=== PATIENT | male | born 1950 | race Caucasian/White ===

== ENCOUNTER 2020-04-01 16:11 | Outpatient (REF) | payer MEDICARE, SELFPAY ==
--- NOTE | 2020-04-01 16:17 | CT_ITS ---
EXAMINATION: CT CHEST SCREENING CLINICAL INFORMATION: Nicotine dependence COMPARISON: Previous chest CT March 2019 TECHNIQUE: Multidetector volumetric CT imaging of the chest is performed without contrast using low dose technique. Additional 2D coronal and sagittal reformatted images and axial 3D maximum intensity projection (MIP) images are generated on the CT workstation. This CT examination was performed using dose optimization techniques as appropriate, variously including the following: *Automated exposure control *Adjustment of mA and/or kV according to patient size (this includes techniques or standardized protocols for targeted exams where dose is matched to indication/reason for exam; i.e. extremities or head) *Use of iterative reconstruction technique DLP: 74 mGy-cm FINDINGS: LUNGS: The 2 mm left upper lobe nodule axial image 63 series 5 is stable. The previously identified semisolid 3 mm left upper lobe nodule is no longer seen. No new pulmonary nodule is seen. No evidence of emphysema interstitial lung disease or bronchiectasis is seen. There is no endobronchial or endotracheal lesion. MEDIASTINUM: There is minimal coronary artery calcification. The heart does not appear enlarged. The ascending thoracic aorta is slightly dilated measuring 4.2 cm. The aortic arch and descending thoracic aorta are upper normal in size measuring 3 cm. PLEURA: There is no pleural effusion. No pleural mass or thickening. AXILLA: No lymphadenopathy. UPPER ABDOMEN: There are postsurgical changes from gastric sleeve procedure. OSSEOUS STRUCTURES: There are mild degenerative changes of the spine. IMPRESSION: Stable 2 mm left upper lobe nodule. Previously identified 3 mm semisolid left upper lobe nodule is no longer seen. Minimal coronary artery calcification. Slightly dilated ascending thoracic aorta. Postoperative change from gastric sleeve procedure. ASSESSMENT: Lung-RADS category 2: Benign RECOMMENDATION: Annual low-dose chest CT follow-up recommended.
== END 2020-04-01 16:12 | disposition home or self-care (01) ==
LOC: HO.CT 16:11
PROVIDERS: PCP Nurse Practitioner Family; Visit Provider Physician Assistant Medical
DX: Z87.891 Personal history of nicotine dependence (principal)
CPT/HCPCS: 71250

== ENCOUNTER 2020-04-24 07:10 | Outpatient (REF) | payer MEDICARE, SELFPAY ==
[2020-04-24 08:47] LABS: Alanine Aminotransferase 31 U/L (0-40); Albumin Level 4.4 g/dL (3.5-5.0); Alkaline Phosphatase 49 U/L (39-117); Anion Gap 11 (12-20); Aspartate Amino Transferase 31 U/L (5-37); Bilirubin Total 0.4 mg/dL (0.0-1.0); Blood Urea Nitrogen 16 mg/dL (9-16); Calcium 8.5 mg/dL (8.4-10.2); Carbon Dioxide 31 mmol/L (22-29); Chloride 105 mmol/L (96-108); Cholesterol 150 mg/dL; Estimated Glomerular Filt Rate > 60; Glucose Random 113 mg/dL (60-115); HDL Cholesterol 51 mg/dL; LDL Cholesterol Calculated 79 mg/dl; Potassium 4.5 mmol/l (3.3-5.1); Sodium 142 mmol/L (135-145); Total Protein 6.5 g/dL (6.5-8.0); Triglycerides 104 mg/dL; Unsaturated Iron Binding 242 ug/dL
[2020-04-24 08:52] LABS: Iron 101 mcg/dL (45-160); Percent Iron Saturation 29 % (15-50); Total Iron Binding Capacity 343 mcg/dL (228-428)
[2020-04-24 09:08] LABS: Prostate Specific Antigen 2.15 ng/mL (<0.05-4.0); TSH reflex Free T4 0.84 mIU/mL (0.32-4.0)
[2020-04-24 09:27] LABS: Creatinine Urine 215.22 mg/dL; Microalbum/Creatinine Ratio Ur 8.8 ug/mg cr
== END 2020-04-24 07:11 | disposition home or self-care (01) ==
LOC: HO.LAB 07:10
PROVIDERS: Visit Provider Nurse Practitioner Family
DX: Z12.5 Encounter for screening for malignant neoplasm of prostate (principal); E11.9 Type 2 diabetes mellitus without complications
CPT/HCPCS: 80053; 80061; 82043; 83540; 84153; 84443

== ENCOUNTER 2020-11-27 14:40 | Outpatient (REF) | payer MEDICARE, SELFPAY ==
--- NOTE | ~2020-11-27 | XR_ITS ---
EXAMINATION: XR FOOT, LEFT CLINICAL INFORMATION: Superficial foreign body left foot. COMPARISON: Radiographs left foot 01/22/2013 TECHNIQUE: AP, lateral, and oblique views of the left foot. FINDINGS: There is no acute or healing fracture, dislocation, destructive process. No periostitis. Bony mineralization is normal. There are posterior and plantar calcaneal spurs. The retrocalcaneal recess is preserved. The subtalar joint is unremarkable. Small cyst again noted medial base first distal phalanx. There is no visible radiopaque soft tissue foreign body. No gas tracking in the soft tissues. XR/XR foot LT min 3V IMPRESSION: 1. No fracture or destructive process. 2. Posterior and plantar calcaneal spurs. 3. No visible radiopaque soft tissue foreign body.
== END 2020-11-27 14:41 | disposition home or self-care (01) ==
LOC: HO.HMGCX 14:40
PROVIDERS: PCP Nurse Practitioner Family; Visit Provider Nurse Practitioner Family
DX: S90.852A Superficial foreign body, left foot, initial encounter (principal)
CPT/HCPCS: 73630

== ENCOUNTER 2021-01-30 06:06 | Outpatient (REF) | payer MEDICARE, SELFPAY ==
[2021-01-30 07:28] LABS: MANUAL DIFF FLAG NO
[2021-01-30 07:32] LABS: Glucose Urine UA NEG (NEG); Leukocyte Esterase Urine NEG (NEG); Nitrite Urine NEG (NEG); Urine Blood NEG (NEG); Urine Ketones NEG (NEG); Urine Protein NEG (NEG-TRACE)
[2021-01-30 07:33] LABS: Basophils Absolute Auto 0.1 X10*3/uL (0.0-0.2); Basophils Percent Auto 0.8 % (0-2); Eosinophils Absolute Auto 0.3 X10*3/uL (0.0-0.4); Eosinophils Percent Auto 5.1 % (0-4); Hematocrit 42.4 % (42-52); Hemoglobin 14.1 g/dl (14.0-18.0); Imm Gran Abs Auto 0.03 X10*3/uL (0.00-0.03); Imm Gran Pct Auto 0.5 % (0.0-0.4); Lymphocytes Absolute Auto 1.7 X10*3/uL (1.2-4.9); Lymphocytes Percent Auto 27.1 % (20-40); Mean Corpuscular HGB Conc 33.3 g/dl (31.0-36.0); Mean Corpuscular Volume 96.4 fL (80-98); Mean Platelet Volume 10.2 fL (9.4-12.4); Monocytes Absolute Auto 0.7 X10*3/uL (0.1-1.2); Monocytes Percent Auto 10.7 % (2-11); Neutrophils Absolute Auto 3.6 X10*3/uL (2.0-8.3); Neutrophils Percent Auto 55.8 % (45-73); Platelet Count 253 X10*3/uL (160-400); Red Cell Distribution Width 11.9 % (11.0-16.0); White Blood Count 6.4 X10*3/uL (4.8-10.8)
[2021-01-30 07:34] LABS: Appearance Urine CLEAR; Color Urine YELLOW
[2021-01-30 07:43] LABS: Estimated Average Glucose 128 mg/dL; Hemoglobin A1c % 6.1 %
[2021-01-30 07:54] LABS: Alanine Aminotransferase 36 U/L (0-40); Albumin Level 4.6 g/dL (3.5-5.0); Alkaline Phosphatase 56 U/L (39-117); Anion Gap 12 (12-20); Aspartate Amino Transferase 28 U/L (5-37); Bilirubin Total 0.7 mg/dL (0.0-1.0); Blood Urea Nitrogen 15 mg/dL (9-16); Calcium 9.5 mg/dL (8.4-10.2); Carbon Dioxide 31 mmol/L (22-29); Chloride 104 mmol/L (96-108); Cholesterol 170 mg/dL; Estimated Glomerular Filt Rate > 60; Glucose Fasting 120 mg/dL (60-99); HDL Cholesterol 55 mg/dL; Iron 139 mcg/dL (45-160); LDL Cholesterol Calculated 87 mg/dl; Percent Iron Saturation 41 % (15-50); Potassium 4.7 mmol/L (3.3-5.1); Sodium 142 mmol/L (135-145); Total Iron Binding Capacity 341 mcg/dL (228-428); Total Protein 6.9 g/dL (6.5-8.0); Triglycerides 140 mg/dL; Unsaturated Iron Binding 202 ug/dL
[2021-01-30 08:15] LABS: TSH reflex Free T4 1.76 uIU/mL (0.32-4.0)
[2021-01-30 08:17] LABS: Ferritin 113 ng/mL (20-250)
[2021-01-31 14:50] LABS: Folate 14.1 ng/mL (> or = 4.0); Vitamin B12 961 pg/mL (200-900)
== END 2021-01-30 06:07 | disposition home or self-care (01) ==
LOC: HO.LAB 06:06
PROVIDERS: PCP Nurse Practitioner Family; Visit Provider Nurse Practitioner Family
DX: E11.9 Type 2 diabetes mellitus without complications (principal); R53.83 Other fatigue
CPT/HCPCS: 36415; 80053; 80061; 81003; 82607; 82728; 82746; 83036; 83540; 84443; 85025

== ENCOUNTER → 2021-03-02 12:30 | Outpatient (BNVA) | payer MEDICARE, SELFPAY | PROVIDERS: PCP Nurse Practitioner Family; Referring Provider Nurse Practitioner Family; Visit Provider Surgery | DX: Z01.818 Encounter for other preprocedural examination (principal); K43.2 Incisional hernia without obstruction or gangrene; Z98.84 Bariatric surgery status | CPT/HCPCS: 99202 ==

== ENCOUNTER 2021-03-06 | Outpatient (REF) | payer MEDICARE, SELFPAY ==
--- NOTE | 2021-03-06 07:06 | ECG_ITS ---
Test Reason : sob Blood Pressure : / mmHG Vent. Rate : 074 BPM Atrial Rate : 074 BPM P-R Int : 130 ms QRS Dur : 108 ms QT Int : 396 ms P-R-T Axes : 035 012 -57 degrees QTc Int : 439 ms Normal sinus rhythm ST & T wave abnormality, consider inferior ischemia Abnormal ECG No previous ECGs available Referred By: Pamela Anne Electronically Signed By:MAGO JOHNSON
[2021-03-06 07:35] LABS: MANUAL DIFF FLAG NO
[2021-03-06 07:41] LABS: Basophils Absolute Auto 0.1 X10*3/uL (0.0-0.2); Basophils Percent Auto 0.9 % (0-2); Eosinophils Absolute Auto 0.3 X10*3/uL (0.0-0.4); Eosinophils Percent Auto 4.3 % (0-4); Hematocrit 40.3 % (42-52); Hemoglobin 13.7 g/dl (14.0-18.0); Imm Gran Abs Auto 0.02 X10*3/uL (0.00-0.03); Imm Gran Pct Auto 0.3 % (0.0-0.4); Lymphocytes Absolute Auto 1.7 X10*3/uL (1.2-4.9); Lymphocytes Percent Auto 29.1 % (20-40); Mean Corpuscular Hemoglobin 32.6 pg (27.0-33.0); Mean Platelet Volume 9.9 fL (9.4-12.4); Monocytes Absolute Auto 0.6 X10*3/uL (0.1-1.2); Monocytes Percent Auto 10.7 % (2-11); Neutrophils Absolute Auto 3.2 X10*3/uL (2.0-8.3); Neutrophils Percent Auto 54.7 % (45-73); Platelet Count 232 X10*3/uL (160-400); Red Cell Distribution Width 11.9 % (11.0-16.0); White Blood Count 5.8 X10*3/uL (4.8-10.8)
[2021-03-06 07:48] LABS: INTERNATIONAL NORM RATIO 0.9 (0.9-1.1); Prothrombin Time 10.7 SEC (9.9-13.0)
[2021-03-06 07:51] LABS: Partial Thromboplastin Time 38.8 SEC (24.1-38.0)
[2021-03-06 07:57] LABS: Anion Gap 11 (12-20); Blood Urea Nitrogen 13 mg/dL (9-16); Calcium 9.1 mg/dL (8.4-10.2); Carbon Dioxide 29 mmol/L (22-29); Chloride 104 mmol/L (96-108); Estimated Glomerular Filt Rate > 60; Glucose Random 111 mg/dL (60-115); Potassium 4.4 mmol/L (3.3-5.1); Sodium 140 mmol/L (135-145)
[2021-03-06 08:25] LABS: Vitamin D 25-OH Total 40.8 ng/mL (>30)
[2021-03-06 09:10] LABS: Appearance Urine CLEAR; Color Urine YELLOW; Glucose Urine UA NEG (NEG); Leukocyte Esterase Urine NEG (NEG); Nitrite Urine NEG (NEG); Specific Gravity - Urine 1.025 (1.005-1.025); Urine Blood NEG (NEG); Urine Ketones NEG (NEG); Urine Protein NEG (NEG-TRACE)
[2021-03-10 16:10] LABS: Zinc 63 mcg/dL (60-130)
[2021-03-12 11:26] LABS: Vitamin B1 17 nmol/L (8-30)
[2021-03-13 00:11] LABS: Vitamin A 57 mcg/dL (38-98)
--- NOTE | 2021-03-13 14:20 | HO.ANESPROP2 ---
HPI - Anesthesia Eval Consult details Narrative: 70yo M for Hernia Repair Incisional laparoscopic with mesh possible open Abnormal EKG... Pt sent for ECHO and Stress. Lexiscan stress and nuc images abnormal. 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 Surgery cx'd. Urinary retention - new onset - with joseph catheter placed 03/08. Urology appt on 03/17 for trial to void PMFSH Active Problems Active Problems: All Active Problems (Updated 03/09/21 @ 09:18 by [employer] [facility]) Urinary retention (Acute) Shortness of breath (Acute) Intestinal malabsorption following gastrectomy (Acute) Preoperative examination (Acute) Incisional hernia (Acute) Fatigue (Acute) Diabetes (Acute) Encounter for annual wellness visit (AWV) in Medicare patient (Acute) Foreign body in foot, left (Acute) Past Medical History Medical History (Updated 03/18/21 @ 08:58 by [employer] [facility]) Acute urinary retention BPH (benign prostatic hyperplasia) Chronic fatigue COPD (chronic obstructive pulmonary disease) Diabetes History of DVT (deep vein thrombosis) HTN (hypertension) Minimal depression Neck pain Obesity JENNY (obstructive sleep apnea) Osteoarthritis Uncontrolled hypertension Family History Family History Father No problems noted. Mother No problems noted. Brother No problems noted. Son No problems noted. Daughter No problems noted. Sister No problems noted. Sister No problems noted. Sister No problems noted. Family history of problems with anesthesia: No Surgical History Surgical History History of resection of small bowel History of sleeve gastrectomy History of tonsillectomy History of vasectomy History of ventral hernia repair Hx of colonoscopy Hx of right knee surgery S/P excision of lipoma History of Problems with Anesthesia: Yes ([facility] to [facility]) Social History Social History Household Members: None Are you a primary day care teacher to a significant other at home: No Do you presently have visiting nurse or other home services: No Alcohol intake: never Patient Tobacco Use Status: Former Tobacco user Quit Date: 2009 Use of substances other than those prescribed or required for medical reasons: No Advance Directives: No Advance Directives Information Provided: No Narrative Narrative: No recent ill No CP. SOB/VERGARA at baseline d/t COPD. Meds Allergies Allergy/AdvReac Type Severity Reaction Status Date / Time latex [LATEX] Allergy Intermediate RASH Verified 03/18/21 05:46 lisinopril AdvReac Nausea and Verified 03/18/21 05:46 Vomiting Home Medications Medication Instructions Recorded Confirmed Last Taken Type ascorbic acid (vitamin C) 500 mg 1,000 mg PO DAILY cap 03/02/21 03/17/21 Unknown History capsule aspirin 81 mg tablet,delayed 81 mg PO DAILY 03/02/21 03/17/21 Unknown History release cholecalciferol (vitamin D3) 125 4,000 unit PO DAILY cap 03/02/21 03/17/21 Unknown History mcg (5,000 unit) capsule cyanocobalamin (vitamin B-12) 1,000 mcg PO DAILY cap 03/02/21 03/17/21 Unknown History 5,000 mcg capsule ferrous sulfate 325 mg (65 mg 325 mg PO DAILY 03/02/21 03/17/21 Unknown History iron) tablet glucosamine HCl 500 mg tablet 1,000 mg PO DAILY tab 03/02/21 03/17/21 Unknown History naproxen sodium 220 mg capsule 440 mg PO DAILY cap 03/02/21 03/17/21 Unknown History vitamin B complex (Complex B-100) 1 tab PO DAILY 03/02/21 03/17/21 Unknown History tamsulosin 0.4 mg capsule 0.4 mg PO DAILY 03/17/21 03/17/21 Unknown History Exam Exam Date and Time: March 13, 2021 1420 Pertinent Lab Results Pertinent Lab Results: Laboratory Tests 03/06/21 03/06/21 03/06/21 07:10 07:10 07:10 WBC 5.8 RBC 4.20 L Hgb 13.7 L Hct 40.3 L MCV 96.0 MCH 32.6 MCHC 34.0 RDW 11.9 Plt Count 232 MPV 9.9 Immature Gran % (Auto) 0.3 Neut % (Auto) 54.7 Lymph % (Auto) 29.1 Rice % (Auto) 10.7 Eos % (Auto) 4.3 H Baso % (Auto) 0.9 Lymph # (Auto) 1.7 Rice # (Auto) 0.6 Eos # (Auto) 0.3 Baso # (Auto) 0.1 Abs Immat Gran (auto) 0.02 Absolute Neuts (auto) 3.2 Absolute Nucleated RBC 0.000 Nucleated RBC % (auto) 0.0 PT 10.7 INR 0.9 APTT 38.8 H Sodium 140 Potassium 4.4 Chloride 104 Carbon Dioxide 29 Anion Gap 11 L BUN 13 Creatinine 0.75 Estim Creat Clear Calc TNP Estimated GFR > 60 Random Glucose 111 Calcium 9.1 Vitamin A Vitamin B1 25-OH Vitamin D Total 40.8 Urine Color Urine Appearance Urine pH Ur Specific [place] Urine Protein Urine Glucose (UA) Urine Ketones Urine Blood Urine Nitrite Ur Leukocyte Esterase Zinc Blood Type Antibody Screen 03/06/21 03/06/21 03/06/21 07:10 07:10 07:13 WBC RBC Hgb Hct MCV MCH MCHC RDW Plt Count MPV Immature Gran % (Auto) Neut % (Auto) Lymph % (Auto) Rice % (Auto) Eos % (Auto) Baso % (Auto) Lymph # (Auto) Rice # (Auto) Eos # (Auto) Baso # (Auto) Abs Immat Gran (auto) Absolute Neuts (auto) Absolute Nucleated RBC Nucleated RBC % (auto) PT INR APTT Sodium Potassium Chloride Carbon Dioxide Anion Gap BUN Creatinine Estim Creat Clear Calc Estimated GFR Random Glucose Calcium Vitamin A 57 Vitamin B1 17 25-OH Vitamin D Total Urine Color Urine Appearance Urine pH Ur Specific [place] Urine Protein Urine Glucose (UA) Urine Ketones Urine Blood Urine Nitrite Ur Leukocyte Esterase Zinc 63 Blood Type O Positive Antibody Screen NEGATIVE 03/06/21 08:59 WBC RBC Hgb Hct MCV MCH MCHC RDW Plt Count MPV Immature Gran % (Auto) Neut % (Auto) Lymph % (Auto) Rice % (Auto) Eos % (Auto) Baso % (Auto) Lymph # (Auto) Rice # (Auto) Eos # (Auto) Baso # (Auto) Abs Immat Gran (auto) Absolute Neuts (auto) Absolute Nucleated RBC Nucleated RBC % (auto) PT INR APTT Sodium Potassium Chloride Carbon Dioxide Anion Gap BUN Creatinine Estim Creat Clear Calc Estimated GFR Random Glucose Calcium Vitamin A Vitamin B1 25-OH Vitamin D Total Urine Color YELLOW Urine Appearance CLEAR Urine pH 6.0 Ur Specific [place] 1.025 Urine Protein NEG Urine Glucose (UA) NEG Urine Ketones NEG Urine Blood NEG Urine Nitrite NEG Ur Leukocyte Esterase NEG Zinc Blood Type Antibody Screen Laboratory Tests 01/30/21 06:15 Hemoglobin A1c % 6.1 Narrative Narrative: EKG 02/2021 Vent. Rate : 074 BPM ? ? Atrial Rate : 074 BPM ?? P-R Int : 130 ms? QRS Dur : 108 ms ? ? QT Int : 396 ms ? ? ? P-R-T Axes : 035 012 -57 degrees ?? QTc Int : 439 ms ? Normal sinus rhythm ST & T wave abnormality, consider inferior ischemia Abnormal ECG No previous ECGs available Assessment and Plan Final Anesthetic Review Family History of Problems with Anesthesia: No History of Problems with Anesthesia: Yes ([facility] to [facility])
[2021-03-13 14:41] VITALS: BP 169/91; PULSE 95; RESP 16; O2SAT 97; BMI 35.9
== END 2021-03-06 00:01 | disposition home or self-care (01) ==
LOC: HO.LAB
PROVIDERS: Absent Provider Surgery; PCP Nurse Practitioner Family; Visit Provider Surgery
DX: Z53.09 Procedure and treatment not carried out because of other contraindication (principal); K43.2 Incisional hernia without obstruction or gangrene; R33.9 Retention of urine, unspecified; N40.1 Benign prostatic hyperplasia with lower urinary tract symptoms; N13.8 Other obstructive and reflux uropathy; R06.02 Shortness of breath; K91.2 Postsurgical malabsorption, not elsewhere classified; R53.83 Other fatigue; E11.9 Type 2 diabetes mellitus without complications; I10 Essential (primary) hypertension; T88.59XA Other complications of anesthesia, initial encounter; R94.31 Abnormal electrocardiogram [ECG] [EKG]; Z87.891 Personal history of nicotine dependence; Z90.3 Acquired absence of stomach [part of]; Z88.8 Allergy status to other drugs, medicaments and biological substances; Z91.040 Latex allergy status; Z79.899 Other long term (current) drug therapy
CPT/HCPCS: 36415; 80048; 81003; 82306; 84425; 84590; 84630; 85025; 85610; 85730; 86850; 86900; 86901; 93005

== ENCOUNTER → 2021-03-16 07:15 | Outpatient (REF) | payer MEDICARE, SELFPAY ==
--- NOTE | 2021-03-16 07:22 | CA_ITS ---
Transthoracic Echocardiogram Patient (Last, First, Middle): Zaki Ramirez S Gender: Male Date of : 1950 Age: 70 Procedure Date: 03/16/2021 Procedure Type: Transthoracic Echocardiogram Location: OP Height: 177.8 cm Weight: 111.13 kg BSA: 2.28 m2 Heart Rate: bpm BP: 150 / 90 mmHg Claim Review Medical Director: CELINE Referring MD: Pamela Anne MD Symptoms: R94.31 - Abnormal electrocardiogram [ECG] [EKG] Study Quality: Technically Difficult/Contrast ECG Rhythm: Sinus Conclusions: - The left ventricular systolic function is low normal. The calculated ejection fraction is 54% by biplane method. - No obvious valvular pathology seen on this study. Findings Procedure Information Contrast agent, definity, is being given per protocol without apparent complications. Left Ventricle Normal left ventricular cavity size. There is mildly increased left ventricular wall thickness. The left ventricular systolic function is low normal. The calculated ejection fraction is 54% by biplane method. There is no evidence of regional wall motion abnormalities. Diastolic function is normal for age. Right Ventricle Normal right ventricular cavity size and systolic function. Atria Both atria are normal in size. Aortic Valve The aortic valve was not well visualized. There is mild calcification of the aortic valve. There is no aortic valve stenosis. There is trace (trivial) aortic valve regurgitation. Mitral Valve The mitral valve appears normal. There is no mitral valve regurgitation. There is no mitral valve stenosis. Pulmonic Valve The pulmonic valve was not well visualized. Tricuspid Valve Likely normal tricuspid valve structure and function. There is no tricuspid valve regurgitation. Tricuspid regurgitation envelope is inadequate for calculation of right ventricular systolic pressure. Great Vessels Top normal ascending aortic size at 3.9cm. Venous The inferior vena cava is normal in size and collapses greater than 50% with inspiration. Pericardium/Pleural There is no evidence of pericardial effusion. Prior Study Comparison No prior study available for comparison. Recommendations, Care & Conclusions No obvious valvular pathology seen on this study. Measurements 2D Linear Measurements IVSd: 1.14 0.6-0.9/0.6-1.0 cm LVIDd: 5.33 3.9-5.3/4.2-5.9 cm LVIDd Index: 2.34 2.4-3.2/2.2-3.1 cm/m2 LVIDs: 4.31 2.0-3.6 cm LVPWd: 1.10 0.7-1.1 cm Ao Root: 3.80 2.1-3.5 cm LA Diam: 3.50 2.7-3.8/3.0-4.0 cm LAIDs Index: 1.54 1.5-2.3 cm/m2 LV Mass: 293.67 67-162/88-224 g LV Mass Index: 128.80 43-95/49-115 g/m2 LVOT Diam: 2.20 3.0+(-)1.3 cm 2D Systolic Function EF 4C: 55.60 >55% EF 2C: 50.40 >55% EF BiP: 54.10 >55% Mitral Valve MV Pk E: 0.69 MV PK A: 0.72 MV Decel Time: 202.00 E/A: 1.00 E'Lateral: 11.30 E'Medial: 8.05 E/E' Med: 8.50 E/E' Lat: 6.10 PHT: 59.00 MVA PHT: 3.73 Decel Tom[place]kins: 3.40 Aortic Valve AoV Pk Dagoberto: 1.33 AoV Mn Dagoberto: 0.86 AoV VTI: 0.27 AoV Pk Grad: 7.00 Aov Mn Grad: 3.00 MARAL Cont.VTI: 2.75 LVOT LVOT Pk Dagoberto: 0.87 LVOT Mn Dagoberto: 0.56 LVOT VTI: 0.20 LVOT Pk Grad: 3.00 LVOT Mn Grad: 1.00 LVOT Diam: 2.20 LVOT Area: 3.80 Diastolic Function MV Pk E: 0.69 MV Pk A: 0.72 E/A: 1.00 E'Medial: 8.05 E/E' Med: 8.50 E' Laterial: 11.30 E/E' Lat: 6.10 Right Ventricle TAPSE (mm): 3.00 TVS' Dagoberto: 15.00 Tricuspid Valve RA Press: 3.00 Great Vessels Aorta Ao Root-2D: 3.80 2.0-3.7 cm Ao Asc: 3.90 2.1-3.4 cm Ao Arch: 2.90 Updated in Other Vendor System with Status of Final Chadd Koroma MD electronically signed on 03/16/2021 11:08:14 AM with status of Final
--- NOTE | 2021-03-16 07:22 | CA_ITS ---
Acquisition Time: 2021-03-16 08:26:11 Total Exercise Time: 00:04:00 Test Indications: Pre-Op Evaluation Medications: SEE CHART Protocol: PATITO Max HR: 137 BPM 90% of Pred: 152 BPM Max BP: 230/080 mmHG Max Work Load: 5.8 METS Exercise stress test with exercise 4 min of Patito protocol, achieving 90% MPHR, with pt report of severe sob, 2/10 mid chest pressure, with occassional isolated PVCs during exercise, then frequent PVC, cuplets, one ventricular triplet and bigeminy during recovery, with BP 166/78 at baseline and rise to 230/80 at peak exercise. with EKG changes meeting criteria for ischemia with 1.5 mm horizontal to downsloping ST depression inferiorly and V4-V6 with [address] elevation aVR. His EKG at baseline dose have downsloping ST in leads III, aVF, V4-V6 which is similar to prior stress EKG. Test reviewed with Dr Koroma. Will send message to Dr Benitez. Recommend pharmacological stress test for further evaluation Referred By: Pamela Benitez Overread By: DAVID FLETCHER
== END ==
LOC: HO.CARD 07:15
PROVIDERS: PCP Nurse Practitioner Family; Visit Provider Surgery
DX: Z01.818 Encounter for other preprocedural examination (principal); R06.02 Shortness of breath; I10 Essential (primary) hypertension; R94.31 Abnormal electrocardiogram [ECG] [EKG]
CPT/HCPCS: 93017; 93306; Q9957

== ENCOUNTER → 2021-03-17 07:25 | Outpatient (REF) | payer MEDICARE, SELFPAY ==
--- NOTE | ~2021-03-17 | NM_ITS ---
Myocardial perfusion study Indication: Abnormal stress test, preoperative cardiovascular risk patient to evaluate for myocardial ischemia Technique: The patient was brought in for a Lexiscan perfusion study on 03/17/2021. Patient performed low-level exercise and was injected 0.4 mg of Lexiscan intravenously. Within a minute of injection, 45 mCi of sestamibi was given intravenously. Images were obtained using the SPECT gamma camera interlaced with the gating device. Images were obtained in supine position. Resting perfusion study was performed on 03/18/2021. Patient was administered 45 mCi of sestamibi intravenously at rest. Images were then obtained in supine position. Images obtained with and without CT attenuation. Total DLP 124 mGy-cm. Images were processed with the software and compared side to side in short axis, horizontal long axis and vertical long axis views. Findings: The stress perfusion study showed nonattenuated images show severely reduced uptake in the inferior and moderately reduced uptake in the apex of the LV myocardium. Is also moderately reduced uptake in the basal inferolateral attenuated corrected images are suboptimal images shows diffusely reduced uptake in multiple segments of the LV myocardium. This finding is most likely due to intense subdiaphragmatic uptake interfering with inferior wall uptake.. The gated study shows normal LV systolic function with calculated LVEF of 36%. LV cavity is moderately dilated size. The gated study shows diffusely reduced wall thickening and contraction with more prominent hypokinesis of the inferior segments. Resting study shows nontender images show minimally improved uptake in the inferior wall of the LV myocardium. Gating at rest reveals diffuse wall motion with ejection fraction at 40%. The findings are consistent with possible severe ischemia of the inferior wall. There was less likely, an. NM/NM cardiolite stress test Impression: 1. Myocardial perfusion imaging study shows [possible severe inferior wall ischemia 2. Gated LVEF is 36% with stress and 40% with rest 3. Transient ischemic dilatation present EKG is nondiagnostic for ischemia
--- NOTE | 2021-03-17 07:32 | CA_ITS ---
Acquisition Time: 2021-03-17 07:34:44 Total Exercise Time: 00:02:00 Test Indications: Abnormal Treadmill Test Medications: LOSARTAN FUROSEMIDE GABAPENTIN ASA Protocol: LEXISCAN Max HR: 118 BPM 77% of Pred: 152 BPM Max BP: 172/090 mmHG Max Work Load: 1.0 METS Pharmacological stress test with Lexiscan injection, while sitting and kicking his legs, with report of 3-4/10 left chest tightness, mild sob, with isolated PVCs and ventricular cuplets, with normotensive response to injection, with nondiagnostic EKG for ischemia due to baseline abnormality. In recovery he reported headache that was treated with Aminophylline 75mg IVP to reverse Lexiscan with improvement in symptom. Nuclear images pending. Test reviewed with Dr Koroma. Referred By: Pamela Anne Overread By: DAVID FELTCHER
== END ==
LOC: HO.CARD 07:25
PROVIDERS: Visit Provider Surgery
DX: Z01.818 Encounter for other preprocedural examination (principal); R06.02 Shortness of breath; I10 Essential (primary) hypertension; R94.39 Abnormal result of other cardiovascular function study
CPT/HCPCS: 78452; 93017; A9500; J0280; J2785

== ENCOUNTER 2021-03-18 05:33 | Emergency (ER) | payer MEDICARE, SELFPAY ==
[2021-03-18 05:47] VITALS: BP 188/93; PULSE 117; RESP 16; TEMP 37.1; O2SAT 96; BMI 34.8
--- NOTE | 2021-03-18 06:33 | PC.NURSE ---
pt has been up ambulating to the bathroom and has voided a very small amount approx 10cc. yellow. pt was bladder scan after for 920cc. pt has a nuc med appointment today at 0745 for the other half of his stress test that was done yesterday.
[2021-03-18 07:03] LABS: Appearance Urine CLEAR; Color Urine YELLOW; Glucose Urine UA NEG (NEG); Leukocyte Esterase Urine NEG (NEG); Nitrite Urine NEG (NEG); PH 5.5 (5.0-8.0); UACC Culture Trigger NO; Urine Blood 3+ (NEG); Urine Ketones NEG (NEG); Urine Protein TRACE MG/DL (NEG-TRACE)
[2021-03-18 07:11] LABS: Mucus Urine 1+ /LPF; RBC Urine 50-75 /HPF (0); Squamous Epithelial Cell Urine TRACE /LPF; WBC Urine 0-2 /HPF (0-4)
--- NOTE | 2021-03-18 07:21 | ED.MALEGU ---
HPI - Male Genitourinary General Chief complaint: Urogenital-Male Stated complaint: pain from catheter removal Time Seen by Provider: 03/18/21 06:33 Source: patient Mode of arrival: ambulatory Limitations: no limitations History of Present Illness HPI Narrative: 70-year-old male who presents emergency department for evaluation of urinary retention. The patient states that on 03/08/2021 had urinary retention and had a Garcia catheter placed. He states that time he retained 1200 cc of urine, the catheter was in until yesterday and was removed by his urologist at [facility]. He states that he did fine initially but then notice that he was urinating small amounts frequently. He states this morning he was unable to urinate developed moderate to severe, constant, pressure-like pain in his suprapubic area. He did not have fever, chills or dysuria. He denied lightheadedness dizziness or back pain. On presentation to the emergency department the patient had a bladder scan had 920 cc of urine in his bladder, he was unable to void therefore Garcia catheter was placed by the nursing staff. The patient's pain resolved after the catheter was placed. Patient states that there was some blood that initially came out of the catheter but then the area has been yellow and clear. The patient is scheduled for a incisional hernia repair but he states that he had an abnormal EKG knees undergoing testing by Cardiology in order to get cleared for surgery. 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 Related Data Home Medications Medication Instructions Recorded Confirmed ascorbic acid (vitamin C) 500 mg 1,000 mg PO DAILY cap 03/02/21 03/17/21 capsule aspirin 81 mg tablet,delayed 81 mg PO DAILY 03/02/21 03/17/21 release cholecalciferol (vitamin D3) 125 4,000 unit PO DAILY cap 03/02/21 03/17/21 mcg (5,000 unit) capsule cyanocobalamin (vitamin B-12) 1,000 mcg PO DAILY cap 03/02/21 03/17/21 5,000 mcg capsule ferrous sulfate 325 mg (65 mg 325 mg PO DAILY 03/02/21 03/17/21 iron) tablet glucosamine HCl 500 mg tablet 1,000 mg PO DAILY tab 03/02/21 03/17/21 naproxen sodium 220 mg capsule 440 mg PO DAILY cap 03/02/21 03/17/21 vitamin B complex (Complex B-100) 1 tab PO DAILY 03/02/21 03/17/21 tamsulosin 0.4 mg capsule 0.4 mg PO DAILY 03/17/21 03/17/21 Previous Rx's Medication Instructions Recorded gabapentin 300 mg capsule 900 mg PO BEDTIME #270 cap 05/21/20 losartan 100 mg tablet 100 mg PO DAILY #90 tab 06/04/20 furosemide 40 mg tablet 40 mg PO DAILY #90 tab 11/24/20 amlodipine 5 mg tablet 5 mg PO DAILY #30 tab 03/17/21 Allergies Allergy/AdvReac Type Severity Reaction Status Date / Time latex [LATEX] Allergy Intermediate RASH Verified 03/18/21 05:46 lisinopril AdvReac Nausea and Verified 03/18/21 05:46 Vomiting Review of Systems Review of Systems: Yes all other systems are reviewed and are negative PMF Past Medical History Medical History Acute urinary retention Chronic fatigue COPD (chronic obstructive pulmonary disease) Diabetes History of DVT (deep vein thrombosis) HTN (hypertension) Minimal depression Neck pain Obesity JENNY (obstructive sleep apnea) Osteoarthritis Uncontrolled hypertension Surgical History History of resection of small bowel History of sleeve gastrectomy History of tonsillectomy History of vasectomy History of ventral hernia repair Hx of colonoscopy Hx of right knee surgery S/P excision of lipoma Family History Family History Father No problems noted. Mother No problems noted. Brother No problems noted. Son No problems noted. Daughter No problems noted. Sister No problems noted. Sister No problems noted. Sister No problems noted. Social History Social History Household Members: None Are you a primary family day care worker to a significant other at home: No Do you presently have visiting nurse or other home services: No Alcohol intake: current Alcohol intake frequency: holidays/special occasions only Patient Tobacco Use Status: Former Tobacco user Quit Date: 2009 Advance Directives: No Advance Directives Information Provided: No Physical Exam Vital Signs: Vital Signs: Last Vital Signs Temp 98.7 F 03/18/21 05:47 Pulse 117 H 03/18/21 05:47 Resp 16 03/18/21 05:47 BP 188/93 H 03/18/21 05:47 Pulse Ox 96 03/18/21 05:47 Body Mass Index 34.8 Const: General: cooperative and no acute distress Orientation/consciousness: oriented to person and oriented to place Limitations: no limitations HENMT: Head: Yes normal to inspection, Yes normocephalic and Yes atraumatic Ears: external ears normal General nose exam: Normal external nose present Face and sinus: Yes normal facial exam Mouth: Normal oral and palatal mucosa present Throat: Yes posterior oropharynx normal Eyes: General: appearance normal, both eyes and all related structures Pupils: Equal, round and reactive pupils present Neck: Neck: Yes normal visual inspection, Yes no lymphadenopathy, Yes trachea midline and Yes supple Chest: Chest palpation & inspection: normal inspection of the chest and normal palpation of entire chest wall Resp: Effort & Inspection: normal respiratory effort and able to speak in complete sentences Auscultation: clear to auscultation bilaterally Cardio: Rate: regular rate Rhythm: regular rhythm Heart sounds: S1 normal heart sound present, S2 normal heart sound present and no murmurs GI: Inspection: Yes normal to inspection Palpation (GI): Soft to palpation, Tenderness to palpation present (GI) (Midline incision,, mild tenderness) and no guarding Auscultation: normal bowel sounds : General: Yes no CVA tenderness Back/Spine/Pelvis: Back: no CVA tenderness Skin: General skin exam: no rashes or lesions noted Neuro: General: oriented to person and oriented to place Cranial nerves: Yes CN's II-XII intact bilaterally and Yes Equal, round and reactive pupils present Cognition (Neuro): normal cognition Motor exam (neuro): 5/5 motor strength present throughout Extrem: General: Yes normal to inspection Psych: Appearance: grossly normal Speech and movement: Normal speech and movement present Affect: normal affect Attitude: cooperative Thought process: Normal thought process present Thought content: Normal thought content present Course Course Course Narrative: 70-year-old male who presents emergency department for evaluation of urinary retention. Bladder scan did reveal 920 cc of urine in his bladder, Garcia catheter was placed by the nursing staff and the patient put out approximately 1 L of urine, initially there is blood in the urine but this cleared and the urine appears to be yellow and clear. Urinalysis did reveal blood but otherwise was unremarkable, there is no evidence for infection. Patient was initially hypertensive but I believe this was secondary to his pain. The patient was discharged home with a leg bag and a large Garcia bag. Patient was advised to contact his urologist to have the catheter removed in 4-7 days. The patient is scheduled for possible hernia repair which I told him he needs to discuss the surgery with his surgeon but I do not think that a Garcia catheter preclude him from getting the surgery. MDM - Male Genitourinary Lab Data Labs: Lab Results 03/18/21 Range/Units 06:54 Urine Color YELLOW Urine Appearance CLEAR Urine pH 5.5 (5.0-8.0) Ur Specific [place] 1.020 (1.005-1.025) Urine Protein TRACE (NEG-TRACE) MG/DL Urine Glucose (UA) NEG (NEG) MG/DL Urine Ketones NEG (NEG) MG/DL Urine Blood 3+ H (NEG) Urine Nitrite NEG (NEG) Ur Leukocyte Esterase NEG (NEG) Urine RBC 50-75 H (0) /HPF Urine WBC 0-2 (0-4) /HPF Ur Squamous Epith Cells TRACE /LPF Urine Bacteria NONE /LPF Urine Mucus 1+ /LPF Discharge Plan Discharge Clinical Impression: Acute urinary retention Patient Disposition: Home, Self-Care Instructions: Garcia Catheter Placement and Care (ED) Additional Instructions: Your bladder scan revealed 920 mL of urine in your bladder. You drained at least 900 mL of urine out of your bladder through the Garcia catheter. You need to keep the Garcia catheter in place for at least 4-7 days, you should follow-up with your urologist to have this removed and discuss further treatment. Your urinalysis did not reveal any evidence of infection, you did have some microscopic blood in your urine but this is not unusual when you have urinary retention. Follow-up with your doctor in 2 days. Please return to the emergency department if your symptoms get worse or if you develop any symptoms that are concerning to you. Prescriptions: No Action gabapentin 300 mg capsule 900 mg PO BEDTIME Qty: 270 RF: 3 losartan 100 mg tablet 100 mg PO DAILY Qty: 90 RF: 3 furosemide 40 mg tablet 40 mg PO DAILY Qty: 90 RF: 1 ascorbic acid (vitamin C) 500 mg capsule 1,000 mg PO DAILY RF: 0 ferrous sulfate 325 mg (65 mg iron) tablet 325 mg PO DAILY RF: 0 cholecalciferol (vitamin D3) 125 mcg (5,000 unit) capsule 4,000 unit PO DAILY RF: 0 cyanocobalamin (vitamin B-12) 5,000 mcg capsule 1,000 mcg PO DAILY RF: 0 glucosamine HCl 500 mg tablet 1,000 mg PO DAILY RF: 0 Complex B-100 Tablet Extended Release 1 tab PO DAILY RF: 0 aspirin 81 mg tablet,delayed release (DR/EC) 81 mg PO DAILY RF: 0 naproxen sodium 220 mg capsule 440 mg PO DAILY RF: 0 tamsulosin 0.4 mg capsule 0.4 mg PO DAILY RF: 0 amlodipine 5 mg tablet 5 mg PO DAILY Qty: 30 RF: 2
[2021-03-18 07:26] VITALS: BP 142/78; PULSE 93; RESP 14; O2SAT 95
== END 2021-03-18 07:38 | disposition home or self-care (01) ==
PROVIDERS: Emergency Provider Emergency Medicine Emergency Medical Services; PCP Nurse Practitioner Family
DX: R33.9 Retention of urine, unspecified (principal); R94.31 Abnormal electrocardiogram [ECG] [EKG]; I10 Essential (primary) hypertension; Z87.891 Personal history of nicotine dependence; Z79.899 Other long term (current) drug therapy
CPT/HCPCS: 51702; 51798; 81001; 99283; 99285

== ENCOUNTER → 2021-04-21 14:12 | Outpatient (BNVA) | payer MEDICARE, SELFPAY | PROVIDERS: PCP Nurse Practitioner Family; Referring Provider Nurse Practitioner Family; Visit Provider Internal Medicine Cardiovascular Disease | DX: Z01.810 Encounter for preprocedural cardiovascular examination (principal); I25.10 Atherosclerotic heart disease of native coronary artery without angina pectoris; I10 Essential (primary) hypertension | CPT/HCPCS: 99212 ==

== ENCOUNTER 2021-06-26 13:31 | Outpatient (REF) | payer MEDICARE, SELFPAY ==
[2021-06-26 13:59] LABS: Binax Now Covid-19 Ag Negative (Negative)
[2021-06-26 14:00] LABS: Binax Internal Control QC Valid
== END 2021-06-26 13:32 | disposition home or self-care (01) ==
LOC: HO.HMGCLDS 13:31
PROVIDERS: PCP Nurse Practitioner Family; Visit Provider Internal Medicine
DX: Z20.822 Contact with and (suspected) exposure to COVID-19 (principal); J06.9 Acute upper respiratory infection, unspecified
CPT/HCPCS: 36415

== ENCOUNTER 2021-07-01 12:33 | Outpatient (REF) | payer MEDICARE, SELFPAY ==
[2021-07-01 13:53] LABS: Prostate Specific Antigen 2.19 ng/mL (<0.05-4.0)
== END 2021-07-01 12:34 | disposition home or self-care (01) ==
LOC: HO.LAB 12:33
PROVIDERS: PCP Nurse Practitioner Family; Visit Provider Nurse Practitioner Family
DX: Z12.5 Encounter for screening for malignant neoplasm of prostate (principal); N40.1 Benign prostatic hyperplasia with lower urinary tract symptoms
CPT/HCPCS: 36415; 84153

== ENCOUNTER 2021-07-06 07:32 | Outpatient (REF) | payer MEDICARE, SELFPAY ==
[2021-07-06 08:05] LABS: Binax Internal Control QC Valid; Binax Lot number: 9864; Binax Now Covid-19 Ag Positive (Negative)
== END 2021-07-06 07:33 | disposition home or self-care (01) ==
LOC: HO.LAB 07:32
PROVIDERS: Visit Provider Internal Medicine
DX: Z20.822 Contact with and (suspected) exposure to COVID-19 (principal)
CPT/HCPCS: C9803

== ENCOUNTER 2021-10-31 07:07 | Outpatient (REF) | payer MEDICARE, SELFPAY ==
[2021-10-31 08:21] LABS: C Reactive Protein 0.14 mg/dL (< or = 0.50); Cholesterol 171 mg/dL; HDL Cholesterol 51 mg/dL; LDL Cholesterol Calculated 96 mg/dl; Triglycerides 123 mg/dL
== END 2021-10-31 07:08 | disposition home or self-care (01) ==
LOC: HO.LAB 07:07
PROVIDERS: PCP Nurse Practitioner Family; Visit Provider Internal Medicine Cardiovascular Disease
DX: Z13.89 Encounter for screening for other disorder (principal)
CPT/HCPCS: 36415; 80061; 86140

== ENCOUNTER 2021-11-28 07:22 | Outpatient (REF) | payer MEDICARE, SELFPAY ==
[2021-11-28 08:39] LABS: Estimated Average Glucose 128 mg/dL; Hemoglobin A1c % 6.1 %
[2021-11-28 08:48] LABS: Appearance Urine CLEAR; Color Urine YELLOW; Glucose Urine UA NEG (NEG); Leukocyte Esterase Urine NEG (NEG); Nitrite Urine NEG (NEG); PH 5.5 (5.0-8.0); Specific Gravity - Urine 1.015 (1.005-1.025); Urine Blood NEG (NEG); Urine Ketones NEG (NEG); Urine Protein NEG (NEG-TRACE)
[2021-11-28 08:53] LABS: Alanine Aminotransferase 29 U/L (0-40); Albumin Level 4.6 g/dL (3.5-5.0); Alkaline Phosphatase 55 U/L (39-117); Anion Gap 13 (12-20); Aspartate Amino Transferase 26 U/L (5-37); Bilirubin Total 0.8 mg/dL (0.0-1.0); Blood Urea Nitrogen 15 mg/dL (9-16); Calcium 9.4 mg/dL (8.4-10.2); Carbon Dioxide 30 mmol/L (22-29); Chloride 101 mmol/L (96-108); Cholesterol 178 mg/dL; Estimated Glomerular Filt Rate > 60; Glucose Fasting 122 mg/dL (60-99); HDL Cholesterol 53 mg/dL; LDL Cholesterol Calculated 99 mg/dl; Potassium 4.2 mmol/L (3.3-5.1); Sodium 140 mmol/L (135-145); Total Protein 6.9 g/dL (6.5-8.0); Triglycerides 130 mg/dL
[2021-11-28 09:16] LABS: TSH reflex Free T4 0.99 uIU/mL (0.32-4.0)
[2021-11-28 09:35] LABS: Creatinine Urine 33.49 mg/dL; Microalbumin Urine < 5.0 mg/L
[2021-11-30 19:01] LABS: Lyme Abs Screen <0.90 index
== END 2021-11-28 07:23 | disposition home or self-care (01) ==
LOC: HO.LAB 07:22
PROVIDERS: PCP Nurse Practitioner Family; Visit Provider Nurse Practitioner Family
DX: I10 Essential (primary) hypertension (principal); E11.9 Type 2 diabetes mellitus without complications; T14.8XXA Other injury of unspecified body region, initial encounter; W57.XXXA Bitten or stung by nonvenomous insect and other nonvenomous arthropods, initial encounter; Y93.9 Activity, unspecified; Y92.9 Unspecified place or not applicable; Y99.9 Unspecified external cause status
CPT/HCPCS: 36415; 80053; 80061; 81003; 82043; 83036; 84443; 86617; 86618

== ENCOUNTER → 2021-12-11 14:46 | Outpatient (BNVA) | payer MEDICARE, SELFPAY | PROVIDERS: PCP Nurse Practitioner Family; Visit Provider Surgery | DX: K43.2 Incisional hernia without obstruction or gangrene (principal); E11.9 Type 2 diabetes mellitus without complications; I10 Essential (primary) hypertension; I25.10 Atherosclerotic heart disease of native coronary artery without angina pectoris; R33.9 Retention of urine, unspecified; J44.9 Chronic obstructive pulmonary disease, unspecified; N40.0 Benign prostatic hyperplasia without lower urinary tract symptoms; G47.33 Obstructive sleep apnea (adult) (pediatric); Z90.3 Acquired absence of stomach [part of]; Z86.718 Personal history of other venous thrombosis and embolism; Z90.49 Acquired absence of other specified parts of digestive tract | CPT/HCPCS: 99202 ==

== ENCOUNTER 2021-12-24 16:14 | Outpatient (REF) | payer MEDICARE, SELFPAY ==
--- NOTE | ~2021-12-24 | CT_ITS ---
EXAMINATION: CT ABDOMEN AND PELVIS WITHOUT CONTRAST CLINICAL INFORMATION: Incisional hernia without obstruction or gangrene COMPARISON: None TECHNIQUE: Multidetector volumetric imaging was performed from the superior aspect of the liver through the pubic symphysis. Sagittal and coronal reformatted images were obtained on the technologist's workstation. This CT examination was performed using dose optimization techniques as appropriate, variously including the following: *Automated exposure control *Adjustment of mA and/or kV according to patient size (this includes techniques or standardized protocols for targeted exams where dose is matched to indication/reason for exam; i.e. extremities or head) *Use of iterative reconstruction technique DLP: 761 mGy-cm FINDINGS: LUNG BASES: The visualized lung bases are unremarkable. LIVER, GALLBLADDER, AND BILIARY TREE: The liver is normal in size, shape, and attenuation. No focal hepatic lesion or biliary ductal dilatation is present. The gallbladder is unremarkable with no evidence of radiopaque gallstones, gallbladder wall thickening, or obvious pericholecystic inflammatory changes. PANCREAS: Unremarkable. SPLEEN: Unremarkable. ADRENAL GLANDS: Unremarkable. KIDNEYS AND URETERS: The kidneys are normal in size, shape, and attenuation. No hydronephrosis, hydroureter, or calculi seen. No perinephric stranding. BLADDER: Unremarkable. GASTROINTESTINAL TRACT: There are postsurgical changes from gastric sleeve procedure. There is diverticulosis of the colon. No evidence of diverticulitis is seen. There are multiple adjacent midline upper abdominal ventral hernias containing fat. The most inferior ventral hernia containing fat and a loop of small bowel. There is no evidence of obstruction. There are postsurgical changes to the small bowel with surgical staple line seen in the right lower quadrant. Small and large bowel is otherwise unremarkable. The appendix is normal. ABDOMINAL WALL: There are multiple adjacent upper abdominal ventral hernias containing fat. The most inferior ventral hernia contains fat and a loop of small bowel without evidence of obstruction. Small umbilical hernia containing fat. LYMPH NODES: Normal. VASCULAR: Atherosclerotic disease. No aneurysm. PELVIC VISCERA: The prostate gland is slightly enlarged measuring 4.3 x 4.8 cm. OSSEOUS STRUCTURES: There are degenerative changes of the spine and hip joints. CT/CT abdomen pelvis wo con IMPRESSION: Multiple upper abdominal wall ventral hernias containing fat. The most inferior ventral hernia contains a loop of small bowel without evidence of obstruction. Postop change from gastric sleeve procedure and postoperative change to the small bowel. Diverticulosis. Fleischner guidelines were followed.
== END 2021-12-24 16:15 | disposition home or self-care (01) ==
LOC: HO.CT 16:14
PROVIDERS: Visit Provider Surgery
DX: K43.2 Incisional hernia without obstruction or gangrene (principal); E66.9 Obesity, unspecified; Z71.3 Dietary counseling and surveillance
CPT/HCPCS: 74176; 97802

== ENCOUNTER → 2021-12-28 15:17 | Outpatient (BNVA) | payer MEDICARE, SELFPAY | PROVIDERS: PCP Nurse Practitioner Family; Referring Provider Nurse Practitioner Family; Visit Provider Surgery | DX: K43.2 Incisional hernia without obstruction or gangrene (principal); E11.9 Type 2 diabetes mellitus without complications; I25.10 Atherosclerotic heart disease of native coronary artery without angina pectoris; E66.01 Morbid (severe) obesity due to excess calories; Z68.35 Body mass index [BMI] 35.0-35.9, adult; Z98.84 Bariatric surgery status | CPT/HCPCS: 99212 ==

== ENCOUNTER 2022-01-08 14:53 | Outpatient (REF) | payer MEDICARE, SELFPAY ==
[2022-01-08 15:08] LABS: MANUAL DIFF FLAG NO
[2022-01-08 15:13] LABS: Basophils Percent Auto 0.5 % (0-2); Eosinophils Absolute Auto 0.1 X10*3/uL (0.0-0.4); Eosinophils Percent Auto 1.9 % (0-4); Hematocrit 40.4 % (42.0-52.0); Imm Gran Abs Auto 0.01 X10*3/uL (0.00-0.03); Imm Gran Pct Auto 0.1 % (0.0-0.4); Lymphocytes Absolute Auto 1.8 X10*3/uL (1.2-4.9); Lymphocytes Percent Auto 23.6 % (20-40); Mean Corpuscular HGB Conc 34.7 g/dl (31.0-36.0); Mean Corpuscular Hemoglobin 32.5 pg (27.0-33.0); Mean Corpuscular Volume 93.7 fL (80.0-98.0); Mean Platelet Volume 9.6 fL (9.4-12.4); Monocytes Absolute Auto 0.8 X10*3/uL (0.1-1.2); Monocytes Percent Auto 10.2 % (2-11); Neutrophils Absolute Auto 4.8 x10*3/uL (2.0-8.3); Neutrophils Percent Auto 63.7 % (45-73); Platelet Count 253 X10*3/uL (160-400); Red Blood Count 4.31 X10*6/uL (4.60-5.80); Red Cell Distribution Width 11.9 % (11.0-16.0); White Blood Count 7.5 X10*3/uL (4.8-10.8)
[2022-01-08 15:31] LABS: Estimated Average Glucose 120 mg/dL; Hemoglobin A1c % 5.8 %
[2022-01-08 15:49] LABS: Alanine Aminotransferase 30 U/L (0-40); Albumin Level 4.8 g/dL (3.5-5.0); Alkaline Phosphatase 52 U/L (39-117); Anion Gap 13 (12-20); Aspartate Amino Transferase 42 U/L (5-37); Bilirubin Total 0.6 mg/dL (0.0-1.0); Blood Urea Nitrogen 17 mg/dL (9-16); Calcium 9.3 mg/dL (8.4-10.2); Carbon Dioxide 29 mmol/L (22-29); Chloride 102 mmol/L (96-108); Cholesterol 134 mg/dL; Estimated Glomerular Filt Rate > 60; Glucose Fasting 106 mg/dL (60-99); HDL Cholesterol 55 mg/dL; LDL Cholesterol Calculated 64 mg/dl; Sodium 140 mmol/L (135-145); Triglycerides 75 mg/dL
[2022-01-08 16:00] LABS: TSH reflex Free T4 1.26 uIU/mL (0.32-4.0)
[2022-01-08 16:01] LABS: Appearance Urine CLEAR; Color Urine YELLOW; Glucose Urine UA NEG (NEG); Leukocyte Esterase Urine NEG (NEG); Nitrite Urine NEG (NEG); PH 5.5 (5.0-8.0); Specific Gravity - Urine >= 1.030 (1.005-1.025); Urine Blood NEG (NEG); Urine Ketones 15 MG/DL (NEG); Urine Protein NEG (NEG-TRACE)
[2022-01-08 16:26] LABS: Creatinine Urine 177.83 mg/dL; Microalbum/Creatinine Ratio Ur 8.4 ug/mg cr
== END 2022-01-08 14:54 | disposition home or self-care (01) ==
LOC: HO.LAB 14:53
PROVIDERS: PCP Nurse Practitioner Family; Visit Provider Surgery
DX: R10.9 Unspecified abdominal pain (principal); I10 Essential (primary) hypertension; E11.9 Type 2 diabetes mellitus without complications; K43.2 Incisional hernia without obstruction or gangrene; Z90.3 Acquired absence of stomach [part of]; Z90.49 Acquired absence of other specified parts of digestive tract
CPT/HCPCS: 36415; 80053; 80061; 81003; 82043; 83036; 84134; 84443; 85025

== ENCOUNTER → 2022-01-11 08:40 | Outpatient (BNVA) | payer MEDICARE, SELFPAY | PROVIDERS: PCP Nurse Practitioner Family; Referring Provider Surgery; Visit Provider Dietitian, Registered | DX: E66.01 Morbid (severe) obesity due to excess calories (principal); Z68.34 Body mass index [BMI] 34.0-34.9, adult; E11.9 Type 2 diabetes mellitus without complications; Z71.3 Dietary counseling and surveillance | CPT/HCPCS: 97803 ==

== ENCOUNTER → 2022-01-18 15:13 | Outpatient (BNVA) | payer MEDICARE, SELFPAY | PROVIDERS: PCP Nurse Practitioner Family; Visit Provider Surgery | DX: K43.2 Incisional hernia without obstruction or gangrene (principal); R94.39 Abnormal result of other cardiovascular function study; I25.10 Atherosclerotic heart disease of native coronary artery without angina pectoris; E11.9 Type 2 diabetes mellitus without complications; E66.01 Morbid (severe) obesity due to excess calories; Z68.34 Body mass index [BMI] 34.0-34.9, adult; N40.0 Benign prostatic hyperplasia without lower urinary tract symptoms; J44.9 Chronic obstructive pulmonary disease, unspecified; G47.33 Obstructive sleep apnea (adult) (pediatric); I10 Essential (primary) hypertension; Z86.718 Personal history of other venous thrombosis and embolism | CPT/HCPCS: 99212 ==

== ENCOUNTER 2022-02-03 07:49 | Outpatient (REF) | payer MEDICARE, SELFPAY ==
[2022-02-03 10:03] LABS: Prostate Specific Antigen 1.74 ng/mL (<0.05-4.0)
== END 2022-02-03 07:50 | disposition home or self-care (01) ==
LOC: HO.LAB 07:49
PROVIDERS: PCP Nurse Practitioner Family; Visit Provider Nurse Practitioner Family
DX: Z12.5 Encounter for screening for malignant neoplasm of prostate (principal); N40.1 Benign prostatic hyperplasia with lower urinary tract symptoms; I25.10 Atherosclerotic heart disease of native coronary artery without angina pectoris; I10 Essential (primary) hypertension
CPT/HCPCS: 36415; 84153; 93005; 99212

== ENCOUNTER → 2022-02-05 13:56 | Outpatient (BNVA) | payer MEDICARE, SELFPAY | PROVIDERS: PCP Nurse Practitioner Family; Visit Provider Surgery | DX: K43.2 Incisional hernia without obstruction or gangrene (principal); R33.9 Retention of urine, unspecified; E11.9 Type 2 diabetes mellitus without complications; I25.10 Atherosclerotic heart disease of native coronary artery without angina pectoris; I10 Essential (primary) hypertension; E66.01 Morbid (severe) obesity due to excess calories; J44.9 Chronic obstructive pulmonary disease, unspecified; N40.0 Benign prostatic hyperplasia without lower urinary tract symptoms; Z86.718 Personal history of other venous thrombosis and embolism | CPT/HCPCS: 99212 ==

== ENCOUNTER 2022-02-25 05:53 | Day surgery (SDC) | payer MEDICARE, SELFPAY ==
[2022-02-18 14:18] VITALS: BMI 33.3
--- NOTE | 2022-02-19 13:47 | P.CONAN_ITS ---
Documented by User: Nely Pugh NP 02/24/22 10:30 HPI - Anesthesia Eval Consult details Narrative: 71yo M for Hernia Repair Umbilical, Hernia Repair Ventral Cardiac cleared/optimized Per 02/2021 PAT appt: Abnormal EKG... Pt sent for ECHO and Stress. Lexiscan stress and nuc images abnormal. Pt to clinical lab assistant next week. Surgery cx'd. (CAD is nonobstructive by cardiac cath) [facility] Active Problems Active Problems: All Active Problems (Updated 02/18/22 @ 09:06 by Cyndi Thurman, DONITA) Foreign body in foot, left (Acute) Encounter for annual wellness visit (AWV) in Medicare patient (Acute) Fatigue (Acute) Incisional hernia (Acute) Preoperative examination (Acute) Intestinal malabsorption following gastrectomy (Acute) Shortness of breath (Acute) Urinary retention (Acute) Abnormal EKG (Acute) Positive cardiac stress test (Acute) Preoperative cardiovascular examination (Acute) Diabetes (Acute) Wound of right leg (Acute) Tick bite (Acute) Morbid (severe) obesity due to excess calories (Acute) BPH (benign prostatic hyperplasia) (Acute) COPD (chronic obstructive pulmonary disease) (Acute) History of DVT (deep vein thrombosis) (Acute) JENNY (obstructive sleep apnea) (Acute) HTN (hypertension) (Acute) CAD (coronary artery disease) (Acute) Diabetes (Acute) Past Medical History Medical History Acute urinary retention BPH (benign prostatic hyperplasia) CAD (coronary artery disease) Chronic fatigue COPD (chronic obstructive pulmonary disease) Diabetes History of DVT (deep vein thrombosis) HTN (hypertension) Minimal depression Neck pain Obesity JENNY (obstructive sleep apnea) Osteoarthritis Uncontrolled hypertension Family History Family History Father CAD (coronary artery disease) Mother No problems noted. Brother No problems noted. Son No problems noted. Daughter No problems noted. Sister No problems noted. Sister No problems noted. Sister No problems noted. Family history of problems with anesthesia: No Surgical History Surgical History History of resection of small bowel History of sleeve gastrectomy History of tonsillectomy History of vasectomy History of ventral hernia repair Hx of colonoscopy Hx of right knee surgery S/P excision of lipoma History of Problems with Anesthesia: Yes (Long to wake) Social History Social History Household Members: None Housing: Condominium Are you a primary critical care nurse specialist to a significant other at home: No Do you presently have visiting nurse or other home services: No Alcohol intake: never Patient Tobacco Use Status: Former Tobacco user Quit Date: 2009 Years Smoked: 12 years ago e-Cigarette/Vaping Use: Never Used Second Hand Smoke Exposure: No Use of substances other than those prescribed or required for medical reasons: No Have you been hit, kicked, punched, or otherwise hurt by someone within the past year? If so, by whom?: No Are you DNR?: No Advance Directives: No Advance Directives Information Provided: Yes Advance Directives on File: No Recently lost weight without trying: No Eating poorly because of decreased appetite: No Nutrition Risks: No Nutritional Risk service: No Current occupational status: retired Cognitive needs: No Hearing needs: No Vision needs: No Meds Allergies Allergy/AdvReac Type Severity Reaction Status Date / Time latex [LATEX] Allergy Intermediate RASH Verified 02/25/22 06:17 [id number] Reductase AdvReac Intermediate Muscle Pain Verified 02/25/22 06:17 Inhibitor lisinopril AdvReac Nausea and Verified 02/25/22 06:17 Vomiting Home Medications Medication Instructions Recorded Confirmed Last Taken Type ascorbic acid (vitamin C) 500 mg 1,000 mg PO DAILY 03/02/21 02/18/22 Unknown History capsule aspirin 81 mg tablet,delayed 81 mg PO DAILY 03/02/21 02/18/22 02/24/22 History release cholecalciferol (vitamin D3) 125 4,000 unit PO DAILY 03/02/21 02/18/22 Unknown History mcg (5,000 unit) capsule cyanocobalamin (vitamin B-12) 1,000 mcg PO DAILY 03/02/21 02/18/22 Unknown History 5,000 mcg capsule ferrous sulfate 325 mg (65 mg 325 mg PO DAILY 03/02/21 02/18/22 Unknown History iron) tablet glucosamine HCl 500 mg tablet 1,000 mg PO DAILY 03/02/21 02/18/22 Unknown History naproxen sodium 220 mg capsule 440 mg PO DAILY 03/02/21 02/18/22 Unknown History tamsulosin 0.4 mg capsule 0.8 mg PO DAILY 03/17/21 02/18/22 Unknown History finasteride 5 mg tablet 5 mg PO DAILY 04/21/21 02/18/22 Unknown History amlodipine 10 mg tablet 10 mg PO 1700 02/18/22 02/18/22 Unknown History Exam Exam Date and Time: February 19, 2022 1347 Height,Weight and Vital Signs: Height 5 ft 10 in Weight 105.233 kg Pertinent Lab Results Pertinent Lab Results: Laboratory Tests 01/08/22 01/08/22 15:04 15:04 WBC 7.5 Hgb 14.0 Hct 40.4 L Plt Count 253 Sodium 140 Potassium 4.0 Chloride 102 Carbon Dioxide 29 BUN 17 H Creatinine 0.81 Narrative Narrative: EKG 01/2022 ?normal sinus rhythm with lateral ST T wave changes suggestive of repolarization abnormality Echo 02/2021 Conclusions: - The left ventricular systolic function is low normal.? The ? ? calculated ejection fraction is 54% by biplane method. ? - No obvious valvular pathology seen on this study.? ? NM cardiolite stress test 02/2021 Impression: ? 1.? Myocardial perfusion imaging study shows [possible severe inferior wall ischemia 2.? Gated LVEF is 36% with stress and 40% with rest 3. Transient ischemic dilatation present ? EKG is nondiagnostic for ischemia Cath 03/2021 showed nonobstructive CAD Assessment and Plan Assessment Anesthesia Assessment: Chart Reviewed Final Anesthetic Review Family History of Problems with Anesthesia: No History of Problems with Anesthesia: Yes (Long to wake) Documented by User: Chela Joaquin MD 02/25/22 07:31 [facility] Past Medical History Medical History Acute urinary retention BPH (benign prostatic hyperplasia) CAD (coronary artery disease) Chronic fatigue COPD (chronic obstructive pulmonary disease) Diabetes History of DVT (deep vein thrombosis) HTN (hypertension) Minimal depression Neck pain Obesity JENNY (obstructive sleep apnea) Osteoarthritis Uncontrolled hypertension Family History Family History Father CAD (coronary artery disease) Mother No problems noted. Brother No problems noted. Son No problems noted. Daughter No problems noted. Sister No problems noted. Sister No problems noted. Sister No problems noted. Surgical History Surgical History History of resection of small bowel History of sleeve gastrectomy History of tonsillectomy History of vasectomy History of ventral hernia repair Hx of colonoscopy Hx of right knee surgery S/P excision of lipoma Social History Social History Household Members: None [facility] Are you a primary critical care nurse specialist to a significant other at home: No Do you presently have visiting nurse or other home services: No Alcohol intake: never Patient Tobacco Use Status: Former Tobacco user Quit Date: 2009 Years Smoked: 12 years ago e-Cigarette/Vaping Use: Never Used Second Hand Smoke Exposure: No Use of substances other than those prescribed or required for medical reasons: No Have you been hit, kicked, punched, or otherwise hurt by someone within the past year? If so, by whom?: No Are you DNR?: No Advance Directives: No Advance Directives Information Provided: Yes Advance Directives on File: No Recently lost weight without trying: No Eating poorly because of decreased appetite: No Nutrition Risks: No Nutritional Risk service: No Current occupational status: retired Cognitive needs: No Hearing needs: No Vision needs: No Meds Allergies Allergy/AdvReac Type Severity Reaction Status Date / Time latex [LATEX] Allergy Intermediate RASH Verified 02/25/22 06:17 [id number] Reductase AdvReac Intermediate Muscle Pain Verified 02/25/22 06:17 Inhibitor lisinopril AdvReac Nausea and Verified 02/25/22 06:17 Vomiting Home Medications Medication Instructions Recorded Confirmed Last Taken Type ascorbic acid (vitamin C) 500 mg 1,000 mg PO DAILY 03/02/21 02/18/22 Unknown History capsule aspirin 81 mg tablet,delayed 81 mg PO DAILY 03/02/21 02/18/22 02/24/22 History release cholecalciferol (vitamin D3) 125 4,000 unit PO DAILY 03/02/21 02/18/22 Unknown History mcg (5,000 unit) capsule cyanocobalamin (vitamin B-12) 1,000 mcg PO DAILY 03/02/21 02/18/22 Unknown History 5,000 mcg capsule ferrous sulfate 325 mg (65 mg 325 mg PO DAILY 03/02/21 02/18/22 Unknown History iron) tablet glucosamine HCl 500 mg tablet 1,000 mg PO DAILY 03/02/21 02/18/22 Unknown History naproxen sodium 220 mg capsule 440 mg PO DAILY 03/02/21 02/18/22 Unknown History tamsulosin 0.4 mg capsule 0.8 mg PO DAILY 03/17/21 02/18/22 Unknown History finasteride 5 mg tablet 5 mg PO DAILY 04/21/21 02/18/22 Unknown History amlodipine 10 mg tablet 10 mg PO 1700 02/18/22 02/18/22 Unknown History Exam Airway Mallampati Class: III TM Dist: >3cm Neck ROM: Full Denture: Upper Heart: RRR Lungs: CTA Assessment and Plan Final Anesthetic Review ASA Class: III Final Preanesthetic Review: No Changes in Pt Med Stat, Meds/Allgs Chart Reviewed, Consent Obtained/Reviewed and Anes Risks/Benef Reviewed Patient Risk: Intermediate Procedure Risk: Low Anesthetic Plan Anesthetic Plan: GA Disposition: Standard PACU
[2022-02-25] VITALS (14 sets, daily range): BP systolic 145–203; BP diastolic 64–92; PULSE 70–89; RESP 10–22; TEMP 36.6–36.9; O2SAT 96–100
[2022-02-25 06:30] LABS: Glucose, Whole Blood 112 mg/dL (60-115)
[2022-02-25] MEDS: Lactated Ringers 1,000 ML 50 ML IVCONT (06:36)
[2022-02-25] MEDS: Heparin Sodium,Porcine 5,000 UNIT/ML VIAL 5000 UNIT SUBCUT (06:41)
--- NOTE | 2022-02-25 07:14 | MHC.SHP ---
Pre-Procedural Eval Section A Date of Service: 02/25/22 The patient is an INPATIENT: No The History & Physical has been completed within 30 days and I have reviewed it.: Yes Section B Chief Complaint: Incisional hernia without obstruction or gangrene Allergies: Allergies Allergy/AdvReac Type Severity Reaction Status Date / Time latex [LATEX] Allergy Intermediate RASH Verified 02/25/22 06:17 [id number] Reductase AdvReac Intermediate Muscle Pain Verified 02/25/22 06:17 Inhibitor lisinopril AdvReac Nausea and Verified 02/25/22 06:17 Vomiting Plan I have reviewed the history and physical and performed a pertinent physical examination on my patient. No changes have occurred unless specified.
--- NOTE | 2022-02-25 07:15 | P.OP_ITS ---
Operative Note Operative Note Date of Service: 02/25/22 Narrative: Pre Op Diagnosis: Recurrent incarcerated ventral hernia Post Op Diagnosis: Same Procedure: Laparoscopic ventral hernia repair with 4'x6' ECHO mesh Surgeon: Sergey Maurice MD Assist: none Anesthesia: General endotracheal EBL: 5 cc Specimen: None Findings: Incarcerated omentum and a primary hernia defect measuring 2 x 3 cm measured intraoperatively were encountered on the peritoneal side Indications: The patient presented with a symptomatic recurrent ventral hernia. The previous repair was attempted laparoscopically and the bowel would not reduce, so conversion to open and primary closure without mesh was performed by the previous surgeon. Subsequent to his sleeve gastrectomy, the patient experienced significant weight gain likely contributing to the recurrence. After reviewing options in the importance of maintaining a stable weight to prevent recurrence, the patient wanted to proceed. The options including continued observation versus operative repair and 2nd opinion were discussed. The inherent risks to laparoscopic inguinal hernia repair were discussed and options of open or robotic repair were discussed. These risks of hernia surgery include, but are not limited to: Bleeding, infection, hernia recurrence especially if weight gain occurs or postoperative instructions are not followed, nerve entrapment, chronic pain, mesh complications that could require reoperation. The patient seemed to understand all of these options, had their questions answered and wanted to proceed. Procedure: The patient was identified in the preoperative holding area by myself and the operative site marked by me confirming a recurrent ventral incisional hernia. The patient voided their bladder operations developer, received antibiotics per protocol and sequential compression stockings were in place. The operative field hair had been clipped in preop holding. The patient was again identified in the operating suite and placed supine on the table. See anesthesia notes for full details regarding anesthesia care and management. The patient was then widely prepped and draped in the usual manner using chlorhexidine. An appropriate time-out was performed. The patient's abdomen was accessed through a stab incision in the left upper quad using preemptive local. Veress needle was placed without incident, an appropriate drop test performed and used to obtain a pneumoperitoneum of 15 mmHg using carbon dioxide. Opening pressures were 6 mmHg. The abdomen was then accessed with a 5 mm/30 degree laparoscopic for a 5 mm optical trocar without incident through the anterior axillary line at the level of the umbilicus. I then inspected for evidence of injury from either the Veress needle or trocar and found none. The patient was positioned in gentle Trendelenburg position and additional 5 mm trocars placed using preemptive local under direct laparoscopic vision in the patient's left lower quadrant and a 12 mm placed in the left upper quadrant. Laparoscopy confirmed incarcerated viable omentum in a ventral incisional hernia that was just to the right of the falciform ligament. Omentum and preperitoneal fat was dissected from the retrorectus fashion using a grasper and Endo scissors to allow placement of an Echo mesh. Hemostasis was obtained with electrocautery. Once the sac was reduced, the fascial defect was closed using an absorbable 0 V-Lock suture. Next, Echo mesh measuring 4x6 inches was inserted through the 12 mm trocar and deployed. A stab incision was made through the abdominal wall skin over the hernia, a suture passer used to grasp the blue inflation tube which was then delivered, cut and inflated. The mesh was oriented with overlap and absorbable tacks used to secure the mesh. The abdomen was then deflated to 9 mmHg, the bed return to neutral and trocars removed. The 12 mm fascia was closed 0 Polysorb suture and skin was closed with 4-0 Monocryl subcuticular sutures. The abdomen was then washed and dried, and Mastisol and Steri-Strips applied followed by Band-Aids. Patient tolerated the procedure well was sent to the recovery area in stable condition. All sponge and instrument counts were correct x2. At the patient's request, I contact his son at [phone] and apprised by telephone of the procedure, pain management & bowel regime. Instructions regarding activity and pain management were reviewed. Questions were answered.
[2022-02-25] MEDS: fentaNYL citrate/PF 100 MCG/2 ML VIAL 25 MCG IVPUSH ×4 (09:52→10:07)
[2022-02-25] MEDS: ondansetron HCL 4 MG/2 ML VIAL IVPUSH (09:52)
[2022-02-25] MEDS: oxyCODONE HCl Immed Release 5 MG TABLET PO (09:59)
== END 2022-02-25 11:48 | disposition home or self-care (01) ==
LOC: HO.SSS 05:53
PROVIDERS: PCP Nurse Practitioner Family; Visit Provider Surgery
PROC: (CPT 49657; principal; 2022-02-25 07:30)
DX: K43.0 Incisional hernia with obstruction, without gangrene (principal); I25.10 Atherosclerotic heart disease of native coronary artery without angina pectoris; I10 Essential (primary) hypertension; G47.33 Obstructive sleep apnea (adult) (pediatric); Z79.82 Long term (current) use of aspirin; Z79.899 Other long term (current) drug therapy; Z91.040 Latex allergy status; Z88.8 Allergy status to other drugs, medicaments and biological substances; Z86.718 Personal history of other venous thrombosis and embolism; Z98.84 Bariatric surgery status; Z98.52 Vasectomy status; Z87.891 Personal history of nicotine dependence
CPT/HCPCS: 49657; 82947; C1781; C9088; J0131; J0690; J1100; J1885; J2250; J2405; J2795; J3010

== ENCOUNTER → 2022-03-05 09:04 | Outpatient (BNVA) | payer MEDICARE, SELFPAY | PROVIDERS: PCP Nurse Practitioner Family; Visit Provider Surgery | DX: Z09 Encounter for follow-up examination after completed treatment for conditions other than malignant neoplasm (principal); Z87.19 Personal history of other diseases of the digestive system | CPT/HCPCS: 99212 ==

== ENCOUNTER 2022-05-20 05:52 | Outpatient (REF) | payer MEDICARE, SELFPAY ==
[2022-05-20 06:09] LABS: MANUAL DIFF FLAG NO
[2022-05-20 07:34] LABS: Basophils Absolute Auto 0.1 X10*3/uL (0.0-0.2); Basophils Percent Auto 0.7 % (0-2); Eosinophils Absolute Auto 0.4 X10*3/uL (0.0-0.4); Eosinophils Percent Auto 4.9 % (0-4); Hematocrit 41.8 % (42.0-52.0); Hemoglobin 14.3 g/dl (14.0-18.0); Imm Gran Abs Auto 0.03 X10*3/uL (0.00-0.03); Imm Gran Pct Auto 0.4 % (0.0-0.4); Lymphocytes Absolute Auto 1.8 X10*3/uL (1.2-4.9); Lymphocytes Percent Auto 24.4 % (20-40); Mean Corpuscular HGB Conc 34.2 g/dl (31.0-36.0); Mean Corpuscular Hemoglobin 32.1 pg (27.0-33.0); Mean Corpuscular Volume 93.7 fL (80.0-98.0); Mean Platelet Volume 9.8 fL (9.4-12.4); Monocytes Absolute Auto 0.7 X10*3/uL (0.1-1.2); Monocytes Percent Auto 9.6 % (2-11); Neutrophils Absolute Auto 4.3 x10*3/uL (2.0-8.3); Platelet Count 267 X10*3/uL (160-400); Red Blood Count 4.46 X10*6/uL (4.60-5.80); Red Cell Distribution Width 12.2 % (11.0-16.0); White Blood Count 7.2 X10*3/uL (4.8-10.8)
[2022-05-20 07:35] LABS: Appearance Urine Clear; Color Urine Yellow; Glucose Urine UA Negative (Negative); Leukocyte Esterase Urine Negative (Negative); Nitrite Urine Negative (Negative); PH 5.5 (5.0-9.0); Specific Gravity - Urine 1.025 (1.005-1.025); Urine Blood Negative (Negative); Urine Ketones Negative (Negative); Urine Protein Negative (Neg-Trace)
[2022-05-20 08:01] LABS: Estimated Average Glucose 114 mg/dL; Hemoglobin A1c % 5.6 %
[2022-05-20 08:15] LABS: Erythrocyte Sedimentation Rate 6 MM/HR (0-15)
[2022-05-20 08:21] LABS: Alanine Aminotransferase 18 U/L (0-40); Albumin Level 4.6 g/dL (3.5-5.0); Alkaline Phosphatase 65 U/L (39-117); Anion Gap 12 (12-20); Aspartate Amino Transferase 21 U/L (5-37); Blood Urea Nitrogen 17 mg/dL (9-16); Calcium 9.4 mg/dL (8.4-10.2); Carbon Dioxide 28 mmol/L (22-29); Chloride 101 mmol/L (96-108); Cholesterol 175 mg/dL; Estimated Glomerular Filt Rate > 60; Ferritin 114 ng/mL (20-250); Glucose Fasting 119 mg/dL (60-99); HDL Cholesterol 60 mg/dL; Iron 140 mcg/dL (45-160); LDL Cholesterol Calculated 97 mg/dl; Percent Iron Saturation 45 % (15-50); Potassium 3.9 mmol/L (3.3-5.1); Sodium 137 mmol/L (135-145); Total Iron Binding Capacity 309 mcg/dL (228-428); Total Protein 6.8 g/dL (6.5-8.0); Triglycerides 90 mg/dL; Unsaturated Iron Binding 169 ug/dL
[2022-05-20 08:38] LABS: Folate 15.5 ng/mL (> or = 4.0); Vitamin B12 819 pg/mL (200-900)
[2022-05-23 05:04] LABS: A. Phagocytphilium DNA,RT-PCR NOT DETECTED (NOT DETECTED); Babesia Microti DNA, RT-PCR NOT DETECTED (NOT DETECTED); Borrelia Miyamotoi,DNA RT-PCR NOT DETECTED (NOT DETECTED); E.Chaffeensis DNA RT-PCR NOT DETECTED (NOT DETECTED); Lyme(Borrelia ssp)DNA RT-PCR NOT DETECTED (NOT DETECTED)
== END 2022-05-20 05:53 | disposition home or self-care (01) ==
LOC: HO.LAB 05:52
PROVIDERS: Visit Provider Nurse Practitioner Family
DX: E11.9 Type 2 diabetes mellitus without complications (principal); E53.8 Deficiency of other specified B group vitamins; M25.50 Pain in unspecified joint; K42.9 Umbilical hernia without obstruction or gangrene; K43.9 Ventral hernia without obstruction or gangrene; D50.9 Iron deficiency anemia, unspecified; R19.7 Diarrhea, unspecified
CPT/HCPCS: 36415; 80053; 80061; 81003; 82607; 82728; 82746; 83036; 83540; 84443; 85025; 85652; 87798; 87801

== ENCOUNTER 2022-05-24 14:49 | Outpatient (REF) | payer MEDICARE, SELFPAY ==
[2022-05-24 15:04] LABS: MANUAL DIFF FLAG NO
[2022-05-24 15:48] LABS: Basophils Absolute Auto 0.1 X10*3/uL (0.0-0.2); Basophils Percent Auto 0.7 % (0-2); Eosinophils Absolute Auto 0.2 X10*3/uL (0.0-0.4); Eosinophils Percent Auto 3.4 % (0-4); Hematocrit 40.3 % (42.0-52.0); Hemoglobin 13.6 g/dl (14.0-18.0); Imm Gran Abs Auto 0.03 X10*3/uL (0.00-0.03); Imm Gran Pct Auto 0.4 % (0.0-0.4); Lymphocytes Absolute Auto 2.1 X10*3/uL (1.2-4.9); Lymphocytes Percent Auto 29.9 % (20-40); Mean Corpuscular HGB Conc 33.7 g/dl (31.0-36.0); Mean Corpuscular Hemoglobin 31.5 pg (27.0-33.0); Mean Corpuscular Volume 93.3 fL (80.0-98.0); Mean Platelet Volume 9.9 fL (9.4-12.4); Monocytes Absolute Auto 0.7 X10*3/uL (0.1-1.2); Monocytes Percent Auto 9.3 % (2-11); Neutrophils Percent Auto 56.3 % (45-73); Platelet Count 271 X10*3/uL (160-400); Red Blood Count 4.32 X10*6/uL (4.60-5.80); White Blood Count 7.1 X10*3/uL (4.8-10.8)
[2022-05-24 16:10] LABS: Estimated Average Glucose 120 mg/dL; Hemoglobin A1c % 5.8 %
[2022-05-24 16:13] LABS: Alanine Aminotransferase 18 U/L (0-40); Albumin Level 4.6 g/dL (3.5-5.0); Alkaline Phosphatase 69 U/L (39-117); Anion Gap 11 (12-20); Aspartate Amino Transferase 23 U/L (5-37); Bilirubin Total 0.5 mg/dL (0.0-1.0); Blood Urea Nitrogen 12 mg/dL (9-16); C Reactive Protein 0.13 mg/dL (< or = 0.50); Carbon Dioxide 31 mmol/L (22-29); Chloride 103 mmol/L (96-108); Estimated Glomerular Filt Rate > 60; Glucose Random 100 mg/dL (60-115); Magnesium 1.9 mg/dL (1.6-2.6); Potassium 3.9 mmol/L (3.3-5.1); Sodium 141 mmol/L (135-145); Total Protein 6.8 g/dL (6.5-8.0)
[2022-05-27 17:18] LABS: CK-BB None Detected (None Detected); CK-MB 0 % (<5); CK-MM 100 % (95-100); Creatine Kinase,Total,Serum 299 U/L (44-196)
[2022-05-28 23:04] LABS: Myoglobin,Serum 86 mcg/L (<=95)
== END 2022-05-24 14:50 | disposition home or self-care (01) ==
LOC: HO.LAB 14:49
PROVIDERS: PCP Nurse Practitioner Family; Visit Provider Nurse Practitioner Family
DX: E11.9 Type 2 diabetes mellitus without complications (principal); M79.10 Myalgia, unspecified site
CPT/HCPCS: 36415; 80053; 82552; 83036; 83735; 83874; 85025; 86140

== ENCOUNTER 2022-05-26 07:33 | Outpatient (REF) | payer MEDICARE, SELFPAY ==
--- NOTE | ~2022-05-26 | XR_ITS ---
EXAMINATION: XR HIP, RIGHT CLINICAL INFORMATION: Right hip pain COMPARISON: 04/06/2019 TECHNIQUE: Two views of the right hip. FINDINGS: No fracture or dislocation. The femoral head articulates appropriately with its acetabulum. Subchondral sclerosis with small osteophytes present. The right hemipelvis is intact. Normal bowel gas pattern. XR/XR hip RT min 2V IMPRESSION: Mild degenerative changes of the right hip. Similar appearance to prior.
== END 2022-05-26 07:34 | disposition home or self-care (01) ==
LOC: HO.XRAY 07:33
PROVIDERS: PCP Nurse Practitioner Family; Visit Provider Nurse Practitioner Family
DX: M25.551 Pain in right hip (principal)
CPT/HCPCS: 73502

== ENCOUNTER 2022-06-07 06:57 | Outpatient (REF) | payer MEDICARE, SELFPAY ==
[2022-06-07 07:58] LABS: Basophils Absolute Auto 0.1 X10*3/uL (0.0-0.2); Basophils Percent Auto 0.9 % (0-2); Eosinophils Absolute Auto 0.2 X10*3/uL (0.0-0.4); Eosinophils Percent Auto 3.6 % (0-4); Hematocrit 41.5 % (42.0-52.0); Hemoglobin 14.3 g/dl (14.0-18.0); Imm Gran Abs Auto 0.02 X10*3/uL (0.00-0.03); Imm Gran Pct Auto 0.3 % (0.0-0.4); Lymphocytes Absolute Auto 2.2 X10*3/uL (1.2-4.9); Lymphocytes Percent Auto 33.1 % (20-40); MANUAL DIFF FLAG NO; Mean Corpuscular HGB Conc 34.5 g/dl (31.0-36.0); Mean Corpuscular Hemoglobin 32.6 pg (27.0-33.0); Mean Corpuscular Volume 94.7 fL (80.0-98.0); Mean Platelet Volume 9.9 fL (9.4-12.4); Monocytes Absolute Auto 0.7 X10*3/uL (0.1-1.2); Monocytes Percent Auto 10.9 % (2-11); Neutrophils Absolute Auto 3.4 x10*3/uL (2.0-8.3); Neutrophils Percent Auto 51.2 % (45-73); Platelet Count 268 X10*3/uL (160-400); Red Blood Count 4.38 X10*6/uL (4.60-5.80); White Blood Count 6.6 X10*3/uL (4.8-10.8)
[2022-06-07 08:49] LABS: Erythrocyte Sedimentation Rate 7 MM/HR (0-15)
[2022-06-07 22:12] LABS: Alanine Aminotransferase 18 U/L (0-40); Albumin Level 4.8 g/dL (3.5-5.0); Alkaline Phosphatase 72 U/L (39-117); Anion Gap 15 (12-20); Aspartate Amino Transferase 24 U/L (5-37); Bilirubin Total 0.7 mg/dL (0.0-1.0); Blood Urea Nitrogen 16 mg/dL (9-16); Calcium 9.4 mg/dL (8.4-10.2); Carbon Dioxide 28 mmol/L (22-29); Chloride 102 mmol/L (96-108); Estimated Glomerular Filt Rate > 60; Glucose Random 71 mg/dL (60-115); Potassium 3.9 mmol/L (3.3-5.1); Rheumatoid Factor < 13.0 IU/mL (<15.0); Sodium 141 mmol/L (135-145); Total Protein 6.9 g/dL (6.5-8.0); Uric Acid 4.9 mg/dL (3.4-7.0)
[2022-06-10 03:04] LABS: A. Phagocytphilium DNA,RT-PCR NOT DETECTED (NOT DETECTED); Babesia Microti DNA, RT-PCR NOT DETECTED (NOT DETECTED); Borrelia Miyamotoi,DNA RT-PCR NOT DETECTED (NOT DETECTED); E.Chaffeensis DNA RT-PCR NOT DETECTED (NOT DETECTED); Lyme(Borrelia ssp)DNA RT-PCR NOT DETECTED (NOT DETECTED)
[2022-06-10 14:13] LABS: Anti Nuclear Antibody Screen POSITIVE (NEGATIVE); Anti Nuclear Antibody Titer 1:40 titer
[2022-06-10 17:43] LABS: CK-BB None Detected (None Detected); CK-MB 0 % (<5); CK-MM 98 % (95-100); Creatine Kinase Isoenzyme Itrp MACRO CK TYPE 1; Creatine Kinase,Total,Serum 309 U/L (44-196)
[2022-06-15 12:39] LABS: Cyclic Citrullinated Peptide <16 UNITS
== END 2022-06-07 06:58 | disposition home or self-care (01) ==
LOC: HO.LAB 06:57
PROVIDERS: PCP Nurse Practitioner Family; Visit Provider Nurse Practitioner Family
DX: K42.9 Umbilical hernia without obstruction or gangrene (principal); K43.9 Ventral hernia without obstruction or gangrene; M25.50 Pain in unspecified joint; M79.10 Myalgia, unspecified site; R19.7 Diarrhea, unspecified
CPT/HCPCS: 36415; 80053; 82552; 84550; 85025; 85652; 86038; 86039; 86140; 86200; 86431; 87798; 87801

== ENCOUNTER 2022-06-16 09:45 | Outpatient (REF) | payer MEDICARE, SELFPAY ==
--- NOTE | ~2022-06-16 | CT_ITS ---
EXAMINATION: CT ABDOMEN AND PELVIS WITH CONTRAST CLINICAL INFORMATION: Abdominal pain COMPARISON: Previous exam December 2021 TECHNIQUE: Multidetector volumetric images were obtained from the superior aspect of the liver through the pubic symphysis following administration 85 mL of Omnipaque 350 intravenous contrast. Sagittal and coronal reformatted images were obtained on the technologist's workstation. Oral contrast: Yes This CT examination was performed using dose optimization techniques as appropriate, variously including the following: *Automated exposure control *Adjustment of mA and/or kV according to patient size (this includes techniques or standardized protocols for targeted exams where dose is matched to indication/reason for exam; i.e. extremities or head) *Use of iterative reconstruction technique DLP: 665 mGy-cm FINDINGS: LUNG BASES: The visualized lung bases are unremarkable. LIVER, GALLBLADDER, AND BILIARY TREE: The liver is normal in size, shape, and attenuation. No focal hepatic lesion or biliary ductal dilatation is present. The gallbladder is unremarkable with no evidence of radiopaque gallstones, gallbladder wall thickening, or obvious pericholecystic inflammatory changes. PANCREAS: Unremarkable. SPLEEN: Unremarkable. ADRENAL GLANDS: Unremarkable. KIDNEYS AND URETERS: The kidneys are normal in size, shape, and attenuation. No hydronephrosis, hydroureter, or calculi seen. No perinephric stranding. BLADDER: Not optimally distended. GASTROINTESTINAL TRACT: Postsurgical changes to the stomach and small bowel. Diverticulosis of the colon. No evidence of diverticulitis. Small and large bowel are otherwise normal. The appendix is normal. ABDOMINAL WALL: Right upper quadrant ventral hernia containing fat. Low-attenuation soft tissue superior to this measuring 1 cm, question cystic or representing loculated fluid. Very small umbilical hernia containing fat. Small inguinal hernias containing fat. LYMPH NODES: Normal. VASCULAR: Unremarkable. PELVIC VISCERA: Enlarged prostate gland that protrudes into the base of the bladder. OSSEOUS STRUCTURES: Degenerative changes of the spine. CT/CT abdomen pelvis w IV con IMPRESSION: No acute findings. Right upper quadrant ventral hernia containing fat. Diverticulosis. Enlarged prostate gland that protrudes into the base of the bladder. Postsurgical changes to the stomach. Fleischner guidelines were followed.
== END 2022-06-16 09:46 | disposition home or self-care (01) ==
LOC: HO.CT 09:45
PROVIDERS: Visit Provider Nurse Practitioner Family
DX: R10.9 Unspecified abdominal pain (principal)
CPT/HCPCS: 74177

== ENCOUNTER → 2022-06-23 07:24 | Outpatient (BNVA) | payer MEDICARE, SELFPAY | PROVIDERS: PCP Nurse Practitioner Family; Visit Provider Student in an Organized Health Care Education/Training Program | DX: M79.10 Myalgia, unspecified site (principal); M70.61 Trochanteric bursitis, right hip | CPT/HCPCS: 99202 ==

== ENCOUNTER 2022-07-19 07:00 | Outpatient (RCR) | payer MEDICARE, SELFPAY ==
--- NOTE | 2022-06-09 14:48 | MHC.PT.EP ---
[facility] [place] Office [place] Office [place] Office [address] [place] [address] [phone] F: [phone] F: [phone] F: [phone] F: [phone] Physical Therapy Plan of Care Date of Evaluation: Date of Surgery: none Diagnosis: Pain in R hip Assessment: Patient is a 71 year old R handed male who presents with s/s consistent with R hip pain. 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 Patient past medical history includes DM, hernia surgery. Current impairments include pain, posture, ROM, strength, activity tolerance and functional mobility. Functional limitations include decreased ability to sleep, bend, squat, turn, clean, and roll over. Patient is motivated with good rehab potential. Skilled PT will address impairments and functional limitations in order to achieve goals. Frequency and Duration: The patient will be seen 2x/week for 5 weeks Short Term Goals: I with HEP - 2 weeks hip ER to 35 b/l - 3 weeks Able to bike 10 min with increased pain - 3 weeks Able to walk 10 min without increased pain - 3 weeks Mcc Goals: Strength 4/5 grossly - 5 weeks Pain free work - 5 weeks LEFS 54/80 - 5 weeks Treatment Plan: Modalities to reduce pain, spasms and effusion. Manual therapy to restore motion and function. Therapeutic exercise to improve strength and flexibility. Neuromuscular re-education for posture and balance. Therapeutic activities to return to functional activities of daily living. Electronically signed by: Tayo Barry, PT Please sign and return to therapist. Thank you for your referral.
--- NOTE | 2022-08-27 09:00 | MHC.PT.DC ---
[facility] [place] Office [place] Office [place] Office [address] [address] [phone] F: [phone] F: [phone] F: [phone] F: [phone] Physical Therapy Discharge Report Diagnosis: Pain in R hip Date of Surgery: none Date of Evaluation: 06/09/22 Date of Discharge: 07/28/22 Treatments to Date: 8 Cancellations to Date: No Shows to Date: Discharge Status: Improved Function Independent with HEP Discharge Summary: 07/19/22: pt has been feeling much better with less s/s. we have been able to progress HEP without adverse reactions. 07/15/22: responding well to current program. no adverse reactions from above. still with focus on breathing mechanics with ex. 07/08/22: pt with less pain overall but only tolerated slow progression with strength. irritable with marches so we will be cautious with marching activities. progress strength as tolerated NV. 06/28/22: pt edu was crucial today as pt still has pain at times in hip with onset concurrent with L hand swelling and discomfort. reviewed proper breathing techniques. 06/25/22: pt responding well overall. responded well to IASTM today. assess response and progress with squat, STS mechanics NV. 06/22/2022: Pt with some discomfort in his leg. Trial of standing ext with UE support and caution to not over strain his abdomen due to recent hernia surgery. He had reduction in sx in his leg with this. Advised continuing with stability HEP at home. Will try standing ext next visit to make sure form is good before giving for home as an exercise as I want to be cautious of recent hernia repair. 06/18/2022: Pt with some cramping with bridges today. Completes exercises as above at slow pace but without reports of increase in pain. Cues for controlled form throughout for max benefits and pt with improved execution. Updated HEP to reflect new exercises and printout provided. Patient is a 71 year old R handed male who presents with s/s consistent with R hip pain. 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 Patient past medical history includes DM, hernia surgery. Current impairments include pain, posture, ROM, strength, activity tolerance and functional mobility. Functional limitations include decreased ability to sleep, bend, squat, turn, clean, and roll over. Patient is motivated with good rehab potential. Skilled PT will address impairments and functional limitations in order to achieve goals. Electronically signed by: Tayo Barry, PT Please sign and return to therapist. Thank you for your referral.
== END 2022-08-27 09:01 | disposition home or self-care (01) ==
LOC: HO.PTCHIC 07:00
PROVIDERS: PCP Nurse Practitioner Family; Visit Provider Nurse Practitioner Family
DX: M25.551 Pain in right hip (principal)
CPT/HCPCS: 97110; 97140; 97162

== ENCOUNTER → 2022-08-31 07:11 | Outpatient (BNVA) | payer MEDICARE, SELFPAY | PROVIDERS: PCP Nurse Practitioner Family; Visit Provider Student in an Organized Health Care Education/Training Program | DX: R74.8 Abnormal levels of other serum enzymes (principal); M77.8 Other enthesopathies, not elsewhere classified; M70.61 Trochanteric bursitis, right hip | CPT/HCPCS: 99212 ==

== ENCOUNTER 2022-09-24 07:33 | Outpatient (REF) | payer MEDICARE, SELFPAY ==
[2022-09-24 07:48] LABS: MANUAL DIFF FLAG NO
[2022-09-24 07:51] LABS: Basophils Absolute Auto 0.1 X10*3/uL (0.0-0.2); Basophils Percent Auto 0.8 % (0-2); Eosinophils Absolute Auto 0.2 X10*3/uL (0.0-0.4); Eosinophils Percent Auto 3.3 % (0-4); Hematocrit 40.2 % (42.0-52.0); Hemoglobin 13.7 g/dl (14.0-18.0); Imm Gran Abs Auto 0.03 X10*3/uL (0.00-0.03); Imm Gran Pct Auto 0.5 % (0.0-0.4); Immature Retic Fraction 14.4 % (2.3-13.4); Lymphocytes Absolute Auto 1.3 X10*3/uL (1.2-4.9); Lymphocytes Percent Auto 20.1 % (20-40); Mean Corpuscular HGB Conc 34.1 g/dl (31.0-36.0); Mean Corpuscular Hemoglobin 32.7 pg (27.0-33.0); Mean Corpuscular Volume 95.9 fL (80.0-98.0); Mean Platelet Volume 8.9 fL (9.4-12.4); Monocytes Absolute Auto 0.7 X10*3/uL (0.1-1.2); Monocytes Percent Auto 10.4 % (2-11); Neutrophils Absolute Auto 4.1 x10*3/uL (2.0-8.3); Neutrophils Percent Auto 64.9 % (45-73); Platelet Count 280 X10*3/uL (160-400); Red Blood Count 4.19 X10*6/uL (4.60-5.80); Red Cell Distribution Width 11.8 % (11.0-16.0); Retic HGB Equivalent 36.3 pg (30.0-35.0); Reticulocyte Percent 1.9 % (0.5-1.8); Reticulocytes Absolute 0.078 X10*6/uL (0.026-0.095); White Blood Count 6.3 X10*3/uL (4.8-10.8)
[2022-09-24 08:31] LABS: Alanine Aminotransferase 16 U/L (0-40); Albumin Level 4.4 g/dL (3.5-5.0); Alkaline Phosphatase 66 U/L (39-117); Anion Gap 15 (12-20); Aspartate Amino Transferase 20 U/L (5-37); Bilirubin Total 0.6 mg/dL (0.0-1.0); Blood Urea Nitrogen 18 mg/dL (9-16); Carbon Dioxide 28 mmol/L (22-29); Chloride 102 mmol/L (96-108); Estimated Glomerular Filt Rate > 60; Glucose Random 152 mg/dL (60-115); Iron 135 mcg/dL (45-160); Percent Iron Saturation 44 % (15-50); Potassium 3.9 mmol/L (3.3-5.1); Sodium 141 mmol/L (135-145); Total Iron Binding Capacity 305 mcg/dL (228-428); Total Protein 6.6 g/dL (6.5-8.0); Unsaturated Iron Binding 170 ug/dL
[2022-09-24 08:52] LABS: Appearance Urine Clear; Color Urine Yellow; Glucose Urine UA Negative (Negative); Leukocyte Esterase Urine Trace (Negative); Nitrite Urine Negative (Negative); Specific Gravity - Urine 1.015 (1.005-1.025); UMIC TRIGGER UACC YES; Urine Blood Trace (Negative); Urine Ketones Negative (Negative); Urine Protein Negative (Neg-Trace)
[2022-09-24 08:59] LABS: Ferritin 120 ng/mL (20-250); Folate 17.1 ng/mL (> or = 4.0); TSH reflex Free T4 1.39 uIU/mL (0.32-4.0); Vitamin B12 1329 pg/mL (200-900)
[2022-09-24 09:00] LABS: Bacteria Urine None Seen (None Seen); Hyaline Casts Urine 0-2 /LPF (0-2); RBC Urine 0-2 /HPF (0-2); Squamous Epithelial Cell Urine 0-2 /HPF (0-2); WBC Urine 0-5 /HPF (0-5)
[2022-09-27 22:19] LABS: Lyme Abs Screen <0.90 index
== END 2022-09-24 07:34 | disposition home or self-care (01) ==
LOC: HO.LAB 07:33
PROVIDERS: PCP Nurse Practitioner Family; Visit Provider Nurse Practitioner Family
DX: R53.83 Other fatigue (principal); R82.90 Unspecified abnormal findings in urine
CPT/HCPCS: 36415; 80053; 81001; 82607; 82728; 82746; 83540; 84443; 85025; 85045; 86617; 86618

== ENCOUNTER 2022-10-12 15:00 | Outpatient (RCR) | payer MEDICARE, SELFPAY ==
--- NOTE | 2022-09-21 15:55 | MHC.OT.EP ---
[address] [phone] Occupational Therapy Plan of Care Patient Name: Zaki Ramirez Date of Evaluation: 09/21/22 Diagnosis: Left hand tendonitis Pain Location: Left hand; base of 3rd digit 2/10 current 8/10 worst Pain Score: 2 Pain Scale Used: Numeric (0 - 10) Aggravating Factors: Over stretching, forceful grasp Alleviating Factors: Ibuprofen, turmeric, heat, stretching Assessment: Pt is a 72 y/o male referred to OT for left hand tendonitis. Pt. reports approximately 3 month history of hand and digit pain, primarily at base of 3rd digit. He reports most of the pain is while he is at rest or while sleeping. The dorsal surface of his hand swells at night with some instances of triggering. He is tender to palpation at base of 3rd digit and reports stiffness with full flexion/extension. A 20% limitation is reported per the Quick DASH assessment. Pt. would benefit from skilled OT services for pain management and education, joint protection techniques, and HEP. Frequency and Duration: The patient will be seen 2/wk for 4 weeks Short Term Goals: Decrease L hand/digit pain to 0/10 IND with thermal modalities for pain IND with progression of HEP IND with joint protection techniques and activity modification Increase ease with ADL/IADL as evidenced by <10% on Quick DASH Settlement Worker Goals: Same as above Treatment Plan: Therapeutic Exercise Therapeutic Activity Home Exercise Program Splinting Patient Education Edema Control Ultrasound Paraffin Fluidotherapy MHP Joint Mobilization Soft Tissue Mobilization Electronically Signed By: Su Membreno MS OTR/L Please Sign and return to therapist. Thank you once again for your referral.
== END 2023-01-20 15:11 | disposition home or self-care (01) ==
LOC: HO.OT 15:00
PROVIDERS: PCP Nurse Practitioner Family; Visit Provider Student in an Organized Health Care Education/Training Program
DX: M77.8 Other enthesopathies, not elsewhere classified (principal)
CPT/HCPCS: 97035; 97110; 97165; 97535

== ENCOUNTER → 2022-11-10 15:05 | Outpatient (BNVA) | payer MEDICARE, SELFPAY | PROVIDERS: PCP Nurse Practitioner Family; Visit Provider Nurse Practitioner | DX: Z01.818 Encounter for other preprocedural examination (principal); E66.01 Morbid (severe) obesity due to excess calories; Z68.36 Body mass index [BMI] 36.0-36.9, adult; J44.9 Chronic obstructive pulmonary disease, unspecified; G47.33 Obstructive sleep apnea (adult) (pediatric); I25.10 Atherosclerotic heart disease of native coronary artery without angina pectoris | CPT/HCPCS: 99202 ==

== ENCOUNTER 2022-12-02 06:11 | Outpatient (REF) | payer MEDICARE, SELFPAY ==
[2022-12-02 06:24] LABS: MANUAL DIFF FLAG NO
[2022-12-02 07:09] LABS: Basophils Percent Auto 0.7 % (0-2); Eosinophils Absolute Auto 0.2 X10*3/uL (0.0-0.4); Hematocrit 43.5 % (42.0-52.0); Hemoglobin 14.6 g/dl (14.0-18.0); Imm Gran Abs Auto 0.02 X10*3/uL (0.00-0.03); Imm Gran Pct Auto 0.3 % (0.0-0.4); Immature Retic Fraction 16.2 % (2.3-13.4); Lymphocytes Absolute Auto 1.6 X10*3/uL (1.2-4.9); Lymphocytes Percent Auto 26.9 % (20-40); Mean Corpuscular HGB Conc 33.6 g/dl (31.0-36.0); Mean Corpuscular Hemoglobin 31.9 pg (27.0-33.0); Mean Corpuscular Volume 95.2 fL (80.0-98.0); Mean Platelet Volume 9.9 fL (9.4-12.4); Monocytes Absolute Auto 0.6 X10*3/uL (0.1-1.2); Monocytes Percent Auto 10.5 % (2-11); Neutrophils Absolute Auto 3.5 x10*3/uL (2.0-8.3); Neutrophils Percent Auto 57.6 % (45-73); Platelet Count 279 X10*3/uL (160-400); Red Blood Count 4.57 X10*6/uL (4.60-5.80); Red Cell Distribution Width 12.4 % (11.0-16.0); Retic HGB Equivalent 37.5 pg (30.0-35.0); Reticulocyte Percent 2.1 % (0.5-1.8); Reticulocytes Absolute 0.094 X10*6/uL (0.026-0.095)
[2022-12-02 08:10] LABS: Appearance Urine Clear; Color Urine Yellow; Glucose Urine UA Negative (Negative); Leukocyte Esterase Urine Negative (Negative); Nitrite Urine Negative (Negative); Specific Gravity - Urine 1.015 (1.005-1.025); Urine Blood Negative (Negative); Urine Ketones Negative (Negative); Urine Protein Negative (Neg-Trace)
[2022-12-02 11:12] LABS: Alanine Aminotransferase 20 U/L (0-40); Albumin Level 4.6 g/dL (3.5-5.0); Alkaline Phosphatase 57 U/L (39-117); Anion Gap 15 (12-20); Aspartate Amino Transferase 22 U/L (5-37); Blood Urea Nitrogen 17 mg/dL (9-16); Calcium 9.3 mg/dL (8.4-10.2); Carbon Dioxide 28 mmol/L (22-29); Chloride 103 mmol/L (96-108); Cholesterol 167 mg/dL; Estimated Glomerular Filt Rate > 60; Glucose Fasting 120 mg/dL (60-99); HDL Cholesterol 59 mg/dL; Iron 240 mcg/dL (45-160); LDL Cholesterol Calculated 89 mg/dl; Percent Iron Saturation 70 % (15-50); Potassium 3.9 mmol/L (3.3-5.1); Sodium 142 mmol/L (135-145); Total Iron Binding Capacity 344 mcg/dL (228-428); Total Protein 7.3 g/dL (6.5-8.0); Triglycerides 98 mg/dL; Unsaturated Iron Binding 104 ug/dL
[2022-12-02 11:31] LABS: Ferritin 93 ng/mL (20-250); TSH reflex Free T4 1.77 uIU/mL (0.32-4.0)
[2022-12-02 11:43] LABS: Folate 18.4 ng/mL (> or = 4.0); Vitamin B12 806 pg/mL (200-900)
== END 2022-12-02 06:12 | disposition home or self-care (01) ==
LOC: HO.LAB 06:11
PROVIDERS: PCP Nurse Practitioner Family; Visit Provider Nurse Practitioner Family
DX: D64.9 Anemia, unspecified (principal); E53.8 Deficiency of other specified B group vitamins; E11.9 Type 2 diabetes mellitus without complications
CPT/HCPCS: 36415; 80053; 80061; 81003; 82607; 82728; 82746; 83540; 84443; 85025; 85045

== ENCOUNTER 2022-12-08 07:47 | Outpatient (REF) | payer MEDICARE, SELFPAY ==
[2022-12-08 12:15] LABS: CDiff Gene PCR NEGATIVE (Negative)
[2022-12-08 15:08] LABS: Adenovirus F 40/41 Not Detected (Not Detect.); Astrovirus Not Detected (Not Detect.); Campylobacter Not Detected (Not Detect.); Cryptosporidium Not Detected (Not Detect.); Cyclospora cayetanensis Not Detected (Not Detect.); E. coli EAEC Not Detected (Not Detect.); E. coli EPEC Not Detected (Not Detect.); E. coli ETEC Not Detected (Not Detect.); E. coli STEC Not Detected (Not Detect.); Entamoeba histolytica Not Detected (Not Detect.); Giardia lamblia Not Detected (Not Detect.); Norovirus GI/GII Not Detected (Not Detect.); Plesiomonas shigelloides Not Detected (Not Detect.); Rotavirus A Not Detected (Not Detect.); Salmonella Not Detected (Not Detect.); Sapovirus Not Detected (Not Detect.); Shigella sp./EIEC Not Detected (Not Detect.); Vibrio Not Detected (Not Detect.); Vibrio Cholerae Not Detected (Not Detect.); Yersinia enterocolitica Not Detected (Not Detect.)
== END 2022-12-08 07:48 | disposition home or self-care (01) ==
LOC: HO.HMGCLNP 07:47
PROVIDERS: PCP Nurse Practitioner Family; Visit Provider Nurse Practitioner Family
DX: R19.7 Diarrhea, unspecified (principal)
CPT/HCPCS: 87338; 87493; 87507

== ENCOUNTER 2022-12-11 13:39 | Emergency (ER) | payer MEDICARE, SELFPAY ==
[2022-12-11 13:58] VITALS: BP 167/80; PULSE 80; RESP 16; TEMP 36.8; O2SAT 95; BMI 35.9
[2022-12-11] MEDS: Lidocaine HCl 1 % MPF 5 ML VIAL SUBCUT ×2 (16:02)
--- NOTE | 2022-12-11 16:52 | ED.WOUNDLAC ---
HPI - Wound/Laceration General Chief Complaint: Wound/Laceration Stated Complaint: l great toe laceration inj Time Seen by Provider: 12/11/22 15:10 History of Present Illness HPI narrative: patient complains of laceration to left big toe when he dropped a spatula on it just prior to arrival He has no numbness weakness or tingling no other injury no other complaint any is up-to-date on tetanus immunization Related Data Home Medications Medication Instructions Recorded Confirmed ascorbic acid (vitamin C) 500 mg 1,000 mg PO DAILY 03/02/21 12/07/22 capsule aspirin 81 mg tablet,delayed 81 mg PO DAILY 03/02/21 12/07/22 release cholecalciferol (vitamin D3) 125 4,000 unit PO DAILY 03/02/21 12/07/22 mcg (5,000 unit) capsule cyanocobalamin (vitamin B-12) 1,000 mcg PO DAILY 03/02/21 12/07/22 5,000 mcg capsule ferrous sulfate 325 mg (65 mg 325 mg PO DAILY 03/02/21 12/07/22 iron) tablet glucosamine HCl 500 mg tablet 1,000 mg PO DAILY 03/02/21 12/07/22 naproxen sodium 220 mg capsule 440 mg PO DAILY 03/02/21 12/07/22 tamsulosin 0.4 mg capsule 0.8 mg PO DAILY 03/17/21 12/07/22 finasteride 5 mg tablet 5 mg PO DAILY 04/21/21 12/07/22 acetaminophen 500 mg capsule 500 mg PO ONCE PRN 11/10/22 12/07/22 acetaminophen 650 mg 1,300 mg PO Q12H 11/10/22 12/07/22 tablet,extended release (Tylenol Arthritis Pain) tumeric 1,000 mg PO BID 11/10/22 12/07/22 Previous Rx's Medication Instructions Recorded losartan 100 mg tablet 100 mg PO DAILY #90 tabs 07/22/22 amlodipine 10 mg tablet 10 mg PO 1700 #90 tabs 11/03/22 furosemide 40 mg tablet 40 mg PO DAILY #90 tabs 11/03/22 gabapentin 300 mg capsule 900 mg PO BEDTIME #270 caps 11/03/22 Allergies Allergy/AdvReac Type Severity Reaction Status Date / Time latex [LATEX] Allergy Intermediate RASH Verified 12/11/22 13:57 Rlwlifr-AAF-LfB Reductase AdvReac Intermediate Muscle Pain Verified 12/11/22 13:57 Inhibitor lisinopril AdvReac Nausea and Verified 12/11/22 13:57 Vomiting [facility] Past Medical History Source: nursing notes reviewed Medical History Acute urinary retention HUNG positive BPH (benign prostatic hyperplasia) CAD (coronary artery disease) Chronic fatigue COPD (chronic obstructive pulmonary disease) Diabetes Fatigue History of DVT (deep vein thrombosis) HTN (hypertension) Minimal depression Neck pain Obesity JENNY (obstructive sleep apnea) Osteoarthritis Uncontrolled hypertension Surgical History History of resection of small bowel History of sleeve gastrectomy History of tonsillectomy History of vasectomy History of ventral hernia repair Hx of colonoscopy Hx of right knee surgery S/P excision of lipoma Family History Family History Father CAD (coronary artery disease) Mother No problems noted. Brother No problems noted. Son No problems noted. Daughter No problems noted. Sister No problems noted. Sister No problems noted. Sister No problems noted. 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 Cognitive needs: No Hearing needs: No Vision needs: No Physical Exam Vital Signs: Vital Signs: Last Vital Signs Temp 98.2 F 12/11/22 13:58 Pulse 80 12/11/22 13:58 Resp 16 12/11/22 13:58 BP 167/80 H 12/11/22 13:58 Pulse Ox 95 12/11/22 13:58 O2 Del Method Room Air 12/11/22 13:58 BMI result Body Mass Index 35.9 general appearance is no distress Head normocephalic atraumatic Neck is supple Respiratory no distress Extremities full range of motion x4 Left toe exam on the dorsal lateral surface of left big toe there is a 1.5 cm laceration, neurovascular intact distal, extensor and flexor tendon function normal, no swelling no significant tenderness Course Course Course Narrative: patient with laceration to left big toe procedure note Anesthesia is 6 cc of 1% lidocaine digital block with good anesthesia Copious irrigation with normal saline Closed with 4 x 5.0 nylon sutures Bleeding controlled and dressing applied Well-appearing patient is discharged ambulating easily from the emergency Medications Administered Discontinued Medications Generic Name Dose Route Start Last Admin Trade Name Freq PRN Reason Stop Dose Admin Lidocaine HCl 5 ml 12/11/22 15:16 12/11/22 16:02 Lidocaine Hcl 1 % Mpf 5 Ml Vial SUBCUT 12/11/22 15:17 5 ml ONCE ONE Administration Lidocaine HCl 5 ml 12/11/22 15:16 12/11/22 16:02 Lidocaine Hcl 1 % Mpf 5 Ml Vial SUBCUT 12/11/22 15:17 5 ml ONCE ONE Administration Discharge Plan Discharge Clinical Impression: Laceration of toe Patient Disposition: Home, Self-Care Additional Instructions: stitches out 7-10 days Return any time for redness swelling pain discharge from wound red stripe up leg, any sign of infection any worse condition or any concerns Prescriptions: No Action losartan 100 mg tablet 100 mg PO DAILY Qty: 90 3RF furosemide 40 mg tablet 40 mg PO DAILY Qty: 90 1RF amlodipine 10 mg tablet 10 mg PO 1700 Qty: 90 1RF gabapentin 300 mg capsule 900 mg PO BEDTIME Qty: 270 1RF ascorbic acid (vitamin C) 500 mg capsule 1,000 mg PO DAILY ferrous sulfate 325 mg (65 mg iron) tablet 325 mg PO DAILY cholecalciferol (vitamin D3) 125 mcg (5,000 unit) capsule 4,000 unit PO DAILY cyanocobalamin (vitamin B-12) 5,000 mcg capsule 1,000 mcg PO DAILY glucosamine HCl 500 mg tablet 1,000 mg PO DAILY Rx Instructions: administer with a meal aspirin 81 mg tablet,delayed release (DR/EC) 81 mg PO DAILY naproxen sodium 220 mg capsule 440 mg PO DAILY acetaminophen [Tylenol Arthritis Pain] 650 mg tablet extended release 1,300 mg PO Q12H tamsulosin 0.4 mg capsule 0.8 mg PO DAILY finasteride 5 mg tablet 5 mg PO DAILY tumeric 1,000 mg PO BID acetaminophen 500 mg capsule 500 mg PO ONCE PRN
== END 2022-12-11 17:07 | disposition home or self-care (01) ==
PROVIDERS: Emergency Provider Emergency Medicine; PCP Nurse Practitioner Family
DX: S91.112A Laceration without foreign body of left great toe without damage to nail, initial encounter (principal); W20.8XXA Other cause of strike by thrown, projected or falling object, initial encounter; Y93.G3 Activity, cooking and baking; Y92.030 Kitchen in apartment as the place of occurrence of the external cause; Y99.9 Unspecified external cause status
CPT/HCPCS: 12001; 99282; 99284

== ENCOUNTER 2022-12-15 14:08 | Outpatient (REF) | payer MEDICARE, SELFPAY ==
--- NOTE | ~2022-12-15 | US_ITS ---
EXAMINATION: US RETROPERITONEAL LIMITED (RENAL ONLY) CLINICAL INFORMATION: Unspecified abdominal pain. COMPARISON: CT abdomen and pelvis with contrast 06/16/2022. TECHNIQUE: Real-time imaging of the kidneys. Technically limited study secondary to body habitus. FINDINGS: RIGHT KIDNEY: 12.6 x 6.4 x 5.2 cm (SAG x AP x TRV). The kidney is normal in size, contour, and echogenicity. Renal cortical thickness is normal. No calculi or focal parenchymal lesions. No hydronephrosis. LEFT KIDNEY: 12.7 x 6.4 x 4.8 cm (SAG x AP x TRV). The kidney is normal in size, contour, and echogenicity. Renal cortical thickness is normal. No calculi or focal parenchymal lesions. No hydronephrosis. US/US renal BI IMPRESSION: Unremarkable examination.
== END 2022-12-15 14:09 | disposition home or self-care (01) ==
LOC: HO.US 14:08
PROVIDERS: PCP Nurse Practitioner Family; Visit Provider Nurse Practitioner Family
DX: R10.9 Unspecified abdominal pain (principal); Z87.442 Personal history of urinary calculi
CPT/HCPCS: 76775

== ENCOUNTER 2023-01-25 08:35 | Outpatient (REF) | payer MEDICARE, SELFPAY ==
[2023-01-25 10:51] LABS: Prostate Specific Antigen 1.43 ng/mL (<0.05-4.0)
== END 2023-01-25 08:36 | disposition home or self-care (01) ==
LOC: HO.LAB 08:35
PROVIDERS: PCP Nurse Practitioner Family; Visit Provider Nurse Practitioner Family
DX: Z12.5 Encounter for screening for malignant neoplasm of prostate (principal); N40.1 Benign prostatic hyperplasia with lower urinary tract symptoms
CPT/HCPCS: 36415; 84153

== ENCOUNTER 2023-02-02 06:12 | Outpatient (REF) | payer MEDICARE, SELFPAY ==
[2023-02-02 06:21] LABS: MANUAL DIFF FLAG NO
[2023-02-02 08:06] LABS: Basophils Percent Auto 0.4 % (0-2); Eosinophils Absolute Auto 0.3 X10*3/uL (0.0-0.4); Eosinophils Percent Auto 3.7 % (0-4); Hematocrit 40.1 % (42.0-52.0); Hemoglobin 13.6 g/dl (14.0-18.0); Imm Gran Abs Auto 0.03 X10*3/uL (0.00-0.03); Imm Gran Pct Auto 0.4 % (0.0-0.4); Lymphocytes Absolute Auto 1.9 X10*3/uL (1.2-4.9); Lymphocytes Percent Auto 27.9 % (20-40); Mean Corpuscular HGB Conc 33.9 g/dl (31.0-36.0); Mean Corpuscular Hemoglobin 32.4 pg (27.0-33.0); Mean Corpuscular Volume 95.5 fL (80.0-98.0); Mean Platelet Volume 10.2 fL (9.4-12.4); Monocytes Absolute Auto 0.7 X10*3/uL (0.1-1.2); Monocytes Percent Auto 10.4 % (2-11); Neutrophils Absolute Auto 3.9 x10*3/uL (2.0-8.3); Neutrophils Percent Auto 57.2 % (45-73); Platelet Count 257 X10*3/uL (160-400); Red Cell Distribution Width 12.3 % (11.0-16.0); White Blood Count 6.7 X10*3/uL (4.8-10.8)
[2023-02-02 08:51] LABS: Alanine Aminotransferase 20 U/L (0-40); Albumin Level 4.4 g/dL (3.5-5.0); Alkaline Phosphatase 51 U/L (39-117); Anion Gap 13 (12-20); Aspartate Amino Transferase 19 U/L (5-37); Bilirubin Total 0.5 mg/dL (0.0-1.0); Blood Urea Nitrogen 18 mg/dL (9-16); Calcium 9.3 mg/dL (8.4-10.2); Carbon Dioxide 27 mmol/L (22-29); Chloride 105 mmol/L (96-108); Cholesterol 171 mg/dL; Estimated Glomerular Filt Rate > 60; Glucose Fasting 122 mg/dL (60-99); HDL Cholesterol 64 mg/dL; Iron 130 mcg/dL (45-160); LDL Cholesterol Calculated 90 mg/dl; Percent Iron Saturation 42 % (15-50); Potassium 4.2 mmol/L (3.3-5.1); Sodium 141 mmol/L (135-145); Total Iron Binding Capacity 311 mcg/dL (228-428); Total Protein 7.1 g/dL (6.5-8.0); Triglycerides 85 mg/dL; Unsaturated Iron Binding 181 ug/dL
[2023-02-02 08:56] LABS: Ferritin 117 ng/mL (20-250)
[2023-02-02 09:04] LABS: Folate 19.8 ng/mL (> or = 4.0); Vitamin B12 752 pg/mL (200-900)
== END 2023-02-02 06:13 | disposition home or self-care (01) ==
LOC: HO.LAB 06:12
PROVIDERS: PCP Nurse Practitioner Family; Visit Provider Nurse Practitioner Family
DX: I25.10 Atherosclerotic heart disease of native coronary artery without angina pectoris (principal); D50.9 Iron deficiency anemia, unspecified; E53.9 Vitamin B deficiency, unspecified
CPT/HCPCS: 36415; 80053; 80061; 82607; 82728; 82746; 83540; 85025

== ENCOUNTER 2023-02-03 13:21 | Outpatient (AMB) | payer MEDICARE, SELFPAY ==
[2023-02-03 13:25] VITALS: BP 160/80; BMI 37.0
--- NOTE | 2023-02-03 13:25 | MHC.OFFVIS ---
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 Required: No Allergies latex [LATEX] Allergy (Intermediate, Verified 02/03/23 13:31) RASH [id number] Reductase Inhibitor Adverse Reaction (Intermediate, Verified 02/03/23 13:31) Muscle Pain spironolactone Adverse Reaction (Mild, Verified 02/03/23 13:31) Migraine lisinopril Adverse Reaction (Verified 02/03/23 13:31) Nausea and Vomiting Medication List - Last Reconciled 02/03/23 by Waylon Aleman MD acetaminophen 500 mg PO ONCE PRN acetaminophen ER (Tylenol Arthritis Pain) 1,300 mg PO Q12H amlodipine 10 mg PO 1700 ascorbic acid (vitamin C) 1,000 mg PO DAILY aspirin 81 mg PO DAILY cholecalciferol (vitamin D3) 4,000 units PO DAILY cyanocobalamin (vitamin B-12) 1,000 mcg PO DAILY ferrous sulfate 325 mg PO DAILY finasteride 5 mg PO DAILY furosemide 40 mg PO DAILY gabapentin 900 mg (3 x 300 mg) PO BEDTIME glucosamine HCl 1,000 mg PO DAILY losartan 100 mg PO DAILY naproxen sodium 440 mg PO DAILY tamsulosin 0.8 mg PO DAILY HPI HPI Comments History of Present Illness Details Zaki comes for follow-up. He continues to have issues with elevated blood pressure. Recently after discussion he was started on spironolactone therapy. However he developed side effect to it any had to stop it. He continues to have issues with elevated blood pressure. More recently has been noticing exertional shortness of breath with activity. Denies any orthopnea, PND, leg edema. No exertional chest pain. No lightheadedness, syncope. He does say that in the past he has sleep apnea but since losing weight after bariatric surgery he has not followed up on this. He has daytime somnolence and snoring and nighttime. Denies any lightheadedness, syncope or prolonged palpitations. [facility] History Acute urinary retention HUNG positive BPH (benign prostatic hyperplasia) CAD (coronary artery disease) Chronic fatigue COPD (chronic obstructive pulmonary disease) Diabetes Fatigue History of DVT (deep vein thrombosis) HTN (hypertension) Minimal depression Neck pain Obesity JENNY (obstructive sleep apnea) Osteoarthritis Uncontrolled hypertension Surgical History History of resection of small bowel History of sleeve gastrectomy History of tonsillectomy History of vasectomy History of ventral hernia repair Hx of colonoscopy Hx of right knee surgery S/P excision of lipoma Family History Father CAD (coronary artery disease) Mother No problems noted. Brother Accelerated hypertension Son No problems noted. Daughter No problems noted. Sister Leukemia Sister Cerebral palsy Sister No problems noted. 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 [employer] Cognitive needs: No Hearing needs: No Vision needs: No Review of Systems ENT Reports dizziness Card Denies chest pain, Denies chest pain at rest, Denies chest pain with activity, Denies rapid heart rate, Denies pedal edema, Denies edema, Denies leg edema, Denies lightheadedness, Denies palpitations, Denies dyspnea, Denies dyspnea on exertion and Denies orthopnea Resp Denies cough, Denies dyspnea and Denies dyspnea on exertion GI Denies hematochezia and Denies change in stool character Musc Denies abnormal gait, Reports limited range of motion, Reports muscle cramps, Denies muscle weakness, Denies numbness, Denies radiating pain into limb, Denies stiffness and Denies tingling Neuro Denies Abnormal speech present, Denies abnormal gait, Reports dizziness, Denies numbness and Denies tingling Endo Denies palpitations Physical Exam Vital Signs: Last Vital Signs BP 160/80 H 02/03/23 13:25 BMI result Body Mass Index 37.0 Const General: cooperative, comfortable, no acute distress, alert, awake and well groomed Nutritional Appearance: obese Orientation/consciousness: patient oriented x3 Limitations: no limitations HEENT Head: Yes normocephalic and Yes atraumatic Neck Neck: Yes trachea midline, Yes supple and Yes no JVD Resp Effort & Inspection: normal respiratory effort Auscultation: clear to auscultation bilaterally Cardio Jugular venous distension: no JVD Palpation: normal PMI Rate: regular rate Rhythm: regular rhythm Heart sounds: S1 normal heart sound present, S2 normal heart sound present, no click, no gallops, no murmurs and Other heart sounds present (S4 present) GI Inspection: Yes obesity Auscultation: normal bowel sounds Skin General skin exam: no rashes or lesions noted Neuro General: patient oriented x3 and no focal motor deficits Speech: No Abnormal speech present Extrem General: Yes no clubbing, cyanosis or edema Psych Appearance: grossly normal Office Procedures EKG Details: EKG shows normal sinus rhythm with nonspecific intraventricular conduction delay with ST T wave changes suggestive of repolarization abnormality [id number], Complete Assessment & Plan Assessment & Plan (1) Uncontrolled hypertension: Code(s): I10 - Essential (primary) hypertension Plan: Uncontrolled hypertension this elderly gentleman which has been difficult control. Most likely has untreated sleep apnea. Will suggest him to have home sleep study to further assess for the same. Will refer him to sleep specialist if he has significant sleep apnea. Meanwhile will start him on labetalol 100 mg b.i.d.. Advised to monitor blood pressure at home and maintain a log. Follow-up in 2 weeks time by it telephone call. With gradually uptitrate as tolerated. Potential side effects were discussed. Low-salt diet was discussed. Stress mitigation strategies needs to be pursued. Continue other medications. Continue participate in gradual weight loss program. (2) CAD (coronary artery disease): Comment: Nonobstructive by cardiac catheterization, March 2021 Code(s): I25.10 - Atherosclerotic heart disease of [place] coronary artery without angina pectoris Plan: CAD with nonobstructive coronary artery disease without any symptoms of angina. He is currently having symptoms of shortness of breath most likely related to weight as well as hypertensive response to exercise. Continue participate in weight loss program. Advised an echocardiogram to assess for LV systolic and diastolic function. Continue low-dose aspirin therapy. Continue diet modification and regular exercise program. Consider ezetimibe therapy to target goal LDL less than 70 mg/dL. Follow up in the clinic in 6 months time, sooner p.r.n.. Thank you for allowing me to partake in his care Orders: Orders CA echo transthoracic complete Today I10 - Essential (primary) hypertension RT home sleep study Today I10 - Essential (primary) hypertension, R40.0 - Somnolence Medications: New labetalol 100 mg PO BID 60 tabs 5RF Coding Level of Care Code Est Pt Level 4 (04739) Diagnoses Uncontrolled hypertension I10 CAD (coronary artery disease) I25.10 CPT Codes EKG - CPT: [id number], Complete ([id number])
== END 2023-02-03 14:28 | disposition home or self-care (01) ==
PROVIDERS: PCP Nurse Practitioner Family; Referring Provider Nurse Practitioner Family; Visit Provider Internal Medicine Cardiovascular Disease
DX: I10 Essential (primary) hypertension (principal); I25.10 Atherosclerotic heart disease of native coronary artery without angina pectoris
CPT/HCPCS: 93010; 99214

== ENCOUNTER → 2023-02-03 13:21 | Outpatient (BNVA) | payer MEDICARE, SELFPAY | PROVIDERS: PCP Nurse Practitioner Family; Referring Provider Nurse Practitioner Family; Visit Provider Internal Medicine Cardiovascular Disease | DX: I10 Essential (primary) hypertension (principal); I25.10 Atherosclerotic heart disease of native coronary artery without angina pectoris | CPT/HCPCS: 93005; 99212 ==

== ENCOUNTER 2023-02-09 08:30 | Outpatient (AMB) | payer MEDICARE, SELFPAY ==
[2023-02-09 08:36] VITALS: BP 136/68; PULSE 70; TEMP 36.3; O2SAT 96; BMI 37.5
--- NOTE | 2023-02-09 08:36 | MHC.OFFVIS ---
Intake Vital Signs 02/09/23 08:36 Height 5 ft 10 in Weight 261 lb 11.019 oz BMI 37.5 BP 136/68 Blood Pressure Location Rt brachial Position Sitting Pulse 70 Pulse Source Pulse Oximeter Temp 97.3 F Temp Source Skin Pulse Oximetry (%) 96 Intake Visit Reasons: High CPK Intake Note: Pt seen today for follow up. 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 Required: No Accompanied by: Self / Same As Patient Allergies latex [LATEX] Allergy (Intermediate, Verified 02/09/23 08:39) RASH Fmytorh-EVR-EpU Reductase Inhibitor Adverse Reaction (Intermediate, Verified 02/09/23 08:39) Muscle Pain spironolactone Adverse Reaction (Mild, Verified 02/09/23 08:39) Migraine lisinopril Adverse Reaction (Verified 02/09/23 08:39) Nausea and Vomiting Medication List - Last Reconciled 02/09/23 by Marco Antonio Argueta MD acetaminophen 500 mg PO ONCE PRN acetaminophen ER (Tylenol Arthritis Pain) 1,300 mg PO Q12H amlodipine 10 mg PO 1700 ascorbic acid (vitamin C) 1,000 mg PO DAILY aspirin 81 mg PO DAILY cholecalciferol (vitamin D3) 4,000 units PO DAILY cyanocobalamin (vitamin B-12) 1,000 mcg PO DAILY ferrous sulfate 325 mg PO DAILY finasteride 5 mg PO DAILY furosemide 40 mg PO DAILY gabapentin 900 mg (3 x 300 mg) PO BEDTIME glucosamine HCl 1,000 mg PO DAILY labetalol 100 mg PO BID losartan 100 mg PO DAILY naproxen sodium 440 mg PO DAILY tamsulosin 0.8 mg PO DAILY HPI HPI Comments History of Present Illness Details Patient returns for follow-up. Doing well overall. He went occupational therapy for trigger finger and his fingers do not lock unremarkable he was taught to do exercises that he does at home and sometimes while driving. He has been having chronic pain on the outside of his right hip. He received a steroid injection more than a year ago and it was not helpful. He also went for PT few months ago which provides some relief. He takes Tylenol Arthritis 1350 mg Twice daily which seems to be helping. Initial history: This is a 71-year-old male with a past medical history of hypertension, diabetes mellitus, dyslipidemia, CAD, COPD, JENNY who presents for evaluation of diffuse pain, elevated CPK and a positive HUNG. Patient states he has always had diffuse pain however this became worse since his hernia surgery a few months ago. Patient complains of generalized pain and stiffness. Usually worse in the morning and improves as day goes by. The pain involves his shoulders, arms, forearms, wrists, fingers, hips, ankles and feet. His right hip pain is chronic, he stated that he fell on his right hip a few years ago and injured it. He was recently prescribed physical therapy for his right hip. He denies weakness while getting up from toilet seat. Patient intentionally lost some weight prior to his ventral hernia surgery but has gained some of it back. He denies any skin rashes. Denies any fevers. Patient sleeps 3-4 hours at night but then he tosses and turns and wakes up from sleep. Denies any blood or frothy urine. [facility] Medical History Acute urinary retention HUNG positive BPH (benign prostatic hyperplasia) CAD (coronary artery disease) Chronic fatigue COPD (chronic obstructive pulmonary disease) Diabetes Fatigue History of DVT (deep vein thrombosis) HTN (hypertension) Minimal depression Neck pain Obesity JENNY (obstructive sleep apnea) Osteoarthritis Uncontrolled hypertension Surgical History History of resection of small bowel History of sleeve gastrectomy History of tonsillectomy History of vasectomy History of ventral hernia repair Hx of colonoscopy Hx of right knee surgery S/P excision of lipoma Family History Father CAD (coronary artery disease) Mother No problems noted. Brother Accelerated hypertension Son No problems noted. Daughter No problems noted. Sister Leukemia Sister Cerebral palsy Sister No problems noted. 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 Cognitive needs: No Hearing needs: No Vision needs: No Review of Systems Musc Reports arthralgias and Reports stiffness Physical Exam Vital Signs: Last Vital Signs Temp 97.3 F 02/09/23 08:36 Pulse 70 02/09/23 08:36 BP 136/68 02/09/23 08:36 Pulse Ox 96 02/09/23 08:36 BMI result Body Mass Index 37.5 Const General: cooperative, healthy appearing, comfortable and no acute distress Nutritional Appearance: obese Orientation/consciousness: patient oriented x3 Limitations: no limitations HEENT Head: Yes normocephalic and Yes atraumatic Resp Effort & Inspection: normal respiratory effort and able to speak in complete sentences Skin General skin exam: no rashes or lesions noted Neuro General: patient oriented x3 Extrem Other: Proximal muscle strength 5/5 both upper extremities Left hip flexor strength 5/ 5 Right hip flexor strength limited by pain Right trochanteric bursa area tenderness No active synovitis Nodule in the left 3rd flexor tendon. No triggering Normal nailfold capillaroscopy Assessment & Plan Assessment & Plan (1) Elevated CPK: Code(s): R74.8 - Abnormal levels of other serum enzymes Plan: This is a 72-year-old male with a past medical history of hypertension, dyslipidemia, diabetes mellitus, CAD, COPD, JENNY who presented initially for evaluation of of diffuse pain, positive HUNG 1-40 DFS, and mildly elevated CPK. Patient was examined 3 times, he does not have any proximal muscle weakness.? There are no dermatomyositis skin rashes.? Patient has had a physical job almost all his life and continues to work.? Picture rather consistent with generalized osteoarthritis with a small component of fibromyalgia.? Significance of his mildly elevated CPK is unclear & can be a normal variant. Labs show positive HUNG of low titer 1-40 in DFS pattern which is generally considered negative.? Inflammatory markers are normal. Follow-up in 1 year (2) Left hand tendonitis: Code(s): M77.8 - Other enthesopathies, not elsewhere classified Plan: left 3rd flexor tendinitis, improved with occupational therapy. Advised patient that he can call the office if he develops frequent painful triggering and we can do a steroid injection (3) Trochanteric bursitis of right hip: Code(s): M70.61 - Trochanteric bursitis, right hip Plan: Chronic, did not improve with the steroid injection last year per patient, some improvement with PT done earlier this year. However patient continues to have pain on the outside of the right hip. Referred patient to pain management for further evaluation Plan I spent 23 minutes reviewing patient's chart, evaluating patient, placing orders counseling patient and documenting in the chart Orders: Referrals Pain Management Referral M70.61 - Trochanteric bursitis, right hip Coding Level of Care Code Est Pt Level 4 (59285) Diagnoses Elevated CPK R74.8 Left hand tendonitis M77.8 Trochanteric bursitis of right hip M70.61
== END 2023-02-09 09:10 | disposition home or self-care (01) ==
PROVIDERS: PCP Nurse Practitioner Family; Visit Provider Student in an Organized Health Care Education/Training Program
DX: R74.8 Abnormal levels of other serum enzymes (principal); M77.8 Other enthesopathies, not elsewhere classified; M70.61 Trochanteric bursitis, right hip
CPT/HCPCS: 99214

== ENCOUNTER → 2023-02-09 08:30 | Outpatient (BNVA) | payer MEDICARE, SELFPAY | PROVIDERS: PCP Nurse Practitioner Family; Visit Provider Student in an Organized Health Care Education/Training Program | DX: M77.8 Other enthesopathies, not elsewhere classified (principal); R74.8 Abnormal levels of other serum enzymes; M70.61 Trochanteric bursitis, right hip | CPT/HCPCS: 99212 ==

== ENCOUNTER 2023-02-25 13:48 | Outpatient (AMB) | payer MEDICARE, SELFPAY ==
--- NOTE | 2023-02-25 13:56 | A.OFFVIS_ITS ---
Intake Vital Signs 02/25/23 14:02 Height 5 ft 10 in Weight 252 lb 6 oz BMI 36.2 BP 186/94 H Blood Pressure Location Rt brachial Position Sitting Pulse Source Pulse Oximeter Pulse Oximetry (%) 99 Oxygen Delivery Method Room Air Intake Visit Reasons: Trochanteric bursitis, right hip Allergies latex [LATEX] Allergy (Intermediate, Verified 02/25/23 14:00) RASH Oeeqghc-ZVI-VzJ Reductase Inhibitor Adverse Reaction (Intermediate, Verified 02/25/23 14:00) Muscle Pain spironolactone Adverse Reaction (Mild, Verified 02/25/23 14:00) Migraine lisinopril Adverse Reaction (Verified 02/25/23 14:00) Nausea and Vomiting HPI Trochanteric bursitis, right hip HPI Details Patient is a pleasant 72 years old male with prior history of uncontrolled hypertension, diabetes mellitus, dyslipidemia, CAD, COPD, JENNY, gastric bypass, chronic fatigue, osteoarthritis and h/o DVT presents for evaluation of right hip pain. Patient also sees [facility] Rheumatology provider for diffuse pain with elevated CPK and positive HUNG. Patient reports right hip started on 01/25/2016 when he fell on his right side off a bar stool. Onset of pain was sudden and over the past few years has been progressively getting worse. Patient reports he received a cortisone injection in his lateral side of right hip over a year ago without pain relief. He also went for physical therapy this year which provided temporary and mild pain relief. Patient reports he takes Tylenol, NSAIDs and gabapentin to go through the day as he continues to work. 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 Right hip pain increases with weight bearing, walking, changing positions and cold weather changes. Patient reports he most suffers during winter cold months. Patient also reports multiple joints pain including his neck, shoulders, hands, knees and feet. Worst pain is rated 5-7/10 during transplant registered nurse while in getting up and least severe during the day. Pain negatively affects his ADLs, functioning, mobility, sleep, mood and quality of life. Denies any fever, weight changes, abdominal or back pain, bladder or bowel incontinence or saddle anesthesia. Reports weakness of RLE due to pain. Location Right hip radiating to lateral hip and groin Duration Chronic pain since 2015 Characteristics of symptom or complaint Throbbing, stabbing, sharp, aching, radiating, burning, exhausting, killing Aggravating or associated factors Weather changes, cold, prolonged sitting, changing positions, walking Relieving factors Hot baths, Tylenol, gabapentin, naproxen Treatment Injections- years ago no improvement; PT over 1 year ago, mild relief PFSH Medical History Acute urinary retention HUNG positive BPH (benign prostatic hyperplasia) CAD (coronary artery disease) Chronic fatigue COPD (chronic obstructive pulmonary disease) Diabetes Fatigue History of DVT (deep vein thrombosis) HTN (hypertension) Minimal depression Neck pain Obesity JENNY (obstructive sleep apnea) Osteoarthritis Uncontrolled hypertension Surgical History Hx of colonoscopy S/P excision of lipoma History of resection of small bowel History of ventral hernia repair History of sleeve gastrectomy Hx of right knee surgery History of vasectomy History of tonsillectomy Family History Father CAD (coronary artery disease) Mother No problems noted. Brother Accelerated hypertension Son No problems noted. Daughter No problems noted. Sister Leukemia Sister Cerebral palsy Sister No problems noted. 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 Alert and oriented. Mood and affect appropriate. Follows and participates in conversation appropriately. Respiratory effort is unlabored. No cough. Able to transition from sit to stand unassisted. Back/Spine/Pelvis Other: Lumbar extension and flexion reproduce mild pain. Daniel's test and FADIR increase right lateral and right groin pain. TTP right GTB. Cervical Spine: cervical ROM normal and No Cervical spine tenderness Thoracic/Lumbar Spine: thoracic and lumbar spine normal to inspection, No Thoracic/lumbar spine scar(s), thoraco-lumbar ROM normal, Lasegue's sign negative, straight leg raise negative bilaterally, paraspinal muscle tenderness, No thoracic spinal tenderness and No lumbar spinal tenderness Sacroiliac joints: bilaterally nontender Extrem General: Yes capillary refill normal, Yes no clubbing, cyanosis or edema and Yes no calf tenderness Right lower extremity: hip/thigh Details: normal to inspection, tenderness Location: of the hip (Groin pain with I/E rotation. 4/5 flexor strength due to pain) Location: posterolaterally and over the greater trochanter and crepitus; no swelling, no ecchymosis and no unusual warmth Left lower extremity: hip/thigh Details: normal to inspection and normal ROM; no tenderness, no ecchymosis and no unusual warmth Results Reviewed Results Reviewed: XR HIP, RIGHT 05/26/22 CLINICAL INFORMATION: Right hip pain COMPARISON: 04/06/2019 FINDINGS: No fracture or dislocation. The femoral head articulates appropriately with its acetabulum. Subchondral sclerosis with small osteophytes present. The right hemipelvis is intact. Normal bowel gas pattern. IMPRESSION: Mild degenerative changes of the right hip. Similar appearance to prior. CT/CT abdomen pelvis w IV con 06/16/22 OSSEOUS STRUCTURES: Degenerative changes of the spine. Assessment & Plan Assessment & Plan (1) Trochanteric bursitis of right hip: Code(s): M70.61 - Trochanteric bursitis, right hip (2) Right hip pain: Code(s): M25.551 - Pain in right hip (3) Osteoarthritis of right hip: Code(s): M16.11 - Unilateral primary osteoarthritis, right hip (4) Polyarthralgia: Code(s): M25.50 - Pain in unspecified joint Plan Schedule Right GTB steroid and Right intra-articular steroid hip injections with local and fluoroscopy. Expectations, risks and benefits were reviewed. Patient is aware he will be contacted to schedule this procedure. Script provided for diclofenac gel for multiple joint pain. All questions were answered and the patient is in agreement of plan. Follow-up after injections and sooner as needed. Medications: New diclofenac sodium 1% (Arthritis Pain (diclofenac)) apply to single knee, ankle, foot; for foot includes sole/toes/top of foot 4 grams topical QID 100 grams 3RF pain M16.11 - Unilateral primary osteoarthritis, right hip, M25.551 - Pain in right hip, M70.61 - Trochanteric bursitis, right hip Coding Level of Care Code New Pt Level 4 (98298) Diagnoses Trochanteric bursitis of right hip M70.61 Right hip pain M25.551 Osteoarthritis of right hip M16.11 Polyarthralgia M25.50
[2023-02-25 14:02] VITALS: BP 186/94; O2SAT 99; BMI 36.2
== END 2023-02-25 14:32 | disposition home or self-care (01) ==
PROVIDERS: PCP Nurse Practitioner Family; Visit Provider Nurse Practitioner Family
DX: M70.61 Trochanteric bursitis, right hip (principal); M25.551 Pain in right hip; M16.11 Unilateral primary osteoarthritis, right hip
CPT/HCPCS: 99204

== ENCOUNTER → 2023-02-25 13:48 | Outpatient (BNVA) | payer MEDICARE, SELFPAY | PROVIDERS: PCP Nurse Practitioner Family; Visit Provider Nurse Practitioner Family ==

== ENCOUNTER → 2023-03-08 14:45 | Outpatient (REF) | payer MEDICARE, SELFPAY ==
--- NOTE | 2023-03-08 14:49 | CA_ITS ---
Transthoracic Echocardiogram Patient (Last, First, Middle): Zaki Ramirez S Gender: Male Date of : 1950 Age: 72 Procedure Date: 03/08/2023 Procedure Type: Transthoracic Echocardiogram Location: OP Height: 180.34 cm Weight: 117.94 kg BSA: 2.36 m2 Heart Rate: 62 bpm BP: 160 / 75 mmHg Nurse Monitoring: REBECA Referring MD: Waylon Aleman MD Symptoms: I10 - Essential (primary) hypertension Study Quality: Adequate/w Contrast ECG Rhythm: Sinus Conclusions: - The left ventricular systolic function is low normal. The calculated ejection fraction is 54% by biplane method. - No obvious valvular pathology seen on this study. - There is mild dilatation of the sinuses of Valsalva measuring 4.00 cm and mild dilatation of the ascending aorta measuring 4.30 cm. Findings Procedure Information Contrast agent, definity, is being given per protocol without apparent complications. Left Ventricle Normal left ventricular cavity size. There is mildly increased left ventricular wall thickness. The left ventricular systolic function is low normal. The calculated ejection fraction is 54% by biplane method. There is no evidence of regional wall motion abnormalities. Diastolic function is normal for age. Abnormal septal motion, possibly from conduction system disease. Right Ventricle Mildly increased right ventricular cavity size. There is normal right ventricular systolic function. Atria Both atria are normal in size. Aortic Valve There is mild calcification of the aortic valve. There is no aortic valve stenosis. There is no aortic valve regurgitation. Mitral Valve The mitral valve appears normal. There is no mitral valve regurgitation. There is no mitral valve stenosis. Pulmonic Valve The pulmonic valve is likely normal. Tricuspid Valve There is trace tricuspid valve regurgitation. There is no evidence of pulmonary hypertension. Great Vessels There is mild dilatation of the sinuses of Valsalva measuring 4.00 cm and mild dilatation of the ascending aorta measuring 4.30 cm. Venous The inferior vena cava is normal in size and collapses greater than 50% with inspiration. Pericardium/Pleural There is no evidence of pericardial effusion. Prior Study Comparison Changes noted compared to prior study dated: 03/16/2021. Increase in ascending aortic size. Recommendations, Care & Conclusions No obvious valvular pathology seen on this study. Measurements 2D Linear Measurements IVSd: 1.20 0.6-0.9/0.6-1.0 cm LVIDd: 4.60 3.9-5.3/4.2-5.9 cm LVIDd Index: 1.95 2.4-3.2/2.2-3.1 cm/m2 LVIDs: 3.10 2.0-3.6 cm LVPWd: 1.10 0.7-1.1 cm LA Diam: 3.50 2.7-3.8/3.0-4.0 cm LAIDs Index: 1.48 1.5-2.3 cm/m2 LV Mass: 240.42 67-162/88-224 g LV Mass Index: 101.87 43-95/49-115 g/m2 LVOT Diam: 2.30 3.0+(-)1.3 cm 2D Systolic Function EF 4C: 50.60 >55% EF 2C: 59.40 >55% EF BiP: 54.40 >55% Mitral Valve MV Pk E: 0.87 MV PK A: 0.86 MV Decel Time: 312.00 E/A: 1.00 E'Lateral: 11.90 E'Medial: 8.38 E/E' Med: 10.40 E/E' Lat: 7.30 PHT: 91.00 MVA PHT: 2.42 Decel [place]: 2.79 Aortic Valve AoV Pk Dagoberto: 1.58 AoV Mn Dagoberto: 1.11 AoV VTI: 0.33 AoV Pk Grad: 10.00 Aov Mn Grad: 5.00 MARAL Cont.VTI: 3.41 LVOT LVOT Pk Dagoberto: 1.37 LVOT Mn Dagoberto: 0.86 LVOT VTI: 0.27 LVOT Pk Grad: 8.00 LVOT Mn Grad: 4.00 LVOT Diam: 2.30 LVOT Area: 4.15 Diastolic Function MV Pk E: 0.87 MV Pk A: 0.86 E/A: 1.00 E'Medial: 8.38 E/E' Med: 10.40 E' Laterial: 11.90 E/E' Lat: 7.30 Right Ventricle TAPSE (mm): 25.40 TVS' Dagoberto: 13.80 Tricuspid Valve RA Press: 3.00 Great Vessels Aorta Sinus of Valsalva: 4.00 2.0-3.5 cm Ao Asc: 4.30 2.1-3.4 cm Pulmonary Valve PV Pk Dagoberto: 0.94 Peak PV Grad: 4.00 Updated in Other Vendor System with Status of Final Chadd Koroma MD electronically signed on 03/09/2023 10:35:27 AM with status of Final
== END ==
LOC: HO.CARD 14:45
PROVIDERS: PCP Nurse Practitioner Family; Visit Provider Internal Medicine Cardiovascular Disease
DX: I10 Essential (primary) hypertension (principal); R40.0 Somnolence
CPT/HCPCS: 93306; Q9957

== ENCOUNTER → 2023-03-08 14:49 | Outpatient (BNV) | payer MEDICARE, SELFPAY | PROVIDERS: PCP Nurse Practitioner Family; Visit Provider Internal Medicine | DX: R94.31 Abnormal electrocardiogram [ECG] [EKG] (principal); I10 Essential (primary) hypertension | CPT/HCPCS: 93306 ==

== ENCOUNTER 2023-03-15 06:06 | Outpatient (REF) | payer MEDICARE, SELFPAY ==
--- NOTE | ~2023-03-15 | FL_ITS ---
EXAMINATION: XR FLUOROSCOPY WITH IMAGES CLINICAL INFORMATION: Unilateral primary osteoarthritis, right hip. COMPARISON: None available. TECHNIQUE: Fluoroscopy Supervised By: Dr. Chucho Pak. Fluoroscopy Time: 0.3 minutes. Cumulative Dose: 9.57 mGy. DAP: 2.51 Gycm2. Images: 3. FINDINGS: Images demonstrate needle placement and contrast injection of the right hip joint. There is also needle. Projecting adjacent to the right greater trochanter. FL/FL guidance in treatment room IMPRESSION: Fluoroscopy guidance for pain management procedure
== END 2023-03-15 06:07 | disposition home or self-care (01) ==
LOC: CF 06:06
PROVIDERS: Visit Provider Anesthesiology
DX: M16.11 Unilateral primary osteoarthritis, right hip (principal); M70.61 Trochanteric bursitis, right hip
CPT/HCPCS: 20610; J3301

== ENCOUNTER 2023-03-15 13:29 | Outpatient (AMB) | payer MEDICARE, SELFPAY ==
--- NOTE | 2023-03-15 13:43 | MHC.OFFVIS ---
Intake Vital Signs 03/15/23 13:54 03/15/23 14:24 Height 5 ft 10 in 5 ft 10 in Weight 252 lb 252 lb BMI 36.2 36.2 BP 140/92 H 136/82 Blood Pressure Location Lt brachial Rt brachial Position Sitting Sitting Respiration 18 18 Pulse 69 77 Pulse Source Pulse Oximeter Pulse Oximeter Pulse Oximetry (%) 95 96 Oxygen Delivery Method Room Air Room Air Comment pre-op post-op Intake Visit Reasons: R INTRA-ARTIC STEROID HIP & R GTB STEROID INJ Allergies latex [LATEX] Allergy (Intermediate, Verified 03/15/23 13:55) RASH Qwzeqez-LSO-JzG Reductase Inhibitor Adverse Reaction (Intermediate, Verified 03/15/23 13:55) Muscle Pain spironolactone Adverse Reaction (Mild, Verified 03/15/23 13:55) Migraine lisinopril Adverse Reaction (Verified 03/15/23 13:55) Nausea and Vomiting PFSH Medical History Acute urinary retention HUNG positive BPH (benign prostatic hyperplasia) CAD (coronary artery disease) Chronic fatigue COPD (chronic obstructive pulmonary disease) Diabetes Fatigue History of DVT (deep vein thrombosis) HTN (hypertension) Minimal depression Neck pain Obesity JENNY (obstructive sleep apnea) Osteoarthritis Uncontrolled hypertension Surgical History Hx of colonoscopy S/P excision of lipoma History of resection of small bowel History of ventral hernia repair History of sleeve gastrectomy Hx of right knee surgery History of vasectomy History of tonsillectomy Family History Father CAD (coronary artery disease) Mother No problems noted. Brother Accelerated hypertension Son No problems noted. Daughter No problems noted. Sister Leukemia Sister Cerebral palsy Sister No problems noted. 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 Informed consent was explained to the patient. All questions were explained and answered. The patient was taken inside of the operating room where she was positioned left lateral decubitus on operating table.. Time-out was performed delineating patient's name and date of , correct site, side, the nature of the procedure, patient's allergy, preoperative antibiotic if needed, need for VT prophylaxis.. All operating room staff was participating in OR time-out procedure. Right hip area of the patient was prepped with ChloraPrep and draped with sterile towels. C-arm was brought over the operating field and picture of left and right lateral views of the bilateral hip joints were delineated on the screen. The smaller joint silhouette was chosen as the target. Projection of the right trochanter to the skin was chosen as the initial needle insertion point. After that the skin and subcutaneous tissues was anesthetized with 2% lidocaine 2.5 mL. 22 gauge 5 in long needle was inserted through the skin and started to advance to the joint space under intermittent lateral and anterior posterior views. When needle entered the capsule of the joint small amount of the contrast was injected delineating intra-articular space. After that treatment solution containing 5 cc of ropivacaine 0.5% and 20 mg of Kenalog was injected into the joint. The needle was withdrawn to the level of the right trochanteric bursa and injection of the ropivacaine 0.5% 5 mls mixed with kenalog 20 mg was injected into the area. After that the needle was removed and sterile dressing was applied. The patient tolerated procedure well. (3) Osteoarthritis of right hip: Code(s): M16.11 - Unilateral primary osteoarthritis, right hip (4) Polyarthralgia: Code(s): M25.50 - Pain in unspecified joint Plan Schedule Right GTB steroid and Right intra-articular steroid hip injections with local and fluoroscopy. Expectations, risks and benefits were reviewed. Patient is aware he will be contacted to schedule this procedure. Script provided for diclofenac gel for multiple joint pain. All questions were answered and the patient is in agreement of plan. Follow-up after injections and sooner as needed. Orders: Orders FL guidance in treatment room Today M16.11 - Unilateral primary osteoarthritis, right hip Coding Level of Care Code Procedure Only Diagnoses Trochanteric bursitis of right hip M70.61 Right hip pain M25.551 Osteoarthritis of right hip M16.11 Polyarthralgia M25.50
[2023-03-15 13:54] VITALS: BP 140/92; PULSE 69; RESP 18; O2SAT 95; BMI 36.2
[2023-03-15 14:24] VITALS: BP 136/82; PULSE 77; RESP 18; O2SAT 96; BMI 36.2
== END 2023-03-15 14:21 | disposition home or self-care (01) ==
LOC: HO.PMCPRC 13:29
PROVIDERS: PCP Nurse Practitioner Family; Visit Provider Anesthesiology
DX: M70.61 Trochanteric bursitis, right hip (principal); M25.551 Pain in right hip; M16.11 Unilateral primary osteoarthritis, right hip; M25.50 Pain in unspecified joint
CPT/HCPCS: 20610; 77002

== ENCOUNTER → 2023-03-23 08:17 | Outpatient (BNVA) | payer MEDICARE, SELFPAY | PROVIDERS: PCP Nurse Practitioner Family; Visit Provider Internal Medicine Cardiovascular Disease | DX: Z01.89 Encounter for other specified special examinations (principal) | CPT/HCPCS: 99211 ==

== ENCOUNTER 2023-03-30 13:21 | Outpatient (REF) | payer MEDICARE, SELFPAY ==
[2023-03-30 15:05] LABS: Alanine Aminotransferase 26 U/L (0-40); Albumin Level 4.6 g/dL (3.5-5.0); Alkaline Phosphatase 50 U/L (39-117); Anion Gap 16 (12-20); Aspartate Amino Transferase 34 U/L (5-37); Bilirubin Total 0.6 mg/dL (0.0-1.0); Blood Urea Nitrogen 18 mg/dL (9-16); Calcium 9.4 mg/dL (8.4-10.2); Carbon Dioxide 25 mmol/L (22-29); Chloride 104 mmol/L (96-108); Estimated Glomerular Filt Rate > 60; Glucose Random 121 mg/dL (60-115); Sodium 141 mmol/L (135-145); Total Protein 7.1 g/dL (6.5-8.0)
== END 2023-03-30 13:22 | disposition home or self-care (01) ==
LOC: HO.LAB 13:21
PROVIDERS: PCP Nurse Practitioner Family; Visit Provider Nurse Practitioner Family
DX: I10 Essential (primary) hypertension (principal)
CPT/HCPCS: 36415; 80053

== ENCOUNTER 2023-04-07 13:37 | Outpatient (AMB) | payer MEDICARE, SELFPAY ==
--- NOTE | 2023-04-07 13:41 | MHC.PC.OV ---
Vital Signs 04/07/23 13:46 Height 5 ft 10 in Weight 251 lb BMI 36.0 BP 120/80 Blood Pressure Location Rt brachial Position Sitting Pulse 76 Pulse Source Pulse Oximeter Pulse Oximetry (%) 97 Oxygen Delivery Method Room Air Intake Visit Reasons: Annual PE Allergies latex [LATEX] Allergy (Intermediate, Verified 04/07/23 13:47) RASH Duzpzde-BCG-InR Reductase Inhibitor Adverse Reaction (Intermediate, Verified 04/07/23 13:47) Muscle Pain spironolactone Adverse Reaction (Mild, Verified 04/07/23 13:47) Migraine lisinopril Adverse Reaction (Verified 04/07/23 13:47) Nausea and Vomiting Medication List - Last Reconciled 04/07/23 by OVIDIO Schmitt- acetaminophen 500 mg PO ONCE PRN acetaminophen ER (Tylenol Arthritis Pain) 1,300 mg PO Q12H amlodipine 10 mg PO 1700 ascorbic acid (vitamin C) 1,000 mg PO DAILY aspirin 81 mg PO DAILY cholecalciferol (vitamin D3) 4,000 units PO DAILY cyanocobalamin (vitamin B-12) 1,000 mcg PO DAILY diclofenac sodium 1% (Arthritis Pain (diclofenac)) 4 grams topical QID ferrous sulfate 325 mg PO DAILY finasteride 5 mg PO DAILY furosemide 40 mg PO DAILY gabapentin 900 mg (3 x 300 mg) PO BEDTIME glucosamine HCl 1,000 mg PO DAILY labetalol 100 mg PO BID losartan 100 mg PO DAILY naproxen sodium 440 mg PO DAILY semaglutide (Ozempic) 0.25 mg (0.368 mL) subcut QWEEK tamsulosin 0.8 mg PO DAILY Tobacco use date assessed: 12/07/22 Fall risk assessment: No Falls in past year Last assessed Fall Risk: 04/07/23 Dental Screening Dental Screen Date: 04/07/23 Did you have a dental visit in the last 12 months?: Yes Did you have a dental problem in the last 6 months where you did not have access to dental care?: No Was dental information given to patient?: Patient has dentist HPI Annual PE HPI Details Pt is here for a PE. Will order labs. PSA is up to date. Colon screen is scheduled. Pt is a diabetic, on an ARB. Due for A1C, will order. Due for microalbumin, will order. Denies polyuria, polydipsia, and neuropathy. Starting him on ozempic today Pt denies any signs and symptoms of hypoglycemia and does know how to correct it. Pt was diagnosed as a diabetic before his gastric sleeve procedure. His A1C has been well-controlled, will recheck. Pt follows up with pulmonology, cardiology, urology, and rheumatology. [facility] Medical History Acute urinary retention HUNG positive BPH (benign prostatic hyperplasia) CAD (coronary artery disease) Chronic fatigue COPD (chronic obstructive pulmonary disease) Diabetes Fatigue History of DVT (deep vein thrombosis) HTN (hypertension) Minimal depression Neck pain Obesity JENNY (obstructive sleep apnea) Osteoarthritis Uncontrolled hypertension Surgical History Hx of colonoscopy S/P excision of lipoma History of resection of small bowel History of ventral hernia repair History of sleeve gastrectomy Hx of right knee surgery History of vasectomy History of tonsillectomy Family History Father CAD (coronary artery disease) Mother No problems noted. Brother Accelerated hypertension Son No problems noted. Daughter No problems noted. Sister Leukemia Sister Cerebral palsy Sister No problems noted. 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 1. Little interest or pleasure in doing things: not at all 2. Feeling down, depressed, or hopeless: not at all 3. Trouble falling or staying asleep, or sleeping too much: nearly every day 4. Feeling tired or having little energy: nearly every day 5. Poor appetite or overeating: nearly every day 6. Feeling bad about yourself - or that you are a failure or have let yourself or your family down: nearly every day 7. Trouble concentrating on things, such as reading the newspaper or watching television: nearly every day 8. Moving or speaking so slowly that other people could have noticed. Or the opposite - being so fidgety or restless that you have been moving around a lot more than usual: not at all 9. Thoughts that you would be better off or of hurting yourself in some way: not at all Total score: 15 Depression Screening Interpretation: Positive Depression Screening Done: Yes 04668 - PHQ-9 Billing: Yes Source: Developed by Drs. Alcides Matt, Dori Martinez, Mani Hunt and colleagues, with an educational rogelio from [employer]. Thrive Questionnaire Date Thrive assessed: 04/07/23 I am a: Patient What is your living situation today?: I have a steady place to live Within the past 12 months, did the food you bought not last and you didn't have the money to get more?: Never true Within the past 12 months, did you worry whether your food would run out before you got money to buy more?: Never true Do you have trouble paying for medicines?: No Do you have trouble getting transportation to medical appointments?: No Do you have trouble paying your heating and electricity bill?: No Do you have trouble taking care of your child, family member or friend?: No Do you have trouble with day-to-day activities such as bathing, preparing meals, shopping, managing finances, etc.?: No Are you currently unemployed and looking for a job?: No Are you interested in more education?: No ALYSIA-7 AMB Questionnaire ALYSIA-7 Date ALYSIA - 7 assessed: 04/07/23 Feeling nervous, anxious, or on edge: 1 = Several days Not being able to stop or control worryin = Not at all Worrying too much about different things: 0 = Not at all Trouble relaxin = Several days Being so restless that it is hard to sit still: 0 = Not at all Becoming easily annoyed or irritable: 0 = Not at all Feeling afraid as if something awful might happen: 0 = Not at all Total ALYSIA-7 score (0-4 normal; 5-9 mild; 10-14 moderate; 15-21 severe): 2 Source: Developed by Drs. Alcides Matt, Dori Martinez, Mani Hunt and colleagues, with an educational rogelio from [employer]. ALYSIA-7 Assessment Billing ALYSIA-7 Assessment Tool: ALYSIA-7 Assessment 12012 Review of Systems Const Denies chills and Denies fever(s) Eyes Denies blurry vision ENT Denies vertigo, Denies dizziness and Denies sore throat Card Denies chest pain at rest, Denies chest pain with activity, Denies diaphoresis, Denies dyspnea and Denies dyspnea on exertion Resp Denies cough, Denies dyspnea, Denies dyspnea on exertion and Denies wheezing GI Denies abdominal pain, Denies melena, Denies hematochezia, Denies constipation, Denies diarrhea and Denies loose stools Denies hematuria Musc Denies numbness and Denies tingling Skin/Breast Denies lesions Neuro Denies vertigo, Denies dizziness, Denies numbness and Denies tingling Psych Denies anxiety, Denies depression, Denies homicidal ideation, Denies suicidal ideation and Denies other (substance abuse) Aller/Immun Denies wheezing Physical exam (Primary Care) Vital Signs: Last Vital Signs Pulse 76 04/07/23 13:46 BP 120/80 04/07/23 13:46 Pulse Ox 97 04/07/23 13:46 Oxygen Delivery Method Room Air 04/07/23 13:46 BMI result Body Mass Index 36.0 Tobacco/Smoking Status: Tobacco use Status Tobacco use date assessed 12/07/22 04/07/23 13:43 Patient Tobacco Use Status Former Tobacco user 04/07/23 13:43 e-Cigarette/Vaping Use Never Used 04/07/23 13:43 PHQ-9: PHQ-9 Score PHQ-9: Total score 15 04/07/23 15:20 Depression Screening Interpretation: Positive Thrive Assessment: Date of Thrive Assessment Date Thrive assessed 04/07/23 04/07/23 15:20 Const General: cooperative Nutritional Appearance: obese Orientation/consciousness: patient oriented x3 HENMT Head: Yes normal to inspection, Yes normocephalic and Yes atraumatic Ears: TM's normal bilaterally Eyes General: appearance normal, both eyes and all related structures Alignment and Position: alignment normal and position normal Neck Neck: Yes normal visual inspection and Yes no lymphadenopathy Thyroid: Thyroid normal Resp Effort & Inspection: normal respiratory effort Auscultation: clear to auscultation bilaterally Cardio Rate: regular rate Rhythm: regular rhythm Heart sounds: S1 normal heart sound present, S2 normal heart sound present and no murmurs GI Palpation (GI): Soft to palpation and nontender Auscultation: normal bowel sounds Male General Exam: Yes normal external exam Penis: normal penis Scrotum: scrotum normal, testes descended bilaterally and no inguinal hernias Testes: no testicular mass Skin Rashes: no rashes Neuro General: patient oriented x3, moves all extremities, no focal motor deficits and deep tendon reflexes 2+ bilaterally Romberg Test: Negative Psych Appearance: grossly normal Mental Status: mental status grossly normal Speech and movement: Normal speech and movement present Affect: normal affect Attitude: cooperative Thought process: Normal thought process present Thought content: Normal thought content present Insight: Good insight present (Psych) Judgement: Good judgement present (Psych) Assessment and Plan Assessment & Plan (1) Physical exam: Code(s): Z00.00 - Encounter for general adult medical examination without abnormal findings Plan: Labs ordered (2) Diabetes: Code(s): E11.9 - Type 2 diabetes mellitus without complications Plan: Labs ordered Plan The patient agreed to the use of a health care / medical job titles for this encounter. Scribed for JEEVAN Borrego by Kenia Cardozo health care / medical job titles, on 04/07/2023 at 14:20 EST Orders: Orders TSH reflex Free T4 Today Z00.00 - Encounter for general adult medical examination without abnormal findings UA CC w/rflx Micro + Cult Today Z00.00 - Encounter for general adult medical examination without abnormal findings Lipid Panel Today Z00.00 - Encounter for general adult medical examination without abnormal findings Hemoglobin A1c Today E11.9 - Type 2 diabetes mellitus without complications Complete Blood Count Auto Diff Today Z00.00 - Encounter for general adult medical examination without abnormal findings Comprehensive [place]. Panel Fast Today Z00.00 - Encounter for general adult medical examination without abnormal findings Microalbumin, Random (w Creat) Today E11.9 - Type 2 diabetes mellitus without complications Medications: New semaglutide (Ozempic) for 4 weeks 0.25 mg (0.368 mL) subcut QWEEK 3 mL 0RF Coding Level of Care Code Est Pt Prev Care >65y(79205) Diagnoses Physical exam Z00.00 Diabetes E11.9 Additional Codes ALYSIA-7 Assessment Billing - ALYSIA-7 Assessment Tool: ALYSIA-7 Assessment 92441 ([id number])
[2023-04-07 13:46] VITALS: BP 120/80; PULSE 76; O2SAT 97; BMI 36.0
== END 2023-04-07 15:06 | disposition home or self-care (01) ==
PROVIDERS: PCP Nurse Practitioner Family; Visit Provider Nurse Practitioner Family
DX: Z00.00 Encounter for general adult medical examination without abnormal findings (principal); E11.9 Type 2 diabetes mellitus without complications
CPT/HCPCS: 83036; 99397

== ENCOUNTER 2023-04-18 11:19 | Outpatient (AMB) | payer MEDICARE, SELFPAY ==
--- NOTE | 2023-04-18 11:26 | MHC.OFFVIS ---
Intake Vital Signs 04/18/23 11:28 Height 5 ft 10 in Weight 247 lb BMI 35.4 BP 148/73 H Blood Pressure Location Lt brachial Position Sitting Respiration 14 Pulse 75 Pulse Source Pulse Oximeter Pulse Oximetry (%) 95 Oxygen Delivery Method Room Air Intake Visit Reasons: R INTRA-ARTIC STEROID HIP & R GTB STEROID 03/15 Allergies latex [LATEX] Allergy (Intermediate, Verified 04/18/23 11:32) RASH Bardveu-NAA-RxM Reductase Inhibitor Adverse Reaction (Intermediate, Verified 04/18/23 11:32) Muscle Pain spironolactone Adverse Reaction (Mild, Verified 04/18/23 11:32) Migraine lisinopril Adverse Reaction (Verified 04/18/23 11:32) Nausea and Vomiting Medication List - Last Reconciled 04/18/23 by Mckenzie Johnson, SKIN DRIER acetaminophen 500 mg PO ONCE PRN acetaminophen ER (Tylenol Arthritis Pain) 1,300 mg PO Q12H amlodipine 10 mg PO 1700 ascorbic acid (vitamin C) 1,000 mg PO DAILY aspirin 81 mg PO DAILY cholecalciferol (vitamin D3) 4,000 units PO DAILY cyanocobalamin (vitamin B-12) 1,000 mcg PO DAILY diclofenac sodium 1% (Arthritis Pain (diclofenac)) 4 grams topical QID ferrous sulfate 325 mg PO DAILY finasteride 5 mg PO DAILY furosemide 40 mg PO DAILY gabapentin 900 mg (3 x 300 mg) PO BEDTIME glucosamine HCl 1,000 mg PO DAILY labetalol 100 mg PO BID losartan 100 mg PO DAILY naproxen sodium 440 mg PO DAILY semaglutide (Ozempic) 0.25 mg (0.368 mL) subcut QWEEK semaglutide 0.25 mg subcut QWEEK tamsulosin 0.8 mg PO DAILY HPI HPI Comments History of Present Illness Details Patient presents today to assess response to right hip intra-articular steroid injection and right GTB steroid injection 03/15/23 Dr. Pak. Patient reports 70% pain relief is improved function and mobility. He reports injections were not tolerated well on the day of procedure and caused him significant pain increase in both areas. Patient reports pain has improved about 2 weeks since injections and he experienced even 80-90% pain relief last week during warm, mayda weather as opposed to today, cold and rainy weather. He continues to report tenderness while sleeping on the left side. Patient will continue to monitor for longevity of cortisone injection therapy for next 2 months. He is planning for vacation in August and may reconsider repeating injection under light sedation. Denies any recent cough, cold, infection, fever or other significant changes in medical history since last office visit. Past Procedures: 03/15/23:Right intra-articular hip and Right GTB steroid injections-70% pain relief PRIOR: Patient is a pleasant 72 years old male with prior history of uncontrolled hypertension, diabetes mellitus, dyslipidemia, CAD, COPD, JENNY, gastric bypass, chronic fatigue, osteoarthritis and h/o DVT presents for evaluation of right hip pain. Patient also sees [facility] [place] for diffuse pain with elevated CPK and positive HUNG. Patient reports right hip started on 01/25/2016 when he fell on his right side off a bar stool. Onset of pain was sudden and over the past few years has been progressively getting worse. Patient reports he received a cortisone injection in his lateral side of right hip over a year ago without pain relief. He also went for physical therapy this year which provided temporary and mild pain relief. Patient reports he takes Tylenol, NSAIDs and gabapentin to go through the day as he continues to work. 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 Right hip pain increases with weight bearing, walking, changing positions and cold weather changes. Patient reports he most suffers during winter cold months. Patient also reports multiple joints pain including his neck, shoulders, hands, knees and feet. Worst pain is rated 5-7/10 during supervisor type bar and segment while in getting up and least severe during the day. Pain negatively affects his ADLs, functioning, mobility, sleep, mood and quality of life. Denies any fever, weight changes, abdominal or back pain, bladder or bowel incontinence or saddle anesthesia. Reports weakness of RLE due to pain. Location Right hip radiating to lateral hip and groin Duration Chronic pain since 2016 Characteristics of symptom or complaint Throbbing, stabbing, sharp, aching, radiating, burning, exhausting, killing Aggravating or associated factors Weather changes, cold, prolonged sitting, changing positions, walking Relieving factors Hot baths, Tylenol, gabapentin, naproxen Treatment Injections- years ago no improvement; PT over 1 year ago, mild relief [facility] Medical History HUNG positive CAD (coronary artery disease) BPH (benign prostatic hyperplasia) Uncontrolled hypertension JENNY (obstructive sleep apnea) Neck pain Acute urinary retention COPD (chronic obstructive pulmonary disease) Obesity History of DVT (deep vein thrombosis) Fatigue Chronic fatigue Minimal depression Osteoarthritis HTN (hypertension) Diabetes Surgical History Hx of colonoscopy S/P excision of lipoma History of resection of small bowel History of ventral hernia repair History of sleeve gastrectomy Hx of right knee surgery History of vasectomy History of tonsillectomy Family History Father CAD (coronary artery disease) Mother No problems noted. Brother Accelerated hypertension Son No problems noted. Daughter No problems noted. Sister Leukemia Sister Cerebral palsy Sister No problems noted. 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 Alert and oriented. Mood and affect appropriate. Follows and participates in conversation appropriately. Respiratory effort is unlabored. No cough. Able to transition from sit to stand unassisted. Back/Spine/Pelvis Other: Mild TTP right GTB. No groin pain with I/E hip rotations bilaterally. Daniel's negative bilaterally. Cervical Spine: cervical ROM normal and No Cervical spine tenderness Thoracic/Lumbar Spine: thoracic and lumbar spine normal to inspection, thoraco-lumbar ROM normal, straight leg raise negative bilaterally, paraspinal muscle tenderness, No thoracic spinal tenderness and No lumbar spinal tenderness Sacroiliac joints: bilaterally nontender Assessment & Plan Assessment & Plan (1) Trochanteric bursitis of right hip: Code(s): M70.61 - Trochanteric bursitis, right hip (2) Right hip pain: Code(s): M25.551 - Pain in right hip (3) Osteoarthritis of right hip: Code(s): M16.11 - Unilateral primary osteoarthritis, right hip Plan Patient is status post Right GTB steroid and Right intra-articular steroid hip injections on 03/15/23 with ongoing 70% pain relief and improved function, mobility and sleep but avoids sleeping on right side. Patient is aware that he can not receive another injection in these areas for another two months. Will consider repeating injections prior to his August vac trip under light sedation. Patient will notify our office when his pain returns. All questions were answered and the patient is in agreement of plan. Follow-up after injections and sooner as needed. Coding Level of Care Code Est Pt Level 3 (38544) Diagnoses Trochanteric bursitis of right hip M70.61 Right hip pain M25.551 Osteoarthritis of right hip M16.11
[2023-04-18 11:28] VITALS: BP 148/73; PULSE 75; RESP 14; O2SAT 95; BMI 35.4
== END 2023-04-18 11:44 | disposition home or self-care (01) ==
PROVIDERS: PCP Nurse Practitioner Family; Visit Provider Nurse Practitioner Family
DX: M70.61 Trochanteric bursitis, right hip (principal); M25.551 Pain in right hip; M16.11 Unilateral primary osteoarthritis, right hip
CPT/HCPCS: 99213

== ENCOUNTER → 2023-04-18 11:19 | Outpatient (BNVA) | payer MEDICARE, SELFPAY | PROVIDERS: PCP Nurse Practitioner Family; Visit Provider Nurse Practitioner Family | DX: M70.61 Trochanteric bursitis, right hip (principal); M16.11 Unilateral primary osteoarthritis, right hip; M25.551 Pain in right hip | CPT/HCPCS: 99212 ==

== ENCOUNTER 2023-06-08 13:45 | Outpatient (AMB) | payer MEDICARE, SELFPAY ==
--- NOTE | 2023-06-08 13:48 | A.OFFVIS_ITS ---
Intake Vital Signs 06/08/23 13:49 Height 5 ft 10 in Weight 236 lb BMI 33.9 BP 150/90 H Blood Pressure Location Lt brachial Position Sitting Pulse 61 Pulse Source Pulse Oximeter Pulse Oximetry (%) 97 Oxygen Delivery Method Room Air Intake Visit Reasons: I-VOLLEYBALL REFEREE: JENNY (LVM+LTR 03/14 & 03/30)-LVM Allergies latex [LATEX] Allergy (Intermediate, Verified 06/08/23 13:52) RASH Ellqpqr-UMZ-MnX Reductase Inhibitor Adverse Reaction (Intermediate, Verified 06/08/23 13:52) Muscle Pain spironolactone Adverse Reaction (Mild, Verified 06/08/23 13:52) Migraine lisinopril Adverse Reaction (Verified 06/08/23 13:52) Nausea and Vomiting HPI HPI Comments History of Present Illness Details 72 y/o male patient with CAD and JENNY pre sents for new in-person visit to manage sleep apnea and Inspire evaluation. Pt reports he was diagnosed with JENNY in the past. However, he did not tolerate CPAP, tried 6-7 different masks but could not sleep with it. Pt had a repeat home sleep study in Feb, 2023. The home sleep study result was moderately severe degree of sleep apnea. The AHI was 20/hr and oxygen vibha was 67%. The duration of O2 sat below 88% was 31 min. Pt reports he had gastric sleeve surgery done, and is also on Ozempic now. Pt lost about 25 lb since the home sleep study. [facility] Medical History (Updated 06/08/23 @ 16:27 by Kasie James CNP) HUNG positive CAD (coronary artery disease) BPH (benign prostatic hyperplasia) Uncontrolled hypertension JENNY (obstructive sleep apnea) Neck pain Acute urinary retention COPD (chronic obstructive pulmonary disease) Obesity History of DVT (deep vein thrombosis) Fatigue Chronic fatigue Minimal depression Osteoarthritis HTN (hypertension) Diabetes Surgical History Hx of colonoscopy S/P excision of lipoma History of resection of small bowel History of ventral hernia repair History of sleeve gastrectomy Hx of right knee surgery History of vasectomy History of tonsillectomy Family History Father CAD (coronary artery disease) Mother No problems noted. Brother Accelerated hypertension Son No problems noted. Daughter No problems noted. Sister Leukemia Sister Cerebral palsy Sister No problems noted. 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 Cognitive needs: No Hearing needs: No Vision needs: No Review of Systems Const All systems reviewed & are unremarkable except as noted in HPI and below Physical Exam Vital Signs: Last Vital Signs Pulse 61 06/08/23 13:49 BP 150/90 H 06/08/23 13:49 Pulse Ox 97 06/08/23 13:49 Oxygen Delivery Method Room Air 06/08/23 13:49 BMI result Body Mass Index 33.9 Const Nutritional Appearance: obese Orientation/consciousness: patient oriented x3 Neck Neck: Yes full ROM and Yes supple Resp Effort & Inspection: normal respiratory effort and able to speak in complete sentences Neuro General: patient oriented x3 and gait normal Cranial nerves: Yes CN's II-XII intact bilaterally Cognition (Neuro): normal cognition Psych Appearance: grossly normal Affect: Anxious affect present Assessment & Plan Assessment & Plan (1) JENNY (obstructive sleep apnea): Comment: moderately severe degree of sleep apnea. the AHI was 20/hr and oxygen vibha was 67% Code(s): G47.33 - Obstructive sleep apnea (adult) (pediatric) Plan Advised patient to try APAP [id number] again before having Inspire. Refer patient to ENT for DISE for Inspire evaluation. Continue to work to lose wt. Inspire information given to patient. Coding Level of Care Code New Pt Level 3 (20125) Diagnoses JENNY (obstructive sleep apnea) G47.33
[2023-06-08 13:49] VITALS: BP 150/90; PULSE 61; O2SAT 97; BMI 33.9
== END 2023-06-08 14:34 | disposition home or self-care (01) ==
PROVIDERS: PCP Nurse Practitioner Family; Visit Provider Nurse Practitioner Family
DX: G47.33 Obstructive sleep apnea (adult) (pediatric) (principal)
CPT/HCPCS: 99203; 99213

== ENCOUNTER → 2023-06-08 13:45 | Outpatient (BNVA) | payer MEDICARE, SELFPAY | PROVIDERS: PCP Nurse Practitioner Family; Visit Provider Nurse Practitioner Family | DX: G47.33 Obstructive sleep apnea (adult) (pediatric) (principal) | CPT/HCPCS: 99202 ==

== ENCOUNTER 2023-06-27 11:16 | Day surgery (SDC) | payer MEDICARE, SELFPAY ==
--- NOTE | 2023-06-24 11:53 | HO.ANESPROP2 ---
Documented by User: Nely Pugh NP 06/24/23 12:17 HPI - Anesthesia Eval Consult details Narrative: 72yo M for Colonoscopy Anesthesia Pre-Procedure Meds Is the patient on any of the following meds?: Semaglutide (Ozempic) (Last dose 06/13/23) [facility] Active Problems Active Problems: All Active Problems (Updated 06/08/23 @ 16:27 by Kasie James CNP) Physical exam (Acute) Polyarthralgia (Acute) Osteoarthritis of right hip (Acute) Uncontrolled hypertension (Acute) Hx of renal calculi (Acute) Flank pain (Acute) Diarrhea (Acute) Anemia (Acute) Screening for colon cancer (Acute) Fatigue (Acute) Elevated CPK (Acute) Left hand tendonitis (Acute) Trochanteric bursitis of right hip (Acute) Right hip pain (Acute) Myalgia (Acute) Joint pain (Acute) B12 deficiency (Acute) Anemia, iron deficiency (Acute) Umbilical hernia (Acute) Ventral hernia (Acute) Foreign body in foot, left (Acute) Encounter for annual wellness visit (AWV) in Medicare patient (Acute) Incisional hernia (Acute) Preoperative examination (Acute) Intestinal malabsorption following gastrectomy (Acute) Shortness of breath (Acute) Urinary retention (Acute) Abnormal EKG (Acute) Positive cardiac stress test (Acute) Preoperative cardiovascular examination (Acute) Diabetes (Acute) Wound of right leg (Acute) Tick bite (Acute) Morbid (severe) obesity due to excess calories (Acute) BPH (benign prostatic hyperplasia) (Acute) COPD (chronic obstructive pulmonary disease) (Acute) History of DVT (deep vein thrombosis) (Acute) JENNY (obstructive sleep apnea) (Acute) HTN (hypertension) (Acute) CAD (coronary artery disease) (Acute) Diabetes (Acute) Past Medical History Medical History HUNG positive CAD (coronary artery disease) BPH (benign prostatic hyperplasia) Uncontrolled hypertension JENNY (obstructive sleep apnea) Neck pain Acute urinary retention COPD (chronic obstructive pulmonary disease) Obesity History of DVT (deep vein thrombosis) Fatigue Chronic fatigue Minimal depression Osteoarthritis HTN (hypertension) Diabetes Family History Family History Father CAD (coronary artery disease) Mother No problems noted. Brother Accelerated hypertension Son No problems noted. Daughter No problems noted. Sister Leukemia Sister Cerebral palsy Sister No problems noted. Family history of problems with anesthesia: No Surgical History Surgical History Hx of colonoscopy S/P excision of lipoma History of resection of small bowel History of ventral hernia repair History of sleeve gastrectomy Hx of right knee surgery History of vasectomy History of tonsillectomy History of Problems with Anesthesia: Yes (Long to wake) Social History Social History Household Members: None [facility] Are you a primary child care specialist to a significant other at home: No Do you presently have visiting nurse or other home services: No Alcohol intake: current Alcohol intake frequency: holidays/special occasions only Patient Tobacco Use Status: Former Tobacco user Quit Date: 2009 Years Smoked: 12 years ago e-Cigarette/Vaping Use: Never Used Second Hand Smoke Exposure: No Use of substances other than those prescribed or required for medical reasons: No Are you DNR?: No Advance Directives: No Advance Directives Information Provided: Yes service: No Current occupational status: previously employed and retired 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 Cognitive needs: No Hearing needs: No Vision needs: No Meds Allergies Allergy/AdvReac Type Severity Reaction Status Date / Time latex [LATEX] Allergy Intermediate RASH Verified 06/08/23 13:52 Yaqmrtq-YPU-FuI Reductase AdvReac Intermediate Muscle Pain Verified 06/08/23 13:52 Inhibitor spironolactone AdvReac Mild Migraine Verified 06/08/23 13:52 lisinopril AdvReac Nausea and Verified 06/08/23 13:52 Vomiting Home Medications Medication Instructions Recorded Confirmed Last Taken Type ascorbic acid (vitamin C) 500 mg 1,000 mg PO DAILY 03/02/21 04/07/23 06/27/23 History capsule aspirin 81 mg tablet,delayed 81 mg PO DAILY 03/02/21 04/07/23 06/24/23 History release cholecalciferol (vitamin D3) 125 4,000 unit PO DAILY 03/02/21 04/07/23 06/27/23 History mcg (5,000 unit) capsule cyanocobalamin (vitamin B-12) 1,000 mcg PO DAILY 03/02/21 04/07/23 06/27/23 History 5,000 mcg capsule ferrous sulfate 325 mg (65 mg 325 mg PO DAILY 03/02/21 04/07/23 06/24/23 History iron) tablet glucosamine HCl 500 mg tablet 1,000 mg PO DAILY 03/02/21 04/07/23 06/27/23 History naproxen sodium 220 mg capsule 440 mg PO DAILY 03/02/21 04/07/23 06/24/23 History tamsulosin 0.4 mg capsule 0.8 mg PO DAILY 03/17/21 04/07/23 06/24/23 History finasteride 5 mg tablet 5 mg PO DAILY 04/21/21 04/07/23 06/27/23 History acetaminophen 500 mg capsule 500 mg PO ONCE PRN 11/10/22 04/07/23 Unknown History acetaminophen 650 mg 1,300 mg PO Q12H 11/10/22 04/07/23 06/27/23 History tablet,extended release (Tylenol Arthritis Pain) semaglutide 0.25 mg or 0.5 mg (2 0.25 mg subcut QWEEK 04/18/23 04/18/23 06/13/23 History mg/1.5 mL) subcutaneous pen injector Exam Pertinent Lab Results Pertinent Lab Results: Laboratory Tests 02/02/23 03/30/23 06:20 13:39 WBC 6.7 Hgb 13.6 L Hct 40.1 L Plt Count 257 Sodium 141 Potassium 4.0 Chloride 104 Carbon Dioxide 25 BUN 18 H Creatinine 0.81 Narrative Narrative: EKG 01/2023 normal sinus rhythm with nonspecific intraventricular conduction delay with ST T wave changes suggestive of repolarization abnormality ECHO 02/2023 Conclusions: - The left ventricular systolic function is low normal. The calculated ejection fraction is 54% by biplane method. - No obvious valvular pathology seen on this study. - There is mild dilatation of the sinuses of Valsalva measuring 4.00 cm and mild dilatation of the ascending aorta measuring 4.30 cm. Cardiac cath 2020 - Nonobstructive CAD Assessment and Plan Assessment Anesthesia Assessment: Chart Reviewed Final Anesthetic Review Family History of Problems with Anesthesia: No History of Problems with Anesthesia: Yes (Long to wake) Documented by User: Aura Todd MD 06/27/23 13:01 HPI - Anesthesia Eval Anesthesia Pre-Procedure Meds If Yes to any meds - educate patient: Pt education - increased risk of aspiration PMFSH Past Medical History Medical History HUNG positive CAD (coronary artery disease) BPH (benign prostatic hyperplasia) Uncontrolled hypertension JENNY (obstructive sleep apnea) Neck pain Acute urinary retention COPD (chronic obstructive pulmonary disease) Obesity History of DVT (deep vein thrombosis) Fatigue Chronic fatigue Minimal depression Osteoarthritis HTN (hypertension) Diabetes Family History Family History Father CAD (coronary artery disease) Mother No problems noted. Brother Accelerated hypertension Son No problems noted. Daughter No problems noted. Sister Leukemia Sister Cerebral palsy Sister No problems noted. Surgical History Surgical History Hx of colonoscopy S/P excision of lipoma History of resection of small bowel History of ventral hernia repair History of sleeve gastrectomy Hx of right knee surgery History of vasectomy History of tonsillectomy Social History Social History Household Members: None Housing: Condominium Are you a primary child care specialist to a significant other at home: No Do you presently have visiting nurse or other home services: No Alcohol intake: current Alcohol intake frequency: holidays/special occasions only Patient Tobacco Use Status: Former Tobacco user Quit Date: 2010 Years Smoked: 12 years ago e-Cigarette/Vaping Use: Never Used Second Hand Smoke Exposure: No Use of substances other than those prescribed or required for medical reasons: No Are you DNR?: No Advance Directives: No Advance Directives Information Provided: Yes service: No Current occupational status: previously employed and retired 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 Cognitive needs: No Hearing needs: No Vision needs: No Meds Allergies Allergy/AdvReac Type Severity Reaction Status Date / Time latex [LATEX] Allergy Intermediate RASH Verified 06/08/23 13:52 Lhfiyxn-POL-LxM Reductase AdvReac Intermediate Muscle Pain Verified 06/08/23 13:52 Inhibitor spironolactone AdvReac Mild Migraine Verified 06/08/23 13:52 lisinopril AdvReac Nausea and Verified 06/08/23 13:52 Vomiting Home Medications Medication Instructions Recorded Confirmed Last Taken Type ascorbic acid (vitamin C) 500 mg 1,000 mg PO DAILY 03/02/21 04/07/23 06/27/23 History capsule aspirin 81 mg tablet,delayed 81 mg PO DAILY 03/02/21 04/07/23 06/24/23 History release cholecalciferol (vitamin D3) 125 4,000 unit PO DAILY 03/02/21 04/07/23 06/27/23 History mcg (5,000 unit) capsule cyanocobalamin (vitamin B-12) 1,000 mcg PO DAILY 03/02/21 04/07/23 06/27/23 History 5,000 mcg capsule ferrous sulfate 325 mg (65 mg 325 mg PO DAILY 03/02/21 04/07/23 06/24/23 History iron) tablet glucosamine HCl 500 mg tablet 1,000 mg PO DAILY 03/02/21 04/07/23 06/27/23 History naproxen sodium 220 mg capsule 440 mg PO DAILY 03/02/21 04/07/23 06/24/23 History tamsulosin 0.4 mg capsule 0.8 mg PO DAILY 03/17/21 04/07/23 06/24/23 History finasteride 5 mg tablet 5 mg PO DAILY 04/21/21 04/07/23 06/27/23 History acetaminophen 500 mg capsule 500 mg PO ONCE PRN 11/10/22 04/07/23 Unknown History acetaminophen 650 mg 1,300 mg PO Q12H 11/10/22 04/07/23 06/27/23 History tablet,extended release (Tylenol Arthritis Pain) semaglutide 0.25 mg or 0.5 mg (2 0.25 mg subcut QWEEK 04/18/23 04/18/23 06/13/23 History mg/1.5 mL) subcutaneous pen injector Exam Airway Mallampati Class: II TM Dist: >3cm Neck ROM: Limited (gets dizzy when looking up) Heart: rrr Lungs: cta Assessment and Plan Assessment Anesthesia Assessment: Anesthesia Plan Discussed Final Anesthetic Review NPO: Yes ASA Class: II Final Preanesthetic Review: No Changes in Pt Med Stat, Meds/Allgs Chart Reviewed, Consent Obtained/Reviewed and Anes Risks/Benef Reviewed Patient Risk: Intermediate Procedure Risk: Low Anesthetic Plan Anesthetic Plan: MAC: Disposition: Standard PACU
[2023-06-27 12:28] VITALS: BMI 33.6
--- NOTE | 2023-06-27 12:38 | MHC.SHP ---
Pre-Procedural Eval Section A Date of Service: 06/27/23 The patient is an INPATIENT: No The History & Physical has been completed within 30 days and I have reviewed it.: No Section B Chief Complaint: Colon cancer screening Relevant Family History (Specify if Yes): No Relevant Social History: Tobacco Use (Former smoker) Present Medications: see Short Stay Collaborative assessment Medical History: Significant History (BPH (benign prostatic hyperplasia) CAD (coronary artery disease) Chronic fatigue COPD (chronic obstructive pulmonary disease) Diabetes Fatigue History of DVT (deep vein thrombosis) HTN (hypertension) Minimal depression Neck pain Obesity JENNY (obstructive sleep apnea) Osteoarthritis) History of Previous Operations: Relevant previous surgery/procedure and date(s) (History of small-bowel resection Sleeve gastrectomy Tonsillectomy x 2 Vasectomy Ventral hernia repair Lipoma excision Knee surgery ) Allergies: Allergies Allergy/AdvReac Type Severity Reaction Status Date / Time latex [LATEX] Allergy Intermediate RASH Verified 06/08/23 13:52 Pnqmkio-YCY-JnU Reductase AdvReac Intermediate Muscle Pain Verified 06/08/23 13:52 Inhibitor spironolactone AdvReac Mild Migraine Verified 06/08/23 13:52 lisinopril AdvReac Nausea and Verified 06/08/23 13:52 Vomiting Review of Systems Sugical H&P ROS: Negative: Constitution, Cardiovascular, Respiratory and Gastrointestinal Exam Surgical H&P Exam: Normal: Heart, Normal: Lungs, Normal: Extremities and Normal: Abdomen Plan Diagnosis/Plan: Unchanged I have reviewed the history and physical and performed a pertinent physical examination on my patient. No changes have occurred unless specified. Time Spent With Patient Time: Total time managing care of this patient today ____ minutes.
--- NOTE | 2023-06-27 13:23 | W.PM.OPN ---
Operative Note Operative Note Date of Service: 06/27/23 Narrative: COLONOSCOPY TILL CECUM WITH BIOPSIES Pre-op diagnosis: Colon cancer screening (2nd colonoscopy) Post-op diagnosis:? Colon polyps, diverticulosis, hemorrhoids Endoscopist:? Andre Knox MD Anesthesia:?MAC Consent: Indications for the procedure and potential complications of bleeding, perforation, reaction to medications and missed diagnosis were discussed with the patient and informed consent was obtained. Instrument: Olympus CF H 190 L variable stiffness adult colonoscope Monitoring: Vital signs and clinical assessment, intermittent blood pressure monitoring, continuous EKG monitoring, Pulse oximetry and Carbon Dioxide monitoring were done throughout the procedure. Please see anesthesia flowsheet. Colon withdrawl time was 13 minutes. Procedure: The patient was placed in the left lateral decubitis position and pre-procedure medications were administered. After a digital rectal examination of the ano-rectum, the video colonoscope was inserted into the rectum and advanced through the colon to the cecum. The colonoscope was slowly withdrawn in a retrograde panoramic fashion and the colon mucosa was carefully examined including a retroflexed view of the rectum. Findings and interventions are described below. Procedure Difficulty: Without difficulty Findings: Terminal Ileum: Not evaluated Cecum: Normal Ascending Colon: Normal Transverse Colon: A 4-5 mm sessile polyp - removed with a cold snare Descending Colon: Normal Sigmoid Colon: Moderate diverticulosis Rectum: Normal Ano-rectum: Moderate internal hemorrhoids Colon preparation: Good after some irrigation [place] Bowel Preparation Scale Right colon; 2 Transverse colon: 2 Left colon; 2 (0 = Unprepared colon segment with mucosa not seen due to solid stool that cannot be cleared. 1 = Portion of mucosa of the colon segment seen, but other areas of the colon segment not well seen due to staining, residual stool and/or opaque liquid. 2 = Minor amount of residual staining, small fragments of stool and/or opaque liquid, but mucosa of colon segment seen well. 3 = Entire mucosa of colon segment seen well with no residual staining, small fragments of stool or opaque liquid) Impression and Post Procedure Diagnosis: Colonoscopy Findings: One small polyp removed Moderate diverticulosis seen in the sigmoid colon Moderate hemorrhoids on retroflexed exam. Plan: Await pathology results Patient has an appointment on 07/13/23 in the GI Clinic with Cielo Yung FNP-BC. Repeat Colonoscopy interval based on path results - in 5 years if polyps are adenomatous and 10 years if polyps are hyperplastic. Above findings were reviewed with the patient and colon polyps and diverticulosis handouts were given in the discharge area
[2023-06-27 13:55] VITALS: BP 122/66; PULSE 86; RESP 18; TEMP 36.2; O2SAT 98
[2023-06-27 14:10] VITALS: BP 135/62; PULSE 82; RESP 18; TEMP 37; O2SAT 97
== END 2023-06-27 14:55 | disposition home or self-care (01) ==
PROVIDERS: PCP Nurse Practitioner Family; Visit Provider Internal Medicine Gastroenterology
PROC: 0DJD8ZZ Inspection of Lower Intestinal Tract, Via Natural or Artificial Opening Endoscopic (ICD-10-PCS; CPT 45378; principal; 2023-06-27 13:40)
DX: Z12.11 Encounter for screening for malignant neoplasm of colon (principal); D12.3 Benign neoplasm of transverse colon; K57.30 Diverticulosis of large intestine without perforation or abscess without bleeding; K64.8 Other hemorrhoids; J44.9 Chronic obstructive pulmonary disease, unspecified; G47.33 Obstructive sleep apnea (adult) (pediatric); I25.10 Atherosclerotic heart disease of native coronary artery without angina pectoris; I10 Essential (primary) hypertension; E66.01 Morbid (severe) obesity due to excess calories; Z68.36 Body mass index [BMI] 36.0-36.9, adult; E11.9 Type 2 diabetes mellitus without complications; Z86.718 Personal history of other venous thrombosis and embolism; Z79.85 Long-term (current) use of injectable non-insulin antidiabetic drugs; Z79.82 Long term (current) use of aspirin; Z79.1 Long term (current) use of non-steroidal anti-inflammatories (NSAID); Z79.899 Other long term (current) drug therapy; Z91.040 Latex allergy status; Z88.8 Allergy status to other drugs, medicaments and biological substances; Z90.3 Acquired absence of stomach [part of]; Z90.49 Acquired absence of other specified parts of digestive tract; Z98.890 Other specified postprocedural states; Z87.891 Personal history of nicotine dependence
CPT/HCPCS: 45385; 82947; 88305; J2250; J2704

== ENCOUNTER → 2023-06-27 11:16 | Outpatient (BNV) | payer MEDICARE, SELFPAY | PROVIDERS: PCP Nurse Practitioner Family; Visit Provider Internal Medicine Gastroenterology | DX: Z12.11 Encounter for screening for malignant neoplasm of colon (principal); D12.3 Benign neoplasm of transverse colon; K57.30 Diverticulosis of large intestine without perforation or abscess without bleeding; K64.8 Other hemorrhoids | CPT/HCPCS: 45385 ==

== ENCOUNTER 2023-07-07 13:19 | Outpatient (AMB) | payer MEDICARE, SELFPAY ==
[2023-07-07 14:49] VITALS: BP 162/84; PULSE 106; O2SAT 96; BMI 34.0
--- NOTE | 2023-07-07 14:49 | AM.OFFWIN_ITS ---
Intake Vital Signs 07/07/23 14:49 Height 5 ft 10 in Weight 237 lb BMI 34.0 BP 162/84 H Blood Pressure Location Rt brachial Position Standing Pulse 106 H Pulse Source Pulse Oximeter Pulse Oximetry (%) 96 Oxygen Delivery Method Room Air Intake Visit Reasons: EP injured rib rt side Intake Note: Pt is here today for injury to Rt side of rib. Pt states leaned over on the arm rest to his car Patient Tobacco Use Status: Former Tobacco user Quit Date: 2009 Allergies latex [LATEX] Allergy (Intermediate, Verified 07/07/23 14:51) RASH Itteega-BLV-WeV Reductase Inhibitor Adverse Reaction (Intermediate, Verified 07/07/23 14:51) Muscle Pain spironolactone Adverse Reaction (Mild, Verified 07/07/23 14:51) Migraine lisinopril Adverse Reaction (Verified 07/07/23 14:51) Nausea and Vomiting Do you need a note to return to daycare/school/sports/work: No HPI HPI Comments History of Present Illness Details 72 y/o male patient with c/o right sided rib/chest pain that started this morning. Pt was leaning against his Car Arm rest when he felt a POP with sharp pain. Reports pain with certain movements. Denies CP, SOB or pain with breathing. He has been taking Acetaminophen and Ibuprofen with minimal relief. [facility] Medical History HNUG positive CAD (coronary artery disease) BPH (benign prostatic hyperplasia) Uncontrolled hypertension JENNY (obstructive sleep apnea) Neck pain Acute urinary retention COPD (chronic obstructive pulmonary disease) Obesity History of DVT (deep vein thrombosis) Fatigue Chronic fatigue Minimal depression Osteoarthritis HTN (hypertension) Diabetes Surgical History Hx of colonoscopy S/P excision of lipoma History of resection of small bowel History of ventral hernia repair History of sleeve gastrectomy Hx of right knee surgery History of vasectomy History of tonsillectomy Family History Father CAD (coronary artery disease) Mother No problems noted. Brother Accelerated hypertension Son No problems noted. Daughter No problems noted. Sister Leukemia Sister Cerebral palsy Sister No problems noted. 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 [employer] Cognitive needs: No Hearing needs: No Vision needs: No Review of Systems Const All systems reviewed & are unremarkable except as noted in HPI and below Physical Exam Vital Signs: Last Vital Signs Pulse 106 H 07/07/23 14:49 BP 162/84 H 07/07/23 14:49 Pulse Ox 96 07/07/23 14:49 Oxygen Delivery Method Room Air 07/07/23 14:49 BMI result Body Mass Index 34.0 Const General: no acute distress HEENT Head: Yes normocephalic Ears: external ears normal Chest Chest palpation & inspection: normal inspection of the chest and tenderness rib (right 5th rib, bruised) Breast/axilla palpation: no axillary lymphadenopathy Resp Effort & Inspection: normal respiratory effort Auscultation: clear to auscultation bilaterally Cardio Rate: regular rate Rhythm: regular rhythm Assessment & Plan Assessment & Plan (1) Contusion of rib on right side: Code(s): S20.211A - Contusion of right front wall of thorax, initial encounter Qualifiers: Encounter type: initial encounter Qualified Code(s): S20.211A - Contusion of right front wall of thorax, initial encounter Plan: - NSAIDs for relief. - Advised him to be patient, Ribs take awhile to completely heal. - Warm/cold compress for pain relief. - Report severe CP, SOB or Palpatations. Coding Level of Care Code Est Pt Level 3 (09054) Diagnoses Contusion of rib on right side, initial encounter S20.211A Encounter type: initial encounter Time Spent (min) 15
== END 2023-07-07 16:16 | disposition home or self-care (01) ==
PROVIDERS: PCP Nurse Practitioner Family; Visit Provider Nurse Practitioner Family
DX: S20.211A Contusion of right front wall of thorax, initial encounter (principal)
CPT/HCPCS: 99213

== ENCOUNTER 2023-08-04 12:32 | Outpatient (AMB) | payer MEDICARE, SELFPAY ==
--- NOTE | 2023-08-04 12:36 | MHC.OFFVIS ---
Intake Vital Signs 08/04/23 12:37 Height 5 ft 10 in Weight 238 lb 1.588 oz BMI 34.2 BP 122/76 Blood Pressure Location Lt brachial Position Sitting Pulse 78 Intake Visit Reasons: 6 month follow up Intake Note: 6 month follow-up feeling ok Control Panel Tester Required: No Allergies latex [LATEX] Allergy (Intermediate, Verified 07/07/23 14:51) RASH Innmuib-ROD-OvX Reductase Inhibitor Adverse Reaction (Intermediate, Verified 07/07/23 14:51) Muscle Pain spironolactone Adverse Reaction (Mild, Verified 07/07/23 14:51) Migraine lisinopril Adverse Reaction (Verified 07/07/23 14:51) Nausea and Vomiting Medication List - Last Reconciled 08/04/23 by Waylon Aleman MD acetaminophen 500 mg PO ONCE PRN acetaminophen ER (Tylenol Arthritis Pain) 1,300 mg PO Q12H amlodipine 10 mg PO 1700 ascorbic acid (vitamin C) 1,000 mg PO DAILY aspirin 81 mg PO DAILY cholecalciferol (vitamin D3) 4,000 units PO DAILY cyanocobalamin (vitamin B-12) 1,000 mcg PO DAILY ferrous sulfate 325 mg PO DAILY finasteride 5 mg PO DAILY furosemide 40 mg PO DAILY gabapentin 900 mg (3 x 300 mg) PO BEDTIME glucosamine HCl 1,000 mg PO DAILY labetalol 100 mg PO BID losartan 100 mg PO DAILY naproxen sodium 440 mg PO DAILY simethicone (Gas Relief (simethicone)) 125 mg PO ONCE tamsulosin 0.8 mg PO DAILY HPI HPI Comments History of Present Illness Details Zaki comes for follow-up. He has been doing well from cardiac perspective. Remains active and has no symptoms of chest pain when he is active. Patient denies any other symptoms. He says when he is anxious or stressed out his blood pressure is usually elevated. He tends to get anxious. He takes all his medications. Denies any heart failure symptoms. [facility] Medical History HUNG positive CAD (coronary artery disease) BPH (benign prostatic hyperplasia) Uncontrolled hypertension JENNY (obstructive sleep apnea) Neck pain Acute urinary retention COPD (chronic obstructive pulmonary disease) Obesity History of DVT (deep vein thrombosis) Fatigue Chronic fatigue Minimal depression Osteoarthritis HTN (hypertension) Diabetes Surgical History Hx of colonoscopy S/P excision of lipoma History of resection of small bowel History of ventral hernia repair History of sleeve gastrectomy Hx of right knee surgery History of vasectomy History of tonsillectomy Family History Father CAD (coronary artery disease) Mother No problems noted. Brother Accelerated hypertension Son No problems noted. Daughter No problems noted. Sister Leukemia Sister Cerebral palsy Sister No problems noted. 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[employer] Cognitive needs: No Hearing needs: No Vision needs: No Review of Systems Const Denies chills, Denies fatigue, Denies fever(s), Denies frequent falls, Denies weakness, Denies weight gain and Denies weight loss ENT Denies dizziness Card Denies chest pain, Denies leg edema, Denies lightheadedness, Denies palpitations, Denies dyspnea, Denies dyspnea on exertion, Denies orthopnea and Denies other (loss of consciousness) Resp Denies cough, Denies dyspnea and Denies dyspnea on exertion GI Denies hematochezia and Denies change in stool character Musc Denies abnormal gait, Denies muscle weakness, Denies numbness, Denies radiating pain into limb and Denies tingling Neuro Denies Abnormal speech present, Denies abnormal gait, Denies dizziness, Denies frequent falls, Denies numbness, Denies tingling and Denies weakness Endo Denies fatigue and Denies palpitations Physical Exam Vital Signs: Last Vital Signs Pulse 78 08/04/23 12:37 BP 122/76 08/04/23 12:37 BMI result Body Mass Index 34.2 Const General: cooperative, comfortable, no acute distress, alert, awake and well groomed Nutritional Appearance: obese Orientation/consciousness: patient oriented x3 Limitations: no limitations HEENT Head: Yes normocephalic and Yes atraumatic Neck Neck: Yes trachea midline, Yes supple and Yes no JVD Resp Effort & Inspection: normal respiratory effort Auscultation: clear to auscultation bilaterally Cardio Jugular venous distension: no JVD Palpation: normal PMI Rate: regular rate Rhythm: regular rhythm Heart sounds: S1 normal heart sound present, S2 normal heart sound present, no click, no gallops, no murmurs and Other heart sounds present (S4 present) GI Inspection: Yes obesity Auscultation: normal bowel sounds Skin General skin exam: no rashes or lesions noted Neuro General: patient oriented x3 and no focal motor deficits Speech: No Abnormal speech present Extrem General: Yes no clubbing, cyanosis or edema Psych Appearance: grossly normal Assessment & Plan Assessment & Plan (1) CAD (coronary artery disease): Comment: Nonobstructive by cardiac catheterization, March 2021 Code(s): I25.10 - Atherosclerotic heart disease of [place] coronary artery without angina pectoris Plan: Coronary artery disease nonobstructive by cardiac catheterization. No recurrent symptoms at this point time. Continue low-dose aspirin therapy for life. Continue aggressive risk factor modification including aggressive control blood pressure which is currently well optimized. He can not take statin therapy due to allergies. Wants to defer other therapy. Target goal LDL less than 70 mg/dL. (2) HTN (hypertension): Code(s): I10 - Essential (primary) hypertension Plan: Hypertension multiple different medications. He has elevated blood pressure under situations of stress or anxiety. Discussed with him about stress mitigation strategies. Continue current medical therapy. Importance of good blood pressure control was discussed. Understands agrees. Low-salt diet was discussed. Advised to participate in heart healthy lifestyle with regular physical activity and weight loss. Follow up in the clinic in 1 year's time, sooner p.r.n.. Thank you for allowing me to partake in his care Coding Level of Care Code Est Pt Level 4 (05182) Diagnoses CAD (coronary artery disease) I25.10 HTN (hypertension) I10
[2023-08-04 12:37] VITALS: BP 122/76; PULSE 78; BMI 34.2
== END 2023-08-04 13:02 | disposition home or self-care (01) ==
PROVIDERS: PCP Nurse Practitioner Family; Visit Provider Internal Medicine Cardiovascular Disease
DX: I25.10 Atherosclerotic heart disease of native coronary artery without angina pectoris (principal); I10 Essential (primary) hypertension
CPT/HCPCS: 99214

== ENCOUNTER → 2023-08-04 12:32 | Outpatient (BNVA) | payer MEDICARE, SELFPAY | PROVIDERS: PCP Nurse Practitioner Family; Visit Provider Internal Medicine Cardiovascular Disease | DX: I25.10 Atherosclerotic heart disease of native coronary artery without angina pectoris (principal); I10 Essential (primary) hypertension | CPT/HCPCS: 99212 ==

== ENCOUNTER 2023-08-11 15:03 | Outpatient (AMB) | payer MEDICARE, SELFPAY ==
[2023-08-11 15:14] VITALS: BP 142/70; PULSE 80; O2SAT 97; BMI 34.5
--- NOTE | 2023-08-11 15:14 | MHC.PC.OV ---
Vital Signs 08/11/23 15:14 08/11/23 18:04 Height 5 ft 10 in Weight 240 lb 4 oz BMI 34.5 BP 142/70 H 138/76 Blood Pressure Location Rt brachial Position Sitting Pulse 80 Pulse Source Pulse Oximeter Pulse Oximetry (%) 97 Oxygen Delivery Method Room Air Intake Visit Reasons: 4M follow up Intake Note: Pt is here to follow for his DM Allergies latex [LATEX] Allergy (Intermediate, Verified 08/11/23 18:05) RASH Pliubum-SJT-KcT Reductase Inhibitor Adverse Reaction (Intermediate, Verified 08/11/23 18:05) Muscle Pain spironolactone Adverse Reaction (Mild, Verified 08/11/23 18:05) Migraine lisinopril Adverse Reaction (Verified 08/11/23 18:05) Nausea and Vomiting Medication List - Last Reconciled 08/11/23 by OVIDIO Schmitt- acetaminophen 500 mg PO ONCE PRN acetaminophen ER (Tylenol Arthritis Pain) 1,300 mg PO Q12H amlodipine 10 mg PO 1700 ascorbic acid (vitamin C) 1,000 mg PO DAILY aspirin 81 mg PO DAILY cholecalciferol (vitamin D3) 4,000 units PO DAILY cyanocobalamin (vitamin B-12) 1,000 mcg PO DAILY ferrous sulfate 325 mg PO DAILY finasteride 5 mg PO DAILY furosemide 40 mg PO DAILY gabapentin 900 mg (3 x 300 mg) PO BEDTIME glucosamine HCl 1,000 mg PO DAILY labetalol 100 mg PO BID losartan 100 mg PO DAILY naproxen sodium 440 mg PO DAILY tamsulosin 0.8 mg PO DAILY Tobacco use date assessed: 08/11/23 Fall risk assessment: No Falls in past year Last assessed Fall Risk: 08/11/23 Dental Screening Dental Screen Date: 08/11/23 Did you have a dental visit in the last 12 months?: No Did you have a dental problem in the last 6 months where you did not have access to dental care?: No Was dental information given to patient?: No HPI 4M follow up HPI Details Pt is a diabetic, on an ARB. Due for microalbumin. A1c was 5.7 today. Denies polyuria, polydipsia, and neuropathy. Pt denies any signs and symptoms of hypoglycemia and does know how to correct it. Pt reports having an eye exam recently. Hx of bariatric surgery, diabetes controlled with diet. [facility] Medical History HUNG positive CAD (coronary artery disease) BPH (benign prostatic hyperplasia) Uncontrolled hypertension JENNY (obstructive sleep apnea) Neck pain Acute urinary retention COPD (chronic obstructive pulmonary disease) Obesity History of DVT (deep vein thrombosis) Fatigue Chronic fatigue Minimal depression Osteoarthritis HTN (hypertension) Diabetes Surgical History Hx of colonoscopy S/P excision of lipoma History of resection of small bowel History of ventral hernia repair History of sleeve gastrectomy Hx of right knee surgery History of vasectomy History of tonsillectomy Family History Father CAD (coronary artery disease) Mother No problems noted. Brother Accelerated hypertension Son No problems noted. Daughter No problems noted. Sister Leukemia Sister Cerebral palsy Sister No problems noted. 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 1. Little interest or pleasure in doing things: not at all 2. Feeling down, depressed, or hopeless: several days 3. Trouble falling or staying asleep, or sleeping too much: several days 4. Feeling tired or having little energy: several days 5. Poor appetite or overeating: several days 6. Feeling bad about yourself - or that you are a failure or have let yourself or your family down: several days 7. Trouble concentrating on things, such as reading the newspaper or watching television: not at all 8. Moving or speaking so slowly that other people could have noticed. Or the opposite - being so fidgety or restless that you have been moving around a lot more than usual: not at all 9. Thoughts that you would be better off or of hurting yourself in some way: not at all Total score: 5 Source: Developed by Drs. Alcides Matt, Dori Martinez, Mani Hunt and colleagues, with an educational rogelio from [employer]. Thrive Questionnaire Date Thrive assessed: 08/11/23 I am a: Patient What is your living situation today?: I have a steady place to live Within the past 12 months, did the food you bought not last and you didn't have the money to get more?: Never true Within the past 12 months, did you worry whether your food would run out before you got money to buy more?: Never true Do you have trouble paying for medicines?: No Do you have trouble getting transportation to medical appointments?: No Do you have trouble paying your heating and electricity bill?: No Do you have trouble taking care of your child, family member or friend?: No Do you have trouble with day-to-day activities such as bathing, preparing meals, shopping, managing finances, etc.?: No Are you currently unemployed and looking for a job?: No Are you interested in more education?: No THRIVE Score: 0 AUDIT C Alcohol Use Questionnaire (AUDIT-C) 1. How often do you have a drink containing alcohol?: Monthly or less 2. How many drinks containing alcohol do you have on a typical day when you are drinking?: 1 or 2 3. How often do you have six or more drinks on one occasion?: Never Total Score: 1 ALYSIA-7 AMB Questionnaire ALYSIA-7 Date ALYSIA - 7 assessed: 08/11/23 Feeling nervous, anxious, or on edge: 1 = Several days Not being able to stop or control worryin = Several days Worrying too much about different things: 1 = Several days Trouble relaxin = Several days Being so restless that it is hard to sit still: 0 = Not at all Becoming easily annoyed or irritable: 0 = Not at all Feeling afraid as if something awful might happen: 0 = Not at all Total ALYSIA-7 score (0-4 normal; 5-9 mild; 10-14 moderate; 15-21 severe): 4 Source: Developed by Drs. Alcides Matt, Dori Martinez, Mani Hunt and colleagues, with an educational rogelio from [employer]. Review of Systems Const Reports as per HPI Physical exam (Primary Care) Vital Signs: Last Vital Signs Pulse 80 08/11/23 15:14 BP 142/70 H 08/11/23 15:14 Pulse Ox 97 08/11/23 15:14 Oxygen Delivery Method Room Air 08/11/23 15:14 BMI result Body Mass Index 34.5 Tobacco/Smoking Status: Tobacco use Status Tobacco use date assessed 08/11/23 08/11/23 15:24 Patient Tobacco Use Status Former Tobacco user 08/11/23 15:19 e-Cigarette/Vaping Use Never Used 08/11/23 15:19 PHQ-9: PHQ-9 Score PHQ-9: Total score 5 08/11/23 15:52 Thrive Assessment: Date of Thrive Assessment Date Thrive assessed 08/11/23 08/11/23 15:29 Const General: cooperative Nutritional Appearance: obese Orientation/consciousness: patient oriented x3 Resp Effort & Inspection: normal respiratory effort Auscultation: clear to auscultation bilaterally Cardio Rate: regular rate Rhythm: regular rhythm Heart sounds: S1 normal heart sound present, S2 normal heart sound present and no murmurs Neuro General: patient oriented x3 Extrem Other: bilat feet: + sensation with use of monofilament, right medial dorsal big toe with small vesicular lesion Psych Appearance: grossly normal Mental Status: mental status grossly normal Speech and movement: Normal speech and movement present Affect: normal affect Attitude: cooperative Thought process: Normal thought process present Thought content: Normal thought content present Insight: Good insight present (Psych) Judgement: Good judgement present (Psych) Results AMB Hemoglobin A1c AMB Hemoglobin A1c 5.7 % Last Edit by Sowmya Rhodes CMA on 08/11/23 15:50 Results Reviewed Results Reviewed: Laboratory Last Values Hgb A1c (Clinic) 5.7 % (4.0-6.0) 08/11/23 15:49 Assessment and Plan Assessment & Plan (1) Diabetes: Code(s): E11.9 - Type 2 diabetes mellitus without complications (2) B12 deficiency: Code(s): E53.8 - Deficiency of other specified B group vitamins Orders: Orders AMB Hemoglobin A1c Today E11.9 - Type 2 diabetes mellitus without complications Complete Blood Count Auto Diff Today E11.9 - Type 2 diabetes mellitus without complications Comprehensive [place]. Panel Fast Today E11.9 - Type 2 diabetes mellitus without complications TSH reflex Free T4 Today E11.9 - Type 2 diabetes mellitus without complications AMB EKG-In Office Today E11.9 - Type 2 diabetes mellitus without complications Lipid Panel Today E11.9 - Type 2 diabetes mellitus without complications UA CC w/rflx Micro + Cult Today E11.9 - Type 2 diabetes mellitus without complications Microalbumin, Random (w Creat) Today E11.9 - Type 2 diabetes mellitus without complications Vitamin B12 and Folate Today E53.8 - Deficiency of other specified B group vitamins Coding Level of Care Code Est Pt Level 3 (75680) Diagnoses Diabetes E11.9 B12 deficiency E53.8
[2023-08-11 18:04] VITALS: BP 138/76
== END 2023-08-11 16:35 | disposition home or self-care (01) ==
PROVIDERS: PCP Nurse Practitioner Family; Visit Provider Nurse Practitioner Family
DX: E11.9 Type 2 diabetes mellitus without complications (principal); E53.8 Deficiency of other specified B group vitamins
CPT/HCPCS: 83036; 99213

== ENCOUNTER 2023-09-06 09:13 | Outpatient (AMB) | payer MEDICARE, SELFPAY ==
[2023-09-06 09:57] VITALS: BP 118/60; PULSE 76; TEMP 36.4; O2SAT 96; BMI 34.1
--- NOTE | 2023-09-06 09:57 | AM.OFFWIN_ITS ---
Intake Vital Signs 09/06/23 09:57 Height 5 ft 10 in Weight 238 lb BMI 34.1 BP 118/60 Blood Pressure Location Lt brachial Position Sitting Pulse 76 Pulse Source Pulse Oximeter Temp 97.6 F Temp Source Temporal Artery Scan Pulse Oximetry (%) 96 Oxygen Delivery Method Room Air Intake Visit Reasons: EP Breathing issues Intake Note: pt is here today for breathing issues started 10 days ago Patient Tobacco Use Status: Former Tobacco user Quit Date: 2009 Allergies latex [LATEX] Allergy (Intermediate, Verified 09/06/23 10:00) RASH Gaczxab-RNH-EvR Reductase Inhibitor Adverse Reaction (Intermediate, Verified 09/06/23 10:00) Muscle Pain spironolactone Adverse Reaction (Mild, Verified 09/06/23 10:00) Migraine lisinopril Adverse Reaction (Verified 09/06/23 10:00) Nausea and Vomiting Do you need a note to return to daycare/school/sports/work: No HPI HPI Comments History of Present Illness Details Patient is a 73-year-old male in for sick visit. He has a past medical history significant for COPD, hyperlipidemia, hypertension. Patient states that his diabetes is now under control. Recently traveled overseas, states he exacerbated his COPD while he is running through [place]. Patient does not utilize inhalers at this time. Will prescribe albuterol and Symbicort taken as directed. Patient denies chest pain, shortness a breath, dizziness, numbness, vomiting. Does offer dyspnea on exertion. Patient states he while he was overseas he drink tap water and developed diarrhea. States he has had several episodes of diarrhea over the past week. Denies blood in stool. Denies nausea. Patient is able to eat drink. Will obtain labs, stool sample, give ciprofloxacin for coverage. [facility] Medical History HUNG positive CAD (coronary artery disease) BPH (benign prostatic hyperplasia) Uncontrolled hypertension JENNY (obstructive sleep apnea) Neck pain Acute urinary retention COPD (chronic obstructive pulmonary disease) Obesity History of DVT (deep vein thrombosis) Fatigue Chronic fatigue Minimal depression Osteoarthritis HTN (hypertension) Diabetes Surgical History Hx of colonoscopy S/P excision of lipoma History of resection of small bowel History of ventral hernia repair History of sleeve gastrectomy Hx of right knee surgery History of vasectomy History of tonsillectomy Family History Father CAD (coronary artery disease) Mother No problems noted. Brother Accelerated hypertension Son No problems noted. Daughter No problems noted. Sister Leukemia Sister Cerebral palsy Sister No problems noted. 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 [employer] Cognitive needs: No Hearing needs: No Vision needs: No Review of Systems Const All systems reviewed & are unremarkable except as noted in HPI and below Denies headache(s) and Denies weakness ENT Denies dizziness and Denies headache(s) Card Denies chest pain, Denies dyspnea and Reports dyspnea on exertion Resp Reports cough, Denies dyspnea, Reports dyspnea on exertion and Reports wheezing GI Reports diarrhea Musc Denies numbness Neuro Denies dizziness, Denies headache(s), Denies numbness and Denies weakness Aller/Immun Reports wheezing Physical Exam Vital Signs: Last Vital Signs Temp 97.6 F 09/06/23 09:57 Pulse 76 09/06/23 09:57 BP 118/60 09/06/23 09:57 Pulse Ox 96 09/06/23 09:57 Oxygen Delivery Method Room Air 09/06/23 09:57 BMI result Body Mass Index 34.1 Vital signs reviewed stable. Const General: cooperative, no acute distress and alert Nutritional Appearance: overweight Orientation/consciousness: patient oriented x3 Limitations: no limitations Eyes Pupils: Equal, round and reactive pupils present Resp Other: Post in office nebulizer breath sounds improved. Faint wheeze bilateral upper lobes no rhonchi or crackles. Effort & Inspection: Actively coughing Auscultation: wheezes upper bilaterally Cardio Rate: regular rate Rhythm: regular rhythm GI Inspection: Yes normal to inspection Palpation (GI): Other GI palpation findings present (Distended) Auscultation: Hyperactive bowel sounds present Rectal Exam - Male: Yes deferred Neuro General: patient oriented x3 Cranial nerves: Yes CN's II-XII intact bilaterally and Yes Equal, round and reactive pupils present Office Procedures Nebulizer Treatment Nebulizer Treatment 04333-Nmgejqcck/MDI RX initial, or Nebulizer Subsequent Treatment Office Meds albuterol sulfate 2.5 mg/3 mL (0.083 %) solution for nebulization Performing Provider: OVIDIO Lucas Performing Location: [facility] [place] [facility] Documented (not given) by: OVIDIO Lucas on 09/06/23 10:50 Dose Route Admin Location Dispensed Lot Number Expiration Date ND [employer] 2.5 mg inhalation mL ipratropium 0.5 mg-albuterol 3 mg (2.5 mg base)/3 mL nebulization soln Performing Provider: OVIDIO Lucas Performing Location: [facility] [place] [facility] Documented (not given) by: OVIDIO Lucas on 09/06/23 10:50 Dose Route Admin Location Dispensed Lot Number Expiration Date NDC [employer]v [employer] Installation Technician 3 mL inhalation mL Assessment & Plan Assessment & Plan (1) COPD exacerbation: Comment: Patient will be given albuterol, Symbicort, prednisone. Patient has been instructed how to take his medications properly. He has been educated on signs of worsening symptoms and when to turn the walk-in or when to present to the ED. Code(s): J44.1 - Chronic obstructive pulmonary disease with (acute) exacerbation Plan: Take your medications as prescribed. If you were prescribed antibiotics today, it is important that you take your medication to their entirety, do not skip any doses, do not finish them early. Follow-up with your primary care provider this week. Return to the emergency department with new or worsening symptoms. Such as fevers, chills, chest pain, shortness of breath, nausea, vomiting, dizziness, h eadache, vision changes, lethargy In case of emergency call 911 (2) Diarrhea: Comment: Patient will be given ciprofloxacin to be taken as directed. Patient ordered stool sample. Code(s): R19.7 - Diarrhea, unspecified Qualifiers: Diarrhea type: unspecified type Qualified Code(s): R19.7 - Diarrhea, unspecified Plan: Will return to patient with results. Plan Follow-up with PCP. Orders: Orders Cyclospora & Isospora Stool Today R19.7 - Diarrhea, unspecified AMB Nebulizer Treatment Today J44.1 - Chronic obstructive pulmonary disease with (acute) exacerbation Comprehensive Met. Panel Today R19.7 - Diarrhea, unspecified Complete Blood Count Auto Diff Today D72.829 - Elevated white blood cell count, unspecified Medications: New albuterol sulfate 2.5 mg (3 mL) inhalation ONCE 3 mL 0RF J44.1 - Chronic obstructive pulmonary disease with (acute) exacerbation albuterol sulfate 90 mcg/actuation 2 puffs inhalation Q6H PRN 8.5 grams 0RF shortness of breath or wheezing budesonide-formoterol 160-4.5 mcg/actuation (Symbicort) 2 puffs inhalation Q12H 10.2 grams 0RF prednisone 40 mg (2 x 20 mg) PO DAILY 10 tabs 0RF ipratropium-albuterol 0.5 mg-3 mg(2.5 mg base)/3 mL 3 mL inhalation ONCE 3 mL 0RF J44.1 - Chronic obstructive pulmonary disease with (acute) exacerbation ciprofloxacin HCl 500 mg PO Q12H 10 tabs 0RF Coding Level of Care Code Est Pt Level 4 (44798) Diagnoses COPD exacerbation J44.1 Diarrhea, unspecified type R19.7 Diarrhea type: unspecified type CPT Codes Nebulizer Treatment - Nebulizer Treatment, initial or subsequent: 53599- Nebulizer/MDI RX initial, or Nebulizer Subsequent Treatment ([id number]) Time Spent (min) 35
== END 2023-09-06 11:41 | disposition home or self-care (01) ==
PROVIDERS: PCP Nurse Practitioner Family; Visit Provider Nurse Practitioner Primary Care
DX: J44.1 Chronic obstructive pulmonary disease with (acute) exacerbation (principal)
CPT/HCPCS: 94640; 99214; J7620

== ENCOUNTER 2023-09-06 10:41 | Outpatient (REF) | payer MEDICARE, SELFPAY ==
[2023-09-06 13:28] LABS: MANUAL DIFF FLAG NO
[2023-09-06 13:47] LABS: Basophils Percent Auto 0.2 % (0-2); Eosinophils Absolute Auto 0.1 X10*3/uL (0.0-0.4); Eosinophils Percent Auto 1.4 % (0-4); Hematocrit 40.7 % (42.0-52.0); Hemoglobin 13.7 g/dl (14.0-18.0); Imm Gran Abs Auto 0.04 X10*3/uL (0.00-0.03); Imm Gran Pct Auto 0.4 % (0.0-0.4); Lymphocytes Absolute Auto 1.3 X10*3/uL (1.2-4.9); Lymphocytes Percent Auto 14.1 % (20-40); Mean Corpuscular HGB Conc 33.7 g/dl (31.0-36.0); Mean Corpuscular Hemoglobin 32.1 pg (27.0-33.0); Mean Corpuscular Volume 95.3 fL (80.0-98.0); Monocytes Absolute Auto 1.4 X10*3/uL (0.1-1.2); Monocytes Percent Auto 15.5 % (2-11); Neutrophils Absolute Auto 6.3 x10*3/uL (2.0-8.3); Neutrophils Percent Auto 68.4 % (45-73); Platelet Count 274 X10*3/uL (160-400); Red Blood Count 4.27 X10*6/uL (4.60-5.80); Red Cell Distribution Width 12.1 % (11.0-16.0); White Blood Count 9.3 X10*3/uL (4.8-10.8)
[2023-09-06 14:04] LABS: Alanine Aminotransferase 14 U/L (0-40); Albumin Level 4.2 g/dL (3.5-5.0); Alkaline Phosphatase 54 U/L (39-117); Anion Gap 13 (12-20); Aspartate Amino Transferase 16 U/L (5-37); Bilirubin Total 0.4 mg/dL (0.0-1.0); Blood Urea Nitrogen 14 mg/dL (9-16); Calcium 9.2 mg/dL (8.4-10.2); Carbon Dioxide 29 mmol/L (22-29); Chloride 104 mmol/L (96-108); Estimated Glomerular Filt Rate > 60; Glucose Random 78 mg/dL (60-115); Potassium 3.9 mmol/L (3.3-5.1); Sodium 142 mmol/L (135-145)
== END 2023-09-06 10:42 | disposition home or self-care (01) ==
LOC: HO.HMGCLDS 10:41
PROVIDERS: PCP Nurse Practitioner Family; Visit Provider Nurse Practitioner Primary Care
DX: R19.7 Diarrhea, unspecified (principal); D72.829 Elevated white blood cell count, unspecified
CPT/HCPCS: 36415; 80053; 85025; 87015; 87207

== ENCOUNTER 2023-09-23 12:09 | Outpatient (AMB) | payer MEDICARE, SELFPAY ==
[2023-09-23 12:14] VITALS: BP 136/62; PULSE 72; TEMP 36.9; O2SAT 96
--- NOTE | 2023-09-23 12:14 | AM.OFFWIN_ITS ---
Intake Vital Signs 09/23/23 12:14 Height 5 ft 10 in BP 136/62 Blood Pressure Location Rt brachial Position Sitting Pulse 72 Pulse Source Pulse Oximeter Temp 98.4 F Temp Source Oral Pulse Oximetry (%) 96 Oxygen Delivery Method Room Air Intake Visit Reasons: EP ?strep Intake Note: pt is here for headache and eyeball and sore throat for about a week and pt's daughter has strep and is ? reaction from his inhaler since he did not rinse his mouth Patient Tobacco Use Status: Former Tobacco user Quit Date: 2009 Allergies latex [LATEX] Allergy (Intermediate, Verified 09/23/23 12:16) RASH Wjyxhxf-YPW-UnL Reductase Inhibitor Adverse Reaction (Intermediate, Verified 09/23/23 12:16) Muscle Pain spironolactone Adverse Reaction (Mild, Verified 09/23/23 12:16) Migraine lisinopril Adverse Reaction (Verified 09/23/23 12:16) Nausea and Vomiting HPI HPI Comments History of Present Illness Details This is a 73-year-old male with past medical history significant for COPD, HTN, HLD who presented to the walk-in clinic complaining of a sore throat. Patient states he recently had a COPD exacerbation and he was started on albuterol inhaler he admits that he was not rinsing out his mouth after using the inhaler. He is wondering if his sore throat could be related to his inhaler use versus strep pharyngitis as his daughter recently tested positive for strep. He denies any fever/chills. He denies any chest pain or shortness a breath. Denies any abdominal pain nausea/vomiting/diarrhea. He does report some mild nasal congestion/rhinorrhea and headaches. [facility] Medical History HUNG positive CAD (coronary artery disease) BPH (benign prostatic hyperplasia) Uncontrolled hypertension JENNY (obstructive sleep apnea) Neck pain Acute urinary retention COPD (chronic obstructive pulmonary disease) Obesity History of DVT (deep vein thrombosis) Fatigue Chronic fatigue Minimal depression Osteoarthritis HTN (hypertension) Diabetes Surgical History Hx of colonoscopy S/P excision of lipoma History of resection of small bowel History of ventral hernia repair History of sleeve gastrectomy Hx of right knee surgery History of vasectomy History of tonsillectomy Family History (Reviewed 08/11/23 @ 16:09 by Fortunato [employer], [facility]) Father CAD (coronary artery disease) Mother No problems noted. Brother Accelerated hypertension Son No problems noted. Daughter No problems noted. Sister Leukemia Sister Cerebral palsy Sister No problems noted. 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 Cognitive needs: No Hearing needs: No Vision needs: No Review of Systems Const All systems reviewed & are unremarkable except as noted in HPI and below Reports no additional complaints Eyes Reports no additional complaints ENT Reports no additional complaints Card Reports no additional complaints Resp Reports no additional complaints GI Reports no additional complaints Reports no additional complaints Musc Reports no additional complaints Skin/Breast Reports system reviewed and no additional complaints, except as documented Neuro Reports no additional complaints Psych Reports no additional complaints Endo Reports no additional complaints Ian/Lymph Reports no additional complaints Aller/Immun Reports no additional complaints Physical Exam Const Other: Vital signs reviewed. Constitutional: Non-toxic appearing. No acute distress. Well-developed and well-nourished. HEENT: Normocephalic and atraumatic. Moist mucous membranes. Mild posterior pharyngeal erythema without any exudates. No tonsillar hypertrophy or edema. No peritonsillar abscess or cellulitis. Skin: Warm and dry. No rashes or lesions noted. Neck: Full and painless range of motion. No cervical lymphadenopathy. Cardio: Regular rate. No lower extremity edema. No JVD. Pulmonary: No respiratory distress. No accessory muscle usage. Gastrointestinal: Soft, nontender, and nondistended in all 4 quadrants. Musculoskeletal: Normal range of motion in joints throughout the body. No deformity or other signs of injury. Neuro: Alert and oriented x4. Cranial nerves 2-12 grossly intact. No focal deficits appreciated. Psych: Normal mood and affect. Results AMB Rapid Strep AMB Rapid Strep Negative Last Edit by Sowmya Rhodes CMA on 09/23/23 12 :31 Assessment & Plan Assessment & Plan (1) Acute viral pharyngitis: Code(s): J02.9 - Acute pharyngitis, unspecified Plan: This is a 73-year-old male presenting to the office complaining of a sore throat. On physical examination, patient has mild posterior pharyngeal erythema but no edema or exudates. History and physical most consistent with acute pharyngitis, likely viral. Rapid strep test is negative. No evidence of peritonsillar mass/abscess, peritonsillar cellulitis, unilateral neck swelling, or oropharyngeal candidiasis. Patient's vital signs are stable, physical exam is otherwise benign, and patient is overall nontoxic appearing. Recommended symptomatic management including rest, increased fluids, advil/tylenol for pain/fever, salt water gargles, and over the counter throat lozenges. Patient advised to follow up here or go to the emergency room for worsening/persistent symptoms. Patient verbalizes understanding and is in agreement the plan. Orders: Orders SARS-CoV2/FLU/RSV Today R09.89 - Other specified symptoms and signs involving the circulatory and respiratory systems Coding Level of Care Code Est Pt Level 3 (45405) Diagnoses Acute viral pharyngitis J02.9
== END 2023-09-23 14:17 | disposition home or self-care (01) ==
PROVIDERS: PCP Nurse Practitioner Family; Visit Provider Physician Assistant Medical
DX: J02.9 Acute pharyngitis, unspecified (principal)
CPT/HCPCS: 87880; 99213

== ENCOUNTER 2023-09-23 16:24 | Outpatient (REF) | payer MEDICARE, SELFPAY ==
[2023-09-23 17:18] LABS: Influenza A PCR NEGATIVE (Negative); Influenza B PCR NEGATIVE (Negative); Resp Syncy Virus RNA Qual PCR NEGATIVE (Negative); SARS COV2 PCR INHOUSE NEGATIVE (Negative)
== END 2023-09-23 16:25 | disposition home or self-care (01) ==
LOC: HO.LNP 16:24
PROVIDERS: Visit Provider Physician Assistant Medical
DX: R09.89 Other specified symptoms and signs involving the circulatory and respiratory systems (principal)
CPT/HCPCS: 0241U

== ENCOUNTER 2023-11-26 07:29 | Outpatient (REF) | payer MEDICARE, SELFPAY ==
[2023-11-26 07:46] LABS: MANUAL DIFF FLAG NO
[2023-11-26 07:56] LABS: Basophils Percent Auto 0.7 % (0-2); Eosinophils Absolute Auto 0.3 X10*3/uL (0.0-0.4); Eosinophils Percent Auto 4.4 % (0-4); Hematocrit 41.1 % (42.0-52.0); Hemoglobin 14.2 g/dl (14.0-18.0); Imm Gran Abs Auto 0.02 X10*3/uL (0.00-0.03); Imm Gran Pct Auto 0.4 % (0.0-0.4); Lymphocytes Absolute Auto 1.3 X10*3/uL (1.2-4.9); Lymphocytes Percent Auto 23.4 % (20-40); Mean Corpuscular HGB Conc 34.5 g/dl (31.0-36.0); Mean Corpuscular Hemoglobin 32.6 pg (27.0-33.0); Mean Corpuscular Volume 94.3 fL (80.0-98.0); Mean Platelet Volume 9.3 fL (9.4-12.4); Monocytes Absolute Auto 0.6 X10*3/uL (0.1-1.2); Monocytes Percent Auto 10.4 % (2-11); Neutrophils Absolute Auto 3.5 x10*3/uL (2.0-8.3); Neutrophils Percent Auto 60.7 % (45-73); Platelet Count 205 X10*3/uL (160-400); Red Blood Count 4.36 X10*6/uL (4.60-5.80); Red Cell Distribution Width 12.1 % (11.0-16.0); White Blood Count 5.7 X10*3/uL (4.8-10.8)
[2023-11-26 08:17] LABS: Estimated Average Glucose 120 mg/dL; Hemoglobin A1c % 5.8 % (<6.0)
[2023-11-26 08:43] LABS: Alanine Aminotransferase 21 U/L (0-40); Albumin Level 4.6 g/dL (3.5-5.0); Alkaline Phosphatase 48 U/L (39-117); Anion Gap 14 (12-20); Aspartate Amino Transferase 23 U/L (5-37); Bilirubin Total 0.6 mg/dL (0.0-1.0); Blood Urea Nitrogen 17 mg/dL (9-16); Calcium 9.5 mg/dL (8.4-10.2); Carbon Dioxide 28 mmol/L (22-29); Chloride 104 mmol/L (96-108); Cholesterol 189 mg/dL (<200); Estimated Glomerular Filt Rate > 60; Glucose Fasting 130 mg/dL (60-99); HDL Cholesterol 65 mg/dL (>40); LDL Cholesterol Calculated 106 mg/dL (<100); Sodium 142 mmol/L (135-145); Total Protein 7.1 g/dL (6.5-8.0); Triglycerides 90 mg/dL (<150)
[2023-11-26 09:00] LABS: TSH reflex Free T4 1.14 uIU/mL (0.32-4.0)
[2023-11-26 09:10] LABS: Folate 15.6 ng/mL (> or = 4.0); Vitamin B12 916 pg/mL (200-900)
[2023-11-26 09:41] LABS: Appearance Urine Clear; Color Urine Yellow; Glucose Urine UA Negative (Negative); Leukocyte Esterase Urine Trace (Negative); Nitrite Urine Negative (Negative); UMIC TRIGGER UACC YES; Urine Blood Negative (Negative); Urine Ketones Negative (Negative); Urine Protein Negative (Neg-Trace)
[2023-11-26 09:47] LABS: Bacteria Urine None Seen (None Seen); RBC Urine 0-2 /HPF (0-2); Squamous Epithelial Cell Urine 0-2 /HPF (0-2); WBC Urine 0-5 /HPF (0-5)
[2023-11-26 10:15] LABS: Creatinine Urine 21.98 mg/dL; Microalbumin Urine < 5.0 mg/L
== END 2023-11-26 07:30 | disposition home or self-care (01) ==
LOC: HO.LAB 07:29
PROVIDERS: PCP Nurse Practitioner Family; Visit Provider Nurse Practitioner Family
DX: Z00.00 Encounter for general adult medical examination without abnormal findings (principal); E11.9 Type 2 diabetes mellitus without complications; E53.8 Deficiency of other specified B group vitamins
CPT/HCPCS: 36415; 80053; 80061; 81001; 82043; 82570; 82607; 82746; 83036; 84443; 85025

== ENCOUNTER 2023-12-20 12:40 | Outpatient (AMB) | payer MEDICARE, SELFPAY ==
--- NOTE | 2023-12-20 12:50 | MHC.PC.OV ---
Vital Signs 12/20/23 12:51 Height 5 ft 10 in Weight 253 lb BMI 36.3 BP 118/78 Blood Pressure Location Rt brachial Position Sitting Pulse 77 Pulse Source Pulse Oximeter Pulse Oximetry (%) 98 Oxygen Delivery Method Room Air Intake Visit Reasons: 4M follow up Intake Note: Patient here for DM f/u. Allergies latex [LATEX] Allergy (Intermediate, Verified 12/20/23 17:00) RASH Sldoqjz-YMN-PeY Reductase Inhibitor Adverse Reaction (Intermediate, Verified 12/20/23 17:00) Muscle Pain spironolactone Adverse Reaction (Mild, Verified 12/20/23 17:00) Migraine lisinopril Adverse Reaction (Verified 12/20/23 17:00) Nausea and Vomiting Medication List - Last Reconciled 12/20/23 by OVIDIO Schmitt-ELIAS acetaminophen 500 mg PO ONCE PRN acetaminophen ER (Tylenol Arthritis Pain) 1,300 mg PO Q12H albuterol sulfate 90 mcg/actuation 2 puffs inhalation Q6H PRN amlodipine 10 mg PO 1700 ascorbic acid (vitamin C) 1,000 mg PO DAILY aspirin 81 mg PO DAILY cholecalciferol (vitamin D3) 4,000 units PO DAILY cyanocobalamin (vitamin B-12) 1,000 mcg PO DAILY ferrous sulfate 325 mg PO DAILY finasteride 5 mg PO DAILY bhavaotljmq-uuphlhqve-hkpisrco 100-62.5-25 mcg (Trelegy Ellipta) 1 inh inhalation DAILY furosemide 40 mg PO DAILY gabapentin 900 mg (3 x 300 mg) PO BEDTIME glucosamine HCl 1,000 mg PO DAILY labetalol 100 mg PO BID losartan 100 mg PO DAILY naproxen sodium 440 mg PO DAILY tamsulosin 0.8 mg PO DAILY Tobacco use date assessed: 08/11/23 Dental Screening Dental Screen Date: 08/11/23 HPI 4M follow up HPI Details Pt is a diabetic, on an ARB. Last A1C was 5.8. Microalbumin is up to date. Denies polyuria, polydipsia, and neuropathy. Pt denies any signs and symptoms of hypoglycemia and does know how to correct it. Pt c/o increased shortness of breath. He [place] airport and having a very difficult time breathing. He is using an albuterol inhaler as needed, though he reports this does not work well. Will send sonido. Will also order PFT testing. Pt previously had low-dose CTs, last in 2019. Will refer back to thoracics and to pulmonary. Pt sees cardiology, denies any CP. [facility] Medical History HUNG positive CAD (coronary artery disease) BPH (benign prostatic hyperplasia) Uncontrolled hypertension JENNY (obstructive sleep apnea) Neck pain Acute urinary retention COPD (chronic obstructive pulmonary disease) Obesity History of DVT (deep vein thrombosis) Fatigue Chronic fatigue Minimal depression Osteoarthritis HTN (hypertension) Diabetes Surgical History Hx of colonoscopy S/P excision of lipoma History of resection of small bowel History of ventral hernia repair History of sleeve gastrectomy Hx of right knee surgery History of vasectomy History of tonsillectomy Family History Father CAD (coronary artery disease) Mother No problems noted. Brother Accelerated hypertension Son No problems noted. Daughter No problems noted. Sister Leukemia Sister Cerebral palsy Sister No problems noted. 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 90048 - PHQ-9 Billing: Patient declined-do not bill Source: Developed by Drs. Alcides Matt, Dori Martinez, Mani Hunt and colleagues, with an educational rogelio from [employer]. Thrive Questionnaire Date Thrive assessed: 08/11/23 ALYSIA-7 AMB Questionnaire ALYSIA-7 Date ALYSIA - 7 assessed: 08/11/23 Source: Developed by Drs. Alcides Matt, Dori Martinez, Mani Hunt and colleagues, with an educational rogelio from [employer]. ALYSIA-7 Assessment Billing ALYSIA-7 Assessment Tool: pt declined-do not bill Review of Systems Const Reports as per HPI Physical exam (Primary Care) Vital Signs: Last Vital Signs Pulse 77 12/20/23 12:51 BP 118/78 12/20/23 12:51 Pulse Ox 98 12/20/23 12:51 Oxygen Delivery Method Room Air 12/20/23 12:51 BMI result Body Mass Index 36.3 Tobacco/Smoking Status: Tobacco use Status Tobacco use date assessed 08/11/23 12/20/23 12:51 Patient Tobacco Use Status Former Tobacco user 12/20/23 12:51 e-Cigarette/Vaping Use Never Used 12/20/23 12:51 Thrive Assessment: Date of Thrive Assessment Date Thrive assessed 08/11/23 12/20/23 12:51 Const General: cooperative Nutritional Appearance: obese Orientation/consciousness: patient oriented x3 Resp Other: lungs fairly clear bilat Effort & Inspection: normal respiratory effort Cardio Rate: regular rate Rhythm: regular rhythm Heart sounds: S1 normal heart sound present and S2 normal heart sound present Neuro General: patient oriented x3 Psych Appearance: grossly normal Mental Status: mental status grossly normal Speech and movement: Normal speech and movement present Affect: normal affect Attitude: cooperative Thought process: Normal thought process present Thought content: Normal thought content present Insight: Good insight present (Psych) Judgement: Good judgement present (Psych) Assessment and Plan Assessment & Plan (1) COPD exacerbation: Code(s): J44.1 - Chronic obstructive pulmonary disease with (acute) exacerbation (2) COPD (chronic obstructive pulmonary disease): Code(s): J44.9 - Chronic obstructive pulmonary disease, unspecified (3) COPD (chronic obstructive pulmonary disease): Code(s): J44.9 - Chronic obstructive pulmonary disease, unspecified Plan: pft ordered, trelegy sent, referred back to thoracics for LDCT, referred to pulmonary Plan The patient agreed to the use of a medical laboratory technical officer for this encounter. Scribed for JEEVAN Borrego by Kenia Cardozo medical laboratory technical officer, on 12/20/2023 at 13:10 EST. Orders: Orders PFT pulmonary function test Today J44.1 - Chronic obstructive pulmonary disease with (acute) exacerbation Prostate Specific Antigen Scr Today J44.9 - Chronic obstructive pulmonary disease, unspecified Referrals Pulmonology Referral J44.9 - Chronic obstructive pulmonary disease, unspecified Thoracic/General Surgery Referral J44.9 - Chronic obstructive pulmonary disease, unspecified Medications: New hhndtrdghgz-gnyuqvooy-mnqenaos 100-62.5-25 mcg (Trelegy Ellipta) 1 inh inhalation DAILY 60 ea 0RF Coding Level of Care Code Est Pt Level 4 (45322) Complex EM visit Add On G2211 Diagnoses COPD exacerbation J44.1 COPD (chronic obstructive pulmonary disease) J44.9 Time Spent (min) 39
[2023-12-20 12:51] VITALS: BP 118/78; PULSE 77; O2SAT 98; BMI 36.3
== END 2023-12-20 13:49 | disposition home or self-care (01) ==
PROVIDERS: PCP Nurse Practitioner Family; Visit Provider Nurse Practitioner Family
DX: J44.1 Chronic obstructive pulmonary disease with (acute) exacerbation (principal); J44.9 Chronic obstructive pulmonary disease, unspecified
CPT/HCPCS: 99214; G2211

== ENCOUNTER 2023-12-29 09:49 | Outpatient (REF) | payer MEDICARE, SELFPAY ==
[2024-01-02 11:03] LABS: Free Prostate Spec Ag 0.4 ng/mL; Percent Free Prostate Spec Ag 21 % (calc) (>25); Prostate Specific Ag Total 1.9 ng/mL (< OR = 4.0)
== END 2023-12-29 09:50 | disposition home or self-care (01) ==
LOC: HO.LAB 09:49
PROVIDERS: PCP Nurse Practitioner Family; Visit Provider Urology
DX: N40.1 Benign prostatic hyperplasia with lower urinary tract symptoms (principal)
CPT/HCPCS: 36415; 84154

== ENCOUNTER 2024-01-30 14:02 | Outpatient (REF) | payer MEDICARE, SELFPAY ==
[2024-01-30 14:22] LABS: MANUAL DIFF FLAG NO
[2024-01-30 14:34] LABS: Lactic Acid 1.3 mmol/L (0.5-2.0)
[2024-01-30 14:50] LABS: Basophils Percent Auto 0.7 % (0-2); Eosinophils Absolute Auto 0.2 X10*3/uL (0.0-0.4); Hematocrit 38.5 % (42.0-52.0); Hemoglobin 13.3 g/dl (14.0-18.0); Imm Gran Abs Auto 0.04 X10*3/uL (0.00-0.03); Imm Gran Pct Auto 0.7 % (0.0-0.4); Lymphocytes Absolute Auto 1.5 X10*3/uL (1.2-4.9); Lymphocytes Percent Auto 25.4 % (20-40); Mean Corpuscular HGB Conc 34.5 g/dl (31.0-36.0); Mean Corpuscular Hemoglobin 32.7 pg (27.0-33.0); Mean Corpuscular Volume 94.6 fL (80.0-98.0); Mean Platelet Volume 9.2 fL (9.4-12.4); Monocytes Absolute Auto 0.6 X10*3/uL (0.1-1.2); Neutrophils Absolute Auto 3.5 x10*3/uL (2.0-8.3); Neutrophils Percent Auto 59.2 % (45-73); Platelet Count 231 X10*3/uL (160-400); Red Blood Count 4.07 X10*6/uL (4.60-5.80); Red Cell Distribution Width 11.9 % (11.0-16.0)
[2024-01-30 15:28] LABS: Erythrocyte Sedimentation Rate 7 MM/HR (0-15)
[2024-01-30 15:52] LABS: Alanine Aminotransferase 21 U/L (0-40); Albumin Level 4.5 g/dL (3.5-5.0); Alkaline Phosphatase 49 U/L (39-117); Anion Gap 16 (12-20); Aspartate Amino Transferase 23 U/L (5-37); Bilirubin Total 0.5 mg/dL (0.0-1.0); Blood Urea Nitrogen 15 mg/dL (9-16); C Reactive Protein 0.11 mg/dL (< or = 0.50); Calcium 9.2 mg/dL (8.4-10.2); Carbon Dioxide 27 mmol/L (22-29); Chloride 103 mmol/L (96-108); Cholesterol 190 mg/dL (<200); Estimated Glomerular Filt Rate > 60; Glucose Fasting 111 mg/dL (60-99); HDL Cholesterol 55 mg/dL (>40); LDL Cholesterol Calculated 110 mg/dL (<100); Potassium 3.8 mmol/L (3.3-5.1); Sodium 142 mmol/L (135-145); Total Protein 6.7 g/dL (6.5-8.0); Triglycerides 125 mg/dL (<150)
[2024-01-30 16:07] LABS: Prostate Specific Antigen Scr 1.99 ng/mL (<0.05-4.0); TSH reflex Free T4 1.55 uIU/mL (0.32-4.0)
[2024-01-30 16:17] LABS: Rheumatoid Factor < 13.0 IU/mL (<15.0)
[2024-01-30 17:24] LABS: Appearance Urine Clear; Color Urine Yellow; Glucose Urine UA Negative (Negative); Leukocyte Esterase Urine Trace (Negative); Nitrite Urine Negative (Negative); PH 5.5 (5.0-9.0); Specific Gravity - Urine >= 1.030 (1.005-1.025); UMIC TRIGGER UACC YES; Urine Blood Negative (Negative); Urine Ketones Negative (Negative); Urine Protein Negative (Neg-Trace)
[2024-01-30 17:40] LABS: Bacteria Urine None Seen (None Seen); Hyaline Casts Urine 0-2 /LPF (0-2); RBC Urine 0-2 /HPF (0-2); Squamous Epithelial Cell Urine 0-2 /HPF (0-2); WBC Urine 0-5 /HPF (0-5)
[2024-01-30 18:18] LABS: Creatinine Urine 199.44 mg/dL
[2024-01-31 08:24] LABS: Lyme Abs Screen <0.90 index
[2024-01-31 17:04] LABS: A. Phagocytphilium DNA,RT-PCR NOT DETECTED (NOT DETECTED); Babesia Microti DNA, RT-PCR NOT DETECTED (NOT DETECTED); Borrelia Miyamotoi,DNA RT-PCR NOT DETECTED (NOT DETECTED); E.Chaffeensis DNA RT-PCR NOT DETECTED (NOT DETECTED); Lyme(Borrelia ssp)DNA RT-PCR NOT DETECTED (NOT DETECTED)
[2024-02-02 09:08] LABS: Cyclic Citrullinated Peptide <16 UNITS
[2024-02-06 15:42] LABS: Anti Nuclear Antibody Screen POSITIVE (NEGATIVE); Anti Nuclear Antibody Titer 1:40 titer
== END 2024-01-30 14:03 | disposition home or self-care (01) ==
LOC: HO.LAB 14:02
PROVIDERS: PCP Nurse Practitioner Family; Visit Provider Nurse Practitioner Family
DX: Z00.00 Encounter for general adult medical examination without abnormal findings (principal); M79.10 Myalgia, unspecified site; E11.9 Type 2 diabetes mellitus without complications; Z12.5 Encounter for screening for malignant neoplasm of prostate; M25.50 Pain in unspecified joint
CPT/HCPCS: 36415; 80053; 80061; 81001; 82043; 82550; 82570; 83605; 84153; 84443; 85025; 85652; 86038; 86039; 86140; 86200; 86431; 86617; 86618; 87468; 87469; 87478; 87484; 87798

== ENCOUNTER 2024-02-10 14:46 | Outpatient (REF) | payer MEDICARE, SELFPAY ==
--- NOTE | ~2024-02-10 | CT_ITS ---
EXAMINATION: CT LOW-DOSE SCREENING CHEST WITHOUT CONTRAST CLINICAL INFORMATION: Personal history of nicotine dependence. Former smoker. The patient has a 41 pack-year history of smoking, having quit 12 years ago. COMPARISON: CT chest April 01, 2020, x-ray chest March 06, 2019. TECHNIQUE: Multidetector volumetric CT imaging of the chest is performed on a Siemens SOMATOM Definition scanner without contrast using low dose technique. Additional 2D coronal and sagittal reformatted images and axial 3D maximum intensity projection (MIP) images are generated on the CT workstation. This CT examination was performed using dose optimization techniques as appropriate, variously including the following: *Automated exposure control *Adjustment of mA and/or kV according to patient size (this includes techniques or standardized protocols for targeted exams where dose is matched to indication/reason for exam; i.e. extremities or head) *Use of iterative reconstruction technique TOTAL EXAM DLP: 85 mGy-cm. CTDIvol: 2.48 mGy. FINDINGS: PULMONARY NODULES: Two small unchanged punctate nodules are seen measuring 2 mm in the right upper lobe (5:78 and 3 mm in the inferior right upper lobe along the fissure (5:212). There is a single 2 mm left apical nodule seen (5:61 compare prior 5:63). There is no new, increasing-sized or suspicious nodules seen. LUNGS: Lungs bilaterally symmetrically expanded. There is mild emphysema and bronchial thickening without bronchiectasis. No effusion or pneumothorax. Central airways patent. MEDIASTINUM: No mediastinal, hilar or axillary adenopathy or free fluid collection. CORONARY ARTERY CALCIFICATION: Mebd-gr-apbhcybn. THYROID GLAND: Unremarkable to the extent seen. CARDIOVASCULAR STRUCTURES: Aortic and heart size normal. No pericardial effusion. CHEST WALL/AXILLA: Unremarkable. UPPER ABDOMEN: Prior gastric sleeve. Included portions of the solid organs in the upper abdomen unremarkable on noncontrast imaging. OSSEOUS STRUCTURES: No suspicious focal findings. CT/CT lung screening IMPRESSION: No finding is seen that is suspicious for malignancy. ASSESSMENT: 1. Lung-RADS Category 2: Benign appearance or behavior of nodules. N/A 2. Lung-RADS Category S: Negative. There are no clinically significant or potentially clinically significant findings not related to the lungs requiring urgent additional evaluation. RECOMMENDATION: Continued routine annual low-dose CT lung screening in 1 year is recommended. An order for CT CHEST LOW DOSE CANCER SCREENING ([id number]) can be placed. Electronically signed by: Lev Peña MD 03/09/2024 12:01 PM EDT
== END 2024-02-10 14:47 | disposition home or self-care (01) ==
LOC: HO.CT 14:46
PROVIDERS: PCP Nurse Practitioner Family; Visit Provider Physician Assistant Medical
DX: Z12.2 Encounter for screening for malignant neoplasm of respiratory organs (principal); Z87.891 Personal history of nicotine dependence
CPT/HCPCS: 71271

== ENCOUNTER 2024-02-13 07:34 | Outpatient (AMB) | payer MEDICARE, SELFPAY ==
--- NOTE | 2024-02-13 07:35 | MHC.OFFVIS ---
Vital Signs 02/13/24 07:38 Height 5 ft 10 in Weight 257 lb 4.471 oz BMI 36.9 BP 120/64 Blood Pressure Location Lt brachial Position Sitting Pulse 64 Pulse Source Pulse Oximeter Pulse Oximetry (%) 95 Oxygen Delivery Method Room Air Intake Visit Reasons: CPK elevated Intake Note: Patient presents for CPK elevated. Allergies latex [LATEX] Allergy (Intermediate, Verified 02/13/24 07:40) RASH Nwmmabq-[id number]-GwP Reductase Inhibitor Adverse Reaction (Intermediate, Verified 02/13/24 07:40) Muscle Pain spironolactone Adverse Reaction (Mild, Verified 02/13/24 07:40) Migraine lisinopril Adverse Reaction (Verified 02/13/24 07:40) Nausea and Vomiting Medication List - Last Reconciled 02/13/24 by Marco Antonio Argueta MD acetaminophen 500 mg PO ONCE PRN acetaminophen ER (Tylenol Arthritis Pain) 1,300 mg PO Q12H albuterol sulfate 90 mcg/actuation 2 puffs inhalation Q6H PRN amlodipine 10 mg PO 1700 ascorbic acid (vitamin C) 1,000 mg PO DAILY aspirin 81 mg PO DAILY qdhklqbgmw-jbtyovof-ixkaagsqsc 160-9-4.8 mcg/actuation (Breztri Aerosphere) 2 inhalations inhalation BID 30 days cholecalciferol (vitamin D3) 4,000 units PO DAILY cyanocobalamin (vitamin B-12) 1,000 mcg PO DAILY ferrous sulfate 325 mg PO DAILY finasteride 5 mg PO DAILY xvokfywpeaz-ttzxvsbnh-hqqojkmx 200-62.5-25 mcg (Trelegy Ellipta) 1 inh inhalation DAILY furosemide 40 mg PO DAILY gabapentin 900 mg (3 x 300 mg) PO BEDTIME glucosamine HCl 1,000 mg PO DAILY labetalol 100 mg PO BID losartan 100 mg PO DAILY naproxen sodium 440 mg PO DAILY tamsulosin 0.8 mg PO DAILY HPI Comments Details: 73-year-old male who was initially referred for evaluation of elevated CPK with positive HUNG 1-40 in the context of diffuse pain returns for follow-up. He states that he continues to have multiple aches and pains in different areas however he received the Moderna vaccine booster about 3 weeks ago and since then he has been having more joint pains especially in his left wrist, left elbow, his shoulder, neck, hips. He takes Aleve 440 mg in the morning and multiple Tylenol tablets in the day. He denies any swollen joints. Denies any skin rashes. 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 Works about 20 hours a week. Initial history: This is a 71-year-old male with a past medical history of hypertension, diabetes mellitus, dyslipidemia, CAD, COPD, JENNY who presents for evaluation of diffuse pain, elevated CPK and a positive HUNG. Patient states he has always had diffuse pain however this became worse since his hernia surgery a few months ago. Patient complains of generalized pain and stiffness. Usually worse in the morning and improves as day goes by. The pain involves his shoulders, arms, forearms, wrists, fingers, hips, ankles and feet. His right hip pain is chronic, he stated that he fell on his right hip a few years ago and injured it. He was recently prescribed physical therapy for his right hip. He denies weakness while getting up from toilet seat. Patient intentionally lost some weight prior to his ventral hernia surgery but has gained some of it back. He denies any skin rashes. Denies any fevers. Patient sleeps 3-4 hours at night but then he tosses and turns and wakes up from sleep. Denies any blood or frothy urine. [facility] Medical History CAD (coronary artery disease) History of DVT (deep vein thrombosis) HTN (hypertension) Diabetes COPD (chronic obstructive pulmonary disease) JENNY (obstructive sleep apnea) Personal history of nicotine dependence Obesity HUNG positive BPH (benign prostatic hyperplasia) Neck pain Acute urinary retention Fatigue Chronic fatigue Minimal depression Osteoarthritis Surgical History Hx of colonoscopy S/P excision of lipoma History of resection of small bowel History of ventral hernia repair History of sleeve gastrectomy Hx of right knee surgery History of vasectomy History of tonsillectomy Family History Father CAD (coronary artery disease) Mother No problems noted. Brother Accelerated hypertension Son No problems noted. Daughter No problems noted. Sister Leukemia Sister Cerebral palsy Sister No problems noted. 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 Cognitive needs: No Hearing needs: No Vision needs: No Review of Systems Musc Reports arthralgias and Reports stiffness Physical Exam Vital Signs: Last Vital Signs Pulse 64 02/13/24 07:38 BP 120/64 02/13/24 07:38 Pulse Ox 95 02/13/24 07:38 Oxygen Delivery Method Room Air 02/13/24 07:38 BMI result Body Mass Index 36.9 Const General: cooperative, healthy appearing, comfortable and no acute distress Nutritional Appearance: obese Orientation/consciousness: patient oriented x3 Limitations: no limitations HEENT Head: Yes normocephalic and Yes atraumatic Resp Effort & Inspection: normal respiratory effort and able to speak in complete sentences Skin General skin exam: no rashes or lesions noted Neuro General: patient oriented x3 Extrem Other: Proximal muscle strength 5/5 both upper extremities Left hip flexor strength 5/ 5 Right hip flexor strength limited by pain Osteoarthritic changes of both hands Tenderness at the left common extensor origin at the lateral epicondyle with positive resisted wrist extension test No active synovitis Nodule in the left 3rd flexor tendon. No triggering Normal nailfold capillaroscopy Assessment & Plan Assessment & Plan (1) Elevated CPK: Code(s): R74.8 - Abnormal levels of other serum enzymes Category: Medical Plan: This is a 73-year-old male with a past medical history of hypertension, dyslipidemia, diabetes mellitus, CAD, COPD, JENNY who presented initially for evaluation of of diffuse pain, positive HUNG 1-40 DFS, and mildly elevated CPK. I have examined the patient a few times, he does not have any proximal muscle weakness.? There are no dermatomyositis skin rashes.? Patient has had a physical job almost all his life and continues to work.? Picture rather consistent with generalized osteoarthritis with a small component of fibromyalgia.? Significance of his mildly elevated CPK is unclear & can be a normal variant. Labs show positive HUNG of low titer 1-40 in DFS pattern which is generally considered negative.? Inflammatory markers are normal. Today there is left tennis elbow. Advised patient to call the office if symptoms do not improved in the next 3-4 weeks and I will refer him to occupational therapy Follow-up in 1 year (2) Generalized osteoarthritis: Code(s): M15.9 - Polyosteoarthritis, unspecified Category: Medical Plan I spent 23 minutes reviewing patient's chart, evaluating patient, counseling patient and documenting in the chart Coding Level of Care Code Est Pt Level 3 (71566) Diagnoses Elevated CPK R74.8 Generalized osteoarthritis M15.9
[2024-02-13 07:38] VITALS: BP 120/64; PULSE 64; O2SAT 95; BMI 36.9
== END 2024-02-13 08:08 | disposition home or self-care (01) ==
PROVIDERS: PCP Nurse Practitioner Family; Visit Provider Student in an Organized Health Care Education/Training Program
DX: R74.8 Abnormal levels of other serum enzymes (principal); M15.9 Polyosteoarthritis, unspecified
CPT/HCPCS: 99213

== ENCOUNTER → 2024-02-13 07:34 | Outpatient (BNVA) | payer MEDICARE, SELFPAY | PROVIDERS: PCP Nurse Practitioner Family; Visit Provider Student in an Organized Health Care Education/Training Program | DX: R74.8 Abnormal levels of other serum enzymes (principal); M15.9 Polyosteoarthritis, unspecified | CPT/HCPCS: 99212 ==

== ENCOUNTER 2024-02-14 14:27 | Outpatient (AMB) | payer MEDICARE, SELFPAY ==
[2024-02-14 14:37] VITALS: BP 148/64; PULSE 73; O2SAT 97; BMI 36.8
--- NOTE | 2024-02-14 14:37 | MHC.OFFVIS ---
Vital Signs 02/14/24 14:37 Height 5 ft 10 in Weight 256 lb 13.416 oz BMI 36.8 BP 148/64 H Blood Pressure Location Lt brachial Position Sitting Pulse 73 Pulse Source Doppler Pulse Oximetry (%) 97 Oxygen Delivery Method Room Air Intake Visit Reasons: COPD Allergies latex [LATEX] Allergy (Intermediate, Verified 02/14/24 14:45) RASH Kqluugc-JKF-IoN Reductase Inhibitor Adverse Reaction (Intermediate, Verified 02/14/24 14:45) Muscle Pain spironolactone Adverse Reaction (Mild, Verified 02/14/24 14:45) Migraine lisinopril Adverse Reaction (Verified 02/14/24 14:45) Nausea and Vomiting HPI HPI COPD: Details: 73-year-old gentleman, former 60+ pack-year smoker, quit 2011 with likely underlying COPD referred for pulmonary evaluation. 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 Current to his using trilogy and albuterol MDI/DuoNeb with reasonable control of his dyspnea symptoms. The he does complain of dyspnea on exertion after walking for several 100 yd. He is also followed by Cardiology service. His lung cancer screening CT chest is pending. Patient has been diagnosed with JENNY previously and isn't tolerant of CPAP. He is current;y undergoing evaluation by an ENT. [facility] Medical History (Updated 02/14/24 @ 15:06 by Malik Smith MD) Kidney stones CAD (coronary artery disease) History of DVT (deep vein thrombosis) HTN (hypertension) Diabetes COPD (chronic obstructive pulmonary disease) JENNY (obstructive sleep apnea) Personal history of nicotine dependence Obesity HUNG positive BPH (benign prostatic hyperplasia) Neck pain Acute urinary retention Fatigue Chronic fatigue Minimal depression Osteoarthritis Surgical History Hx of colonoscopy S/P excision of lipoma History of resection of small bowel History of ventral hernia repair History of sleeve gastrectomy Hx of right knee surgery History of vasectomy History of tonsillectomy Family History Father CAD (coronary artery disease) Mother No problems noted. Brother Accelerated hypertension Son No problems noted. Daughter No problems noted. Sister Leukemia Sister Cerebral palsy Sister No problems noted. Social History (Updated 02/14/24 @ 14:47 by MARKO Elliott) Household Members: None Housing: Condominium Are you a primary director critical care to a significant other at home: No Do you presently have visiting nurse or other home services: No Alcohol intake: current Alcohol intake frequency: holidays/special occasions only Patient Tobacco Use Status: Former Tobacco user Tobacco use type: Cigarette Years Smoked: 12 years ago , started at 15 years old, 2 PPD e-Cigarette/Vaping Use: Never Used Second Hand Smoke Exposure: No service: No Current occupational status: previously employed and retired 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 [employer] Cognitive needs: No Hearing needs: No Vision needs: No Review of Systems Const Denies daytime sleepiness, Denies excessive sweating, Reports fatigue, Denies fever(s), Denies lethargy, Denies malaise, Denies night sweats, Reports snoring and Denies weight loss Eyes Denies blurry vision and Denies itchy eyes ENT Denies nasal congestion, Denies post nasal drip, Denies sinus pain, Denies sinus pressure and Denies other ( Thrush) Card Denies chest pain, Denies pedal edema, Denies dyspnea, Reports dyspnea on exertion, Reports orthopnea and Denies paroxysmal nocturnal dyspnea Resp Denies cough, Denies hemoptysis, Denies excessive phlegm production, Denies dyspnea, Reports dyspnea on exertion, Reports snoring and Denies wheezing GI Denies abdominal pain and Denies heartburn Musc Denies myalgias, Denies arthralgias and Denies joint swelling Skin/Breast Denies rash Neuro Denies memory loss and Denies seizure-like activity Psych Denies abnormal sleep pattern, Denies anxiety and Denies memory loss Endo Denies excessive sweating, Reports fatigue and Denies heat intolerance Ian/Lymph Denies easy bruising Aller/Immun Denies itchy eyes, Denies seasonal rhinorrhea and Denies wheezing Physical Exam Vital Signs: Last Vital Signs Pulse 73 02/14/24 14:37 BP 148/64 H 02/14/24 14:37 Pulse Ox 97 02/14/24 14:37 Oxygen Delivery Method Room Air 02/14/24 14:37 BMI result Body Mass Index 36.8 Const General: no acute distress and alert Nutritional Appearance: obese Orientation/consciousness: Other orientation findings ( oriented) HEENT Head: Yes atraumatic Eyes General: appearance normal, both eyes and all related structures Sclerae: sclerae normal EOM: EOMs intact bilaterally Neck Neck: Yes supple Lymphatic: no lymphadenopathy noted Resp Effort & Inspection: normal respiratory effort and no use of accessory muscles Auscultation: clear to auscultation bilaterally Cardio Rate: regular rate Rhythm: regular rhythm Heart sounds: no gallops, no murmurs and no rubs Skin General skin exam: other ( warm) Extrem General: No clubbing, No cyanosis and No edema Assessment & Plan Assessment & Plan (1) COPD (chronic obstructive pulmonary disease): Code(s): J44.9 - Chronic obstructive pulmonary disease, unspecified Category: Medical Plan: Unclear severity. Will obtain full PFT. At this time reasonable control on Trelegy, duo nebs and albuterol MDI. Continue current regimen. (2) Chronic sinusitis with recurrent bronchitis: Code(s): J32.9 - Chronic sinusitis, unspecified; J40 - Bronchitis, not specified as acute or chronic Category: Medical Plan: Will obtain immunoglobulin levels for further evaluation. (3) Environmental allergies: Code(s): Z91.09 - Other allergy status, other than to drugs and biological substances Category: Medical Plan: Will obtain RAST for further evaluation. (4) Personal history of nicotine dependence: Comment: (former smoker 30pyh, quit 12yr ago) Code(s): Z87.891 - Personal history of nicotine dependence Category: Medical Plan: CT chest for lung cancer screening is pending. Orders: Orders Immunoglobulins,IgG IgA IgM Today J32.9 - Chronic sinusitis, unspecified, J40 - Bronchitis, not specified as acute or chronic Immunoglobulin G Subclasses Today J32.9 - Chronic sinusitis, unspecified, J40 - Bronchitis, not specified as acute or chronic PFT pulmonary function test Today J44.9 - Chronic obstructive pulmonary disease, unspecified Resp Allergy Profile Region I Today Z91.09 - Other allergy status, other than to drugs and biological substances Coding Level of Care Code New Pt Level 4 (36030) Diagnoses COPD (chronic obstructive pulmonary disease) J44.9 Chronic sinusitis with recurrent bronchitis J32.9; J40 Environmental allergies Z91.09 Personal history of nicotine dependence Z87.891
== END 2024-02-14 15:07 | disposition home or self-care (01) ==
PROVIDERS: PCP Nurse Practitioner Family; Referring Provider Nurse Practitioner Family; Visit Provider Internal Medicine Pulmonary Disease
DX: J44.9 Chronic obstructive pulmonary disease, unspecified (principal); J32.9 Chronic sinusitis, unspecified; J40 Bronchitis, not specified as acute or chronic; Z91.09 Other allergy status, other than to drugs and biological substances; Z87.891 Personal history of nicotine dependence
CPT/HCPCS: 99204

== ENCOUNTER 2024-02-14 14:27 | Outpatient (REF) | payer MEDICARE, SELFPAY ==
[2024-02-15 12:50] LABS: IgA 66 mg/dL (70-320); IgG 575 mg/dL (600-1540); IgM 31 mg/dL (50-300)
[2024-02-16 15:34] LABS: Immunoglobulin G Subclass 1 317 mg/dL (382-929); Immunoglobulin G Subclass 2 126 mg/dL (241-700); Immunoglobulin G Subclass 3 20 mg/dL (22-178); Immunoglobulin G Subclass 4 2.2 mg/dL (4-86); Immunoglobulin G Total 522 mg/dL (600-1540)
[2024-02-17 16:43] LABS: Class Alternaria alternata 0; Class Aspergillus fumigatus 0; Class Bermuda Grass 0; Class Birch 0; Class Cat Dander 0; Class Cladosporium herbarum 0; Class Cockroach 0; Class Common Ragweed 0; Class Cottonwood 0; Class Derm. pterony 0; Class Dermatophagoides farinae 0; Class Dog Dander 0; Class Elm 0; Class Maple Box Elder 0; Class Mountain Cedar 0; Class Mouse Urine Protein 0; Class Mugwort 0; Class Oak 0; Class Penicillium crysogenum 0; Class Rough Pigweed 0; Class Sheep Sorrel 0; Class Sycamore 0; Class Timothy Grass 0; Class Walnut Tree 0; Class White Ash 0; Class White Mulberry 0; D001 IgE D pteronyssinus <0.10 kU/L; D002 - IgE D farinae <0.10 kU/L; E001 - IgE Cat Dander <0.10 kU/L; E005 - IgE Dog Dander <0.10 kU/L; E072-IgE Mouse Urine <0.10 kU/L; G002 IgE Bermuda Grass <0.10 kU/L; G006 - IgE Timothy Grass <0.10 kU/L; I006-IgE Cockroach, German <0.10 kU/L; Immunoglobulin E 4 kU/L (<OR=114); M001 IgE Penicillium chrysogen <0.10 kU/L; M002 - IgE Cladosporium herbar <0.10 kU/L; M003 - IgE Aspergillus fumigat <0.10 kU/L; M006 - IgE Alternaria alternat <0.10 kU/L; T001 IgE Maple/Box Elder <0.10 kU/L; T003 IgE Common Silver Birch <0.10 kU/L; T006 - IgE Cedar, Mountain <0.10 kU/L; T007 - IgE Oak, White <0.10 kU/L; T008 IgE Elm, American <0.10 kU/L; T010 - IgE Walnut <0.10 kU/L; T011 - IgE Maple Leaf Sycamore <0.10 kU/L; T014 - IgE Cottonwood <0.10 kU/L; T015 - IgE Ash, White <0.10 kU/L; T070 - IgE White Mulberry <0.10 kU/L; W001 - IgE Ragweed, Short <0.10 kU/L; W006 - IgE Mugwort <0.10 kU/L; W014 IgE Pigweed, Common <0.10 kU/L; W018 IgE Sheep Sorrel <0.10 kU/L
== END 2024-02-14 14:28 | disposition home or self-care (01) ==
LOC: HO.LAB 14:27
PROVIDERS: PCP Nurse Practitioner Family; Referring Provider Nurse Practitioner Family; Visit Provider Internal Medicine Pulmonary Disease
DX: J32.9 Chronic sinusitis, unspecified (principal); J40 Bronchitis, not specified as acute or chronic; Z91.09 Other allergy status, other than to drugs and biological substances
CPT/HCPCS: 36415; 82784; 82785; 86003; 99202

== ENCOUNTER 2024-03-16 14:49 | Outpatient (REF) | payer MEDICARE, SELFPAY ==
[2024-03-16 09:23] VITALS: PULSE 74; RESP 16; O2SAT 95
--- NOTE | 2024-03-16 15:00 | PFT_ITS ---
Flows: FEV1: 64 % of predicted at 2.06 L FVC: 77 % of predicted at 3.27 L FEV1/FVC: 64 % Bronchodilator response: Present in small to medium airways only Volumes: Total lung capacity: 78 % of predicted at 5.69 L Residual volume: 80 % of predicted at 2.08 L Slow vital capacity: 79 % of predicted at 3.61 L Expiratory reserve volume: 48 % of predicted at 0.61 L Diffusion capacity: Normal Impression: Combined moderate obstructive and restrictive ventilatory defect with bronchodilator response in small to medium airways only. Decreased expiratory reserve volume suggests extrathoracic restriction likely secondary to abdominal obesity. MTDD
== END 2024-03-16 14:50 | disposition home or self-care (01) ==
LOC: HO.RESP 14:49
PROVIDERS: PCP Nurse Practitioner Family; Visit Provider Internal Medicine Pulmonary Disease
DX: J44.9 Chronic obstructive pulmonary disease, unspecified (principal)
CPT/HCPCS: 94010; 94640; 94727; 94729

== ENCOUNTER → 2024-03-16 15:00 | Outpatient (BNV) | payer MEDICARE, SELFPAY | PROVIDERS: PCP Nurse Practitioner Family; Visit Provider Internal Medicine Pulmonary Disease | DX: J44.9 Chronic obstructive pulmonary disease, unspecified (principal) | CPT/HCPCS: 94060; 94727; 94729 ==

== ENCOUNTER 2024-03-21 13:00 | Outpatient (AMB) | payer MEDICARE, SELFPAY ==
[2024-03-21 13:08] VITALS: BP 158/70; PULSE 88; O2SAT 98; BMI 36.4
--- NOTE | 2024-03-21 13:08 | MHC.OFFVIS ---
Vital Signs 03/21/24 13:08 Height 5 ft 10 in Weight 253 lb 8.505 oz BMI 36.4 BP 158/70 H Blood Pressure Location Rt brachial Position Sitting Pulse 88 Pulse Source Doppler Pulse Oximetry (%) 98 Oxygen Delivery Method Room Air Intake Visit Reasons: COPD/PFT Follow Up Allergies latex [LATEX] Allergy (Intermediate, Verified 02/14/24 14:45) RASH Wuortwm-VFT-MsX Reductase Inhibitor Adverse Reaction (Intermediate, Verified 02/14/24 14:45) Muscle Pain spironolactone Adverse Reaction (Mild, Verified 02/14/24 14:45) Migraine lisinopril Adverse Reaction (Verified 02/14/24 14:45) Nausea and Vomiting HPI HPI COPD/PFT Follow Up: Details: 73-year-old gentleman, former 60+ pack-year smoker, quit 2011 with likely underlying COPD referred for pulmonary evaluation. 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 Current to his using trilogy and albuterol MDI/DuoNeb with reasonable control of his dyspnea symptoms. The he does complain of dyspnea on exertion after walking for several 100 yd. He is also followed by Cardiology service. His lung cancer screening CT chest is pending. Patient has been diagnosed with JENNY previously and isn't tolerant of CPAP. He is currently undergoing evaluation by an ENT. After the last office visit patient had his pulmonary function test that showed moderate combined obstructive/restrictive ventilatory defect. 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 His RAST is essentially negative. [facility] Medical History (Updated 03/21/24 @ 14:03 by Malik Smith MD) Kidney stones CAD (coronary artery disease) History of DVT (deep vein thrombosis) HTN (hypertension) Diabetes COPD (chronic obstructive pulmonary disease) JENNY (obstructive sleep apnea) Personal history of nicotine dependence Obesity HUNG positive BPH (benign prostatic hyperplasia) Neck pain Acute urinary retention Fatigue Chronic fatigue Minimal depression Osteoarthritis Surgical History Hx of colonoscopy S/P excision of lipoma History of resection of small bowel History of ventral hernia repair History of sleeve gastrectomy Hx of right knee surgery History of vasectomy History of tonsillectomy Family History Father CAD (coronary artery disease) Mother No problems noted. Brother Accelerated hypertension Son No problems noted. Daughter No problems noted. Sister Leukemia Sister Cerebral palsy Sister No problems noted. Social History (Updated 02/14/24 @ 14:47 by Bonita Valadez [facility]) Household Members: None 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 [employer] Cognitive needs: No Hearing needs: No Vision needs: No Review of Systems Const Denies daytime sleepiness, Denies excessive sweating, Denies fatigue, Denies fever(s), Denies lethargy, Denies malaise, Denies night sweats, Denies snoring and Denies weight loss Eyes Denies blurry vision and Denies itchy eyes ENT Denies nasal congestion, Denies post nasal drip, Denies sinus pain, Denies sinus pressure and Denies other ( Thrush) Card Denies chest pain, Denies pedal edema, Denies dyspnea, Denies orthopnea and Denies paroxysmal nocturnal dyspnea Resp Denies cough, Denies hemoptysis, Denies excessive phlegm production, Denies dyspnea, Denies snoring and Denies wheezing GI Denies abdominal pain and Denies heartburn Musc Denies myalgias, Denies arthralgias and Denies joint swelling Skin/Breast Denies rash Neuro Denies memory loss and Denies seizure-like activity Psych Denies abnormal sleep pattern, Denies anxiety and Denies memory loss Endo Denies excessive sweating, Denies fatigue and Denies heat intolerance Ian/Lymph Denies easy bruising Aller/Immun Denies itchy eyes, Denies seasonal rhinorrhea and Denies wheezing Physical Exam Vital Signs: Last Vital Signs Pulse 88 03/21/24 13:08 BP 158/70 H 03/21/24 13:08 Pulse Ox 98 03/21/24 13:08 Oxygen Delivery Method Room Air 03/21/24 13:08 BMI result Body Mass Index 36.4 Const General: no acute distress and alert Nutritional Appearance: obese Orientation/consciousness: Other orientation findings ( oriented) HEENT Head: Yes atraumatic Eyes General: appearance normal, both eyes and all related structures Sclerae: sclerae normal EOM: EOMs intact bilaterally Neck Neck: Yes supple Lymphatic: no lymphadenopathy noted Resp Effort & Inspection: normal respiratory effort and no use of accessory muscles Auscultation: clear to auscultation bilaterally Cardio Rate: regular rate Rhythm: regular rhythm Heart sounds: no gallops, no murmurs and no rubs Skin General skin exam: other ( warm) Extrem General: No clubbing, No cyanosis and No edema Assessment & Plan Assessment & Plan (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 Will start on IVIG. (2) COPD (chronic obstructive pulmonary disease): Code(s): J44.9 - Chronic obstructive pulmonary disease, unspecified Category: Medical Plan: Reasonable control on current regimen of Trelegy, duo nebs, and albuterol MDI. Continue current regimen. (3) Personal history of nicotine dependence: Comment: (former smoker 30pyh, quit 12yr ago) Code(s): Z87.891 - Personal history of nicotine dependence Category: Medical Plan: Results of CT scan reviewed, no worrisome pulmonary nodules, continue with yearly screening. Coding Level of Care Code Est Pt Level 4 (76291) Complex EM visit Add On G2211 Diagnoses Hypogammaglobulinemia D80.1 COPD (chronic obstructive pulmonary disease) J44.9 Personal history of nicotine dependence Z87.891
== END 2024-03-21 13:25 | disposition home or self-care (01) ==
PROVIDERS: PCP Nurse Practitioner Family; Visit Provider Internal Medicine Pulmonary Disease
DX: D80.1 Nonfamilial hypogammaglobulinemia (principal); J44.9 Chronic obstructive pulmonary disease, unspecified; Z87.891 Personal history of nicotine dependence
CPT/HCPCS: 99214; G2211

== ENCOUNTER → 2024-03-21 13:00 | Outpatient (BNVA) | payer MEDICARE, SELFPAY | PROVIDERS: PCP Nurse Practitioner Family; Visit Provider Internal Medicine Pulmonary Disease | DX: J44.9 Chronic obstructive pulmonary disease, unspecified (principal); D80.1 Nonfamilial hypogammaglobulinemia; Z87.891 Personal history of nicotine dependence | CPT/HCPCS: 99212 ==

== ENCOUNTER 2024-03-26 07:00 | Outpatient (RCR) | payer MEDICARE, SELFPAY ==
--- NOTE | 2024-03-16 09:17 | MHC.OT.EP ---
[address] [phone] Occupational Therapy Plan of Care Patient Name: Zaki Ramirez Date of Evaluation: 03/16/24 Diagnosis: Left lateral epicondylitis Pain Location: 3/10 resting pain left radial wrist, worsens w/ movement 8/10 quick sharp pain, subsides after <1 minute Pain Score: 3 Pain Scale Used: Numeric (0 - 10) Aggravating Factors: Reaching, positional Alleviating Factors: Heat (bath, warm faucet water) Assessment: 73 yo male presents w/ left lateral elbow pain about two months ago, after receiving Moderna vaccination. He was seen by post anesthesia room nurse and recommended occupational therapy for conservative treatment. On assessment today, he has tightness in left forearm and wrist w/ painful supination. History and clinical assessment seem consistent w/ median nerve irritation, and I anticipate he will do well w/ course of OT with goal of full range of motion and pain free daily use of left UE. Frequency and Duration: The patient will be seen 2x/wk for 4 weeks Short Term Goals: Ind w/ self massage Ind w/ heat modalities Good follow through w/ HEP Active forearm supination to 60 degrees Prison Goals: Progress to nerve glides w/ ease Pt to report ease w/ sleep positioning Good understanding of activity modification Treatment Plan: Therapeutic Exercise Therapeutic Activity Home Exercise Program Splinting Neuro Re-ed Patient Education Edema Control ADL Training Ultrasound MHP Soft Tissue Mobilization Kinesiotaping Electronically Signed By: Susan Sung, OTR/L CHT Please Sign and return to therapist. Thank you once again for your referral.
--- NOTE | 2024-04-04 07:11 | MHC.OT.DC ---
[address] [phone] F: [phone] Occupational Therapy Discharge Note Patient Name: Zaki Ramirez Provider: Dr Marco Antonio Argueta Diagnosis: Left lateral epicondylitis Date of Evaluation: 03/16/24 Date of Discharge: 04/03/24 Treatments to Date: 4 Discharge Status: Patient Elected to Stop Discharge Summary: Zaki was referred to OT w/ pain through left UE, difficulty w/ supination and radiating pain from hand to elbow, at times into shoulder. We had initiated light AROM program and soft tissue work, however he continued to have persistent pain and was seen by Dr Gaby Lynn and given cortisone infection to left elbow. We will hold further OT services at this time and await further recommendations. Electronically Signed By: Susan Sung OTR/L CHT Please Sign and return to therapist, thank you for your referral.
== END 2024-04-04 07:12 | disposition home or self-care (01) ==
LOC: HO.OT 07:00
PROVIDERS: PCP Nurse Practitioner Family; Visit Provider Student in an Organized Health Care Education/Training Program
DX: M77.12 Lateral epicondylitis, left elbow (principal)
CPT/HCPCS: 97035; 97110; 97140; 97165

== ENCOUNTER 2024-03-30 11:07 | Outpatient (REF) | payer MEDICARE, SELFPAY ==
--- NOTE | ~2024-03-30 | XR_ITS ---
EXAMINATION: XR SHOULDER, LEFT CLINICAL INFORMATION: Left shoulder pain. COMPARISON: None available. TECHNIQUE: 3 views of the left shoulder. FINDINGS: Mild acromioclavicular and glenohumeral joint space narrowing with small marginal osteophytes. No acute fracture or dislocation. No concerning lytic or blastic osseous lesion. Bone island within the humeral head. No abnormal soft tissue calcification. XR/XR shoulder LT min 2V IMPRESSION: Mild acromioclavicular and glenohumeral osteoarthritis. Electronically signed by: Donald Daley MD 05/02/2024 10:50 AM [facility]
--- NOTE | ~2024-03-30 | XR_ITS ---
EXAMINATION: XR ELBOW, LEFT CLINICAL INFORMATION: Lateral epicondylitis. COMPARISON: None available. TECHNIQUE: AP, lateral, and oblique views of the left elbow. FINDINGS: Enthesophyte with spurring at the medial and lateral epicondyles as well as at the olecranon. No acute fracture or dislocation. Mild ulnotrochlear joint space narrowing with small marginal osteophytes. No concerning lytic or blastic osseous lesion. No significant joint effusion. XR/XR elbow LT min 3V IMPRESSION: 1. Mild ulnotrochlear osteoarthritis. 2. Enthesophytes at the medial and lateral epicondyles as well as at the olecranon. Electronically signed by: Donald Daley MD 05/02/2024 10:50 AM [facility]
== END 2024-03-30 11:08 | disposition home or self-care (01) ==
LOC: HO.HOSX 11:07
PROVIDERS: PCP Nurse Practitioner Family; Visit Provider Physical Medicine & Rehabilitation
DX: M77.12 Lateral epicondylitis, left elbow (principal); G56.02 Carpal tunnel syndrome, left upper limb; I10 Essential (primary) hypertension
CPT/HCPCS: 73030; 73080; 99202

== ENCOUNTER 2024-03-30 11:07 | Outpatient (AMB) | payer MEDICARE, SELFPAY ==
--- NOTE | 2024-03-30 11:12 | A.OFFVIS_ITS ---
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 Pt states this pain started about 2 months ago right after he got his COVID booster vaccine. Pt states he has pain that goes from his shoulder down his arm. Pt states he has had numbness in his hand before all of these symptoms started but states the numbness has increased. Pt denies any previous surgeries or injections in his shoulder or arm. Allergies latex [LATEX] Allergy (Intermediate, Verified 03/30/24 11:13) RASH Vihkkrl-NFP-IyC Reductase Inhibitor Adverse Reaction (Intermediate, Verified 03/30/24 11:13) Muscle Pain spironolactone Adverse Reaction (Mild, Verified 03/30/24 11:13) Migraine lisinopril Adverse Reaction (Verified 03/30/24 11:13) Nausea and Vomiting Medication List - Last Reconciled 03/30/24 by Gaby Lynn MD acetaminophen 500 mg PO ONCE PRN acetaminophen ER (Tylenol Arthritis Pain) 1,300 mg PO Q12H albuterol sulfate 90 mcg/actuation 2 puffs inhalation Q6H PRN amlodipine 10 mg PO 1700 ascorbic acid (vitamin C) 1,000 mg PO DAILY aspirin 81 mg PO DAILY cholecalciferol (vitamin D3) 4,000 units PO DAILY cyanocobalamin (vitamin B-12) 1,000 mcg PO DAILY ferrous sulfate 325 mg PO DAILY finasteride 5 mg PO DAILY clfcxudxcbt-mmytjorkv-kvmszzjh 100-62.5-25 mcg (Trelegy Ellipta) 1 inh inhalation DAILY furosemide 40 mg PO DAILY gabapentin 900 mg (3 x 300 mg) PO BEDTIME glucosamine HCl 1,000 mg PO DAILY labetalol 100 mg PO BID losartan 100 mg PO DAILY naproxen sodium 440 mg PO DAILY tamsulosin 0.8 mg PO DAILY HPI Comments Details: He was previously seen by Rheumatology for elevated CK and positive HUNG. Their notes reviewed. He complained of left elbow pain, subsequently referred to OT. 2 months of left elbow, painful (feels like sciatica ), just from elbow to forearm. If he holds forearm, it would help. Occasional numbness on left hand. He thinks it started after a COVID vaccine. OT felt possibly a left trigger point, which was aggravated, now shooting to left arm. Difficulty now to supinate left forearm. OT recommended referral to physiatry. Recently seen by Pulmology for Hypogammaglobulinemia. Follows with Pain Management for right hip injection. Was told in past to have left CTS, treated before conservatively only. [facility], [facility] Medical History (Updated 03/30/24 @ 11:48 by Gaby Lynn MD) Kidney stones CAD (coronary artery disease) History of DVT (deep vein thrombosis) HTN (hypertension) Diabetes COPD (chronic obstructive pulmonary disease) JENNY (obstructive sleep apnea) Personal history of nicotine dependence Obesity HUNG positive BPH (benign prostatic hyperplasia) Neck pain Acute urinary retention Fatigue Chronic fatigue Minimal depression Osteoarthritis Surgical History Hx of colonoscopy S/P excision of lipoma History of resection of small bowel History of ventral hernia repair History of sleeve gastrectomy Hx of right knee surgery History of vasectomy History of tonsillectomy Family History Father CAD (coronary artery disease) Mother No problems noted. Brother Accelerated hypertension Son No problems noted. Daughter No problems noted. Sister Leukemia Sister Cerebral palsy Sister No problems noted. Social History (Updated 02/14/24 @ 14:47 by Bonita Valadez Nelly) Household Members: None [facility] Are you a primary long term care pharmacist to a significant other at home: No Do you presently have visiting nurse or other home services: No Alcohol intake: current Alcohol intake frequency: holidays/special occasions only Patient Tobacco Use Status: Former Tobacco user Tobacco use type: Cigarette Years Smoked: 12 years ago , started at 15 years old, 2 PPD e-Cigarette/Vaping Use: Never Used Second Hand Smoke Exposure: No service: No Current occupational status: previously employed and retired 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 MSK: Inspection reveals appropriate head and neck positioning. No pain with palpation over the neck musculature. Tender left subacromial and biceps insertion. Tender left lateral epicondyle and extensor tendons. Cervical ROM was full. Spurling's sign negative. Bilateral shoulder ROM WNL. No ligamentous laxity or crepitance. No increased effusion. Hawkin's test is negative. Negative empty can sign. Negative speed's test. No intrinsic hand weakness noted. No atrophy noted. Lio test negative. Carpal compression test negative. Tinel sign negative. Tender along the common extensor tendons proximal to the lateral epicondyle. No effusion or swelling. Increased pain on lateral epicondyle with resisted wrist extension. No tenderness on medial epicondyle or olecranon. No pain over pronator tendons. No pain over wrist flexors. Strength is 5/5 in all muscle groups tested. No increased tone noted. Neurological: Neurologic examination of the upper and lower extremities was nonfocal with intact sensation, muscle stretch reflexes and without focal motor deficits . Johnson?s negative bilaterally. Gait is non-antalgic without loss of balance. Results Reviewed Results Reviewed: I reviewed records from the following: Rheumatology Pain management Pulmonary Assessment & Plan Assessment & Plan (1) Left tennis elbow: Code(s): M77.12 - Lateral epicondylitis, left elbow Category: Medical (2) Left shoulder pain: Code(s): M25.512 - Pain in left shoulder Category: Medical Qualifiers: Chronicity: acute Qualified Code(s): M25.512 - Pain in left shoulder (3) Carpal tunnel syndrome of left wrist: Code(s): G56.02 - Carpal tunnel syndrome, left upper limb Category: Medical Plan I think he has a severe case of left tennis elbow/common extensor tendinitis. New onset left shoulder pain but no signs of RTC injury. History of left Carpal Tunnel Syndrome. Putting him on a counterforce brace. Instructions given. Sending for left elbow and shoulder x-rays for completion. Scheduling for left upper extremity EMG to confirm Carpal Tunnel Syndrome. Can hold OT for now. Ice 3 times a day or as needed. Discussed possible left tennis elbow injection. Patient eager to proceed. We will schedule. Assessment and plan discussed with patient, and patient was agreeable. All questions were answered thoroughly. Gaby Lynn MD, ONESIMO Board Certified, [place] [employer] Physical Medicine and Rehabilitation (ABPMR) Board Certified, [place] Board [employer] Electrodiagnostic Medicine (ABEM) Orders: Orders XR elbow LT min 3V Today G56.02 - Carpal tunnel syndrome, left upper limb, M25.512 - Pain in left shoulder, M77.12 - Lateral epicondylitis, left elbow XR shoulder LT min 2V Today G56.02 - Carpal tunnel syndrome, left upper limb, M25.512 - Pain in left shoulder, M77.12 - Lateral epicondylitis, left elbow NE electromyogram (EMG) Today G56.02 - Carpal tunnel syndrome, left upper limb, M25.512 - Pain in left shoulder, M77.12 - Lateral epicondylitis, left elbow NE nerve conduction velocity Today G56.02 - Carpal tunnel syndrome, left upper limb, M25.512 - Pain in left shoulder, M77.12 - Lateral epicondylitis, left elbow Coding Level of Care Code New Pt Level 4 (47396) Diagnoses Left tennis elbow M77.12 Acute pain of left shoulder M25.512 Chronicity: acute Carpal tunnel syndrome of left wrist G56.02
== END 2024-03-30 12:17 | disposition home or self-care (01) ==
PROVIDERS: PCP Nurse Practitioner Family; Visit Provider Physical Medicine & Rehabilitation
DX: M77.12 Lateral epicondylitis, left elbow (principal); M25.512 Pain in left shoulder; G56.02 Carpal tunnel syndrome, left upper limb
CPT/HCPCS: 99204

== ENCOUNTER 2024-04-20 13:17 | Outpatient (REF) | payer MEDICARE, SELFPAY ==
--- NOTE | 2024-04-20 13:19 | EMG_ITS ---
Chief complaint: Left wrist pain, elbow pain, shoulder pain Reason for referral: Evaluate for Carpal Tunnel Syndrome versus ulnar neuropathy Procedure done: Left upper extremity NCS/EMG Precautions and/or limitations: None The limb temperature was monitored continuously and remained between 32-36 degrees C during the performance of the NCS. Nerve Conduction Studies Anti Sensory Summary Table ?Stim Site NR Onset (ms) Norm Onset (ms) Peak (ms) Norm Peak (ms) O-P Amp (?V) Norm O-P Amp Site1 Site2 Delta-0 (ms) Dist (cm) Dagoberto (m/s) Norm Dagoberto (m/s) Left Median Anti Sensory (2nd Digit) Wrist ? 3.8 4.8 <3.6 7.9 >10 Wrist 2nd Digit 3.8 14.0 37 Left Radial Anti Sensory (Thumb) Forearm ? 1.5 2.2 <3.1 13.8 Forearm Thumb 1.5 0.0 Left Ulnar Anti Sensory (5th Digit) Wrist ? 2.5 3.2 <3.7 14.5 >15.0 Wrist 5th Digit 2.5 14.0 56 Motor Summary Table ?Stim Site NR Onset (ms) Norm Onset (ms) O-P Amp (mV) Norm O-P Amp iAmp (mV) Amp (1st) (%) Site1 Site2 Delta-0 (ms) Dist (cm) Dagoberto (m/s) Norm Dagoberto (m/s) Left Median Motor (Abd Poll Brev) Wrist ? 5.6 <3.9 10.4 >4.5 12.3 100.0 Elbow Wrist 4.6 22.0 48 >45 Elbow ? 10.2 9.2 11.0 88.5 Left Ulnar Motor (Abd Dig Minimi) Wrist ? 2.7 <3.0 7.0 >5 8.5 100.0 B Elbow Wrist 4.2 21.0 50 >45 B Elbow ? 6.9 5.4 6.7 77.1 A Elbow B Elbow 1.9 10.0 53 >45 A Elbow ? 8.8 6.2 7.7 88.6 EMG ?Side Muscle Nerve Root Ins Act Fibs Psw Amp Dur Poly Recrt Int Pat Comment Left 1stDorInt Ulnar C8-T1 Nml Nml Nml Nml Nml 0 Nml Complete Left FlexCarRad Median C6-7 Nml Nml Nml Nml Nml 0 Nml Complete Left Biceps Musculocut C5-6 Nml Nml Nml Nml Nml 0 Nml Complete Left Triceps Radial C6-7-8 Nml Nml Nml Nml Nml 0 Nml Complete Left Deltoid Axillary C5-6 Nml Nml Nml Nml Nml 0 Nml Complete FINDINGS: Left median motor nerve showed prolonged distal latency, normal amplitude and normal conduction velocity. Left median sensory nerve showed prolonged peak latency and small amplitude. All other nerves tested were within normal. Concentric needle EMG was performed in selected muscles of the left upper extremity. Study did not reveal signs of electric abnormalities as shown in the table above. IMPRESSION: 1. This is an abnormal study. 2. There is electrodiagnostic evidence for left moderate-severe median neuropathy at the wrist, consistent with carpal tunnel syndrome. 3. There is no electrodiagnostic evidence for ulnar neuropathy, brachial plexopathy, or cervical radiculopathy. Thank you for your kind referral. Gaby Lynn MD, ONESIMO Board Certified, [place] Board [employer] Physical [employer] and Rehabilitation (ABPMR) Board Certified, [place] Board [employer] Electrodiagnostic Medicine (ABEM) [place] [id number] [facility]
== END 2024-04-20 13:18 | disposition home or self-care (01) ==
LOC: HO.NEURO 13:17
PROVIDERS: PCP Nurse Practitioner Family; Visit Provider Physical Medicine & Rehabilitation
DX: M25.512 Pain in left shoulder (principal); G56.02 Carpal tunnel syndrome, left upper limb; M77.12 Lateral epicondylitis, left elbow
CPT/HCPCS: 95886; 95909

== ENCOUNTER → 2024-04-20 13:19 | Outpatient (BNV) | payer MEDICARE, SELFPAY | PROVIDERS: PCP Nurse Practitioner Family; Visit Provider Physical Medicine & Rehabilitation | DX: G56.02 Carpal tunnel syndrome, left upper limb (principal) | CPT/HCPCS: 95886; 95909 ==

== ENCOUNTER 2024-04-27 08:46 | Outpatient (REF) | payer MEDICARE, SELFPAY ==
--- NOTE | ~2024-04-27 | XR_ITS ---
EXAMINATION: XR ANKLE, LEFT CLINICAL INFORMATION: Effusion. COMPARISON: Left foot radiographs dated 11/27/2020. TECHNIQUE: AP, lateral, and mortise views of the left ankle. FINDINGS: No acute fracture or dislocation. Small tibiotalar marginal osteophytes. No talar osteochondral lesion. Plantar and dorsal calcaneal spurs. Prominent circumferential subcutaneous edema. No large tibiotalar joint effusion. XR/XR ankle LT min 3V IMPRESSION: 1. Prominent circumferential subcutaneous edema. No large tibiotalar joint effusion. 2. Mild tibiotalar osteoarthritis. 3. Plantar and dorsal calcaneal spurs. Electronically signed by: Donald Daley MD 05/02/2024 10:50 AM [facility]
== END 2024-04-27 08:47 | disposition home or self-care (01) ==
LOC: HO.HOSX 08:46
PROVIDERS: PCP Nurse Practitioner Family; Visit Provider Physical Medicine & Rehabilitation
DX: S46.912A Strain of unspecified muscle, fascia and tendon at shoulder and upper arm level, left arm, initial encounter (principal); M77.12 Lateral epicondylitis, left elbow; G56.02 Carpal tunnel syndrome, left upper limb; M25.512 Pain in left shoulder; M25.472 Effusion, left ankle
CPT/HCPCS: 73610; 99212

== ENCOUNTER 2024-04-27 08:46 | Outpatient (AMB) | payer MEDICARE, SELFPAY ==
--- NOTE | 2024-04-27 09:06 | MHC.OFFVIS ---
Vital Signs 04/27/24 09:09 Height 5 ft 10.5 in Weight 255 lb BMI 36.1 Handedness Right Intake Visit Reasons: Inj- Left elbow inj Intake Note: Zaki is a 73 year old right hand dominant male who presents today for a left elbow injection. Patient would like to discuss shoulder injection as well. He has a bruise on his right arm that he says is worsening since his EMG and would like to discuss this with Dr Lynn. Once a month he get blood infusions at [facility]. Allergies latex [LATEX] Allergy (Intermediate, Verified 04/27/24 09:10) RASH Mespcrp-NLD-ScO Reductase Inhibitor Adverse Reaction (Intermediate, Verified 04/27/24 09:10) Muscle Pain spironolactone Adverse Reaction (Mild, Verified 04/27/24 09:10) Migraine lisinopril Adverse Reaction (Verified 04/27/24 09:10) Nausea and Vomiting Medication List - Last Reconciled 04/27/24 by Gaby Lynn MD acetaminophen 500 mg PO ONCE PRN acetaminophen ER (Tylenol Arthritis Pain) 1,300 mg PO Q12H albuterol sulfate 90 mcg/actuation 2 puffs inhalation Q6H PRN amlodipine 10 mg PO 1700 ascorbic acid (vitamin C) 1,000 mg PO DAILY aspirin 81 mg PO DAILY cholecalciferol (vitamin D3) 4,000 units PO DAILY cyanocobalamin (vitamin B-12) 1,000 mcg PO DAILY ferrous sulfate 325 mg PO DAILY finasteride 5 mg PO DAILY bxyokgiccnx-eiuspilce-afopbxzw 100-62.5-25 mcg (Trelegy Ellipta) 1 inh inhalation DAILY furosemide 40 mg PO DAILY gabapentin 900 mg (3 x 300 mg) PO BEDTIME glucosamine HCl 1,000 mg PO DAILY labetalol 100 mg PO BID losartan 100 mg PO DAILY naproxen sodium 440 mg PO DAILY tamsulosin 0.8 mg PO DAILY HPI Comments Details: He was previously seen by Rheumatology for elevated CK and positive HUNG. Their notes reviewed. He complained of left elbow pain, subsequently referred to OT. 2 months of left elbow, painful (feels like sciatica ), just from elbow to forearm. If he holds forearm, it would help. Occasional numbness on left hand. He thinks it started after a COVID vaccine. OT felt possibly a left trigger point, which was aggravated, now shooting to left arm. Difficulty now to supinate left forearm. OT recommended referral to physiatry. Recently seen by Pulmology for Hypogammaglobulinemia. Follows with Pain Management for right hip injection. Was told in past to have left CTS, treated before conservatively only. We have recently done EMG which shows left moderate to severe Carpal Tunnel Syndrome. He is scheduled to see hand surgery on 05/11/2024. His very severe/sharp pain on left lateral forearm in his unable to supinate. Pain radiates up to the left shoulder. Elbow x-rays have not been officially read. But we looked at the x-rays together it shows olecranon spur. Shoulder x-rays also have not been officially read. Question DJD. He has done OT but had to stop due to poor improvement and worsening pain. Other issue of left ankle pain and swelling. [facility] Medical History Kidney stones CAD (coronary artery disease) History of DVT (deep vein thrombosis) HTN (hypertension) Diabetes COPD (chronic obstructive pulmonary disease) JENNY (obstructive sleep apnea) Personal history of nicotine dependence Obesity HUNG positive BPH (benign prostatic hyperplasia) Neck pain Acute urinary retention Fatigue Chronic fatigue Minimal depression Osteoarthritis Surgical History Hx of colonoscopy S/P excision of lipoma History of resection of small bowel History of ventral hernia repair History of sleeve gastrectomy Hx of right knee surgery History of vasectomy History of tonsillectomy Family History Father CAD (coronary artery disease) Mother No problems noted. Brother Accelerated hypertension Son No problems noted. Daughter No problems noted. Sister Leukemia Sister Cerebral palsy Sister No problems noted. 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 MSK: Inspection reveals appropriate head and neck positioning. No pain with palpation over the neck musculature. Tender left subacromial and biceps insertion. Tender left lateral epicondyle and extensor tendons. Most tender 3 in distal to left lateral epicondyle. Very sharp pain when trying to supinate left forearm. No increased pain on elbow or extensor tendons with resisted wrist extension. Cervical ROM was full. Spurling's sign negative. Hawkin's test is negative. Negative empty can sign. Negative speed's test. No intrinsic hand weakness noted. No atrophy noted. Lio test negative. Carpal compression test negative. Tinel sign negative. Neurological: Johnson?s negative bilaterally. Gait is non-antalgic without loss of balance. Results Reviewed Results Reviewed: As above Assessment & Plan Assessment & Plan (1) Tear of tendon of left upper extremity: Code(s): S46.912A - Strain of unspecified muscle, fascia and tendon at shoulder and upper arm level, left arm, initial encounter Category: Medical Qualifiers: Encounter type: initial encounter Qualified Code(s): S46.912A - Strain of unspecified muscle, fascia and tendon at shoulder and upper arm level, left arm, initial encounter (2) Left tennis elbow: Code(s): M77.12 - Lateral epicondylitis, left elbow Category: Medical (3) Carpal tunnel syndrome of left wrist: Code(s): G56.02 - Carpal tunnel syndrome, left upper limb Category: Medical (4) Left shoulder pain: Code(s): M25.512 - Pain in left shoulder Category: Medical Qualifiers: Chronicity: acute Qualified Code(s): M25.512 - Pain in left shoulder (5) Left ankle swelling: Code(s): M25.472 - Effusion, left ankle Category: Medical Plan 1. unable to supinate left forearm with sharp pain along left lateral forearm. The point of sharp tenderness is about 3 inc distal from left epicondyle. There is no increased pain with resisted wrist extension but very severe pain with supination. I am concerned for tendon tear. We talked about tennis elbow injection today but I am concerned that steroid would post more risk for tendon tear. We agreed on getting further imaging such as MRI. He has done adequate conservative management of this elbow/forearm pain without relief, including OT. In fact it felt worse with OT. It is reasonable to obtain MRI left upper extremity non contrast to help with diagnosis and prognosis. Left elbow did show olecranon spur but patient denies pain there. No signs of infection, redness or warmth. Await offician reading for left elbow. 2. left shouder pain - I believe this is secondary due to pain distally in the forearm. Negative hawkin sign or empty can sign. Some tenderness on subacromial area. Shoulder xray viewed with patient, I think overall joint spaces are conserved. Await official reading. We also agreed to defer any steroid injection until after MRI. 3. CTS on EMG - he is scheduled to see Hand Surgery on 05/11. He had bruise after needle EMG to FCR muscle. Advised to ice that area and I reassured him it would get better. 4. left ankle pain/swelling - tender along achilles tendon and there is some swelling on left ankle, more medially. Would xray today. 5. He was following with Rheumatoloyg. Positive HUNG but no clear diagnosis for inflammatory arthritis. Assessment and plan discussed with patient, and patient was agreeable. All questions were answered thoroughly. Follow up after MRI. Gaby Lynn MD, ONESIMO Board Certified, [place] [employer] Physical Medicine and Rehabilitation (ABPMR) Board Certified, [place] Board [employer] Electrodiagnostic Medicine (ABEM) Coding Level of Care Code Est Pt Level 4 (91860) Diagnoses Tear of tendon of left upper extremity, initial encounter S46.912A Encounter type: initial encounter Left tennis elbow M77.12 Carpal tunnel syndrome of left wrist G56.02 Acute pain of left shoulder M25.512 Chronicity: acute Left ankle swelling M25.472
[2024-04-27 09:09] VITALS: BMI 36.1
== END 2024-04-27 10:15 | disposition home or self-care (01) ==
PROVIDERS: PCP Nurse Practitioner Family; Visit Provider Physical Medicine & Rehabilitation
DX: S46.912A Strain of unspecified muscle, fascia and tendon at shoulder and upper arm level, left arm, initial encounter (principal); M77.12 Lateral epicondylitis, left elbow; G56.02 Carpal tunnel syndrome, left upper limb; M25.512 Pain in left shoulder; M25.472 Effusion, left ankle
CPT/HCPCS: 99214

== ENCOUNTER 2024-04-29 07:13 | Emergency (ER) | payer MEDICARE, SELFPAY ==
[2024-04-29 07:14] VITALS: BP 133/73; PULSE 68; RESP 18; TEMP 36.4; O2SAT 98; BMI 37.1
[2024-04-29] MEDS: Ketorolac Tromethamine 30 MG/ML VIAL IM (07:45)
--- NOTE | 2024-04-29 07:56 | ED_ITS ---
HPI - Extremity Problem General Chief complaint: Extremity Injury, Upper Stated complaint: arm pain Time Seen by Provider: 04/29/24 07:26 Source: patient Mode of arrival: ambulatory Limitations: no limitations History of Present Illness ED Provider: DR. Osuna HPI Narrative: this is a 73-year-old male [id number] with chronic left elbow pain pain start in the left elbow radiates down to left forearm this issue has been going for a while now has been seen by physiatry recommended to have left elbow injection, yesterday patient was trying to catch a mirror from falling down and break had to suddenly and quickly extend his left upper extremities causing worsening of the pain in the left elbow and shoulder, No head injury, no neck pain, no CP, no abdominal pain. Related Data Home Medications ?Medication ?Instructions ?Recorded ?Confirmed ascorbic acid (vitamin C) 500 mg 1,000 mg PO DAILY 03/02/21 04/27/24 capsule aspirin 81 mg tablet,delayed 81 mg PO DAILY 03/02/21 04/27/24 release cholecalciferol (vitamin D3) 125 4,000 unit PO DAILY 03/02/21 04/27/24 mcg (5,000 unit) capsule cyanocobalamin (vitamin B-12) 1,000 mcg PO DAILY 03/02/21 04/27/24 5,000 mcg capsule ferrous sulfate 325 mg (65 mg 325 mg PO DAILY 03/02/21 04/27/24 iron) tablet glucosamine HCl 500 mg tablet 1,000 mg PO DAILY 03/02/21 04/27/24 naproxen sodium 220 mg capsule 440 mg PO DAILY 03/02/21 04/27/24 tamsulosin 0.4 mg capsule 0.8 mg PO DAILY 03/17/21 04/27/24 finasteride 5 mg tablet 5 mg PO DAILY 04/21/21 04/27/24 acetaminophen 500 mg capsule 500 mg PO ONCE PRN 11/10/22 04/27/24 acetaminophen 650 mg 1,300 mg PO Q12H 11/10/22 04/27/24 tablet,extended release (Tylenol Arthritis Pain) fluticasone fur. 100 mcg-umeclid 1 inh inhalation DAILY 03/21/24 04/27/24 62.5 mcg-vilant 25 mcg inhalat.powder (Trelegy Ellipta) Previous Rx's ?Medication ?Instructions ?Recorded labetalol 100 mg tablet 100 mg PO BID #180 tabs 08/02/23 albuterol sulfate 90 mcg/actuation 2 puff inhalation Q6H PRN 09/06/23 aerosol inhaler shortness of breath or wheezing #8.5 grams gabapentin 300 mg capsule 900 mg (3 x 300 mg) PO BEDTIME 11/02/23 #270 caps losartan 100 mg tablet 100 mg PO DAILY #90 tabs 11/03/23 amlodipine 10 mg tablet 10 mg PO 1700 #90 tabs 02/06/24 furosemide 40 mg tablet 40 mg PO DAILY #90 tabs 04/23/24 Allergies Allergy/AdvReac Type Severity Reaction Status Date / Time latex [LATEX] Allergy Intermediate RASH Verified 04/29/24 07:19 Hddkorj-[id number] Reductase AdvReac Intermediate Muscle Pain Verified 04/27/24 09:10 Inhibitor spironolactone AdvReac Mild Migraine Verified 04/27/24 09:10 lisinopril AdvReac Nausea and Verified 04/27/24 09:10 Vomiting Review of Systems Review of Systems: All other systems are reviewed and are negative Constitutional: Reports as per HPI and Reports no additional constitutional complaints Eyes: Reports as per HPI and Reports no additional eye complaints Reports system reviewed and no additional complaints, except as documented Cardiovascular: Reports as per HPI and Reports no additional cardiovascular complaints Respiratory: Reports as per HPI and Reports no additional respiratory complaints Gastrointestinal: Reports as per HPI and Reports no additional gastrointestinal complaints Genitourinary: Reports no additional female genitourinary complaints Musculoskeletal: Reports no additional musculoskeletal complaints Skin/Breast: Reports system reviewed and no additional complaints, except as docu Psychiatric: Reports no additional psychiatric complaints Endocrine: Reports no additional endocrine complaints Hematologic/Lymphatic: Reports no additional hematologic/lymphatic complaints Allergic/Immunologic: Reports no additional allergic/immunologic complaints Reports system reviewed and no additional complaints, except as documented and Reports Abnormal speech present [facility] Past Medical History Medical History Kidney stones CAD (coronary artery disease) History of DVT (deep vein thrombosis) HTN (hypertension) Diabetes COPD (chronic obstructive pulmonary disease) JENNY (obstructive sleep apnea) Personal history of nicotine dependence Obesity HUNG positive BPH (benign prostatic hyperplasia) Neck pain Acute urinary retention Fatigue Chronic fatigue Minimal depression Osteoarthritis Surgical History Hx of colonoscopy S/P excision of lipoma History of resection of small bowel History of ventral hernia repair History of sleeve gastrectomy Hx of right knee surgery History of vasectomy History of tonsillectomy Family History Family History Father CAD (coronary artery disease) Mother No problems noted. Brother Accelerated hypertension Son No problems noted. Daughter No problems noted. Sister Leukemia Sister Cerebral palsy Sister No problems noted. Social History Social History Household Members: None [facility] Are you a primary day care center director to a significant other at home: No Do you presently have visiting nurse or other home services: No Alcohol intake: current Alcohol intake frequency: holidays/special occasions only Patient Tobacco Use Status: Former Tobacco user Tobacco use type: Cigarette Years Smoked: 12 years ago , started at 15 years old, 2 PPD e-Cigarette/Vaping Use: Never Used Second Hand Smoke Exposure: No Advance Directives: No Advance Directives Information Provided: No Do you have a plan to hurt others: No Plan service: No Current occupational status: previously employed and retired 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 Blood pressure elevated. Heart rate normal. Respiratory rate normal. Temperature normal. Oxygen saturation normal. Appearance: Alert. Oriented X3. No acute distress. Head: Normal external exam. Normocephalic. Atraumatic. No Martel signs noted. No raccoon eyes noted Eyes: PERRLA. EOMI. Conjunctiva and sclera normal. Eyelids normal. ENT: TM's Normal. Pharynx normal. Uvula midline. Moist mucous membranes. No trismus noted. No drooling noted. No muffled voice noted. Neck: Normal inspection. Neck supple. FROM. No adenopathy. Thyroid Normal. No meningeal signs. No neck mass noted. CVS: Normal heart rate and rhythm. Heart sound normal. No murmurs noted. Pulses normal throughout. Respiratory: No respiratory distress. Painless inspiration. Breath sounds nor mal. No wheezes/rales/rhonchi noted. Chest nontender. No accessory muscle usage noted or decreased air movement noted. Abdomen: Soft and nontender. Bowel sounds normal in all 4 quadrants. No distent ion noted. No organomegaly noted. No visible injury noted. Back: No CVA tenderness. Full range of motion noted. Skin: Skin warm and dry. Normal skin color. Normal skin turgor. No rashes/lesions/lacerations noted. Extremities: Left upper extremities: held in adduction position with painful abduction, neurovascularly intact, painful but full range of motion of the left elbow, and left shoulder. Neuro: Oriented X 3. Cranial nerve exam: II-XII are grossly intact No motor deficit. No sensory deficit. Reflexes normal. Course Reevaluation(s) Reevaluation #1: Feels better after injection of Toradol will discharge to follow-up with PCP. Time: 09:00 Medications Administered Discontinued Medications Generic Name Dose Route Start Last Admin Trade Name Sorin PRN Reason Stop Dose Admin Ketorolac Tromethamine 30 mg 04/29/24 07:39 04/29/24 07:45 Ketorolac Tromethamine 30 Mg/Ml Vial IM 04/29/24 07:40 30 mg ONCE ONE Administration Medical Decision Making Differential Diagnosis Differential Diagnoses: The differential diagnosis associated with the presentation includes ( Left upper extremity fracture, dislocation, left elbow arthritis.) Admission/Observation Consideration of admission/observation: Escalation of care including admission /observation considered Lab Data MDM Lab Attestation statement: I reviewed the patient's lab results. Discharge Plan Discharge Clinical Impression: Left arm pain Patient Disposition: Home, Self-Care Instructions: Arm Pain (ED) Prescriptions: No Action labetalol 100 mg tablet 100 mg PO BID Qty: 180 3RF gabapentin 300 mg capsule 900 mg PO BEDTIME Qty: 270 1RF losartan 100 mg tablet 100 mg PO DAILY Qty: 90 1RF amlodipine 10 mg tablet 10 mg PO 1700 Qty: 90 1RF furosemide 40 mg tablet 40 mg PO DAILY Qty: 90 1RF ipratropium-albuterol 0.5 mg-3 mg(2.5 mg base)/3 mL solution for nebulization 3 ml inhalation ONCE Qty: 3 0RF albuterol sulfate 2.5 mg /3 mL (0.083 %) solution for nebulization 2.5 mg inhalation ONCE Qty: 3 0RF albuterol sulfate 90 mcg/actuation HFA aerosol inhaler 2 puff inhalation Q6H PRN (Reason: shortness of breath or wheezing) Qty: 8.5 0RF ascorbic acid (vitamin C) 500 mg capsule 1,000 mg PO DAILY ferrous sulfate 325 mg (65 mg iron) tablet 325 mg PO DAILY cholecalciferol (vitamin D3) 125 mcg (5,000 unit) capsule 4,000 unit PO DAILY cyanocobalamin (vitamin B-12) 5,000 mcg capsule 1,000 mcg PO DAILY glucosamine HCl 500 mg tablet 1,000 mg PO DAILY Rx Instructions: administer with a meal aspirin 81 mg tablet,delayed release (DR/EC) 81 mg PO DAILY naproxen sodium 220 mg capsule 440 mg PO DAILY acetaminophen [Tylenol Arthritis Pain] 650 mg tablet extended release 1,300 mg PO Q12H tamsulosin 0.4 mg capsule 0.8 mg PO DAILY finasteride 5 mg tablet 5 mg PO DAILY acetaminophen 500 mg capsule 500 mg PO ONCE PRN Trelegy Ellipta 100-62.5-25 mcg blister with device 1 inh inhalation DAILY Print Language: Chilean
[2024-04-29 08:33] VITALS: BP 149/63; PULSE 62; RESP 18; TEMP 36.7; O2SAT 93
[2024-04-29 08:34] VITALS: BP 149/63; PULSE 62; RESP 18; TEMP 36.7; O2SAT 93
== END 2024-04-29 08:35 | disposition home or self-care (01) ==
PROVIDERS: Emergency Provider Emergency Medicine; PCP Nurse Practitioner Family
DX: M79.602 Pain in left arm (principal); Z87.891 Personal history of nicotine dependence; Z79.899 Other long term (current) drug therapy
CPT/HCPCS: 96372; 99284; J1885

== ENCOUNTER 2024-05-04 12:36 | Outpatient (AMB) | payer MEDICARE, SELFPAY ==
--- NOTE | 2024-05-04 12:52 | MHC.OFFVIS ---
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 EMG done on 04/20/24. Patient reports his symptoms started roughly 3 months ago. He states his symptoms have progressively changed. He re-injuried his wrist on 04/29/24. He says he went to catch a large mirror from falling off a dresser using his left hand. Once he caught the mirror he says he got a real intense electrical shock that went up his arm and his arm into the forearm. He received an injection on 04/29/24 of Ketorolac in [facility] and states it helped with his pain. He has difficulty with lifting, gripping, grasping. He says he tried to grab his coat earlier and this send shooting pains up his arm. Patient had infusion done on 05/03/24 at short stay surgery in [facility]. 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 The patient states that he does have occasional numbness and tingling in the left hand and wrist, however the patient reports that his main concern is pain that radiates from his wrist and forearm all the way up to his shoulder that he is being evaluated by Dr. New for. Patient states that he does have an MRI scheduled for this. Patient states he has difficulty with pulling, gripping, grasping, and other activities with the left arm due to the severe pain No other acute complaints or concerns at this time. [facility] Medical History Kidney stones CAD (coronary artery disease) History of DVT (deep vein thrombosis) HTN (hypertension) Diabetes COPD (chronic obstructive pulmonary disease) JENNY (obstructive sleep apnea) Personal history of nicotine dependence Obesity HUNG positive BPH (benign prostatic hyperplasia) Neck pain Acute urinary retention Fatigue Chronic fatigue Minimal depression Osteoarthritis Surgical History Hx of colonoscopy S/P excision of lipoma History of resection of small bowel History of ventral hernia repair History of sleeve gastrectomy Hx of right knee surgery History of vasectomy History of tonsillectomy Family History Father CAD (coronary artery disease) Mother No problems noted. Brother Accelerated hypertension Son No problems noted. Daughter No problems noted. Sister Leukemia Sister Cerebral palsy Sister No problems noted. Social History Household Members: None [facility] Are you a primary vehicle care specialist to a significant other at home: No Do you presently have visiting nurse or other home services: No Alcohol intake: current Alcohol intake frequency: holidays/special occasions only Patient Tobacco Use Status: Former Tobacco user Tobacco use type: Cigarette Years Smoked: 12 years ago , started at 15 years old, 2 PPD e-Cigarette/Vaping Use: Never Used Second Hand Smoke Exposure: No Advance Directives: Yes Advance Directives Information Provided: No Advance Directives on File: No Do you have a plan to hurt others: No Plan service: No Current occupational status: previously employed and retired 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 Normal sensation to all other digits in the left hand today. Normal sensation in the tips of all digits of the right hand today. No thenar or intrinsic wasting. Good APB muscle firing and good finger cross. Vascular: Capillary refill brisk. ROM: Patient can make a fist and extend all their digits. Skin: No lacerations or abrasions noted. General: No ecchymosis. No erythema or evidence of infection. Results Reviewed Results Reviewed: IMPRESSION: 1. This is an abnormal study. 2. There is electrodiagnostic evidence for left moderate-severe median neuropathy at the wrist, consistent with carpal tunnel syndrome. 3. There is no electrodiagnostic evidence for ulnar neuropathy, brachial plexopathy, or cervical radiculopathy. Thank you for your kind referral. Gaby Lynn MD, ONESIMO Assessment & Plan Assessment & Plan (1) Carpal tunnel syndrome of left wrist: Code(s): G56.02 - Carpal tunnel syndrome, left upper limb Category: Medical Plan 1. Left carpal tunnel syndrome Symptoms intermittent, daily, worse at night Patient is educated about this condition and the treatment options available However, the patient states that he would like to get answers as to what is going on in his forearm and the rest of his arm before proceeding with any operative intervention for his carpal tunnel syndrome Patient states that once he is on the right path with this pain, he would like to come back to discuss surgical intervention for his carpal tunnel on the left Patient will follow-up when he is ready for discussion of left carpal tunnel release, sooner with any acute concerns Coding Level of Care Code Est Pt Level 3 (82792) Diagnoses Carpal tunnel syndrome of left wrist G56.02
[2024-05-04 12:54] VITALS: BMI 36.1
== END 2024-05-04 13:15 | disposition home or self-care (01) ==
PROVIDERS: PCP Nurse Practitioner Family
DX: G56.02 Carpal tunnel syndrome, left upper limb (principal)
CPT/HCPCS: 99213

== ENCOUNTER → 2024-05-04 12:36 | Outpatient (BNVA) | payer MEDICARE, SELFPAY | PROVIDERS: PCP Nurse Practitioner Family | DX: G56.02 Carpal tunnel syndrome, left upper limb (principal) | CPT/HCPCS: 99212 ==

== ENCOUNTER 2024-05-06 19:58 | Outpatient (REF) | payer MEDICARE, SELFPAY ==
--- NOTE | ~2024-05-06 | MR_ITS ---
EXAMINATION: MR FOREARM WITHOUT CONTRAST, LEFT CLINICAL INFORMATION: Left forearm pain. Worsening pain radiating into the biceps. Hand numbness. Muscle strain. COMPARISON: Left elbow radiographs dated 03/30/2024. TECHNIQUE: Multisequence MR imaging of the left forearm was obtained without contrast on a high-field strength scanner. FINDINGS: BONE: No acute fracture or dislocation. Mild reactive marrow edema and degenerative cystic change within the proximal radius adjacent to the biceps tendon insertion. No additional abnormal marrow signal. No concerning lytic or blastic osseous lesion. MUSCLES/TENDONS: Significant thickening and heterogeneity of the distal biceps tendon with insertional longitudinal partial tearing over a length of approximately 2.2 cm. Prominent fluid within the distal tendon sheath and bicipital radial bursa, consistent with bursitis. LIGAMENTS: Collateral ligaments of the elbow and intrinsic ligaments of the wrist not well visualized on the large [id number] imaging. SOFT TISSUES: Trace distal radioulnar joint effusion. No soft tissue mass. MR/MR forearm LT wo con IMPRESSION: 1. Severe distal biceps tendinosis with insertional longitudinal partial tearing over a length of approximately 2.2 cm. Prominent bicipital radial bursitis. Reactive marrow edema and cystic change within the adjacent radius. 2. Trace distal radioulnar joint effusion. Electronically signed by: Donald Daley MD 05/10/2024 02:17 PM MIGUEL
== END 2024-05-06 19:59 | disposition home or self-care (01) ==
LOC: HO.MRI 19:58
PROVIDERS: PCP Nurse Practitioner Family; Visit Provider Physical Medicine & Rehabilitation
DX: S46.912A Strain of unspecified muscle, fascia and tendon at shoulder and upper arm level, left arm, initial encounter (principal); M77.12 Lateral epicondylitis, left elbow
CPT/HCPCS: 73218

== ENCOUNTER 2024-05-09 08:19 | Outpatient (AMB) | payer MEDICARE, SELFPAY ==
[2024-05-09 08:22] VITALS: BP 132/74; PULSE 66; O2SAT 97; BMI 36.9
--- NOTE | 2024-05-09 08:22 | AM.OFFVISMDC ---
Intake Vital Signs 05/09/24 08:22 Height 5 ft 10.5 in Weight 261 lb BMI 36.9 BP 132/74 Blood Pressure Location Lt brachial Position Sitting Pulse 66 Pulse Source Pulse Oximeter Pulse Oximetry (%) 97 Intake Visit Reasons: AWV [id number] Court Interpreter Required: No Accompanied by: Self / Same As Patient Allergies latex [LATEX] Allergy (Intermediate, Verified 05/09/24 08:23) RASH Nrvazfh-HPP-YeT Reductase Inhibitor Adverse Reaction (Intermediate, Verified 05/09/24 08:23) Muscle Pain spironolactone Adverse Reaction (Mild, Verified 05/09/24 08:23) Migraine lisinopril Adverse Reaction (Verified 05/09/24 08:23) Nausea and Vomiting Medication List - Last Reconciled 05/09/24 by JEEVAN Schmitt acetaminophen 500 mg PO ONCE PRN acetaminophen ER (Tylenol Arthritis Pain) 1,300 mg PO Q12H albuterol sulfate 90 mcg/actuation 2 puffs inhalation Q6H PRN amlodipine 10 mg PO 1700 ascorbic acid (vitamin C) 1,000 mg PO DAILY aspirin 81 mg PO DAILY cholecalciferol (vitamin D3) 4,000 units PO DAILY cyanocobalamin (vitamin B-12) 1,000 mcg PO DAILY ferrous sulfate 325 mg PO DAILY finasteride 5 mg PO DAILY nlymiaiwffe-gaxwqlnaq-qnsjwbgs 100-62.5-25 mcg (Trelegy Ellipta) 1 inh inhalation DAILY furosemide 40 mg PO DAILY gabapentin 900 mg (3 x 300 mg) PO BEDTIME glucosamine HCl 1,000 mg PO DAILY labetalol 100 mg PO BID losartan 100 mg PO DAILY meloxicam 7.5 mg PO BID tamsulosin 0.8 mg PO DAILY Do you need a note to return to daycare/school/sports/work: No HPI AWV [id number] HPI Details here for AWV. PPP will be placed in [facility], [facility]. 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 HPI Comments History of Present Illness Details diabetes: on a arb, cant tolerate statins. pt does report intermittent feet neuropathy. Microalbumin up to date, pt reports his eye exam is up to date. A1c ordered. Reports being controlled. Denies any polyuria and polydipsia. [facility] Medical History Kidney stones CAD (coronary artery disease) History of DVT (deep vein thrombosis) HTN (hypertension) Diabetes COPD (chronic obstructive pulmonary disease) JENNY (obstructive sleep apnea) Personal history of nicotine dependence Obesity HUNG positive BPH (benign prostatic hyperplasia) Neck pain Acute urinary retention Fatigue Chronic fatigue Minimal depression Osteoarthritis Surgical History Hx of colonoscopy S/P excision of lipoma History of resection of small bowel History of ventral hernia repair History of sleeve gastrectomy Hx of right knee surgery History of vasectomy History of tonsillectomy Family History Father CAD (coronary artery disease) Mother No problems noted. Brother Accelerated hypertension Son No problems noted. Daughter No problems noted. Sister Leukemia Sister Cerebral palsy Sister No problems noted. 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 [email or web address] Cognitive needs: No Hearing needs: No Vision needs: No Questionnaire Medicare Wellness Checkup [age] What gender do you identify with?: male During the past 4 weeks, how much have you been bothered by emotional problems such as feeling anxious, depressed, irritable, sad or downhearted, and blue?: quite a bit During the past 4 weeks, has your physical & emotional health limited your social activities with family, friends, neighbors, or groups?: slightly During the past 4 weeks, how much bodily pain have you generally had?: severe pain During the past 4 weeks, was someone available to help you if you needed & wanted help?: no, not at all During the past 4 weeks, what was the hardest physical activity you could do for at least 2 minutes?: moderate Can you get to places out of walking distance without help? (For eg., can you travel alone on buses, taxis or drive your car?): Yes Can you go shopping for groceries or clothes without someone's help?: Yes Can you prepare your own meals?: Yes Can you do your housework without help?: Yes Because of any health problems, do you need the help of another person with your personal care needs such as eating, bathing, dressing or getting around the house?: No Can you handle your own money without help?: Yes During the past 4 weeks, how would you rate your health in general?: poor During the past 4 weeks how have things been going for you?: pretty bad Are you having difficulties driving your car?: no Do you always fasten your seat belt when you are in a car?: yes, usually During past 4 weeks, have you been bothered by the following: never: Trouble eating well?, Teeth or denture problems? and Problems using the telephone?, seldom: Sexual problems?, sometimes: Falling or dizzy when standing up and always: Tiredness or fatigue? Have you fallen 2 or more times in the past year?: No Are you afraid of falling?: No Are you a smoker?: no During the past 4 weeks, how many drinks of wine, beer, or other alcoholic beverages did you have?: no alcohol at all Do you exercise for about 20 minutes 3 or more times a week?: no, I usually do not exercise this much Have you been given information to help with the following?: no: Hazards in your house that might hurt you? and no: Keeping track of your medications? How often do you have trouble taking medicines the way you have been told to take them?: I always take medicine as prescribed How confident are you that you can control & manage most of your health problems?: very confident What is your race?: White Mini Mental State Exam (MMSE) Orientation What is the (year) (season) (date) (day) (month)?: year, season, date, day and month Where are we (state) (county) (town or city) (hospital) (floor)?: state, county, town or city, hospital/clinic and floor Registration Name of 3 unrelated objects clearly and slowly, then ask patient to repeat all 3 of them. (1st repeat determines score. Make sure they can repeat all three): object 1, object 2 and object 3 Attention & Calculation (CHOOSE ONE) Spell WORLD backwards (DLROW): 5 letters Recall Ask patient to repeat the 3 items from question #3.: object 1, object 2 and object 3 Language Show patient a wristwatch & ask what it is. Repeat for pencil.: watch and pencil Ask the patient to repeat the phrase 'No ifs, ands, or buts' after you.: correct Ask the patient to 'take a piece of paper with their right hand' 'fold paper in half' 'place paper on floor': take paper in right hand, fold paper in half and place paper on floor Print the sentence 'CLOSE YOUR EYES' on a piece. If patient actually closes eyes then score.: followed written direction Give patient a blank piece of paper & ask to write a sentence. Score if it contains a noun & verb.: sentence contains subject and verb Ask patient to copy figure of intersecting pentagons exactly. Score if all 10 angles & 2 intersects are included.: all 10 angles present & 2 are intersected Score Score: 30 Activity of Daily Living Bathing - sponge bath, tub bath or shower: receives no assistance (gets in/out by self, if usual bathing means Dressing - getting clothes from closets & drawers, including inner/outer garments & fasteners.: gets clothes & gets completely dressed without help Toileting - going to the 'toilet room' for urine/bowel elimination & cleaning self/arranging clothes: goes to toilet room, cleans self, arranges clothes without help Transfer: moves in & out of bed and chair without help (may use support object) Continence: controls urination/bowel movements completely by self Feeding: feeds self without help Total Score: 0 Information obtained from: patient Using telephone: independent Traveling: independent Shopping: independent Preparing meals: independent Housework: independent Taking medicine: independent Managing money: independent PHQ-9 Over the last 2 weeks, how often have you been bothered by any of the following problems? 1. Little interest or pleasure in doing things: several days 2. Feeling down, depressed, or hopeless: several days 3. Trouble falling or staying asleep, or sleeping too much: not at all 4. Feeling tired or having little energy: more than half the days 5. Poor appetite or overeating: more than half the days 6. Feeling bad about yourself - or that you are a failure or have let yourself or your family down: several days 7. Trouble concentrating on things, such as reading the newspaper or watching television: not at all 8. Moving or speaking so slowly that other people could have noticed. Or the opposite - being so fidgety or restless that you have been moving around a lot more than usual: not at all 9. Thoughts that you would be better off or of hurting yourself in some way: not at all Total score: 7 Depression Screening Interpretation: Negative Depression Screening Done: Yes 37167 - PHQ-9 Billing: Yes Source: Developed by Drs. Alcides Matt, Dori Martinez, Mani Hunt and colleagues, with an educational rogelio from [employer]. ALYSIA-7 AMB Questionnaire ALYSIA-7 Date ALYSIA - 7 assessed: 05/09/24 Feeling nervous, anxious, or on edge: 1 = Several days Not being able to stop or control worryin = Several days Worrying too much about different things: 1 = Several days Trouble relaxin = Several days Being so restless that it is hard to sit still: 0 = Not at all Becoming easily annoyed or irritable: 0 = Not at all Feeling afraid as if something awful might happen: 0 = Not at all Total ALYSIA-7 score (0-4 normal; 5-9 mild; 10-14 moderate; 15-21 severe): 4 Source: Developed by Drs. Alcides Matt, Dori Martinez, Mani Hunt and colleagues, with an educational rogelio from [employer]. ALYSIA-7 Assessment Billing ALYSIA-7 Assessment Tool: ALYSIA-7 Assessment 99694 Physical Exam Vital Signs: Last Vital Signs Pulse 66 05/09/24 08:22 BP 132/74 05/09/24 08:22 Pulse Ox 97 05/09/24 08:22 BMI result Body Mass Index 36.9 Neuro Other: able to stand and sit without difficulty. + whisper test, able to tandem walk, neg rhomberg. + sensation with use of monofilament, intact feet bilat Assessment & Plan Assessment & Plan (1) Diabetes: Code(s): E11.9 - Type 2 diabetes mellitus without complications Plan: will check A1c, pt has been controlled Orders: Orders Comprehensive [place]. Panel Fast Today E11.9 - Type 2 diabetes mellitus without complications UA CC w/rflx Micro + Cult Today E11.9 - Type 2 diabetes mellitus without complications Hemoglobin A1c Today E11.9 - Type 2 diabetes mellitus without complications Complete Blood Count Auto Diff Today E11.9 - Type 2 diabetes mellitus without complications TSH reflex Free T4 Today E11.9 - Type 2 diabetes mellitus without complications Lipid Panel Today E11.9 - Type 2 diabetes mellitus without complications Medications: Refilled gabapentin 900 mg (3 x 300 mg) PO BEDTIME 270 caps 1RF Quality Reporting (2019) Depression/Bipolar (159/160/161/177) PHQ-9: Total score: 7 Coding Level of Care Code Medicare First (G0438) Est Pt Level 3 (79595) Diagnoses Diabetes E11.9 CPT Codes Advance Care Planning - Time spent: 1-15 minutes, on File ([id number]) Additional Codes ALYSIA-7 Assessment Billing - ALYSIA-7 Assessment Tool: ALYSIA-7 Assessment 54035 ([id number]) PHQ-9 - 34602 - PHQ-9 Billing: Yes ([id number]) Advance Care Planning Forms completed: Health Care Proxy (form given to pt), MOLST (form given to pt) and Living will (encouraged pt to get this done) Time spent: 1-15 minutes, on File Actual minutes spent: 15
== END 2024-05-09 09:24 | disposition home or self-care (01) ==
PROVIDERS: PCP Nurse Practitioner Family; Visit Provider Nurse Practitioner Family
DX: Z00.00 Encounter for general adult medical examination without abnormal findings (principal); E11.9 Type 2 diabetes mellitus without complications

== ENCOUNTER → 2024-05-09 08:19 | Outpatient (BNVA) | payer MEDICARE, SELFPAY | PROVIDERS: PCP Nurse Practitioner Family; Visit Provider Nurse Practitioner Family | DX: E11.9 Type 2 diabetes mellitus without complications (principal); I10 Essential (primary) hypertension | CPT/HCPCS: 96127; 99212 ==

== ENCOUNTER 2024-05-19 09:01 | Emergency (ER) | payer MEDICARE, SELFPAY ==
--- NOTE | ~2024-05-19 | US_ITS ---
EXAMINATION: US TRIPLEX LOWER EXTREMITY, LEFT CLINICAL INFORMATION: Pain and swelling. Prior deep vein thrombosis. COMPARISON: Left lower extremity venous ultrasound dated 01/07/2020. TECHNIQUE: Color-flow triplex imaging with spectral analysis and compression Doppler were performed on the left lower extremity. FINDINGS: Respiratory variation, normal compression and augmented flow are noted throughout the left lower extremity. The visualized common femoral vein, superficial femoral vein, profunda femoral vein, popliteal vein and midcalf peroneal and posterior tibial venous segments show no evidence of deep venous thrombosis. There is no Neville's cyst. US/US venous duplex LE IMPRESSION: No evidence of deep venous thrombosis involving the left lower extremity. Electronically signed by: Donald Daley MD 05/19/2024 11:11 AM [facility]
[2024-05-19 09:08] VITALS: BP 133/70; PULSE 75; RESP 20; TEMP 36.6; O2SAT 97; BMI 37.7
--- NOTE | 2024-05-19 09:44 | ED_ITS ---
HPI - General Adult General Chief complaint: General Medical Stated complaint: dvt ? 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 No rash, no fevers, no chest pain or dyspnea. He read about side effects of the infusion and one was VTE so he came today to get it checked out. No injury to the leg. MD complaint: leg pain Onset (ago): day(s) (1) Location: left and lower extremity Radiation: non-radiation Severity: mild Quality: aching Pain Consistency: intermittent Relieving factors: none Exacerbating factors: other (palpation) Associated symptoms: denies other symptoms Treatments prior to arrival: none Related Data Home Medications ?Medication ?Instructions ?Recorded ?Confirmed ascorbic acid (vitamin C) 500 mg 1,000 mg PO DAILY 03/02/21 05/09/24 capsule aspirin 81 mg tablet,delayed 81 mg PO DAILY 03/02/21 05/09/24 release cholecalciferol (vitamin D3) 125 4,000 unit PO DAILY 03/02/21 05/09/24 mcg (5,000 unit) capsule cyanocobalamin (vitamin B-12) 1,000 mcg PO DAILY 03/02/21 05/09/24 5,000 mcg capsule ferrous sulfate 325 mg (65 mg 325 mg PO DAILY 03/02/21 05/09/24 iron) tablet glucosamine HCl 500 mg tablet 1,000 mg PO DAILY 03/02/21 05/09/24 tamsulosin 0.4 mg capsule 0.8 mg PO DAILY 03/17/21 05/09/24 finasteride 5 mg tablet 5 mg PO DAILY 04/21/21 05/09/24 acetaminophen 500 mg capsule 500 mg PO ONCE PRN 11/10/22 05/09/24 acetaminophen 650 mg 1,300 mg PO Q12H 11/10/22 05/09/24 tablet,extended release (Tylenol Arthritis Pain) fluticasone fur. 100 mcg-umeclid 1 inh inhalation DAILY 03/21/24 05/09/24 62.5 mcg-vilant 25 mcg inhalat.powder (Trelegy Ellipta) Previous Rx's ?Medication ?Instructions ?Recorded labetalol 100 mg tablet 100 mg PO BID #180 tabs 08/02/23 albuterol sulfate 90 mcg/actuation 2 puff inhalation Q6H PRN 09/06/23 aerosol inhaler shortness of breath or wheezing #8.5 grams losartan 100 mg tablet 100 mg PO DAILY #90 tabs 11/03/23 amlodipine 10 mg tablet 10 mg PO 1700 #90 tabs 02/06/24 furosemide 40 mg tablet 40 mg PO DAILY #90 tabs 04/23/24 meloxicam 7.5 mg tablet 7.5 mg PO BID #30 tabs 05/03/24 gabapentin 300 mg capsule 900 mg (3 x 300 mg) PO BEDTIME 05/09/24 #270 caps Allergies Allergy/AdvReac Type Severity Reaction Status Date / Time latex [LATEX] Allergy Intermediate RASH Verified 05/19/24 09:14 Tnbjfuw-XGV-EiG Reductase AdvReac Intermediate Muscle Pain Verified 05/19/24 09:14 Inhibitor spironolactone AdvReac Mild Migraine Verified 05/19/24 09:14 lisinopril AdvReac Nausea and Verified 05/19/24 09:14 Vomiting Review of Systems Review of Systems: Constitutional : No Fever, No Chills ENT/Mouth : No Ear Pain, No Hoarseness, No sore throat Cardiovascular : No Chest Pain, No SOB, pos calf pain Respiratory : No Cough, No Dyspnea Gastrointestinal : No Nausea, No Vomiting, No Diarrhea, No abdominal Pain Musculoskeletal : no joint pain, No Myalgias, No Joint Swelling Skin : No Skin lacerations, No rash Neuro : No Weakness, No Numbness, No Loss of Consciousness, No Dizziness, No Headache All other systems reviewed and are negative PMFSH Past Medical History Attestation statement: The following information was validated with the patient. Source: old records reviewed Medical History Kidney stones CAD (coronary artery disease) History of DVT (deep vein thrombosis) HTN (hypertension) Diabetes COPD (chronic obstructive pulmonary disease) JENNY (obstructive sleep apnea) Personal history of nicotine dependence Obesity HUNG positive BPH (benign prostatic hyperplasia) Neck pain Acute urinary retention Fatigue Chronic fatigue Minimal depression Osteoarthritis Surgical History Hx of colonoscopy S/P excision of lipoma History of resection of small bowel History of ventral hernia repair History of sleeve gastrectomy Hx of right knee surgery History of vasectomy History of tonsillectomy Family History Family History Father CAD (coronary artery disease) Mother No problems noted. Brother Accelerated hypertension Son No problems noted. Daughter No problems noted. Sister Leukemia Sister Cerebral palsy Sister No problems noted. Social History Social History Household Members: None Housing: Condominium Are you a primary behavioral health care coordinator to a significant other at home: No Do you presently have visiting nurse or other home services: No Alcohol intake: current Alcohol intake frequency: holidays/special occasions only Patient Tobacco Use Status: Former Tobacco user Tobacco use type: Cigarette Years Smoked: 12 years ago , started at 15 years old, 2 PPD e-Cigarette/Vaping Use: Never Used Second Hand Smoke Exposure: No Advance Directives: Yes Advance Directives Information Provided: No Advance Directives on File: No Do you have a plan to hurt others: No Plan service: No Current occupational status: previously employed and retired 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 Cognitive needs: No Hearing needs: No Vision needs: No Physical Exam ED Vital Signs: Vital Signs - 24 hr 05/19/24 09:08 05/19/24 10:16 Temperature 97.9 F 98.1 F Pulse Rate 75 77 Respiratory Rate 20 16 Blood Pressure 133/70 157/67 H Pulse Oximetry 97 95 Oxygen Delivery Method Room Air Room Air BMI result Body Mass Index 37.7 Appearance: Alert. Oriented X3. No acute distress. Eyes: Pupils equal, round and reactive to light. ENT: Pharynx normal. Neck: Normal inspection. Neck supple. CVS: Normal heart rate and rhythm. Pulses normal. Respiratory: No respiratory distress. Breath sounds normal. Abdomen: Soft and nontender. Skin: Skin warm and dry. Normal skin color. Normal skin turgor. Extremities: No lower extremity edema. L calf ttp no rebound or guarding, distal pulses intact, no joint effusion, no redness, no warmth Neuro: Oriented X 3. No motor deficit. No sensory deficit. 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 No CP/SOB. DVT study ordered, no signs of infection, vascular compromise. Differential Diagnosis Differential Diagnoses: The differential diagnosis associated with the presentation includes calf pain, anxiety, DVT Independent Interpretation I performed an independent interpretation of an: Ultrasound (DVT negative) Radiology Impression Discussion of test interpretation with radiology: I have reviewed the radiologist's reading. External Record Review External record reviewed: Outpatient record Discharge Plan Discharge Clinical Impression: Left leg pain Patient Disposition: Home, Self-Care Instructions: Leg Pain (ED) Additional Instructions: return for worsening symptoms, pain, swelling, redness, fevers can repeat ultrasound in 5 days if symptoms persist US/US venous duplex LE LT IMPRESSION: No evidence of deep venous thrombosis involving the left lower extremity. Prescriptions: No Action labetalol 100 mg tablet 100 mg PO BID Qty: 180 3RF losartan 100 mg tablet 100 mg PO DAILY Qty: 90 1RF amlodipine 10 mg tablet 10 mg PO 1700 Qty: 90 1RF furosemide 40 mg tablet 40 mg PO DAILY Qty: 90 1RF meloxicam 7.5 mg tablet 7.5 mg PO BID Qty: 30 0RF ipratropium-albuterol 0.5 mg-3 mg(2.5 mg base)/3 mL solution for nebulization 3 ml inhalation ONCE Qty: 3 0RF albuterol sulfate 2.5 mg /3 mL (0.083 %) solution for nebulization 2.5 mg inhalation ONCE Qty: 3 0RF albuterol sulfate 90 mcg/actuation HFA aerosol inhaler 2 puff inhalation Q6H PRN (Reason: shortness of breath or wheezing) Qty: 8.5 0RF ascorbic acid (vitamin C) 500 mg capsule 1,000 mg PO DAILY ferrous sulfate 325 mg (65 mg iron) tablet 325 mg PO DAILY cholecalciferol (vitamin D3) 125 mcg (5,000 unit) capsule 4,000 unit PO DAILY cyanocobalamin (vitamin B-12) 5,000 mcg capsule 1,000 mcg PO DAILY glucosamine HCl 500 mg tablet 1,000 mg PO DAILY Rx Instructions: administer with a meal aspirin 81 mg tablet,delayed release (DR/EC) 81 mg PO DAILY acetaminophen [Tylenol Arthritis Pain] 650 mg tablet extended release 1,300 mg PO Q12H tamsulosin 0.4 mg capsule 0.8 mg PO DAILY finasteride 5 mg tablet 5 mg PO DAILY acetaminophen 500 mg capsule 500 mg PO ONCE PRN gabapentin 300 mg capsule 900 mg PO BEDTIME Qty: 270 1RF Trelegy Ellipta 100-62.5-25 mcg blister with device 1 inh inhalation DAILY Print Language: Maltese
[2024-05-19 10:16] VITALS: BP 157/67; PULSE 77; RESP 16; TEMP 36.7; O2SAT 95
[2024-05-19 11:26] VITALS: BP 151/77; PULSE 81; RESP 18; TEMP 36.8; O2SAT 95
== END 2024-05-19 11:33 | disposition home or self-care (01) ==
PROVIDERS: Emergency Provider Emergency Medicine; PCP Nurse Practitioner Family
DX: M79.662 Pain in left lower leg (principal); E11.9 Type 2 diabetes mellitus without complications; I10 Essential (primary) hypertension; J44.9 Chronic obstructive pulmonary disease, unspecified; Z87.891 Personal history of nicotine dependence; Z79.82 Long term (current) use of aspirin; Z79.899 Other long term (current) drug therapy
CPT/HCPCS: 93971; 99283; 99284

== ENCOUNTER 2024-05-29 06:02 | Outpatient (REF) | payer MEDICARE, SELFPAY ==
[2024-05-29 06:19] LABS: MANUAL DIFF FLAG NO
[2024-05-29 07:16] LABS: Basophils Absolute Auto 0.1 X10*3/uL (0.0-0.2); Basophils Percent Auto 0.7 % (0-2); Eosinophils Absolute Auto 0.4 X10*3/uL (0.0-0.4); Eosinophils Percent Auto 3.7 % (0-4); Hematocrit 40.9 % (42.0-52.0); Imm Gran Abs Auto 0.06 X10*3/uL (0.00-0.03); Imm Gran Pct Auto 0.6 % (0.0-0.4); Lymphocytes Absolute Auto 1.6 X10*3/uL (1.2-4.9); Lymphocytes Percent Auto 16.2 % (20-40); Mean Corpuscular HGB Conc 34.2 g/dl (31.0-36.0); Mean Corpuscular Hemoglobin 32.5 pg (27.0-33.0); Mean Corpuscular Volume 94.9 fL (80.0-98.0); Mean Platelet Volume 9.7 fL (9.4-12.4); Monocytes Absolute Auto 0.8 X10*3/uL (0.1-1.2); Monocytes Percent Auto 8.5 % (2-11); Neutrophils Absolute Auto 6.7 x10*3/uL (2.0-8.3); Neutrophils Percent Auto 70.3 % (45-73); Platelet Count 256 X10*3/uL (160-400); Red Blood Count 4.31 X10*6/uL (4.60-5.80); Red Cell Distribution Width 11.6 % (11.0-16.0); White Blood Count 9.5 X10*3/uL (4.8-10.8)
[2024-05-29 07:19] LABS: Appearance Urine Clear; Color Urine Yellow; Glucose Urine UA Negative (Negative); Leukocyte Esterase Urine Trace (Negative); Nitrite Urine Negative (Negative); UMIC TRIGGER UACC YES; Urine Blood Negative (Negative); Urine Ketones Negative (Negative); Urine Protein Negative (Neg-Trace)
[2024-05-29 07:24] LABS: Bacteria Urine None Seen (None Seen); Hyaline Casts Urine 0-2 /LPF (0-2); RBC Urine 0-2 /HPF (0-2); Squamous Epithelial Cell Urine 0-2 /HPF (0-2); WBC Urine 0-5 /HPF (0-5)
[2024-05-29 07:59] LABS: Alanine Aminotransferase 26 U/L (0-40); Albumin Level 4.7 g/dL (3.5-5.0); Alkaline Phosphatase 45 U/L (39-117); Anion Gap 12 (12-20); Aspartate Amino Transferase 29 U/L (5-37); Bilirubin Total 0.7 mg/dL (0.0-1.0); Blood Urea Nitrogen 21 mg/dL (9-16); Calcium 9.7 mg/dL (8.4-10.2); Carbon Dioxide 31 mmol/L (22-29); Chloride 102 mmol/L (96-108); Cholesterol 186 mg/dL (<200); Estimated Glomerular Filt Rate > 60; Glucose Fasting 130 mg/dL (60-99); HDL Cholesterol 57 mg/dL (>40); LDL Cholesterol Calculated 106 mg/dL (<100); Potassium 3.9 mmol/L (3.3-5.1); Sodium 141 mmol/L (135-145); Total Protein 7.6 g/dL (6.5-8.0); Triglycerides 116 mg/dL (<150)
[2024-05-29 08:14] LABS: TSH reflex Free T4 2.24 uIU/mL (0.32-4.0)
[2024-05-29 08:34] LABS: Estimated Average Glucose 126 mg/dL; Hemoglobin A1C 152.5157 umol/L; Total Hemoglobin (HGBA1C) 3599.4534 umol/L
--- OUTSIDE RECORDS SUMMARY | 2024-05-30 18:22 | XMS_ITS | Data Portability ---
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 At this time his BMI is 36 and he is outside of the range of our inspire implantation program. A fiberoptic examination of his pharynx and larynx was performed as he does have a remote history of laryngeal polyps that were removed with surgery many years ago. Fortunately the laryngoscopy was benign with no polyps or other obstructing lesions. At the present time he is not a candidate for the drug-induced sleep endoscopy but he is interested in contacting the [facility] to obtain another trial of CPAP. I have offered for him to follow-up with me in 6 months as he will make a effort to lose and maintain a lower weight class. [email or web address] Not available 02/17/2024 12:06:42 Plan of Treatment Reminders Order Date Submit Date Provider Last Modified By Organization Details Last Modified Time Details Appointments Establish ed 15 2024 01:45P M ARNALDO RIOS MD Not available Not available Not available Lab None recorded. Referral None recorded. Procedures None recorded. Surgeries None recorded. Imaging None recorded. Medication Orders None recorded. Patient TargetsNo targets recorded. Patient InstructionsNo instructions recorded. Reason for Referral None Reported. Problems Name Problem SNOMED Code Status Onset Date Resolution Date Notes Provider Name and Address Organization Details Recorded Time Obstructive sleep apnea syndrome 90168814 Active 2023 ARNALDO RIOS MD [address] [address], [place], [address], [facility] - [facility] 4 11:53:36 Body mass index 30+ - obesity 930218934 Active 2023 ARNALDO RIOS MD 100 [facility] 100, [place], [address], [facility] - [facility] 4 11:54:13 Problem Notes None recorded. Procedures Surgical History Date Name Laterality Status Provider Name and Address Organization Details Recorded Time 02/17/2024 FOL_DP completed ARNALDO RIOS MD [address] [address], [place], [address], [facility] 02/15/2024 14:04:03 Imaging Results None recorded. Procedure Notes None recorded. Medical Equipment None Reported. Medications Name Sig Start Date Stop Date Status Note LastModified by Organization Details LastModified Time furosemide 40 mg tablet TAKE 1 TABLET BY MOUTH EVERY DAY active Not Available Not Available No t Available prednisone 20 mg tablet TAKE 2 TABLETS BY MOUTH EVERY DAY active Not Available Not Available No t Available ciprofloxaci n 500 mg tablet TAKE 1 TABLET BY MOUTH EVERY 12 HOURS active Not Available Not Available No t Available tamsulosin 0.4 mg capsule TAKE 1 CAPSULE BY MOUTH EVERY DAY active Not Available Not Available No t Available amlodipine 10 mg tablet TAKE 1 TABLET BY MOUTH EVERY DAY AT 5PM active Not Available Not Available N ot Available gabapentin 300 mg capsule TAKE 3 CAPSULES BY MOUTH AT BEDTIME active Not Available Not Available No t Available labetalol 100 mg tablet TAKE 1 TABLET BY MOUTH TWICE A DAY active Not Available Not Available No t Available albuterol sulfate HFA 90 mcg/actuatio n aerosol inhaler INHALE 2 PUFFS EVERY 6 HOURS NEEDED FOR SHORTNESS OF BREATH OR WHEEZING active Not Available Not Available Not Available losartan 100 mg tablet TAKE 1 TABLET BY MOUTH DAILY active Not Available Not Available Not Available finasteride 5 mg tablet TAKE 1 TABLET BY MOUTH EVERY DAY active Not Available Not Available No t Available Laxative (bisacodyl) 5 mg tablet,delay ed release TAKE 2 TABLETS BY MOUTH AT NOON 2 DAYS BEFORE COLONOSCOPY active Not Available Not Available Not Available Advair HFA 115 mcg-21 mcg/actuatio n aerosol inhaler active Not Available Not Available Not Available GaviLyte-G 236 gram-22.74 gram-6.74 gram-5.86 gram oral solution PLEASE SEE ATTACHED FOR DETAILED DIRECTIONS active Not Available Not Available N ot Available Ozempic 0.25 mg or 0.5 mg (2 mg/3 mL) subcutaneous pen injector INJECT 0.5 MG (0.736 ML) SUBCUTANEOU SLY EVERY WEEK FOR 4 WEEKS active Not Available Not Available No t Available Vitals Date Recorded Body height Body mass index (BMI) Body weight Provider Name and Address Organization Details Last Updated DateTime 02/17/2024 177.8 cm 36.7 kg/m2 028832.65 g Sarah Anthony [place] - [facility] 02/17/2024 11:37:37 Social History None recorded. Functional Status None recorded. Mental Status None recorded. Family History Nothing Reported. Medical History No medical history recorded. Past Encounters Encounter ID Performer Location Encounter Start Date Encounter Closed Date Diagnosis/Indication Diagnosis SNOMED-CT Code Diagnosis ICD10 Code [id number] ARNALDO RIOS MD [facility] [address] [address] 02/17/2024 11:22:24 02/17/2024 12:06:00 Obstructive sleep apnea syndrome 39077290 G47.33 Body mass index 30+ - obesity 007288531 Z68.36 Health Concerns Section Related Observation LastModified by Organization Detai ls LastModified Time None Recorded Concern Status LastModified by Organization Details LastModified Time None Recorded Advance Directives Directive None Recorded Payers Encounter Date Sequence Insurance Name Policy Number Policy Urias Covered Member ID Urias Member ID Guarantor Name 02/17/2024 2 [place] [id number] Zaki Ramirez [id number] Zaki Ramirez 02/17/2024 1 [place] Zaki Ramirez [id number] Zaki Ramirez Notes Date Note Type Note Provider Name and Address Organization Details Recorded Time 02/17/2024 text/html [facility]SA02/2023 [facility] [place] [facility] and mixed events - full report not available for reviewCPAP intolerant, attempted 6 different masks sleep quality - poor with insomnia and the CPAP made it worsehad tonsils removed - twicegasrtic sleeve with 80 pounds loss - gained back 30 poundsnow about 250 pounds, 5'10 BMI 36 now ARNALDO RIOS MD 100 [facility], [place], [address], [facility] - [facility] 02/17/2024 12:06:57
== END 2024-05-29 06:03 | disposition home or self-care (01) ==
LOC: HO.LAB 06:02
PROVIDERS: Nurse Practitioner Family; PCP Physician Assistant; Visit Provider Physician Assistant
DX: Z00.00 Encounter for general adult medical examination without abnormal findings (principal); E11.9 Type 2 diabetes mellitus without complications
CPT/HCPCS: 36415; 80053; 80061; 81001; 83036; 84443; 85025

== ENCOUNTER 2024-06-01 11:49 | Outpatient (AMB) | payer MEDICARE, SELFPAY ==
--- OUTSIDE RECORDS SUMMARY | 2024-06-01 11:51 | XMS_ITS | Data Portability ---
Author Organization [place] - [facility], Allergy Address [address] [place] [phone] Care Team Providers Care Pumper Helper Name Role Phone BABS PIERCE Primary Care [...] but he is interested in contacting the [facility] to obtain another trial of [...] Details Recorded Time Obstructive sleep apnea syndrome 12555462 Active 2023 ARNALDO RIOS MD [address] [address], [place], [address], [facility] - [facility] 4 11:53:36 Body mass index 30+ - obesity 739596297 Active 2023 ARNALDO RIOS MD [address] [facility] [address], [place], [address], [facility] - [facility] 4 11:54:13 Problem Notes None recorded. Procedures Surgical History Date Name Laterality Status Provider Name and Address Organization Details Recorded Time 02/17/2024 FOL_DP completed ARNALDO RIOS MD [address] [address], [place], [address], [facility] 02/15/2024 14:04:03 Imaging Results None recorded. [...] Updated DateTime 02/17/2024 177.8 cm 36.7 kg/m2 595493.65 g Sarah Anthony [place] - [facility] 02/17/2024 11:37:37 Social History None recorded. Functional Status None recorded. Mental Status None recorded. Family History Nothing Reported. Medical History No medical history recorded. Past Encounters Encounter ID Performer Location Encounter Start Date Encounter Closed Date Diagnosis/Indication Diagnosis SNOMED-CT Code Diagnosis ICD10 Code [id number] ARNALDO RIOS MD [facility] [address] [address] 02/17/2024 11:22:24 02/17/2024 12:06:00 Obstructive sleep apnea syndrome 94374120 G47.33 Body mass index 30+ - obesity 113030161 Z68.36 Health Concerns Section Related Observation LastModified by Organization Detai ls LastModified Time None Recorded Concern Status LastModified by Organization Details LastModified Time None Recorded Advance Directives Directive None Recorded Payers Encounter Date Sequence Insurance Name Policy Number Policy Urias Covered Member ID Urias Member ID Guarantor Name 02/17/2024 2 [place] [id number] Zaki Ramirez [id number] Zaki Ramirez 02/17/2024 1 [place] Zaki Ramirez [id number] Zaki Ramirez Notes Date Note Type [...] BMI 36 now ARNALDO RIOS MD 100 [facility], [place], [address], [facility] - [facility] 02/17/2024 12:06:57
--- NOTE | 2024-06-01 11:56 | A.OFFVIS_ITS ---
Intake Visit Reasons: OV-MRI forearm, LT review Intake Note: Zaki is a 73 year old male who presents today to discuss his left forearm MRI results. States no changes in medical hx. Allergies latex [LATEX] Allergy (Intermediate, Verified 06/01/24 11:56) RASH Clyugev-LMX-VaM Reductase Inhibitor Adverse Reaction (Intermediate, Verified 06/01/24 11:56) Muscle Pain spironolactone Adverse Reaction (Mild, Verified 06/01/24 11:56) Migraine lisinopril Adverse Reaction (Verified 06/01/24 11:56) Nausea and Vomiting Medication List - Last Reconciled 06/01/24 by Gaby Lynn MD acetaminophen 500 mg PO ONCE PRN acetaminophen ER (Tylenol Arthritis Pain) 1,300 mg PO Q12H albuterol sulfate 90 mcg/actuation 2 puffs inhalation Q6H PRN amlodipine 10 mg PO 1700 ascorbic acid (vitamin C) 1,000 mg PO DAILY aspirin 81 mg PO DAILY cholecalciferol (vitamin D3) 4,000 units PO DAILY cyanocobalamin (vitamin B-12) 1,000 mcg PO DAILY ferrous sulfate 325 mg PO DAILY finasteride 5 mg PO DAILY afwdfmrhqvl-phylwjlhc-vmtttoxw 100-62.5-25 mcg (Trelegy Ellipta) 1 inh inhalation DAILY furosemide 40 mg PO DAILY gabapentin 900 mg (3 x 300 mg) PO BEDTIME glucosamine HCl 1,000 mg PO DAILY labetalol 100 mg PO BID losartan 100 mg PO DAILY meloxicam 7.5 mg PO BID tamsulosin 0.8 mg PO DAILY tirzepatide (Mounjaro) 2.5 mg (0.5 mL) subcut QWEEK HPI Comments Details: He was previously seen by Rheumatology for elevated CK and positive HUNG. Their notes reviewed. He complained of left elbow pain, subsequently referred to OT. 2 months of left elbow, painful (feels like sciatica ), just from elbow to forearm. If he holds forearm, it would help. Occasional numbness on left hand. He thinks it started after a COVID vaccine. OT felt possibly a left trigger point, which was aggravated, now shooting to left arm. Difficulty now to supinate left forearm. OT recommended referral to physiatry. Followed by Pulmology for Hypogammaglobulinemia. Follows with Pain Management for right hip injection. Was told in past to have left CTS, treated before conservatively only. We have recently done EMG which shows left moderate to severe Carpal Tunnel Syndrome. Follow up today to review MRI of left forearm. Results below. Patient reports some improvement, slightly better supination of left forearm. He does have shooting pain on elbow to forearm whenever he is lying on bed, driving or washing his face. Continues with other complaints of left ankle pain and knee pain. [facility] Medical History Kidney stones CAD (coronary artery disease) History of DVT (deep vein thrombosis) HTN (hypertension) Diabetes COPD (chronic obstructive pulmonary disease) JENNY (obstructive sleep apnea) Personal history of nicotine dependence Obesity HUNG positive BPH (benign prostatic hyperplasia) Neck pain Acute urinary retention Fatigue Chronic fatigue Minimal depression Osteoarthritis Surgical History Hx of colonoscopy S/P excision of lipoma History of resection of small bowel History of ventral hernia repair History of sleeve gastrectomy Hx of right knee surgery History of vasectomy History of tonsillectomy Family History Father CAD (coronary artery disease) Mother No problems noted. Brother Accelerated hypertension Son No problems noted. Daughter No problems noted. Sister Leukemia Sister Cerebral palsy Sister No problems noted. 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 MSK: Inspection reveals appropriate head and neck positioning. No redness, swelling, warmth, skin change on left upper extremity or forearm. Appears to have improved supination. Elbow flexion is strong. Left shoulder range of motion is full. Neurological: Johnson?s negative bilaterally. Results Reviewed Results Reviewed: Ordering Physician: Gaby New Date of Service: 05/06/24 Procedure(s): MR forearm LT wo con Accession Number(s): [id number] cc: [employer]IE[employer]-BC; Gaby New~ EXAMINATION: MR FOREARM WITHOUT CONTRAST, LEFT CLINICAL INFORMATION: Left forearm pain. Worsening pain radiating into the biceps. Hand numbness. Muscle strain. COMPARISON: Left elbow radiographs dated 03/30/2024. TECHNIQUE: Multisequence MR imaging of the left forearm was obtained without contrast on a high-field strength scanner. FINDINGS: BONE: No acute fracture or dislocation. Mild reactive marrow edema and degenerative cystic change within the proximal radius adjacent to the biceps tendon insertion. No additional abnormal marrow signal. No concerning lytic or blastic osseous lesion. MUSCLES/TENDONS: Significant thickening and heterogeneity of the distal biceps tendon with insertional longitudinal partial tearing over a length of approximately 2.2 cm. Prominent fluid within the distal tendon sheath and bicipital radial bursa, consistent with bursitis. LIGAMENTS: Collateral ligaments of the elbow and intrinsic ligaments of the wrist not well visualized on the large reult-ab-txiw imaging. SOFT TISSUES: Trace distal radioulnar joint effusion. No soft tissue mass. MR/MR forearm LT wo con IMPRESSION: 1. Severe distal biceps tendinosis with insertional longitudinal partial tearing over a length of approximately 2.2 cm. Prominent bicipital radial bursitis. Reactive marrow edema and cystic change within the adjacent radius. 2. Trace distal radioulnar joint effusion. Assessment & Plan Assessment & Plan (1) Tear of tendon of left upper extremity: Code(s): S46.912A - Strain of unspecified muscle, fascia and tendon at shoulder and upper arm level, left arm, initial encounter Category: Medical Qualifiers: Encounter type: initial encounter Qualified Code(s): S46.912A - Strain of unspecified muscle, fascia and tendon at shoulder and upper arm level, left arm, initial encounter (2) Carpal tunnel syndrome of left wrist: Code(s): G56.02 - Carpal tunnel syndrome, left upper limb Category: Medical (3) Left ankle swelling: Code(s): M25.472 - Effusion, left ankle Category: Medical (4) Left knee pain: Code(s): M25.562 - Pain in left knee Category: Medical (5) Hypogammaglobulinemia: Code(s): D80.1 - Nonfamilial hypogammaglobulinemia Category: Medical Plan 1. Findings on left forearm MRI of partial tearing of distal biceps can explain inability to supinate, explain the elbow pain, even the pain radiating up to his shoulder. I was able to briefly review MRI with Dr. Cordon. Patient will consult with Dr. Cordon if there is any surgical option. Appointment already scheduled. We recognize that treatment is primarily rehabilitation. We will refer patient back to OT, now that we have a more definite diagnosis. OT can work on strengthening and range of motion. 2. CTS on EMG - he does not have much symptoms of Carpal Tunnel Syndrome. We will continue to monitor for now. 3. Other joint arthralgia. This was brought up to Dr. Argueta and also to Dr. Smith. Dr. Smith said that IVIG could have muscular skeletal side effects. However given past positive HUNG and now multiple joint arthralgia, I think it is reasonable to refer patient back to Rheumatology. 4. Newer complaint of left knee pain. Though no active signs of inflammation. Sending him for left knee x-ray today. Assessment and plan discussed with patient, and patient was agreeable. All qu estions were answered thoroughly. Gaby Lynn MD, ONESIMO Board Certified, [place] Board of Physical Medicine and Rehabilitation (ABPMR) Board Certified, [place] Board of Electrodiagnostic Medicine (ABEM) Orders: Orders XR knee LT 3V Today M25.50 - Pain in unspecified joint OT Evaluation and Treatment Today S46.912A - Strain of unspecified muscle, fascia and tendon at shoulder and upper arm level, left arm, initial encounter Referrals Rheumatology Referral S46.912A - Strain of unspecified muscle, fascia and tendon at shoulder and upper arm level, left arm, initial encounter Coding Level of Care Code Est Pt Level 4 (61217) Diagnoses Tear of tendon of left upper extremity, initial encounter S46.912A Encounter type: initial encounter Carpal tunnel syndrome of left wrist G56.02 Left ankle swelling M25.472 Left knee pain M25.562 Hypogammaglobulinemia D80.1
== END 2024-06-01 12:36 | disposition home or self-care (01) ==
PROVIDERS: PCP Nurse Practitioner Family; Visit Provider Physical Medicine & Rehabilitation
DX: S46.912A Strain of unspecified muscle, fascia and tendon at shoulder and upper arm level, left arm, initial encounter (principal); G56.02 Carpal tunnel syndrome, left upper limb; M25.472 Effusion, left ankle; M25.562 Pain in left knee; D80.1 Nonfamilial hypogammaglobulinemia
CPT/HCPCS: 99213

== ENCOUNTER 2024-06-01 11:49 | Outpatient (REF) | payer MEDICARE, SELFPAY | END 2024-06-01 11:50 | disposition home or self-care (01) | LOC: HO.HOSX 11:49 | PROVIDERS: PCP Nurse Practitioner Family; Visit Provider Physical Medicine & Rehabilitation | DX: M25.50 Pain in unspecified joint (principal) | CPT/HCPCS: 73562; 99212 ==

== ENCOUNTER 2024-06-11 08:46 | Outpatient (AMB) | payer MEDICARE, SELFPAY ==
--- NOTE | 2024-06-11 08:49 | A.OFFVIS_ITS ---
Intake Visit Reasons: OV - Left Distal Bicep Partial Tear Intake Note: Zaki is a 73 year old right hand dominant male who presents today for a follow up of left distal biceps partial tearing. He reports that he was carrying a heavy mirror and lost director phone on it, so he strained his arm while catching it. He also has split wood all summer. Patient was last seen with Dr. Lynn where she referred patient to occupational therapy to work on strengthening and ROM which he has not started. Patient reports that he is doing better, he has been taking Meloxicam as directed which is helping. He did recently start infusions and feels that he is getting joint pain and a rash. Allergies latex [LATEX] Allergy (Intermediate, Verified 06/11/24 09:19) RASH Jdzapub-PLA-RoN Reductase Inhibitor Adverse Reaction (Intermediate, Verified 06/11/24 09:19) Muscle Pain spironolactone Adverse Reaction (Mild, Verified 06/11/24 09:19) Migraine lisinopril Adverse Reaction (Verified 06/11/24 09:19) Nausea and Vomiting HPI HPI OV - Left Distal Bicep Partial Tear: Details: Zaki is a 73 year old right hand dominant male who presents today for a follow up of left distal biceps partial tearing. Patient was last seen with Dr. Lynn where she referred patient to occupational therapy to work on strengthening and ROM. Over the last 10 days he has improved. He has pain in the forearm extending up the biceps and down into the wrist. It is improving however. [facility] Medical History Kidney stones CAD (coronary artery disease) History of DVT (deep vein thrombosis) HTN (hypertension) Diabetes COPD (chronic obstructive pulmonary disease) JENNY (obstructive sleep apnea) Personal history of nicotine dependence Obesity HUNG positive BPH (benign prostatic hyperplasia) Neck pain Acute urinary retention Fatigue Chronic fatigue Minimal depression Osteoarthritis Surgical History Hx of colonoscopy S/P excision of lipoma History of resection of small bowel History of ventral hernia repair History of sleeve gastrectomy Hx of right knee surgery History of vasectomy History of tonsillectomy Family History Father CAD (coronary artery disease) Mother No problems noted. Brother Accelerated hypertension Son No problems noted. Daughter No problems noted. Sister Leukemia Sister Cerebral palsy Sister No problems noted. 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 Pain with resisted supination. Results Reviewed Results Reviewed: I personally reviewed the MR images. Severe distal biceps tendinosis with insertional longitudinal partial tearing over a length of approximately 2.2 cm. Prominent bicipital radial bursitis. Reactive marrow edema and cystic change within the adjacent radius. 2. Trace distal radioulnar joint effusion. Assessment & Plan Assessment & Plan (1) Tear of distal tendon of biceps: Code(s): S46.219A - Strain of muscle, fascia and tendon of other parts of biceps, unspecified arm, initial encounter Category: Medical Plan: This is a 73-year-old with a partial tear of his left biceps. He has been improving with PT and activity modification I recommend he continue to do so. I reviewed with him the risks, benefits and alternatives to surgery and to nonsurgical management as well. If he is not where he wants to be in 6 weeks he can return to see me and we can discuss other options again. At this point however I do not think surgery is indicated and I would like to see him continue to work with therapy and activity modification. Coding Level of Care Code Est Pt Level 4 (34539) Diagnoses Tear of distal tendon of biceps S46.219A
--- OUTSIDE RECORDS SUMMARY | 2024-06-11 08:49 | XMS_ITS | Data Portability ---
Author Organization [place] - [facility], Allergy Address [address] [place] [phone] Care Team Providers Care Teacher Dancing Name Role Phone BABS PIERCE Primary Care [...] but he is interested in contacting the [facility] to obtain another trial of [...] Details Recorded Time Obstructive sleep apnea syndrome 26869013 Active 2023 ARNALDO RIOS MD [address] [address], [place], [address], [facility] - [facility] 4 11:53:36 Body mass index 30+ - obesity 691572043 Active 2023 ARNALDO RIOS MD 100 [facility] 100, [place], [address], [facility] - [facility] 4 11:54:13 Problem Notes None recorded. Procedures Surgical History Date Name Laterality Status Provider Name and Address Organization Details Recorded Time 02/17/2024 FOL_DP completed ARNALDO RIOS MD [address] [address], [place], [address], [facility] 02/15/2024 14:04:03 Imaging Results None recorded. [...] Updated DateTime 02/17/2024 177.8 cm 36.7 kg/m2 019360.65 g Sarah Anthony [place] - [facility] 02/17/2024 11:37:37 Social History None recorded. Functional Status None recorded. Mental Status None recorded. Family History Nothing Reported. Medical History No medical history recorded. Past Encounters Encounter ID Performer Location Encounter Start Date Encounter Closed Date Diagnosis/Indication Diagnosis SNOMED-CT Code Diagnosis ICD10 Code [id number] ARNALDO RIOS MD [facility] [address] [phone] 02/17/2024 11:22:24 02/17/2024 12:06:00 Obstructive sleep apnea syndrome 22405220 G47.33 Body mass index 30+ - obesity 318508759 Z68.36 Health Concerns Section Related Observation LastModified by Organization Detai ls LastModified Time None Recorded Concern Status LastModified by Organization Details LastModified Time None Recorded Advance Directives Directive None Recorded Payers Encounter Date Sequence Insurance Name Policy Number Policy Urias Covered Member ID Urias Member ID Guarantor Name 02/17/2024 2 [place] [id number] Zaki Ramirez [id number] Zaki Ramirez 02/17/2024 1 [place] [employer]MENT [place] Zaki Ramirez [id number] Zaki Ramirez Notes Date Note Type [...] BMI 36 now ARNALDO RIOS MD 100 [facility] 100, [place], [address], [facility] - [facility] 02/17/2024 12:06:57
== END 2024-06-11 10:57 | disposition home or self-care (01) ==
PROVIDERS: PCP Nurse Practitioner Family; Visit Provider Orthopaedic Surgery
DX: S46.212A Strain of muscle, fascia and tendon of other parts of biceps, left arm, initial encounter (principal)
CPT/HCPCS: 99213

== ENCOUNTER → 2024-06-11 08:46 | Outpatient (BNVA) | payer MEDICARE, SELFPAY | PROVIDERS: PCP Nurse Practitioner Family; Visit Provider Orthopaedic Surgery | DX: S46.219D Strain of muscle, fascia and tendon of other parts of biceps, unspecified arm, subsequent encounter (principal) | CPT/HCPCS: 99212 ==

== ENCOUNTER 2024-06-22 12:43 | Outpatient (AMB) | payer MEDICARE, SELFPAY ==
[2024-06-22 13:01] VITALS: BP 147/66; PULSE 66; O2SAT 96; BMI 37.2
--- NOTE | 2024-06-22 13:01 | MHC.OFFVIS ---
Vital Signs 06/22/24 13:01 Height 5 ft 10 in Weight 259 lb 0.69 oz BMI 37.2 BP 147/66 H Blood Pressure Location Rt brachial Position Sitting Pulse 66 Pulse Source Doppler Pulse Oximetry (%) 96 Oxygen Delivery Method Room Air Intake Visit Reasons: discuss IVIG reaction Allergies latex [LATEX] Allergy (Intermediate, Verified 06/11/24 09:19) RASH Zknrpkk-FDV-JuA Reductase Inhibitor Adverse Reaction (Intermediate, Verified 06/11/24 09:19) Muscle Pain spironolactone Adverse Reaction (Mild, Verified 06/11/24 09:19) Migraine lisinopril Adverse Reaction (Verified 06/11/24 09:19) Nausea and Vomiting HPI HPI discuss IVIG reaction: Details: 73-year-old gentleman, former 60+ pack-year smoker, quit 2011 followed for COPD and CVID. After the last office visit patient was started on IVIG and had 3 injections. He did develop a rash on his right upper anterolateral thigh the test Samuel erythematous, and blanchable. [facility] Medical History Kidney stones CAD (coronary artery disease) History of DVT (deep vein thrombosis) HTN (hypertension) Diabetes COPD (chronic obstructive pulmonary disease) JENNY (obstructive sleep apnea) Personal history of nicotine dependence Obesity HUNG positive BPH (benign prostatic hyperplasia) Neck pain Acute urinary retention Fatigue Chronic fatigue Minimal depression Osteoarthritis Surgical History Hx of colonoscopy S/P excision of lipoma History of resection of small bowel History of ventral hernia repair History of sleeve gastrectomy Hx of right knee surgery History of vasectomy History of tonsillectomy Family History Father CAD (coronary artery disease) Mother No problems noted. Brother Accelerated hypertension Son No problems noted. Daughter No problems noted. Sister Leukemia Sister Cerebral palsy Sister No problems noted. 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 [employer] Cognitive needs: No Hearing needs: No Vision needs: No Review of Systems Const Denies daytime sleepiness, Denies excessive sweating, Denies fatigue, Denies fever(s), Denies lethargy, Denies malaise, Denies night sweats, Denies snoring and Denies weight loss Eyes Denies blurry vision and Denies itchy eyes ENT Denies nasal congestion, Denies post nasal drip, Denies sinus pain, Denies sinus pressure and Denies other ( Thrush) Card Denies chest pain, Denies pedal edema, Denies dyspnea, Denies orthopnea and Denies paroxysmal nocturnal dyspnea Resp Denies cough, Denies hemoptysis, Denies excessive phlegm production, Denies dyspnea, Denies snoring and Denies wheezing GI Denies abdominal pain and Denies heartburn Musc Denies myalgias, Denies arthralgias and Denies joint swelling Skin/Breast Reports rash Neuro Denies memory loss and Denies seizure-like activity Psych Denies abnormal sleep pattern, Denies anxiety and Denies memory loss Endo Denies excessive sweating, Denies fatigue and Denies heat intolerance Ian/Lymph Denies easy bruising Aller/Immun Denies itchy eyes, Denies seasonal rhinorrhea and Denies wheezing Physical Exam Vital Signs: Last Vital Signs Pulse 66 06/22/24 13:01 BP 147/66 H 06/22/24 13:01 Pulse Ox 96 06/22/24 13:01 Oxygen Delivery Method Room Air 06/22/24 13:01 BMI result Body Mass Index 37.2 Const General: no acute distress and alert Nutritional Appearance: not obese Orientation/consciousness: Other orientation findings ( oriented) HEENT Head: Yes atraumatic Eyes General: appearance normal, both eyes and all related structures Sclerae: sclerae normal EOM: EOMs intact bilaterally Neck Neck: Yes supple Lymphatic: no lymphadenopathy noted Resp Effort & Inspection: normal respiratory effort and no use of accessory muscles Auscultation: clear to auscultation bilaterally Cardio Rate: regular rate Rhythm: regular rhythm Heart sounds: no gallops, no murmurs and no rubs Skin General skin exam: other ( warm) Extrem General: No clubbing, No cyanosis and No edema Assessment & Plan Assessment & Plan (1) COPD (chronic obstructive pulmonary disease): Code(s): J44.9 - Chronic obstructive pulmonary disease, unspecified Category: Medical Plan: Baseline controlled on Trelegy, duo nebs, and albuterol MDI. Continue current regimen. 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 Will hold IVIG for 2 months and reassess symptoms. Coding Level of Care Code Est Pt Level 4 (97799) Diagnoses COPD (chronic obstructive pulmonary disease) J44.9 IgG deficiency D80.3
--- OUTSIDE RECORDS SUMMARY | 2024-06-22 14:07 | XMS_ITS | Data Portability ---
Author Organization [place] - [facility], Allergy Address [address] [place] [address] Care Team Providers Care Pharmacist Apprentice Name Role Phone BABS PIERCE Primary Care Provider [phone] Assessment Encounter Date Assessment Date Assessment LastModified [...] but he is interested in contacting the [place] [facility] to obtain another trial of [...] Details Recorded Time Obstructive sleep apnea syndrome 61497007 Active 2023 ARNALDO RIOS MD [address] [address], [place], [address], [facility] - [facility] 4 11:53:36 Body mass index 30+ - obesity 934976034 Active 2023 ARNALDO RIOS MD 100 [facility] 100, [place], [address], [facility] - [facility] 4 11:54:13 Problem Notes None recorded. Procedures Surgical History Date Name Laterality Status Provider Name and Address Organization Details Recorded Time 02/17/2024 FOL_DP completed ARNALDO RIOS MD [address] [address], [place], [address], [facility] 02/15/2024 14:04:03 Imaging Results None recorded. [...] Updated DateTime 02/17/2024 177.8 cm 36.7 kg/m2 386453.65 g Sarah Anthony [place] - [facility] 02/17/2024 11:37:37 Social History None recorded. Functional Status None recorded. Mental Status None recorded. Family History Nothing Reported. Medical History No medical history recorded. Past Encounters Encounter ID Performer Location Encounter Start Date Encounter Closed Date Diagnosis/Indication Diagnosis SNOMED-CT Code Diagnosis ICD10 Code Diagnosis Note [id number] ARNALDO RIOS MD [facility] [address] [phone] 02/17/2024 11:22:24 02/17/2024 12:06:00 Obstructive sleep apnea syndrome 59742048 G47.33 Body mass index 30+ - obesity 450700993 Z68.36 Health Concerns Section Related Observation LastModified by Organization Detai ls LastModified Time None Recorded Concern Status LastModified by Organization Details LastModified Time None Recorded Advance Directives Directive None Recorded Payers Encounter Date Sequence Insurance Name Policy Number Policy Urias Covered Member ID Urias Member ID Guarantor Name 02/17/2024 2 [place] [id number] Zaki Ramirez [id number] Zaki Ramirez 02/17/2024 1 [place] [employer] Zaki Ramirez [id number] Zaki Ramirez Notes Date Note Type [...] BMI 36 now ARNALDO RIOS MD 100 [facility] 100, [place], [address], [facility] - [facility] 02/17/2024 12:06:57
== END 2024-06-22 13:26 | disposition home or self-care (01) ==
PROVIDERS: PCP Nurse Practitioner Family; Visit Provider Internal Medicine Pulmonary Disease
DX: J44.9 Chronic obstructive pulmonary disease, unspecified (principal); D80.3 Selective deficiency of immunoglobulin G [IgG] subclasses
CPT/HCPCS: 99214

== ENCOUNTER → 2024-06-22 12:43 | Outpatient (BNVA) | payer MEDICARE, SELFPAY | PROVIDERS: PCP Nurse Practitioner Family; Visit Provider Internal Medicine Pulmonary Disease | DX: J44.9 Chronic obstructive pulmonary disease, unspecified (principal); D80.3 Selective deficiency of immunoglobulin G [IgG] subclasses | CPT/HCPCS: 99212 ==

== ENCOUNTER → 2024-07-17 12:09 | Outpatient (BNVA) | payer MEDICARE, SELFPAY | PROVIDERS: PCP Nurse Practitioner Family; Visit Provider Student in an Organized Health Care Education/Training Program | DX: M13.0 Polyarthritis, unspecified (principal); D80.1 Nonfamilial hypogammaglobulinemia | CPT/HCPCS: 99212 ==

== ENCOUNTER 2024-07-17 12:51 | Outpatient (AMB) | payer MEDICARE, SELFPAY ==
[2024-07-17 12:31] VITALS: PULSE 84; BMI 37.4
--- NOTE | 2024-07-17 12:31 | A.OFFVIS_ITS ---
Vital Signs 07/17/24 12:31 Height 5 ft 10 in Weight 260 lb 5.855 oz BMI 37.4 Blood Pressure Location Rt brachial Position Sitting Pulse 84 Pulse Source Pulse Oximeter Intake Visit Reasons: Multiple joint arthritis Intake Note: Patient last seen by Doctor Marco Antonio Argueta on 02/13/24. Presents today for multiple joint arthritis follow up. Appointment Manager Required: No Accompanied by: Self / Same As Patient Allergies latex [LATEX] Allergy (Intermediate, Verified 07/17/24 12:37) RASH Omcvagz-LGH-EcI Reductase Inhibitor Adverse Reaction (Intermediate, Verified 07/17/24 12:37) Muscle Pain spironolactone Adverse Reaction (Mild, Verified 07/17/24 12:37) Migraine lisinopril Adverse Reaction (Verified 07/17/24 12:37) Nausea and Vomiting Medication List - Last Reconciled 07/17/24 by Jessica Medrano MD acetaminophen 500 mg PO ONCE PRN acetaminophen ER (Tylenol Arthritis Pain) 1,300 mg PO Q12H amlodipine 10 mg PO 1700 ascorbic acid (vitamin C) 1,000 mg PO DAILY aspirin 81 mg PO DAILY cholecalciferol (vitamin D3) 4,000 units PO DAILY cyanocobalamin (vitamin B-12) 1,000 mcg PO DAILY ferrous sulfate 325 mg PO DAILY finasteride 5 mg PO DAILY rhsrjknhmbz-xxcuhlakc-cihxeqbv 100-62.5-25 mcg (Trelegy Ellipta) 1 inh inhalation DAILY furosemide 40 mg PO DAILY gabapentin 900 mg (3 x 300 mg) PO BEDTIME glucosamine HCl 1,000 mg PO DAILY labetalol 100 mg PO BID losartan 100 mg PO DAILY tamsulosin 0.8 mg PO DAILY HPI Comments Details: Patient is a 73-year-old male with hypertension complicated by coronary artery disease, BPH, COPD, JENNY, diabetes, and hypogammaglobulinemia, elevated CK with myalgias here today for follow up Interval History: Patient last seen 02/13/2024. At that time patient was following up with Dr. Argueta for elevated CK on a background of diffuse pain and a positive HUNG. The history and examination was consistent with generalized osteoarthritis with a small component of fibromyalgia. There was no evidence of proximal muscle weakness and there was no dermatomyositis type skin rashes. He was referred to occupational therapy. Since that visit patient was diagnosed with hypogammaglobulinemia and started on IVIG by pulmonology. He recently gotten IVIG infusion and subsequently developed a whole-body rash that he is concerned is possibly related to the IVIG or his meloxicam and so he has stopped that. Does not currently have an financial center manager. Currently complaining of widespread joint pains particularly his bilateral knees, his ankles and his wrists. Rheumatologic History: Generalized osteoarthritis Initial history: This is a 71-year-old male with a past medical history of hypertension, diabetes mellitus, dyslipidemia, CAD, COPD, JENNY who presents for evaluation of diffuse pain, elevated CPK and a positive HUNG. Patient states he has always had diffuse pain however this became worse since his hernia surgery a few months ago. Patient complains of generalized pain and stiffness. Usually worse in the morning and improves as day goes by. The pain involves his shoulders, arms, forearms, wrists, fingers, hips, ankles and feet. His right hip pain is chronic, he stated that he fell on his right hip a few years ago and injured it. He was recently prescribed physical therapy for his right hip. He denies weakness while getting up from toilet seat. Patient intentionally lost some weight prior to his ventral hernia surgery but has gained some of it back. He denies any skin rashes. Denies any fevers. Patient sleeps 3-4 hours at night but then he tosses and turns and wakes up from sleep. Denies any blood or frothy urine. Current Rheumatology Medication(s): [facility] Medical History (Updated 07/17/24 @ 13:21 by Jessica Medrano MD) Polyarthritis Kidney stones CAD (coronary artery disease) History of DVT (deep vein thrombosis) HTN (hypertension) Diabetes COPD (chronic obstructive pulmonary disease) JENNY (obstructive sleep apnea) Personal history of nicotine dependence Obesity HUNG positive BPH (benign prostatic hyperplasia) Neck pain Acute urinary retention Fatigue Chronic fatigue Minimal depression Osteoarthritis Surgical History Hx of colonoscopy S/P excision of lipoma History of resection of small bowel History of ventral hernia repair History of sleeve gastrectomy Hx of right knee surgery History of vasectomy History of tonsillectomy Family History Father CAD (coronary artery disease) Mother No problems noted. Brother Accelerated hypertension Son No problems noted. Daughter No problems noted. Sister Leukemia Sister Cerebral palsy Sister No problems noted. 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 Cognitive needs: No Hearing needs: No Vision needs: No Review of Systems Const Details: Review of Systems Constitutional: Denies fever, chills, weight loss ENT: Denies vision changes, eye pain or eye redness, dental caries, dry mouth GI: Denies nausea, vomiting, diarrhea, abdominal pain, change in BM Pulm: Denies SOB, VERGARA, hemoptysis, wheezing Cards: Denies chest pain, palpitations Skin: Denies Raynaud's, rash, nail changes, photosensitivity, PRODUCT DESIGN MANAGER: Denies headaches, weakness, paresthesias, recurrent falls MSK: as per HPI All other systems reviewed and are unremarkable except noted above Physical Exam Vital Signs: Last Vital Signs Pulse 84 07/17/24 12:31 BMI result Body Mass Index 37.4 Vital signs reviewed Physical Examination CONSTITUITIONAL Patient alert and cooperative. Well appearing and in no apparent painful distress HEENT Conjunctiva and sclera clear. ?Pupils equal round and reactive to light. ?No lymphadenopathy. ? CHEST/RESPIRATORY SYSTEM Normal respiratory effort and able to speak in complete sentences. ?Clear to auscultation bilaterally. ?No crackles, rales, rhonchi, wheezes heard. CARDIAC SYSTEM Regular rate and rhythm. ?S1 and S2 heard no murmurs. ?Radial pulses intact bilaterally MSK Hands: ?Good business management specialist strength bilaterally. No deformities noted. ?No synovitis noted to the MCPs, PIPs or DIPs. ?Heberden's nodes noted Wrists: ?Full range of motion at the wrists without pain. ?Mild tenderness to palpation Elbows: Full range of motion without pain. No tenderness, weakness, swelling, increased warmth or erythema. Shoulders: Decreased range of motion to the left shoulder secondary to pain. Normal range of motion of the right shoulder Hips: Full range of motion without pain. Hip bursa: Tenderness to palpation of the right hip bursa Knees: ?Full range of motion. ?No tenderness, swelling, increased warmth or erythema.?No effusion or crepitations Ankles: Full range of motion. ?No tenderness, swelling, increased warmth or erythema.? Feet: ?Negative squeeze test. ?No tenderness to palpation or swelling of the MTPs. Tender points:?No tenderness to palpation of the bilateral trapezius, supraspinatus, greater trochanters, anterior costochondral junctions, bilateral gluteal areas, bilateral suboccipital muscle insertions SKIN Patient has rash with ulcerating lesions throughout the body. Results Reviewed Results Reviewed: Laboratory Tests 01/30/24 05/29/24 14:20 06:18 WBC 9.5 RBC 4.31 L Hgb 14.0 Hct 40.9 L Plt Count 256 ESR 7 Sodium 141 Potassium 3.9 Chloride 102 Carbon Dioxide 31 H BUN 21 H Creatinine 0.91 AST 29 ALT 26 Alkaline Phosphatase 45 Total Creatine Kinase 354 H C-Reactive Protein 0.11 Laboratory Tests 01/30/24 02/14/24 14:20 15:19 IgG Total 522 L IgG Subclass 1 317 L IgG Subclass 2 126 L IgG Subclass 3 20 L IgG Subclass 4 2.2 L IgA Total 66 L IgM 31 L Rheumatoid Factor < 13.0 Cycl Citrul Peptide IgG <16 HUNG Screen POSITIVE A HUNG Titer 1:40 H Assessment & Plan Assessment & Plan (1) Polyarthritis: Code(s): M13.0 - Polyarthritis, unspecified Category: Medical Plan: #Polyarthritis Patient with widespread joint pain with prolonged morning stiffness and intermittent swelling and pain to several joints. In patients with hypogammaglobulinemia, CVID or any other immunodeficiencies there can be a paradoxical increase in autoimmune polyarthritis. This patient treatment with IVIG would be the initial recommendation for this patient. After being on IVIG for a good period of time and improvement in his counts if there has not been any improvement in his joint pain and or there continues to show signs of inflammatory arthritis at that time it would be reasonable to try immunosuppression. However we do need to treat his hypogammaglobulinemia 1st. 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 Started immunoglobulin therapy 2 months ago but has since had a reaction to this and this is currently on hold. Refer him to immunology for further workup and management. Plan I spent 30 minutes reviewing the record and labs, taking a history, examining the patient, discussing the treatment plan and documenting in the medical record Orders: Referrals Allergy & Immunology Referral D80.1 - Nonfamilial hypogammaglobulinemia Coding Level of Care Code Est Pt Level 4 (12074) Complex EM visit Add On G2211 Diagnoses Polyarthritis M13.0 Hypogammaglobulinemia D80.1
--- OUTSIDE RECORDS SUMMARY | 2024-07-17 13:06 | XMS_ITS | Data Portability ---
Author Organization [place] - [facility], Allergy Address [address] [place] [phone] Care Team Providers Care Circuit Design Engineer Name Role Phone BABS PIERCE Primary Care Provider [phone] Assessment Encounter Date Assessment Date Assessment LastModified [...] but he is interested in contacting the [facility] to obtain another trial of [...] Details Recorded Time Obstructive sleep apnea syndrome 96064471 Active 2023 ARNALDO RIOS MD [address] [address], [place], [address], [facility] - [facility] 4 11:53:36 Body mass index 30+ - obesity 136839170 Active 2023 ARNALDO RIOS MD 100 [facility] 100, [place], [address], [facility] - [facility] 4 11:54:13 Problem Notes None recorded. Procedures Surgical History Date Name Laterality Status Provider Name and Address Organization Details Recorded Time 02/17/2024 FOL_DP completed ARNALDO RIOS MD [address] [address], [place], [address], [facility] 02/15/2024 14:04:03 Imaging Results None recorded. [...] Updated DateTime 02/17/2024 177.8 cm 36.7 kg/m2 755122.65 g Sarah Anthony [place] - [facility] 02/17/2024 11:37:37 Social History None recorded. Functional Status None recorded. Mental Status None recorded. Family History Nothing Reported. Medical History No medical history recorded. Past Encounters Encounter ID Performer Location Encounter Start Date Encounter Closed Date Diagnosis/Indication Diagnosis SNOMED-CT Code Diagnosis ICD10 Code Diagnosis Note [id number] ARNALDO RIOS MD [facility] [address] [address] 02/17/2024 11:22:24 02/17/2024 12:06:00 Obstructive sleep apnea syndrome 01796616 G47.33 Body mass index 30+ - obesity 728224618 Z68.36 Health Concerns Section Related Observation LastModified by Organization Detai ls LastModified Time None Recorded Concern Status LastModified by Organization Details LastModified Time None Recorded Advance Directives Directive None Recorded Payers Encounter Date Sequence Insurance Name Policy Number Policy Urias Covered Member ID Urias Member ID Guarantor Name 02/17/2024 2 [place] [id number] Zaki Ramirez [id number] Ramirez 02/17/2024 1 [place] [employer] Zaki Ramirez [id number] Zaki Ramirez Notes Date Note Type [...] BMI 36 now ARNALDO RIOS MD 100 [facility] 100, [place], [address], [facility] - [facility] 02/17/2024 12:06:57
--- OUTSIDE RECORDS SUMMARY | 2024-07-17 13:06 | XMS_ITS | Clinical Summary ---
Author Organization [facility] it Address [address] [place] [address] Care Team Providers Care Warehouse Shipping Clerk Name Role Phone Milad Adame MD Primary Care Provider [phone] Medical History Medical History Date Comments Pneumonia DX:Pneumonia Chronic lung disease DX:Chronic lung disease Diabetes (CMS/HCC) DX:Diabetes ( HCC) High blood pressure DX:High bloo d pressure Depression DX:Depression Anxiety DX:Anxiety Social History Tobacco Use Types Packs/Day Years Used Date Smoking Tobacco: Former Smokeless Tobacco: Never Alcohol Use Standard Drinks/Week Comments Yes 0 (1 standard drink = 0.6 oz pur e alcohol) Sex and Gender Information Value Date Recorded Sex Assigned at Not on file Gender Identity Not on file Sexual Orientation Not on file Obstetrics History Plan of Treatment Health Maintenance Due Date Last Done Comments DTaP,Tdap,and Td Vaccines (1 - Tdap) 1971 Zoster Vaccines (1 of 2) 2002 Pneumococcal Vaccine: 65+ Ye ars (1 of 1 - PCV) 2017 COVID-19 Vaccine ( - 2023-2 5 season) 2024 Influenza Vaccine (#1) 2024 RSV Immunization Patients 60 + Years Old (1 - 1-dose 75+ series) 2027 HIB Vaccines Aged Out No longer eligi ble based on patient's age to complete this topic HPV Vaccines Aged Out No longer eligi ble based on patient's age to complete this topic Hepatitis A Vaccines Aged Out No long er eligible based on patient's age to complete this topic Hepatitis B Vaccines Aged Out No long er eligible based on patient's age to complete this topic IPV Vaccines Aged Out No longer eligi ble based on patient's age to complete this topic MMR Vaccines Aged Out No longer eligi ble based on patient's age to complete this topic Meningococcal ACWY Vaccine Aged Out N o longer eligible based on patient's age to complete this topic RSV Immunization Patients Un noreen 20 months Aged Out No longer eligible b ased on patient's age to complete this topic Varicella Vaccines Aged Out No longer eligible based on patient's age to complete this topic Care Teams Warehouse Shipping Clerk Relationship Specialty Start Date End Date Milad Adame MD [address] [place] [phone] PCP - General Internal Medicine 10/01/14
--- OUTSIDE RECORDS SUMMARY | 2024-07-17 13:43 | XMS_ITS | Clinical Summary ---
Author Organization [facility] it Address [address] [place] [address] Care Team Providers Care Ob/Gyn Name Role Phone Milad Adame MD Primary Care Provider [phone] Medical History Medical History Date Comments Pneumonia [...] age to complete this topic Care Teams Ob/Gyn Relationship Specialty Start Date End Date Milad Adame MD [address] [place] [phone] PCP - General Internal Medicine 10/01/14
== END 2024-07-17 13:03 | disposition home or self-care (01) ==
PROVIDERS: PCP Nurse Practitioner Family; Visit Provider Student in an Organized Health Care Education/Training Program
DX: M13.0 Polyarthritis, unspecified (principal); D80.1 Nonfamilial hypogammaglobulinemia
CPT/HCPCS: 99214; G2211

== ENCOUNTER 2024-08-08 08:13 | Outpatient (AMB) | payer MEDICARE, SELFPAY ==
--- OUTSIDE RECORDS SUMMARY | 2024-08-08 08:18 | XMS_ITS | Clinical Summary ---
Author Organization [facility] ity Address [address] [place] [address] Care Team Providers Care Medical Insurance Claims Specialist Name Role Phone Milad Adame MD Primary Care Provider [phone] Medical History Medical History Date Comments Pneumonia [...] Recorded Sex Assigned at Not on file Legal Sex Male 9:04 PM EST Gender Identity Not on file Sexual Orientation Not on file Obstetrics History Plan of Treatment Health Maintenance Due Date Last Done Comments DTaP,Tdap,and Td Vaccines (1 - Tdap) 1971 Pneumococcal Vaccine: 50+ Ye ars (1 of 1 - PCV) 2002 Zoster Vaccines (1 of 2) 2002 COVID-19 Vaccine ( - 2023-2 5 season) [...] patient's age to complete this topic Meningococcal B Vacine Aged Out No lo nger eligible based on patient's age to complete this topic RSV Immunization Patients Un noreen 20 months Aged Out No longer eligible b ased on patient's age to complete this topic Varicella Vaccines Aged Out No longer eligible based on patient's age to complete this topic Care Teams Medical Insurance Claims Specialist Relationship Specialty Start Date End Date Milad Adame MD [address] [place] [phone] PCP - General Internal Medicine 10/01/14
--- OUTSIDE RECORDS SUMMARY | 2024-08-08 08:18 | XMS_ITS | Data Portability ---
Author Organization [place] - [facility], Allergy Address [address] [place] [phone] Care Team Providers Care Fruit Packer Name Role Phone BABS PIERCE Primary Care [...] but he is interested in contacting the [place] [facility] to obtain another trial of [...] Details Recorded Time Obstructive sleep apnea syndrome 51068358 Active 2023 ARNALDO RIOS MD [address] [address], [place], [address], [facility] - [facility] 4 11:53:36 Body mass index 30+ - obesity 118326087 Active 2023 ARNALDO RIOS MD 100 [facility] 100, [place], [address], [facility] - [facility] 4 11:54:13 Problem Notes None recorded. Procedures Surgical History Date Name Laterality Status Provider Name and Address Organization Details Recorded Time 02/17/2024 FOL_DP completed ARNALDO RIOS MD [address] [address], [place], [address], [facility] 02/15/2024 14:04:03 Imaging Results None recorded. [...] Updated DateTime 02/17/2024 177.8 cm 36.7 kg/m2 389095.65 g Sarah Anthony [place] - [facility] 02/17/2024 11:37:37 Social History None recorded. Functional Status None recorded. Mental Status None recorded. Family History Nothing Reported. Medical History No medical history recorded. Past Encounters Encounter ID Performer Location Encounter Start Date Encounter Closed Date Diagnosis/Indication Diagnosis SNOMED-CT Code Diagnosis ICD10 Code Diagnosis Note [id number] ARNALOD RIOS MD [facility] [address] [address] 02/17/2024 11:22:24 02/17/2024 12:06:00 Obstructive sleep apnea syndrome 49882892 G47.33 Body mass index 30+ - obesity 801943802 Z68.36 Health Concerns Section Related Observation LastModified by Organization Detai ls LastModified Time None Recorded Concern Status LastModified by Organization Details LastModified Time None Recorded Advance Directives Directive None Recorded Payers Encounter Date Sequence Insurance Name Policy Number Policy Urias Covered Member ID Urias Member ID Guarantor Name 02/17/2024 2 [place] [id number] Zaki Ramirez [id number] Zaki Ramirez 02/17/2024 1 [place] [employer] Zaki Ramirez [id number] Zaki Ramirez Notes Date Note Type [...] BMI 36 now ARNALDO RIOS MD 100 [facility], [place], [address], [facility] - [facility] 02/17/2024 12:06:57
--- NOTE | 2024-08-08 08:23 | A.OFFVIS_ITS ---
Vital Signs 08/08/24 08:28 Height 5 ft 10 in Weight 262 lb 5.601 oz BMI 37.6 BP 124/78 Blood Pressure Location Lt brachial Position Sitting Pulse 70 Intake Visit Reasons: 1 yr followup w/ekg dx: cad Intake Note: 1 year follow-up with ekg feeling good Guide Dog Mobility Instructor Required: No Allergies latex [LATEX] Allergy (Intermediate, Verified 07/17/24 12:37) RASH Pkaaazv-IBP-DvY Reductase Inhibitor Adverse Reaction (Intermediate, Verified 07/17/24 12:37) Muscle Pain spironolactone Adverse Reaction (Mild, Verified 07/17/24 12:37) Migraine lisinopril Adverse Reaction (Verified 07/17/24 12:37) Nausea and Vomiting Medication List - Last Reconciled 08/08/24 by Waylon Aleman MD acetaminophen 500 mg PO ONCE PRN acetaminophen ER (Tylenol Arthritis Pain) 1,300 mg PO Q12H amlodipine 10 mg PO 1700 ascorbic acid (vitamin C) 1,000 mg PO DAILY aspirin 81 mg PO DAILY cholecalciferol (vitamin D3) 4,000 units PO DAILY cyanocobalamin (vitamin B-12) 1,000 mcg PO DAILY ferrous sulfate 325 mg PO DAILY finasteride 5 mg PO DAILY ubwkhccxebm-qmkhlidym-cleknydy 100-62.5-25 mcg (Trelegy Ellipta) 1 inh inhalation DAILY furosemide 40 mg PO DAILY gabapentin 900 mg (3 x 300 mg) PO BEDTIME glucosamine HCl 1,000 mg PO DAILY labetalol 100 mg PO BID losartan 100 mg PO DAILY tamsulosin 0.8 mg PO DAILY HPI Comments Details: Zaki comes for follow-up. He has been doing overall well. His shortness of breath has improved with inhaler therapy although he said he has been gaining weight because of that. He was had trouble losing weight. Denies any orthopnea, PND. Denies any exertional chest pain. 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 He denies any change in his symptoms. Denies any prolonged palpitation irregular heartbeat. Denies any lightheadedness, syncope. [facility] Medical History Polyarthritis Kidney stones CAD (coronary artery disease) History of DVT (deep vein thrombosis) HTN (hypertension) Diabetes COPD (chronic obstructive pulmonary disease) JENNY (obstructive sleep apnea) Personal history of nicotine dependence Obesity HUNG positive BPH (benign prostatic hyperplasia) Neck pain Acute urinary retention Fatigue Chronic fatigue Minimal depression Osteoarthritis Surgical History Hx of colonoscopy S/P excision of lipoma History of resection of small bowel History of ventral hernia repair History of sleeve gastrectomy Hx of right knee surgery History of vasectomy History of tonsillectomy Family History Father CAD (coronary artery disease) Mother No problems noted. Brother Accelerated hypertension Son No problems noted. Daughter No problems noted. Sister Leukemia Sister Cerebral palsy Sister No problems noted. Social History Household Members: None [facility]: [facility] Are you a primary summer child caregiver to a significant other at home: No Do you presently have visiting nurse or other home services: No Alcohol intake: current Alcohol intake frequency: holidays/special occasions only Patient Tobacco Use Status: Former Tobacco user Tobacco use type: Cigarette Years Smoked: 12 years ago , started at 15 years old, 2 PPD e-Cigarette/Vaping Use: Never Used Second Hand Smoke Exposure: No service: No Current occupational status: previously employed and retired 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 [employer] Cognitive needs: No Hearing needs: No Vision needs: No Review of Systems Const Denies chills, Denies fatigue, Denies fever(s), Denies frequent falls, Denies weakness, Denies weight gain and Denies weight loss ENT Denies dizziness Card Denies chest pain, Denies leg edema, Denies lightheadedness, Denies palpitations, Denies dyspnea, Denies dyspnea on exertion, Denies orthopnea and Denies other (loss of consciousness) Resp Denies cough, Denies dyspnea and Denies dyspnea on exertion GI Denies hematochezia and Denies change in stool character Musc Denies abnormal gait, Denies muscle weakness, Denies numbness, Denies radiating pain into limb and Denies tingling Neuro Denies Abnormal speech present, Denies abnormal gait, Denies dizziness, Denies frequent falls, Denies numbness, Denies tingling and Denies weakness Endo Denies fatigue and Denies palpitations Physical Exam Vital Signs: Last Vital Signs Pulse 70 08/08/24 08:28 BP 124/78 08/08/24 08:28 BMI result Body Mass Index 37.6 Const General: cooperative, comfortable, no acute distress, alert, awake and well groomed Nutritional Appearance: obese Orientation/consciousness: patient oriented x3 Limitations: no limitations HEENT Head: Yes normocephalic and Yes atraumatic Neck Neck: Yes trachea midline, Yes supple and Yes no JVD Resp Effort & Inspection: normal respiratory effort Auscultation: clear to auscultation bilaterally Cardio Jugular venous distension: no JVD Palpation: normal PMI Rate: regular rate Rhythm: regular rhythm Heart sounds: S1 normal heart sound present, S2 normal heart sound present, no click, no gallops, no murmurs and Other heart sounds present (S4 present) GI Inspection: Yes obesity Auscultation: normal bowel sounds Skin General skin exam: no rashes or lesions noted Neuro General: patient oriented x3 and no focal motor deficits Speech: No Abnormal speech present Extrem General: Yes no clubbing, cyanosis or edema Psych Appearance: grossly normal Office Procedures EKG Details: EKG shows normal sinus rhythm with left ventricular hypertrophy with repolarization abnormality 43256-[id number], Complete Assessment & Plan Assessment & Plan (1) CAD (coronary artery disease): Comment: Nonobstructive by cardiac catheterization, March 2021 Code(s): I25.10 - Atherosclerotic heart disease of [place] coronary artery without angina pectoris Category: Medical Plan: CAD which has been nonobstructive by cardiac catheterization with no current concerning symptoms. Continue aggressive medical therapy. Continue low-dose aspirin therapy for life. Goal LDL less than 70 mg/dL, last checked was 106. Should consider statin therapy at least Lipitor 20 mg daily and follow-up lipid panel in 3 months time. Blood pressure is currently well optimized. Encouraged to continue to participate in physical activity as tolerated and participate in weight loss program. (2) Enlarged thoracic aorta: Code(s): I77.89 - Other specified disorders of arteries and arterioles Category: Medical Plan: Mildly enlarged thoracic aorta. Will follow-up echocardiogram in 8 months time. No interventions required. Continue aggressive blood pressure control. Continue other vascular risk factor modifications above. Advised to avoid sudden strenuous isometric exercise. Will follow up in the clinic in 1 year's time, sooner p.r.n.. Thank you for allowing me to partake in his care Orders: Orders CA echo transthoracic complete 8 Months I77.89 - Other specified disorders of arteries and arterioles Coding Level of Care Code Est Pt Level 4 (54489) Complex EM visit Add On G2211 Diagnoses CAD (coronary artery disease) I25.10 Enlarged thoracic aorta I77.89 CPT Codes EKG - CPT: 04481-Cclevxjogssbsyqjl, Complete ([id number])
[2024-08-08 08:28] VITALS: BP 124/78; PULSE 70; BMI 37.6
== END 2024-08-08 09:12 | disposition home or self-care (01) ==
PROVIDERS: PCP Nurse Practitioner Family; Visit Provider Internal Medicine Cardiovascular Disease
DX: I25.10 Atherosclerotic heart disease of native coronary artery without angina pectoris (principal); I77.89 Other specified disorders of arteries and arterioles
CPT/HCPCS: 93010; 99214; G2211

== ENCOUNTER → 2024-08-08 08:13 | Outpatient (BNVA) | payer MEDICARE, SELFPAY | PROVIDERS: PCP Nurse Practitioner Family; Visit Provider Internal Medicine Cardiovascular Disease | DX: I25.10 Atherosclerotic heart disease of native coronary artery without angina pectoris (principal); I77.89 Other specified disorders of arteries and arterioles; R94.31 Abnormal electrocardiogram [ECG] [EKG] | CPT/HCPCS: 93005; 99212 ==

== ENCOUNTER 2024-08-10 07:32 | Outpatient (RCR) | payer MEDICARE, SELFPAY ==
--- NOTE | 2024-06-18 10:24 | MHC.OT.EP ---
[address] [phone] Occupational Therapy Plan of Care Patient Name: Zaki Ramirez Date of Evaluation: 06/18/24 Diagnosis: Partial Distal Bicep Tendon Tear Pain Location: Constant low pain through left arm, worse w/ poor weather 10/10 sharp pain through inner elbow and radiates down to hand and up to shoulder Pain Score: 3 Pain Scale Used: Numeric (0 - 10) Aggravating Factors: Heavy lifting, reaching specific directions Alleviating Factors: Meloxicam, Tylenol, Aleve, Gabapentin Assessment: 73 yo male presents to OT with persistent pain in left arm. He was seen for course of OT this fall to address elbow strain with no significant relief and was referred to [facility]. Since then he also had incident with reaching for a large mirror and had increased pain through left arm. MRI shows partial distal bicep tear, pt referred to therapist for conservative treatment until follow up w/ Dr Cordon. On assessment today, he reports constant low pain through inner elbow w/ tenderness and edema over distal bicep insertion. He has less then full range w/ elbow flexion and extension due to pain and tightness, and has discomfort and tightness w/ forearm rotation, specifically supination. We will continue outpatient OT services to address pain and muscle tightness associated with partial distal bicep tear, I anticipate he will do well w/ conservative treatment. Frequency and Duration: The patient will be seen 2x/wk for 6 weeks Short Term Goals: Ind w/ self massage to left arm Ind w/ use of ice and heat modalities Pt to demo good follow through w/ gentle AROM exercises Longterm Goals: Full elbow and forearm AROM Progress to gentle progressive strengthening Pain free at rest Pt to demo good body mechanics w/ lifting/carrying objects Treatment Plan: Therapeutic Exercise Therapeutic Activity Home Exercise Program Patient Education Edema Control ADL Training Ultrasound Iontophoresis MHP Cold Packs Joint Mobilization Soft Tissue Mobilization Kinesiotaping Electronically Signed By: Susan Sung OTR/Glenn CHT Please Sign and return to therapist. Thank you once again for your referral.
--- NOTE | 2024-08-10 10:34 | MHC.OT.DC ---
[address] [phone] F: [phone] Occupational Therapy Discharge Note Patient Name: Zaki Ramirez Provider: Dr Gaby Lynn Diagnosis: Partial Distal Bicep Tendon Tear Date of Evaluation: 06/18/24 Date of Discharge: 08/10/24 Treatments to Date: 10 Discharge Status: Achieved Goals Improved Function Independent with HEP Discharge Summary: Zaki was referred back to OT with persistent left arm pain, imaging showing partial distal bicep tear. We have progressed through course of OT w/ overall good results, but still tendencies to complete heavy gripping through work tasks or with recent snow removal. He has been mostly pain free or with low pain. Elbow is grossly within range, but tight with forearm supination and extension. He has good understanding of HEP, but not consistent w/ follow through. He does have good use of heat and massage and I anticipate he will continue to incorporate through daily routine. Electronically Signed By: Susan Sung OTR/L CHT Please Sign and return to therapist, thank you for your referral.
== END 2024-08-10 10:35 | disposition home or self-care (01) ==
LOC: HO.OT 07:32
PROVIDERS: PCP Nurse Practitioner Family; Visit Provider Physical Medicine & Rehabilitation
DX: S46.912A Strain of unspecified muscle, fascia and tendon at shoulder and upper arm level, left arm, initial encounter (principal)
CPT/HCPCS: 97035; 97110; 97140; 97165

== ENCOUNTER 2024-08-16 09:45 | Outpatient (RCR) | payer MEDICARE, SELFPAY ==
[2024-04-04] VITALS (8 sets, daily range): BP systolic 121–158; BP diastolic 52–63; PULSE 53–63; RESP 16–20; TEMP 36.4; O2SAT 95
[2024-04-04] MEDS: Immune Globulin 10% Gammagard 200 ML IV ×2 (08:29→09:53)
[2024-05-03 11:39] VITALS: BP 155/76; PULSE 65; RESP 18; TEMP 36.9; O2SAT 97
[2024-05-03] MEDS: Immune Globulin 10% Gammagard 200 ML IV ×2 (11:55→13:22)
[2024-05-03 12:27] VITALS: BP 173/77; PULSE 70; RESP 18
[2024-05-03 12:48] VITALS: BP 159/70; PULSE 61; RESP 18
[2024-05-03 13:01] VITALS: BP 175/79; PULSE 63; RESP 18
[2024-05-03 13:32] VITALS: BP 183/77; PULSE 64
[2024-05-03 14:02] VITALS: BP 168/77; PULSE 58
[2024-05-31 11:33] VITALS: BP 137/76; PULSE 70; RESP 16; TEMP 36.9; O2SAT 96
[2024-05-31] MEDS: Immune Globulin 10% Gammagard 200 ML IV ×2 (11:45→13:07)
[2024-05-31 12:00] VITALS: BP 136/63; PULSE 67
[2024-05-31 12:15] VITALS: BP 146/56; PULSE 63; RESP 18
[2024-05-31 12:30] VITALS: BP 157/63; PULSE 57; RESP 18
[2024-05-31 12:45] VITALS: BP 173/77; PULSE 56; RESP 18
[2024-05-31 13:31] VITALS: BP 165/72; PULSE 54; RESP 18
[2024-08-16] VITALS (7 sets, daily range): BP systolic 128–156; BP diastolic 58–69; PULSE 56–65; RESP 16–18; TEMP 36.7; O2SAT 95; BMI 37.6
[2024-08-16] MEDS: Immune Globulin 10% Gammagard 200 ML IV ×2 (09:53→11:16)
== END 2024-09-21 08:06 | disposition home or self-care (01) ==
LOC: HO.INF 09:45
PROVIDERS: Visit Provider Internal Medicine Pulmonary Disease
DX: D80.1 Nonfamilial hypogammaglobulinemia (principal)
CPT/HCPCS: 96365; 96366; J1569

== ENCOUNTER 2024-10-23 06:07 | Outpatient (REF) | payer MEDICARE, SELFPAY ==
[2024-10-23 07:59] LABS: Appearance Urine Clear; Color Urine Yellow; Glucose Urine UA Negative (Negative); Leukocyte Esterase Urine Small (1+) (Negative); Nitrite Urine Negative (Negative); PH 5.5 (5.0-9.0); UMIC TRIGGER UACC YES; Urine Blood Negative (Negative); Urine Ketones Negative (Negative); Urine Protein Negative (Neg-Trace)
[2024-10-23 08:28] LABS: Bacteria Urine None Seen (None Seen); Hyaline Casts Urine 0-2 /LPF (0-2); RBC Urine 0-2 /HPF (0-2); Squamous Epithelial Cell Urine 0-2 /HPF (0-2); UACC Culture Trigger YES; WBC Urine 0-5 /HPF (0-5)
== END 2024-10-23 06:08 | disposition home or self-care (01) ==
LOC: HO.LAB 06:07
PROVIDERS: PCP Nurse Practitioner Family; Visit Provider Nurse Practitioner Family
DX: Z00.00 Encounter for general adult medical examination without abnormal findings (principal)
CPT/HCPCS: 81001; 81003; 87086

== ENCOUNTER 2024-11-13 07:43 | Outpatient (AMB) | payer MEDICARE, SELFPAY ==
--- OUTSIDE RECORDS SUMMARY | 2024-11-13 07:46 | XMS_ITS | Clinical Summary ---
Author Organization [facility] it Address [address] [place] [address] Care Team Providers Care White Sugar Boiler Name Role Phone Milad Adame MD Primary Care Provider [phone] Medical History Medical History Date Comments Pneumonia DX:Pneumonia Chronic lung disease DX:Chronic lung disease Diabetes (CMS/HCC V24, CMS/HCC V28) DX:Diabetes ([facility]) High blood pressure DX:High bloo d pressure [...] - 2023-2 5 season) 2024 Influenza Vaccine (Season Ended) 2025 RSV Immunization Adult Patie nts (1 - 1-dose 75+ series) 2027 HIB [...] age to complete this topic Meningococcal B Vaccine Aged Out No l onger eligible based on patient's age to complete this topic RSV Immunization Patients Un noreen 20 months Aged Out No longer eligible b ased on patient's age to complete this topic Varicella Vaccines Aged Out No longer eligible based on patient's age to complete this topic Care Teams White Sugar Boiler Relationship Specialty Start Date End Date Milad Adame MD [address] [place] [phone] PCP - General Internal Medicine 10/01/14
--- NOTE | 2024-11-13 07:47 | A.OFFPC_ITS ---
Vital Signs 11/13/24 07:53 11/13/24 08:28 Height 5 ft 10.5 in Weight 265 lb BMI 37.5 BP 146/74 H 142/62 H Blood Pressure Location Lt brachial Rt brachial Position Sitting Sitting Respiration 16 Pulse 71 Pulse Source Pulse Oximeter Temp 97.9 F Temp Source Oral Pulse Oximetry (%) 99 Oxygen Delivery Method Room Air Intake Visit Reasons: 6 months f/up Intake Note: Pt is here today for his 6mo. f/u Allergies latex [LATEX] Allergy (Intermediate, Verified 11/13/24 08:19) RASH Rlwldnt-CCE-YeO Reductase Inhibitor Adverse Reaction (Intermediate, Verified 11/13/24 08:19) Muscle Pain spironolactone Adverse Reaction (Mild, Verified 11/13/24 08:19) Migraine lisinopril Adverse Reaction (Verified 11/13/24 08:19) Nausea and Vomiting Medication List - Last Reconciled 11/13/24 by MAI SchmittP- acetaminophen 500 mg PO ONCE PRN acetaminophen ER (Tylenol Arthritis Pain) 1,300 mg PO Q12H amlodipine 10 mg PO 1700 ascorbic acid (vitamin C) 1,000 mg PO DAILY aspirin 81 mg PO DAILY cholecalciferol (vitamin D3) 4,000 units PO DAILY cyanocobalamin (vitamin B-12) 1,000 mcg PO DAILY ferrous sulfate 325 mg PO DAILY finasteride 5 mg PO DAILY jvgbxmlgbcn-ibpzjssgx-wekgwdkz 100-62.5-25 mcg (Trelegy Ellipta) 1 inh inhalation DAILY furosemide 40 mg PO DAILY gabapentin 900 mg (3 x 300 mg) PO BEDTIME glucosamine HCl 1,000 mg PO DAILY labetalol 100 mg PO BID losartan 100 mg PO DAILY tamsulosin 0.4 mg PO BEDTIME Tobacco use date assessed: 11/13/24 Fall risk assessment: No Falls in past year Last assessed Fall Risk: 11/13/24 Dental Screening Dental Screen Date: 11/13/24 HPI 6 months f/up HPI Details Chief Complaint Ongoing left lower extremity swelling and severe pain in the left Achilles tendon region, approximately one year post-injury. History of Present Illness The patient is a 74-year-old male presenting with left lower extremity swelling and severe pain in the left Achilles. The issue originated approximately one year ago due to a tripping incident while descending stairs. He reports significant tenderness and pain in the left distal Achilles tendon since the incident, accompanied by swelling and +1 pitting edema in the ankle region. The patient also exhibits bilateral varicose veins. Despite the pain, he maintains some range of motion with plantar flexion against resistance. Social History Health Maintenance Review of Systems - Musculoskeletal: Reports ongoing left lower extremity swelling and severe pain in the left Achilles tendon region. - Peripheral vascular: Reports significa nt varicose and spider veins in bilateral lower extremities. - Cardiovascular: Reports weak but posit taqueria pedal pulses in the lower extremities. Physical Exam General: Cooperative, healthy appearing, comfortable, no acute distress and well developed, obese Orientation: Patient oriented x3 Limitations: No limitations Head: Normal to inspection Ears: Hearing grossly normal bilaterally Nose: Normal external nose present Face and sinus: Normal facial exam Eyes: Appearance normal, both eyes and all related structures Neck: Normal visual inspection and Yes full ROM Respiratory: Normal respiratory effort and able to speak in complete sentences. Clear to auscultation bilaterally Cardiovascular: Regular rate and rhythm. Normal S1 and S2 GI: Normal to inspection. Soft to palpation and nontender Skin: No rashes or lesions noted Neuro: Patient oriented x3 Extremities: Left lower extremity with +1 pitting edema, especially around the ankle region. trace to RLE. Severe tenderness to distal Achilles, left distal Achilles region with dorsiflexion. Some tenderness with palpation. Weak but positive pedal pulse noted. Varicose veins and spider veins noted to bilateral extremities. Results Plan I will conduct venous testing on both lower extremities, emphasizing the left side, to assess for vascular abnormalities. Additionally, an MRI of the left ankle and Achilles tendon will be performed to evaluate structural issues contributing to the chronic pain and swelling. The imaging will guide subsequent management and treatment approaches, considering the persistent impact on the patient?s activity. Doppler also ordered to LLE to r/o any DVTs. Discussion Notes I discussed the likely diagnosis and management plan with the patient, highlighting the ongoing need for imaging to better understand his Achilles tendon issues. I explained the MRI procedure, its benefits in diagnosing tendon and soft tissue injuries, and potential findings that could influence treatment options. I also emphasized the importance of venous testing in evaluating the extent of his peripheral vascular condition. The patient was counseled on the necessity of follow-up visits, where we will review test results and adjust treatment as necessary. He was advised on activities to avoid that may exacerbate his symptoms. Patient Instructions - Undergo venous testing for both legs. - Schedule and complete an MRI of the le ft ankle and Achilles. - Avoid activities that worsen pain or s welling. - Follow up with healthcare provider to review test results. - Monitor for any new symptoms or increa sed pain, and seek care if they occur. [facility] Medical History Polyarthritis Kidney stones CAD (coronary artery disease) History of DVT (deep vein thrombosis) HTN (hypertension) Diabetes COPD (chronic obstructive pulmonary disease) JENNY (obstructive sleep apnea) Personal history of nicotine dependence Obesity HUNG positive BPH (benign prostatic hyperplasia) Neck pain Acute urinary retention Fatigue Chronic fatigue Minimal depression Osteoarthritis Surgical History Hx of colonoscopy S/P excision of lipoma History of resection of small bowel History of ventral hernia repair History of sleeve gastrectomy Hx of right knee surgery History of vasectomy History of tonsillectomy Family History Father CAD (coronary artery disease) Mother Mental health disorder Brother Accelerated hypertension Son No problems noted. Daughter No problems noted. Sister Leukemia Sister Cerebral palsy Sister No problems noted. 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 1. Little interest or pleasure in doing things: several days 2. Feeling down, depressed, or hopeless: several days 3. Trouble falling or staying asleep, or sleeping too much: more than half the days 4. Feeling tired or having little energy: more than half the days 5. Poor appetite or overeating: more than half the days 6. Feeling bad about yourself - or that you are a failure or have let yourself or your family down: not at all 7. Trouble concentrating on things, such as reading the newspaper or watching television: not at all 8. Moving or speaking so slowly that other people could have noticed. Or the opposite - being so fidgety or restless that you have been moving around a lot more than usual: not at all 9. Thoughts that you would be better off or of hurting yourself in some way: not at all Total score: 8 Depression Screening Interpretation: Positive (has a therapist, denies any si or hi) Depression Screening Done: Yes 41413 - PHQ-9 Billing: Yes Source: Developed by Drs. Alcides Matt, Dori Martinez, Mani Hunt and colleagues, with an educational rogelio from [employer]. Thrive Questionnaire Date Thrive assessed: 11/10/24 I am a: Patient What is your living situation today?: I have a steady place to live Within the past 12 months, did the food you bought not last and you didn't have the money to get more?: Never true Within the past 12 months, did you worry whether your food would run out before you got money to buy more?: Never true Do you have trouble paying for medicines?: Yes Do you have trouble getting transportation to medical appointments?: No Do you have trouble paying your heating and electricity bill?: No Do you have trouble taking care of your child, family member or friend?: No Do you have trouble with day-to-day activities such as bathing, preparing meals, shopping, managing finances, etc.?: No Are you currently unemployed and looking for a job?: No Are you interested in more education?: No Please select the resources that you would like help with: Paying for medicine and Utilities Currently or been in a relationship where the following occur: No concerns reported THRIVE Score: 0 AUDIT C Alcohol Use Questionnaire (AUDIT-C) 1. How often do you have a drink containing alcohol?: Monthly or less 2. How many drinks containing alcohol do you have on a typical day when you are drinking?: 1 or 2 3. How often do you have six or more drinks on one occasion?: Never Total Score: 1 ALYSIA-7 AMB Questionnaire ALYSIA-7 Date ALYSIA - 7 assessed: 05/09/24 Feeling nervous, anxious, or on edge: 1 = Several days Not being able to stop or control worryin = Several days Worrying too much about different things: 1 = Several days Trouble relaxin = Several days Being so restless that it is hard to sit still: 0 = Not at all Becoming easily annoyed or irritable: 0 = Not at all Feeling afraid as if something awful might happen: 1 = Several days Total ALYSIA-7 score (0-4 normal; 5-9 mild; 10-14 moderate; 15-21 severe): 5 Source: Developed by Drs. Alcides Matt, Dori Martinez, Mani Hunt and colleagues, with an educational rogelio from [employer]. Physical exam (Primary Care) Vital Signs: Last Vital Signs Temp 97.9 F 11/13/24 07:53 Pulse 71 11/13/24 07:53 Resp 16 11/13/24 07:53 BP 146/74 H 11/13/24 07:53 Pulse Ox 99 11/13/24 07:53 Oxygen Delivery Method Room Air 11/13/24 07:53 BMI result Body Mass Index 37.5 Tobacco/Smoking Status: Tobacco use Status Tobacco use date assessed 11/13/24 11/13/24 07:49 Patient Tobacco Use Status Former Tobacco user 11/13/24 07:49 Tobacco use type Cigarette 11/13/24 07:49 e-Cigarette/Vaping Use Never Used 11/13/24 07:49 PHQ-9: PHQ-9 Score PHQ-9: Total score 8 11/13/24 08:23 Depression Screening Interpretation: Positive (has a therapist, denies any si or hi) Thrive Assessment: Date of Thrive Assessment Date Thrive assessed 11/10/24 11/13/24 07:49 Currently or been in a relationship where the following occur: No concerns reported Results AMB Hemoglobin A1c AMB Hemoglobin A1c 5.7 % Last Edit by Ana Bello CMA on 11/13/24 08:01 Results Reviewed Results Reviewed: Laboratory Last Values Hgb A1c (Clinic) 5.7 % (4.0-6.0) 11/13/24 08:00 Coding Level of Care Code Est Pt Level 4 (53842) Diagnoses Achilles tendinitis, left leg M76.62 Swelling of ankle M25.473 Swelling of left lower extremity M79.89 HTN (hypertension) I10 Additional Codes PHQ-9 - 53339 - PHQ-9 Billing: Yes ([id number]) Assessment & Plan Assessment & Plan (1) Achilles tendinitis, left leg: Code(s): M76.62 - Achilles tendinitis, left leg Category: Medical Plan: . (2) Swelling of ankle: Code(s): M25.473 - Effusion, unspecified ankle Category: Medical Plan: . (3) Swelling of left lower extremity: Code(s): M79.89 - Other specified soft tissue disorders Category: Medical (4) HTN (hypertension): Code(s): I10 - Essential (primary) hypertension Category: Medical Plan: monitor BP at home, send me values via the portal Plan . Orders: Orders US venous insuf bilat Today M79.89 - Other specified soft tissue disorders AMB Hemoglobin A1c Today E11.9 - Type 2 diabetes mellitus without complications MR ankle LT wo con Today M25.473 - Effusion, unspecified ankle, M76.62 - Achilles tendinitis, left leg US venous duplex LE LT Today M79.89 - Other specified soft tissue disorders
[2024-11-13 07:53] VITALS: BP 146/74; PULSE 71; RESP 16; TEMP 36.6; O2SAT 99; BMI 37.5
[2024-11-13 08:28] VITALS: BP 142/62
== END 2024-11-13 08:54 | disposition home or self-care (01) ==
LOC: HO.HMCC 07:44
PROVIDERS: PCP Nurse Practitioner Family; Visit Provider Nurse Practitioner Family
DX: M76.62 Achilles tendinitis, left leg (principal); M25.473 Effusion, unspecified ankle; M79.89 Other specified soft tissue disorders; I10 Essential (primary) hypertension; E11.9 Type 2 diabetes mellitus without complications

== ENCOUNTER → 2024-11-13 07:43 | Outpatient (BNVA) | payer MEDICARE, SELFPAY | PROVIDERS: PCP Nurse Practitioner Family; Visit Provider Nurse Practitioner Family | DX: Z13.89 Encounter for screening for other disorder (principal) ==

== ENCOUNTER 2024-11-13 08:46 | Outpatient (REF) | payer MEDICARE, SELFPAY ==
--- NOTE | ~2024-11-13 | US_ITS ---
EXAMINATION: US TRIPLEX LOWER EXTREMITY, LEFT CLINICAL INFORMATION: Pain and swelling, left lower extremity. COMPARISON: May 19, 2024 TECHNIQUE: Color-flow triplex imaging with spectral analysis and compression Doppler were performed on the left lower extremity. FINDINGS: Respiratory variation, normal compression and augmented flow are demonstrated within the interrogated common femoral vein, superficial femoral vein, profunda femoral vein, popliteal vein and midcalf peroneal and posterior tibial venous segments. There is no Neville's cyst. US/US venous duplex LE IMPRESSION: No acute deep venous thrombosis interrogated veins, left lower extremity. Negative for DVT. Electronically signed by: Crow Fam MD 11/13/2024 09:53 AM EDT
== END 2024-11-13 08:47 | disposition home or self-care (01) ==
LOC: HO.HMGCX 08:46
PROVIDERS: PCP Nurse Practitioner Family; Visit Provider Nurse Practitioner Family
DX: R60.0 Localized edema (principal); M76.62 Achilles tendinitis, left leg; M25.473 Effusion, unspecified ankle; I10 Essential (primary) hypertension; E11.9 Type 2 diabetes mellitus without complications
CPT/HCPCS: 83036; 93971; 96127; 99212

== ENCOUNTER → 2024-11-13 08:55 | Outpatient (BNV) | payer MEDICARE, SELFPAY | PROVIDERS: PCP Nurse Practitioner Family; Visit Provider Radiology Diagnostic Radiology | DX: R22.42 Localized swelling, mass and lump, left lower limb (principal) | CPT/HCPCS: 93971 ==

== ENCOUNTER 2024-11-18 07:14 | Outpatient (REF) | payer MEDICARE, SELFPAY ==
--- NOTE | ~2024-11-18 | MR_ITS ---
CLINICAL HISTORY: M76.62 - Achilles tendinitis, left leg MR left ankle without gadolinium Comparison: None Findings: No acute fractures. No pathologic bone lesions. No joint effusion. Ligaments are intact. The rest of the visualized tendons are intact. There is mild tenosynovitis of the tibialis posterior and flexor digitorum longus tendons. The examination demonstrates a partial longitudinal tear of the achilles tendon measuring 5.4 cm in length with the distal and located 4.5 cm from the insertion. Medial, lateral, and central bands of the plantar fascia are intact. The tendon is enlarged and rounded proximal to the insertion. Peritendinous fluid is present. The tendon insertion is unremarkable. There is severe generalized soft tissue edema in the lower leg, ankle and foot. IMPRESSION: Partial longitudinal tear of the achilles tendon with intra tendinous and peritendinous fluid. Significant soft tissue edema. This document has been electronically signed by: Min Mary MD on 11/20/2024 09:06:53
--- OUTSIDE RECORDS SUMMARY | 2024-11-18 07:17 | XMS_ITS | Clinical Summary ---
Author Organization [facility] it Address [address] [place] [address] Care Team Providers Care Field Pipelines Supervisor Name Role Phone Milad Adame MD Primary Care Provider [phone] Medical History Medical History Date Comments Pneumonia DX:Pneumonia Chronic lung disease DX:Chronic lung disease Diabetes (CMS/HCC V24, CMS/HCC V28) DX:Diabetes ([facility]) High blood pressure DX:High bloo d pressure [...] age to complete this topic Care Teams Field Pipelines Supervisor Relationship Specialty Start Date End Date Milad Adame MD [address] [place] [id number] PCP - General Internal Medicine 10/01/14
== END 2024-11-18 07:15 | disposition home or self-care (01) ==
LOC: HO.MRI 07:14
PROVIDERS: PCP Nurse Practitioner Family; Visit Provider Nurse Practitioner Family
DX: M76.62 Achilles tendinitis, left leg (principal); M25.472 Effusion, left ankle
CPT/HCPCS: 73721

== ENCOUNTER 2024-11-22 14:04 | Outpatient (AMB) | payer MEDICARE, SELFPAY ==
[2024-11-22 14:11] VITALS: BP 160/62; PULSE 76; O2SAT 96; BMI 37.3
--- NOTE | 2024-11-22 14:11 | MHC.OFFVIS ---
Vital Signs 11/22/24 14:11 Height 5 ft 10.5 in Weight 264 lb BMI 37.3 BP 160/62 H Blood Pressure Location Lt brachial Position Sitting Pulse 76 Pulse Source Pulse Oximeter Pulse Oximetry (%) 96 Oxygen Delivery Method Room Air Intake Visit Reasons: COPD Allergies latex [LATEX] Allergy (Intermediate, Verified 11/22/24 14:17) RASH Kkexfqo-IAA-KtQ Reductase Inhibitor Adverse Reaction (Intermediate, Verified 11/22/24 14:17) Muscle Pain spironolactone Adverse Reaction (Mild, Verified 11/22/24 14:17) Migraine lisinopril Adverse Reaction (Verified 11/22/24 14:17) Nausea and Vomiting HPI HPI COPD: Details: 73-year-old gentleman, former 60+ pack-year smoker, quit 2011 followed for COPD and CVID. After the last office visit patient was started on IVIG and had 3 injections, after that he wanted to stop the injections secondary to development of lower extremity rash, however he had rash persist to wax and wane, even after he stopped his IVIG and at this time believed to have a different etiology. Patient is also complaining of slowly worsening dyspnea symptoms, though he denies acute exacerbations. [facility] Medical History Polyarthritis Kidney stones CAD (coronary artery disease) History of DVT (deep vein thrombosis) HTN (hypertension) Diabetes COPD (chronic obstructive pulmonary disease) JENNY (obstructive sleep apnea) Personal history of nicotine dependence Obesity HUNG positive BPH (benign prostatic hyperplasia) Neck pain Acute urinary retention Fatigue Chronic fatigue Minimal depression Osteoarthritis Surgical History Hx of colonoscopy S/P excision of lipoma History of resection of small bowel History of ventral hernia repair History of sleeve gastrectomy Hx of right knee surgery History of vasectomy History of tonsillectomy Family History Father CAD (coronary artery disease) Mother Mental health disorder Brother Accelerated hypertension Son No problems noted. Daughter No problems noted. Sister Leukemia Sister Cerebral palsy Sister No problems noted. 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 Cognitive needs: No Hearing needs: No Vision needs: No Review of Systems Const Denies daytime sleepiness, Denies excessive sweating, Denies fatigue, Denies fever(s), Denies lethargy, Denies malaise, Denies night sweats, Denies snoring and Denies weight loss Eyes Denies blurry vision and Denies itchy eyes ENT Denies nasal congestion, Denies post nasal drip, Denies sinus pain, Denies sinus pressure and Denies other ( Thrush) Card Denies chest pain, Denies pedal edema, Denies dyspnea, Reports dyspnea on exertion, Denies orthopnea and Denies paroxysmal nocturnal dyspnea Resp Denies cough, Denies hemoptysis, Denies excessive phlegm production, Denies dyspnea, Reports dyspnea on exertion, Denies snoring and Denies wheezing GI Denies abdominal pain and Denies heartburn Musc Denies myalgias, Denies arthralgias and Denies joint swelling Skin/Breast Denies rash Neuro Denies memory loss and Denies seizure-like activity Psych Denies abnormal sleep pattern, Denies anxiety and Denies memory loss Endo Denies excessive sweating, Denies fatigue and Denies heat intolerance Ina/Lymph Denies easy bruising Aller/Immun Denies itchy eyes, Denies seasonal rhinorrhea and Denies wheezing Physical Exam Vital Signs: Last Vital Signs Pulse 76 11/22/24 14:11 BP 160/62 H 11/22/24 14:11 Pulse Ox 96 11/22/24 14:11 Oxygen Delivery Method Room Air 11/22/24 14:11 BMI result Body Mass Index 37.3 Const General: no acute distress and alert Nutritional Appearance: not obese Orientation/consciousness: Other orientation findings ( oriented) HEENT Head: Yes atraumatic Eyes General: appearance normal, both eyes and all related structures Sclerae: sclerae normal EOM: EOMs intact bilaterally Neck Neck: Yes supple Lymphatic: no lymphadenopathy noted Resp Effort & Inspection: normal respiratory effort and no use of accessory muscles Auscultation: clear to auscultation bilaterally Cardio Rate: regular rate Rhythm: regular rhythm Heart sounds: no gallops, no murmurs and no rubs Skin General skin exam: other ( warm) Extrem General: No clubbing, No cyanosis and No edema Assessment & Plan Assessment & Plan (1) COPD (chronic obstructive pulmonary disease): Code(s): J44.9 - Chronic obstructive pulmonary disease, unspecified Category: Medical Plan: Slowly worsening control on Trelegy and albuterol MDI/nebs. Will add theophylline. 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 Medications: New fwaktrtwbzs-mqeebdltw-sfzryvsk 100-62.5-25 mcg (Trelegy Ellipta) 1 inh inhalation DAILY 1 ea 6RF theophylline ER 400 mg PO DAILY 30 tabs 6RF Coding Level of Care Code Est Pt Level 4 (41775) Diagnoses COPD (chronic obstructive pulmonary disease) J44.9 IgG deficiency D80.3
--- OUTSIDE RECORDS SUMMARY | 2024-11-22 16:42 | XMS_ITS | Clinical Summary ---
Author Organization [facility] it Address [address] [place] [address] Care Team Providers Care Veterans Adviser Name Role Phone Milad Adame MD Primary Care Provider [phone] Medical History Medical History Date Comments Pneumonia DX:Pneumonia Chronic lung disease DX:Chronic lung disease Diabetes (CMS/HCC V24, CMS/HCC V28) DX:Diabetes ([facility]) High blood pressure DX:High bloo d pressure [...] age to complete this topic Care Teams Veterans Adviser Relationship Specialty Start Date End Date Milad Adame MD [address] [place] [phone] PCP - General Internal Medicine 10/01/14
== END 2024-11-22 14:30 | disposition home or self-care (01) ==
LOC: HO.HPS 14:05
PROVIDERS: PCP Nurse Practitioner Family; Visit Provider Internal Medicine Pulmonary Disease
DX: J44.9 Chronic obstructive pulmonary disease, unspecified (principal); D80.3 Selective deficiency of immunoglobulin G [IgG] subclasses
CPT/HCPCS: 99214

== ENCOUNTER → 2024-11-22 14:04 | Outpatient (BNVA) | payer MEDICARE, SELFPAY | PROVIDERS: PCP Nurse Practitioner Family; Visit Provider Internal Medicine Pulmonary Disease | DX: J44.9 Chronic obstructive pulmonary disease, unspecified (principal); D80.3 Selective deficiency of immunoglobulin G [IgG] subclasses | CPT/HCPCS: 99212 ==

== ENCOUNTER 2024-11-26 09:30 | Outpatient (AMB) | payer MEDICARE, SELFPAY ==
--- NOTE | 2024-11-26 09:40 | MHC.OFFVIS ---
Intake Visit Reasons: New prob- Left Achilles injury, see MRI Intake Note: Zaki 74 yr old male presents today for a new problem visit for his left achilles. States he has ongoing pain for over 1 year At times he feels like it flares up, he gets swelling, burning sensation and sharp pain. Painful to walk on inclines and declines. States he recall steeping wrong way on a step and felt pain. States he has tried anti inflammatories which helped somewhat. MRI done. Allergies latex [LATEX] Allergy (Intermediate, Verified 11/26/24 09:44) RASH Xeoajyd-GPS-WxD Reductase Inhibitor Adverse Reaction (Intermediate, Verified 11/26/24 09:44) Muscle Pain spironolactone Adverse Reaction (Mild, Verified 11/26/24 09:44) Migraine lisinopril Adverse Reaction (Verified 11/26/24 09:44) Nausea and Vomiting Medication List - Last Reconciled 11/26/24 by Roberta Garcia PA-C acetaminophen 500 mg PO ONCE PRN acetaminophen ER (Tylenol Arthritis Pain) 1,300 mg PO Q12H amlodipine 10 mg PO 1700 ascorbic acid (vitamin C) 1,000 mg PO DAILY aspirin 81 mg PO DAILY cholecalciferol (vitamin D3) 4,000 units PO DAILY cyanocobalamin (vitamin B-12) 1,000 mcg PO DAILY ferrous sulfate 325 mg PO DAILY finasteride 5 mg PO DAILY annggkcitnp-ovvopemhi-auimvaxr 100-62.5-25 mcg (Trelegy Ellipta) 1 inh inhalation DAILY furosemide 40 mg PO DAILY gabapentin 900 mg (3 x 300 mg) PO BEDTIME glucosamine HCl 1,000 mg PO DAILY labetalol 100 mg PO BID losartan 100 mg PO DAILY tamsulosin 0.4 mg PO BEDTIME theophylline ER 400 mg PO DAILY HPI HPI New prob- Left Achilles injury, see MRI: Details: 74-year-old gentleman presents to the office today for a left Achilles injury. He states over a year ago he had an injury to the left ankle where he had some weakness. Over time he states it has been discomfort and swelling but he is able to perform most activities. He has had no treatment to date but was referred to our office for further evaluation. He did have an MRI of the left ankle which showed a longitudinal tear of the Achilles tendon. [facility] Medical History Polyarthritis Kidney stones CAD (coronary artery disease) History of DVT (deep vein thrombosis) HTN (hypertension) Diabetes COPD (chronic obstructive pulmonary disease) JENNY (obstructive sleep apnea) Personal history of nicotine dependence Obesity HUNG positive BPH (benign prostatic hyperplasia) Neck pain Acute urinary retention Fatigue Chronic fatigue Minimal depression Osteoarthritis Surgical History Hx of colonoscopy S/P excision of lipoma History of resection of small bowel History of ventral hernia repair History of sleeve gastrectomy Hx of right knee surgery History of vasectomy History of tonsillectomy Family History Father CAD (coronary artery disease) Mother Mental health disorder Brother Accelerated hypertension Son No problems noted. Daughter No problems noted. Sister Leukemia Sister Cerebral palsy Sister No problems noted. Social History Household Members: None 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 He has no palpable defect over the Achilles tendon. Negative Marmolejo's. He is able to dorsiflex however there is weakness with plantar flexion. Neurovascularly intact. Results Reviewed Results Reviewed: IMPRESSION: Partial longitudinal tear of the achilles tendon with intra tendinous and peritendinous fluid. Significant soft tissue edema. Assessment & Plan Assessment & Plan (1) Achilles tendon tear: Code(s): S86.019A - Strain of unspecified Achilles tendon, initial encounter Category: Medical Plan: I discussed with the patient this is an injury that does not require surgery. I recommend physical therapy to work on strengthening exercises. I did explain he may lose some strength with pushing off activities however overall he should be able to function without limitations. The patient does express understanding if there is any questions she will contact our office otherwise follow up as needed. Orders: Orders PT Evaluation and Treatment Today S86.019A - Strain of unspecified Achilles tendon, initial encounter Coding Level of Care Code New Pt Level 3 (40334) Complex EM visit Add On G2211 Diagnoses Achilles tendon tear S86.019A
--- OUTSIDE RECORDS SUMMARY | 2024-11-26 10:06 | XMS_ITS | Clinical Summary ---
Author Organization [facility] it Address [address] [place] [address] Care Team Providers Care Medical Dir Name Role Phone Milad Adame MD Primary Care Provider [phone] Medical History Medical History Date Comments Pneumonia DX:Pneumonia Chronic lung disease DX:Chronic lung disease Diabetes (CMS/HCC V24, CMS/HCC V28) DX:Diabetes ([facility]) High blood pressure DX:High bloo d [...] to complete this topic Care Teams Medical Dir Relationship Specialty Start Date End Date Milad Adame MD [address] [place] [phone] PCP - General Internal Medicine 10/01/14
== END 2024-11-26 11:32 | disposition home or self-care (01) ==
LOC: HO.HOS 09:31
PROVIDERS: PCP Nurse Practitioner Family; Visit Provider Physician Assistant
DX: S86.019A Strain of unspecified Achilles tendon, initial encounter (principal)
CPT/HCPCS: 99213; G2211

== ENCOUNTER → 2024-11-26 09:30 | Outpatient (BNVA) | payer MEDICARE, SELFPAY | PROVIDERS: PCP Nurse Practitioner Family; Visit Provider Physician Assistant | DX: S86.019A Strain of unspecified Achilles tendon, initial encounter (principal) | CPT/HCPCS: 99212 ==

== ENCOUNTER 2025-02-07 12:14 | Outpatient (REF) | payer MEDICARE, SELFPAY ==
--- NOTE | ~2025-02-07 | XR_ITS ---
EXAMINATION: XR FOOT, LEFT CLINICAL INFORMATION: M79.676 - Pain in unspecified toe(s) COMPARISON: None available. TECHNIQUE: AP, lateral, and oblique views of the left foot. FINDINGS: Small marginal osteophyte are present along the lateral first metatarsophalangeal joint and medial malleolar tip. Small enthesophytes are evident at the Achilles tendon and plantar fascial attachments on calcaneus. There is probable thickening of Achilles tendon. XR/XR foot LT min 3V IMPRESSION: Suspected Achilles tendinopathy. Mild degenerative changes in the first MTP joint and medial malleolus Electronically signed by: Kaz Jacob MD 02/07/2025 01:03 PM EDT RP
== END 2025-02-07 12:15 | disposition home or self-care (01) ==
LOC: HO.HMGCX 12:14
PROVIDERS: PCP Nurse Practitioner Family; Visit Provider Nurse Practitioner Family
DX: M79.675 Pain in left toe(s) (principal); G89.29 Other chronic pain
CPT/HCPCS: 73630

== ENCOUNTER → 2025-02-07 12:17 | Outpatient (BNV) | payer MEDICARE, SELFPAY | PROVIDERS: PCP Nurse Practitioner Family; Visit Provider Radiology Diagnostic Radiology | DX: M79.672 Pain in left foot (principal) | CPT/HCPCS: 73630 ==

== ENCOUNTER 2025-02-07 14:00 | Outpatient (RCR) | payer MEDICARE, SELFPAY ==
--- NOTE | 2024-12-11 16:31 | MHC.PT.EP ---
[facility] [place] Office [place] Office [place] Office [address] Marbella [place] [address] [phone] F: [phone] F: [phone] F: [phone] F: [phone] Physical Therapy Plan of Care Date of Evaluation: 12/10/24 Date of Surgery: n/a Diagnosis: Strain of unspecified Achilles tendon, initial encounter Achilles tendon tear, non op treatment -rom and strength Assessment: Pt is a pleasant and motivated 74yo M who presents to PT with L achilles pain. MRI revealed Partial longitudinal tear of the achilles tendon with intra tendinous and peritendinous fluid. Significant soft tissue edema. He presents to PT with current impairments in pain, swelling, decreased ROM, decreased strength, soft tissue restrictions, and impaired gait. He is limited functionally by prolonged standing, prolonged walking, and stair navigation. He is a good candidate for skilled PT in order to address current impairments to facilitate return to PLOF, He is recommended to be seen 2x/week for 4 weeks and will be reassessed at that time Frequency and Duration: The patient will be seen 2x/week for 4 weeks Short Term Goals: Pt will be I with HEP to promote self management of symptoms Pt will improve L DF ROM by at least 5 degrees Custodial Goals: Pt will achieve full ROM and strength all planes of L ankle to assist with prolonged standing and walking Pt will tolerate prolonged standing and walking > 1 hour with improved gait mechanics and pain < 2/10 Pt will demonstrate improvements in function as evidenced by statistically significant improvement in LEFI outcome measure Treatment Plan: Modalities to reduce pain, spasms and effusion. Manual therapy to restore motion and function. Therapeutic exercise to improve strength and flexibility. Neuromuscular re-education for posture and balance. Therapeutic activities to return to functional activities of daily living. Electronically signed by: Bella Hough, PT, DPT Please sign and return to therapist. Thank you for your referral.
--- NOTE | 2025-04-23 10:32 | MHC.PT.DC ---
[facility] [place] Office [place] Office [place] Office [address] Marbella [place] [address] [phone] F: [phone] F: [phone] F: [phone] F: [phone] Physical Therapy Discharge Report Diagnosis: Strain of unspecified Achilles tendon, initial encounter Achilles tendon tear, non op treatment -rom and strength Date of Surgery: n/a Date of Evaluation: 12/10/24 Date of Discharge: 04/23/25 Treatments to Date: 9 Cancellations to Date: No Shows to Date: Discharge Status: Improved Function Independent with HEP Discharge Summary: Pt was seen for skilled PT from 12/10/24-02/07/25. His last attended and scheduled appointment was 02/07/25. He made great progress since SOC. Please see assessment from last PT treatment note on 02/07/25 by Danya below: Overall he reports feeling much better since starting PT able to walk longer, stand longer periods and overall just less pain. We reviewed exercises and he progressed through them without need for cueing. At this time he is appropriate for d/c Electronically signed by: Bella Hardin, PT, DPT Please sign and return to therapist. Thank you for your referral.
== END 2025-04-23 10:32 | disposition home or self-care (01) ==
LOC: HO.PT 14:00
PROVIDERS: PCP Nurse Practitioner Family; Visit Provider Physician Assistant
DX: S86.011D Strain of right Achilles tendon, subsequent encounter (principal)
CPT/HCPCS: 97110; 97140; 97162; 97530

== ENCOUNTER → 2025-02-21 14:56 | Outpatient (BNVA) | payer MEDICARE, SELFPAY | PROVIDERS: PCP Nurse Practitioner Family | DX: Z13.89 Encounter for screening for other disorder (principal) | CPT/HCPCS: 99211 ==

== ENCOUNTER 2025-03-05 13:19 | Outpatient (AMB) | payer MEDICARE, SELFPAY ==
--- NOTE | 2025-03-05 13:23 | A.OFFVIS_ITS ---
Vital Signs 03/05/25 13:26 Height 5 ft 10 in Weight 265 lb BMI 38.0 Intake Visit Reasons: Achilles tendinitis, pain in foot Intake Note: Zaki is a 74 year old male who presents to the office today as a new patient visit referred by his PCP Fortunato Gaming for left Achilles tendinitis, pain in foot. Ankle MRI, foot x-ray, and venous duplex in chart. Pt reports he has co ncerns of bone spurs on his left foot between his 2nd and 4th toe. He has no concerns in regards to his achilles tendonitis. Patient mentions he has pain in his left foot and toes. Allergies latex (LATEX) Allergy (Intermediate, Verified 03/05/25 13:26) RASH Iotupox-JHT-OeB Reductase Inhibitor Adverse Reaction (Intermediate, Verified 03/05/25 13:26) Muscle Pain spironolactone Adverse Reaction (Mild, Verified 03/05/25 13:26) Migraine lisinopril Adverse Reaction (Verified 03/05/25 13:26) Nausea and Vomiting Medication List - Last Reconciled 03/05/25 by Aleks Santana DPM acetaminophen 1,000 mg PO QID PRN amlodipine 10 mg PO .Daily at 4pm ascorbic acid (vitamin C) 1,000 mg PO DAILY aspirin 81 mg PO DAILY cholecalciferol (vitamin D3) 100 mcg PO DAILY cyanocobalamin (vitamin B-12) 1,000 mcg PO DAILY ferrous sulfate 325 mg PO DAILY finasteride 5 mg PO DAILY vltzkbsjpku-lrupuyvvy-kramgdgv 100-62.5-25 mcg (Trelegy Ellipta) 1 inh inhalation DAILY furosemide 40 mg PO DAILY gabapentin 900 mg (3 x 300 mg) PO BEDTIME glucosamine HCl 1,000 mg PO DAILY labetalol 150 mg (1.5 x 100 mg) PO BID losartan 50 mg PO BID 30 days naproxen sodium (Flanax (naproxen)) 440 mg PO DAILY tamsulosin 0.4 mg PO DAILY theophylline ER 200 mg PO DAILY HPI HPI Achilles tendinitis, pain in foot: Details: The patient is a 74-year-old male with past medical history of diabetes mellitus, hypertension, COPD, CAD, polyarthralgia, presents for left forefoot pain, toe stiffness, and Achilles tendinitis. The Achilles tendon injury was present for several years and was on and off with recurrent flares. After he had left upper extremity biceps tendon surgery, his left Achilles tendon pain had worsened. He was referred to physical therapy, which improved his symptoms and relieved his pain immediately. He then began to notice pain to the front of his left foot and stiffness to his left foot toes. He also has pain to the ball of his foot, worse to towards his 3rd and 4th toes. The patient reports a sensation niles to a stubbed toe, with swelling and numbness in the affected area, exacerbated by certain movements. The pain is described as soreness and cramping, without burning or tingling, and is primarily noticed during specific activities. [facility] Medical History Polyarthritis Kidney stones CAD (coronary artery disease) History of DVT (deep vein thrombosis) HTN (hypertension) Diabetes COPD (chronic obstructive pulmonary disease) JENNY (obstructive sleep apnea) Personal history of nicotine dependence Obesity HUNG positive BPH (benign prostatic hyperplasia) Neck pain Acute urinary retention Fatigue Chronic fatigue Minimal depression Osteoarthritis Surgical History Hx of colonoscopy S/P excision of lipoma History of resection of small bowel History of ventral hernia repair History of sleeve gastrectomy Hx of right knee surgery History of vasectomy History of tonsillectomy Family History Father CAD (coronary artery disease) Mother Mental health disorder Brother Accelerated hypertension Son No problems noted. Daughter No problems noted. Sister Leukemia Sister Cerebral palsy Sister No problems noted. 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 Temperature gradient warm to cool. No pedal edema. Extensive varicosities to the left foot. Derm: No clinical signs of infection to his feet. Neuro: Protective sensation grossly intact to bilateral extremities. MSK: Moderate tenderness on palpation of the plantar aspect of the 3rd metatarsal head, tenderness on Zachariah test of the 3rd Metatarsal-phalangeal joint but no instability. Second digit dorsiflexed at the 2nd Metatarsal- phalangeal joint with semi rigid deformity. Palpable thickening to the Achilles tendon approximately 6 cm from the Achilles tendon insertion. No fusiform swelling to the Achilles tendon. No pain on palpation. Ankle dorsiflexion approximately 5 degrees on knee extension. Plantar flexion strength 5/5 bilaterally. Office Procedures AMB Podiatry Dressing Details of Procedure: Fabricated offloading U pad to the left foot sub 3rd metatarsal head region using 1/4 -inch felt pad. 60671 Strapping of foot/toe (U pad sub left 3rd metatarsophalangeal joint.) Procedure code (CPT) selection complete Results Reviewed Results Reviewed: Podiatry X-ray Read: 02/07/2025 X-ray left foot 3 views (AP, MO, Lateral) reviewed which shows no fractures, dislocations, or gross abnormalities. Bone density is within normal limits. Normal anatomy. No evidence of swelling, foreign body, or calcifications. Mild plantar calcaneal heel spur, mild insertional Achilles spur. MRI review: Date of Service: 11/18/24 Procedure(s): MR ankle LT wo con IMPRESSION: Partial longitudinal tear of the achilles tendon with intra tendinous and peritendinous fluid. Significant soft tissue edema. This document has been electronically signed by: Min Mary MD on 11/20/2024 09:06:53 Assessment & Plan Assessment & Plan (1) Capsulitis of metatarsophalangeal (MTP) joint of left foot: Code(s): M77.52 - Other enthesopathy of left foot and ankle Category: Medical Plan: * Discussed the etiology of his left foot digital pain. Explained that he likely has flexor substitution occurring of his flexor digitorum longus muscle to compensate for his left ankle Achilles tendinitis and partial tear. The patient is now has retrograde buckling and pain to his sub 3rd and 4th metatarsophalangeal joints due to his increased flexion deformity to his toes. * Patient was dispensed a U-pad to his left foot. * He was recommended purchasing a crest pad. * He was recommended to continue use of his orthotics. * Recommended performing toe extension exercises. * Patient states he is already taking NSAIDs/pain medication. Recommended continuing use of his prescribed naproxen. * Follow up in 3 weeks. Patient may require referral to physical therapy. Patient may require an MRI in the future to evaluate for plantar plate tear. (2) Achilles tendinitis, left leg: Comment: Resolved Code(s): M76.62 - Achilles tendinitis, left leg Category: Medical Plan: * Reviewed the MRI with the patient. * Explained that he is at risk of chronic flares to his Achilles tendinitis, due to his partial Achilles longitudinal tear. * Recommended continuing at home range of motion and strengthening rehab exercises. (3) Hammertoe of left foot: Code(s): M20.42 - Other hammer toe(s) (acquired), left foot Category: Medical Plan: * Recommended crest pad. Orders: Orders AMB Podiatry Dressing Today M77.52 - Other enthesopathy of left foot and ankle Coding Level of Care Code New Pt Level 4 (32765) Diagnoses Capsulitis of metatarsophalangeal (MTP) joint of left foot M77.52 Achilles tendinitis, left leg M76.62 Hammertoe of left foot M20.42 CPT Codes Podiatry Dressing - CPT: 94800 Strapping of foot/toe ([id number]) Time Spent (min) 45
[2025-03-05 13:26] VITALS: BMI 38.0
--- OUTSIDE RECORDS SUMMARY | 2025-03-05 17:15 | XMS_ITS | Clinical Summary ---
Author Organization [facility] it Address [address] [place] [address] Care Team Providers Care Sulfuric Acid Plant Supervisor Name Role Phone Milad Adame MD Primary Care Provider [phone] Medical History Medical History Date Comments Pneumonia DX:Pneumonia Chronic lung disease DX:Chronic lung disease Diabetes (CMS/HCC V24, CMS/HCC V28) DX:Diabetes ([facility]) High blood pressure DX:High bloo d [...] 2002 Zoster Vaccines (1 of 2) 2002 Depression Screening 06/20/2024 COVID-19 Vaccine ( - 2023-2 5 season) 2025 Influenza Vaccine (#1) 2025 RSV Immunization Adult Patie nts (1 [...] age to complete this topic Care Teams Sulfuric Acid Plant Supervisor Relationship Specialty Start Date End Date Milad Adame MD [address] [place] [phone] PCP - General Internal Medicine 10/01/14
== END 2025-03-05 14:01 | disposition home or self-care (01) ==
LOC: HO.HPODS 13:20
PROVIDERS: PCP Nurse Practitioner Family; Visit Provider Student in an Organized Health Care Education/Training Program
DX: M77.52 Other enthesopathy of left foot and ankle (principal); M76.62 Achilles tendinitis, left leg; M20.42 Other hammer toe(s) (acquired), left foot
CPT/HCPCS: 29550; 99203

== ENCOUNTER → 2025-03-05 13:19 | Outpatient (BNVA) | payer MEDICARE, SELFPAY | PROVIDERS: PCP Nurse Practitioner Family; Visit Provider Student in an Organized Health Care Education/Training Program | DX: M76.62 Achilles tendinitis, left leg (principal); M77.52 Other enthesopathy of left foot and ankle; M20.42 Other hammer toe(s) (acquired), left foot | CPT/HCPCS: 29550; 99202 ==

== ENCOUNTER 2025-03-06 07:12 | Outpatient (REF) | payer MEDICARE, SELFPAY ==
--- NOTE | ~2025-03-06 | CT_ITS ---
EXAMINATION: CT LUNG SCREENING HISTORY: Z87.891 - Personal history of nicotine dependence TECHNIQUE: Low dose axial images were obtained from the sternal notch to upper abdomen without IV contrast per standard departmental protocol. Sagittal and coronal reformatted images were also obtained and reviewed. One or more of the following techniques was used for dose reduction: Automated exposure control, adjustment of the mA and/or kV according to patient size, use of iterative reconstruction technique. DLP: 70 mGy-cm COMPARISON: Comparison is made with the prior examination dated 02/10/2024. FINDINGS: Lung nodules: Again seen is a punctate nodule in the right upper lobe (series 4, image 19), a punctate nodule along the right major fissure (series 4, image 58), and a 2 mm nodule at the left lung apex (series 4, image 15). No new pulmonary nodules are identified. Emphysema: mild Coronary Calcification: mild Aortic Arch Calcification: mild Potentially Significant Incidentals : none Additional Chest Findings: There is no pleural or pericardial effusion. No mediastinal or axillary lymphadenopathy is identified. Visualized upper abdomen: The visualized portions of the liver, spleen, and adrenals have an unremarkable unenhanced appearance. There is a small hiatal hernia. There are postsurgical changes involving the stomach. CT/CT lung screening IMPRESSION: No suspicious pulmonary nodules are identified. LUNG-RADS ASSESSMENT: Lung-RADS 2: Benign MANAGEMENT: Continue annual screening with LDCT in 12 months Category S: N/A Electronically signed by: Alcides Holliday MD 03/06/2025 07:42 AM EDT
--- OUTSIDE RECORDS SUMMARY | 2025-03-06 07:14 | XMS_ITS | Clinical Summary ---
Author Organization [facility] it Address [address] [place] [address] Care Team Providers Care It Lead Name Role Phone Milad Adame MD Primary Care Provider [phone] Medical History Medical History Date Comments Pneumonia DX:Pneumonia Chronic lung disease DX:Chronic lung disease Diabetes (CMS/HCC V24, CMS/HCC V28) DX:Diabetes ([facility]) High blood pressure DX:High bloo [...] age to complete this topic Care Teams It Lead Relationship Specialty Start Date End Date Milad Adame MD [address] [place] [phone] PCP - General Internal Medicine 10/01/14
== END 2025-03-06 07:13 | disposition home or self-care (01) ==
LOC: HO.CT 07:12
PROVIDERS: PCP Nurse Practitioner Family; Visit Provider Physician Assistant Medical
DX: Z12.2 Encounter for screening for malignant neoplasm of respiratory organs (principal); Z87.891 Personal history of nicotine dependence
CPT/HCPCS: 71271

== ENCOUNTER → 2025-03-06 07:15 | Outpatient (BNV) | payer MEDICARE, SELFPAY | PROVIDERS: PCP Nurse Practitioner Family; Visit Provider Radiology Diagnostic Radiology | DX: Z87.891 Personal history of nicotine dependence (principal) | CPT/HCPCS: 71271 ==

== ENCOUNTER → 2025-03-14 12:22 | Outpatient (BNVA) | payer MEDICARE, SELFPAY | PROVIDERS: PCP Nurse Practitioner Family | DX: Z13.89 Encounter for screening for other disorder (principal) | CPT/HCPCS: 99211 ==

== ENCOUNTER 2025-03-21 09:30 | Outpatient (RCR) | payer MEDICARE, OTHER, SELFPAY ==
[2024-12-27] VITALS (9 sets, daily range): BP systolic 132–170; BP diastolic 61–70; PULSE 59–70; RESP 20; TEMP 36.9; O2SAT 96; BMI 38.7
[2024-12-27] MEDS: Immune Globulin 10% Gammagard 20 GM/200 ML VIAL IV ×2 (07:45→09:10)
[2025-01-24 08:58] VITALS: BP 150/75; PULSE 67; RESP 16; TEMP 36.8; O2SAT 96
[2025-01-24] MEDS: Immune Globulin 10% Gammagard 20 GM/200 ML VIAL IV ×2 (09:00→10:23)
[2025-01-24 09:15] VITALS: BP 142/61; PULSE 62
[2025-01-24 09:29] VITALS: BP 130/58; PULSE 58; RESP 18
[2025-01-24 09:45] VITALS: BP 129/58; PULSE 55; RESP 18
[2025-01-24 10:01] VITALS: BP 140/60; PULSE 58; RESP 18
[2025-01-24 10:30] VITALS: BP 124/62; PULSE 55; RESP 18
[2025-02-21] VITALS (7 sets, daily range): BP systolic 135–148; BP diastolic 47–76; PULSE 56–68; RESP 16; TEMP 36.6; O2SAT 97; BMI 38.0
[2025-02-21] MEDS: Immune Globulin 10% Gammagard 20 GM/200 ML VIAL IV ×2 (09:55→11:26)
[2025-03-21] VITALS (7 sets, daily range): BP systolic 116–173; BP diastolic 57–73; PULSE 54–61; RESP 18; TEMP 36.1; O2SAT 98
[2025-03-21] MEDS: Immune Globulin 10% Gammagard 20 GM/200 ML VIAL IV ×2 (09:30→10:45)
== END 2025-05-28 07:48 | disposition home or self-care (01) ==
LOC: HO.INF 09:30
PROVIDERS: Visit Provider Internal Medicine Pulmonary Disease
DX: D80.3 Selective deficiency of immunoglobulin G [IgG] subclasses (principal)
CPT/HCPCS: 96365; 96366; J1569

== ENCOUNTER 2025-03-26 13:28 | Outpatient (AMB) | payer MEDICARE, SELFPAY ==
--- NOTE | 2025-03-26 13:47 | A.OFFVIS_ITS ---
Vital Signs 03/26/25 13:49 Height 5 ft 10 in Weight 265 lb BMI 38.0 Intake Visit Reasons: Follow up Achilles tendinitis, pain in foot Intake Note: Zaki is a 74 year old male who presents today for a follow up of his Left Achilles Tendonitis, Capsulitis of metatarsophalangeal and Hammer Toe. At his last visit he was dispensed a U-pad to his left foot and recommended that he purchases a crest pad, continue use of his orthotics and perform toe extension exercises. Pt reports that one of the U-pad has fallen off and the other U-pad was uncomfortable to walk with. He also mentions that he has been following the exercises and he sees no improvement in his left foot. Allergies latex (LATEX) Allergy (Intermediate, Verified 03/26/25 13:49) RASH Whcyyqh-FGG-XnE Reductase Inhibitor Adverse Reaction (Intermediate, Verified 03/26/25 13:49) Muscle Pain spironolactone Adverse Reaction (Mild, Verified 03/26/25 13:49) Migraine lisinopril Adverse Reaction (Verified 03/26/25 13:49) Nausea and Vomiting HPI HPI Follow up Achilles tendinitis, pain in foot: Details: The patient is a 74-year-old male with past medical history of diabetes mellitus, hypertension, COPD, CAD, polyarthralgia, presents for 3 week follow up for left forefoot pain, toe stiffness, and Achilles tendinitis. He states that he was unable to use the offloading U pad prescribed last visit. He had forgotten to purchase the crest pad. He has continued to do his range of motion and stretching exercises. His toe pain is slowly worsening as well. History: The Achilles tendon injury was present for several years and was on and off with recurrent flares. After he had left upper extremity biceps tendon surgery, his left Achilles tendon pain had worsened. He was referred to physical therapy, which improved his symptoms and relieved his pain immediately. He then began to notice pain to the front of his left foot and stiffness to his left foot toes. He also has pain to the ball of his foot, worse to towards his 3rd and 4th toes. The patient reports a sensation niles to a stubbed toe, with swelling and numbness in the affected area, exacerbated by certain movements. The pain is described as soreness and cramping, without burning or tingling, and is primarily noticed during specific activities. [facility] Medical History Polyarthritis Kidney stones CAD (coronary artery disease) History of DVT (deep vein thrombosis) HTN (hypertension) Diabetes COPD (chronic obstructive pulmonary disease) JENNY (obstructive sleep apnea) Personal history of nicotine dependence Obesity HUNG positive BPH (benign prostatic hyperplasia) Neck pain Acute urinary retention Fatigue Chronic fatigue Minimal depression Osteoarthritis Surgical History Hx of colonoscopy S/P excision of lipoma History of resection of small bowel History of ventral hernia repair History of sleeve gastrectomy Hx of right knee surgery History of vasectomy History of tonsillectomy Family History Father CAD (coronary artery disease) Mother Mental health disorder Brother Accelerated hypertension Son No problems noted. Daughter No problems noted. Sister Leukemia Sister Cerebral palsy Sister No problems noted. Social History Household Members: None 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 Temperature gradient warm to cool. No pedal edema. Extensive varicosities to the left foot. Derm: No clinical signs of infection to his feet. Neuro: Protective sensation grossly intact to bilateral extremities. MSK: Moderate tenderness on palpation of the plantar aspect of the 2nd metatarsal head, tenderness on Zachariah test of the 2nd Metatarsal-phalangeal joint but no instability. Second digit dorsiflexed at the 2nd Metatarsal- phalangeal joint with semi rigid deformity. No tenderness at 3rd metatarsophalangeal joint, negative Zachariah's test. Palpable thickening to the Achilles tendon approximately 6 cm from the Achilles tendon insertion. No fusiform swelling to the Achilles tendon. No pain on palpation. Ankle dorsiflexion approximately 5 degrees on knee extension. Plantar flexion strength 5/5 bilaterally. Assessment & Plan Assessment & Plan (1) Plantar plate injury: Code(s): S99.929A - Unspecified injury of unspecified foot, initial encounter Category: Medical Qualifiers: Encounter type: subsequent encounter Laterality: left Qualified Code(s): S99.922D - Unspecified injury of left foot, subsequent encounter Plan: * Discussed the etiology of his left foot digital pain. Explained that he likely has flexor substitution occurring of his flexor digitorum longus muscle to compensate for his left ankle Achilles tendinitis and partial tear. The patient is now has retrograde buckling and pain to his sub 3rd and 4th metatarsophalangeal joints due to his increased flexion deformity to his toes. * Patient was dispensed a metatarsal pad with a 2nd metatarsophalangeal joint head cut out to his left foot. * He was recommended purchasing a crest pad. A handout was given. * He was recommended a Carbon fiber insole to splint his plantar plate injury. * Continue performing toe extension exercises. * Rx left foot MRI. The patient requires an MRI to rule out 2nd Metatarsal- phalangeal joint plantar plate tear. Previous x-rays were negative and unable to ascertain ligamentous injury. The patient has failed conservative treatment options including stretching/range of motion, off-loading/toe splinting, and physical therapy. * Follow up in 3 weeks. (2) Achilles tendinitis, left leg: Comment: Resolved Code(s): M76.62 - Achilles tendinitis, left leg Category: Medical Plan: * Previously Reviewed the MRI with the patient. * Explained that he is at risk of chronic flares to his Achilles tendinitis, due to his partial Achilles longitudinal tear. * Recommended continuing at home range of motion and strengthening rehab exercises. (3) Hammertoe of left foot: Code(s): M20.42 - Other hammer toe(s) (acquired), left foot Category: Medical Plan: * Recommended crest pad. Orders: Orders MR foot LT wo con Today S99.929A - Unspecified injury of unspecified foot, initial encounter [facility] Podiatry Dressing Today S99.929A - Unspecified injury of unspecified foot, initial encounter Coding Level of Care Code Est Pt Level 3 (71765) Diagnoses Injury of plantar plate of left foot, subsequent encounter S99.924B Encounter type: subsequent encounter Laterality: left Achilles tendinitis, left leg M76.62 Hammertoe of left foot M20.42 Time Spent (min) 30
[2025-03-26 13:49] VITALS: BMI 38.0
--- OUTSIDE RECORDS SUMMARY | 2025-03-26 16:33 | XMS_ITS | Clinical Summary ---
Author Organization [facility] it Address [address] [place] [address] Care Team Providers Care Reprint Sorter Name Role Phone Milad Adame MD Primary Care Provider [phone] Medical History Medical History Date Comments Pneumonia DX:Pneumonia Chronic lung disease DX:Chronic lung disease Diabetes (CMS/HCC V24, CMS/HCC V28) DX:Diabetes ([facility]) High blood pressure DX:High bloo d pressure [...] age to complete this topic Care Teams Reprint Sorter Relationship Specialty Start Date End Date Milad Adame MD [address] [place] [phone] PCP - General Internal Medicine 10/01/14
--- OUTSIDE RECORDS SUMMARY | 2025-03-26 16:33 | XMS_ITS | Data Portability ---
Author Organization [place] [facility], Allergy Address [address] [place] [address] Care Team Providers Care Position Classification Specialist Name Role Phone BABS PIERCE Primary Care [...] but he is interested in contacting the [place] [facility] to obtain another trial of CPAP. I have offered for him to follow-up with me in 6 months as he will make a effort to lose and maintain a lower weight class. [email or web address] Not available 02/17/2024 12:06:42 Plan of Treatment Reminders Order Date Submit Date Provider Last Modified By Organization Details Last Modified Time Details Appointments None record ed. Lab None record ed. Referral None record ed. Procedures None record ed. Surgeries None record ed. Imaging None record ed. Medication Orders None record ed. Patient TargetsNo targets recorded. Patient InstructionsNo instructions recorded. Reason for Referral None Reported. Problems Name Problem SNOMED Code Status Onset Date Resolution Date Notes Provider Name and Address Organization Details Recorded Time Obstructive sleep apnea syndrome 49999948 Active 2023 ARNALDO RIOS MD [address] [place], [address], [facility] - [facility] [place] 4 11:53:36 Body mass index 30+ - obesity 032889922 Active 2023 ARNALDO RIOS MD 100 [facility] 100, [place], [address], [facility] - [facility] [place] 4 11:54:13 Problem Notes None recorded. Procedures Surgical History Date Name Laterality Status Provider Name and Address Organization Details Recorded Time 02/17/2024 FOL_DP completed ARNALDO RIOS MD 100 [facility] 100, [place], [address], [facility] - [facility] 02/15/2024 14:04:03 Imaging Results None recorded. Procedure [...] Updated DateTime 02/17/2024 177.8 cm 36.7 kg/m2 502865.65 g Sarah Anthony [place] - [facility] 02/17/2024 11:37:37 Social History None recorded. Functional Status None recorded. Mental Status None recorded. Family History Nothing Reported. Medical History No medical history recorded. Past Encounters Encounter ID Performer Location Encounter Start Date Encounter Closed Date Diagnosis/Indication Diagnosis SNOMED-CT Code Diagnosis ICD10 Code Diagnosis IMO Codes Diagnosis Note [id number] ARNALDO RIOS MD [facility] [address] [address] 02/17/2024 11:22:24 02/17/2024 12:06:00 Obstructive sleep apnea syndrome 46344367 G47.33 Body mass index 30+ - obesity 590512554 Z68.36 Health Concerns Section Related Observation LastModified by Organization Detai ls LastModified Time None Recorded Concern Status LastModified by Organization Details LastModified Time None Recorded Advance Directives Directive None Recorded Payers Insurance Date Sequence Insurance Name Policy Number Policy Urias Covered Member ID Urias Member ID Guarantor Name 08/13/2024 2 [place] [id number] Zaki Ramirez [id number] Zaki Ramirez 08/13/2024 1 [place]ERNMENT [place] Zaki Ramirez [id number] Zaki Ramirez Notes Date Note Type Note Provider Name and Address Organization Details Recorded Time 02/17/2024 text/html ROS as noted in the HPI [facility]02[facility]2023 [facility] [place] and mixed events - full report not available for reviewCPAP intolerant, attempted 6 different masks sleep quality - poor with insomnia and the CPAP made it worsehad tonsils removed - twicegasrtic sleeve with 80 pounds loss - gained back 30 poundsnow about 250 pounds, 5'10 BMI 36 now ARNALDO RIOS MD 100 [facility] 100, [place], [address], [facility] - [facility] 02/17/2024 12:06:57
== END 2025-03-26 14:14 | disposition home or self-care (01) ==
LOC: HO.HPODS 13:29
PROVIDERS: PCP Nurse Practitioner Family; Visit Provider Student in an Organized Health Care Education/Training Program
DX: S99.922D Unspecified injury of left foot, subsequent encounter (principal); M76.62 Achilles tendinitis, left leg; M20.42 Other hammer toe(s) (acquired), left foot
CPT/HCPCS: 99213

== ENCOUNTER → 2025-03-26 13:28 | Outpatient (BNVA) | payer MEDICARE, SELFPAY | PROVIDERS: PCP Nurse Practitioner Family; Visit Provider Student in an Organized Health Care Education/Training Program | DX: M76.62 Achilles tendinitis, left leg (principal); S99.922D Unspecified injury of left foot, subsequent encounter; M20.42 Other hammer toe(s) (acquired), left foot | CPT/HCPCS: 99212 ==

== ENCOUNTER → 2025-03-28 11:50 | Outpatient (BNVA) | payer MEDICARE, SELFPAY | PROVIDERS: PCP Nurse Practitioner Family | DX: Z13.89 Encounter for screening for other disorder (principal) | CPT/HCPCS: 99211 ==

== ENCOUNTER → 2025-04-08 13:36 | Outpatient (REF) | payer MEDICARE, MEDICAID, SELFPAY ==
--- NOTE | 2025-04-08 13:42 | CA_ITS ---
Transthoracic Echocardiogram Patient (Last, First, Middle): Zaki Ramirez S Gender: M Date of : 1950 Age: 74 Procedure Date: 04/08/2025 Procedure Type: Transthoracic Echocardiogram Location: OP Height: 177.8 cm Weight: 116.12 kg BSA: 2.32 m2 Heart Rate: 61 bpm BP: 146 / 74 mmHg Lumber Driver: MELISSA Referring MD: Waylon Aleman MD Rn Admissions: Waylon Aleman MD Symptoms: I77.89 - Other specified disorders of arteries and arterioles Study Quality: Adequate w contrast ECG Rhythm: Sinus Conclusions: - 1. Mildly dilated left ventricle with mildly to moderately reduced LV ejection fraction 40-45 % with impaired relaxation filling pattern 2. Mildly dilated left atrium 3. Normal cardiac valvular Dopplers 4. Normal RV systolic pressure 5. Mildly dilated ascending aorta at 4.2 cm 6. No gross pericardial effusion Findings Procedure Information Contrast agent, definity, is being given per protocol without apparent complications. The quality of the study was technically difficult. The study quality is limited by patients body habitus and lung artifact. Left Ventricle Mildly increased left ventricular cavity size. There is normal left ventricular wall thickness. The left ventricular systolic function is mild to moderately decreased. The visually estimated ejection fraction is between 40-45%. There is paradoxical septal motion consistent with a left bundle branch block. Spectral Doppler is indicative of an impaired relaxation filling pattern. E/E prime ratio is between 8 and 15 consistent with indeterminate filling pressures. Right Ventricle Normal right ventricular cavity size and systolic function. Atria The left atrium is mildly dilated. There is no evidence of interatrial shunt. The right atrium is normal in size. Aortic Valve Normal aortic valve structure and function. There is no aortic valve stenosis. There is no aortic valve regurgitation. Mitral Valve Likely normal mitral valve structure and function. There is trace mitral valve regurgitation. There is no mitral valve stenosis. Pulmonic Valve The pulmonic valve is likely normal. Tricuspid Valve Normal tricuspid valve structure. There is trace tricuspid valve regurgitation. The right ventricular systolic pressure is normal. The right ventricular systolic pressure is 27 mmHg. Normal right atrial pressure. There is no evidence of pulmonary hypertension. Great Vessels The pulmonary artery was not well visualized. There is mild dilatation of the ascending aorta measuring 4.20 cm. Venous The inferior vena cava is normal in size and collapses greater than 50% with inspiration. Pericardium/Pleural There is no evidence of pericardial effusion. Prior Study Comparison Changes noted compared to prior study dated: 03/08/2023. LV functions reduced in LV cavity is dilated Measurements 2D Linear Measurements IVSd: 1.09 0.6-0.9/0.6-1.0 cm LVIDd: 6.10 3.9-5.3/4.2-5.9 cm LVIDd Index: 2.63 2.4-3.2/2.2-3.1 cm/m2 LVIDs: 5.20 2.0-3.6 cm LVPWd: 0.76 0.7-1.1 cm LA Diam: 4.00 2.7-3.8/3.0-4.0 cm LAIDs Index: 1.72 1.5-2.3 cm/m2 LV Mass: 285.71 67-162/88-224 g LV Mass Index: 123.15 43-95/49-115 g/m2 LVOT Diam: 2.70 3.0+(-)1.3 cm 2D Systolic Function EF 4C: 49.50 >55% EF 2C: 39.00 >55% EF BiP: 44.00 >55% Mitral Valve MV Pk E: 0.66 MV PK A: 0.78 MV Decel Time: 197.00 E/A: 0.80 E'Lateral: 9.36 E'Medial: 5.00 E/E' Med: 13.10 E/E' Lat: 7.00 PHT: 58.00 MVA PHT: 3.79 Decel [place]: 3.33 Aortic Valve AoV Pk Dagoberto: 1.43 AoV Mn Dagoberto: 0.87 AoV VTI: 0.26 AoV Pk Grad: 8.00 Aov Mn Grad: 4.00 MARAL Cont.VTI: 3.77 LVOT LVOT Pk Dagoberto: 0.88 LVOT Mn Dagoberto: 0.57 LVOT VTI: 0.17 LVOT Pk Grad: 3.00 LVOT Mn Grad: 1.00 LVOT Diam: 2.70 LVOT Area: 5.73 Diastolic Function MV Pk E: 0.66 MV Pk A: 0.78 E/A: 0.80 E'Medial: 5.00 E/E' Med: 13.10 E' Laterial: 9.36 E/E' Lat: 7.00 Right Ventricle TAPSE (mm): 28.60 TVS' Dagoberto: 11.90 Tricuspid Valve TR Pk Dagoberto: 2.47 TR Pk Grad: 24.00 RA Press: 3.00 RVSP: 27.00 Great Vessels Aorta Sinus of Valsalva: 3.70 2.0-3.5 cm Ao Asc: 4.20 2.1-3.4 cm Ao Arch: 2.40 Pulmonary Veins Pulm Vein S/D 1.40 Pulmonary Valve PV Pk Dagoberto: 0.86 Peak PV Grad: 3.00 Updated in Other Vendor System with Status of Final Waylon Aleman MD electronically signed on 04/08/2025 3:04:57 PM with status of Final
== END ==
LOC: HO.CARD 13:36
PROVIDERS: PCP Nurse Practitioner Family; Visit Provider Internal Medicine Cardiovascular Disease
DX: I77.89 Other specified disorders of arteries and arterioles (principal)
CPT/HCPCS: 93306; Q9957

== ENCOUNTER → 2025-04-08 13:42 | Outpatient (BNV) | payer MEDICARE, MEDICAID, SELFPAY | PROVIDERS: PCP Nurse Practitioner Family; Visit Provider Internal Medicine Cardiovascular Disease | DX: I51.7 Cardiomegaly (principal); I77.810 Thoracic aortic ectasia | CPT/HCPCS: 93306 ==

== ENCOUNTER 2025-04-11 05:59 | Outpatient (REF) | payer MEDICARE, MEDICAID, SELFPAY ==
--- OUTSIDE RECORDS SUMMARY | 2025-04-11 06:02 | XMS_ITS | Data Portability ---
Author Organization [place] [facility], Allergy Address [address] [place] [address] Care Team Providers Care Adjunct Spanish Instructor Name Role Phone BABS PIERCE Primary Care Provider [phone] Assessment Encounter Date Assessment Date Assessment LastModified [...] but he is interested in contacting the [facility] to obtain another trial of [...] Details Recorded Time Obstructive sleep apnea syndrome 24170909 Active 2023 ARNALDO RIOS MD [address] [place], [address], [facility] - [facility] [place] 4 11:53:36 Body mass index 30+ - obesity 381100654 Active 2023 ARNALDO RIOS MD 100 [facility] 100, [place], [address], [facility] - [facility] [place] 4 11:54:13 Problem Notes None recorded. Procedures Surgical History Date Name Laterality Status Provider Name and Address Organization Details Recorded Time 02/17/2024 FOL_DP completed ARNALDO RIOS MD 100 [facility] 100, [place], [address], [facility] - [facility] 02/15/2024 14:04:03 Imaging Results None recorded. Procedure [...] Updated DateTime 02/17/2024 177.8 cm 36.7 kg/m2 701111.65 g Sarah Anthony [place] - [facility] 02/17/2024 11:37:37 Social History None recorded. Functional Status None recorded. Mental Status None recorded. Family History Nothing Reported. Medical History No medical history recorded. Past Encounters Encounter ID Performer Location Encounter Start Date Encounter Closed Date Diagnosis/Indication Diagnosis SNOMED-CT Code Diagnosis ICD10 Code Diagnosis IMO Codes Diagnosis Note [id number] ARNALDO RIOS MD [facility] [address] [address] 02/17/2024 11:22:24 02/17/2024 12:06:00 Obstructive sleep apnea syndrome 90842565 G47.33 Body mass index 30+ - obesity 812132168 Z68.36 Health Concerns Section Related Observation LastModified by Organization Detai ls LastModified Time None Recorded Concern Status LastModified by Organization Details LastModified Time None Recorded Advance Directives Directive None Recorded Payers Insurance Date Sequence Insurance Name Policy Number Policy Urias Covered Member ID Urias Member ID Guarantor Name 08/13/2024 2 [place] [id number] Zaki Ramirez [id number] Zaki Ramirez 08/13/2024 1 [place] Zaki Ramirez [id number] Zaki Ramirez Notes Date Note Type [...] BMI 36 now ARNALDO RIOS MD 100 [facility] 100, [place], [address], [facility] - [facility] 02/17/2024 12:06:57
[2025-04-11 06:09] LABS: MANUAL DIFF FLAG NO
[2025-04-11 07:39] LABS: Hematocrit 40.5 % (42.0-52.0); Hemoglobin 13.8 g/dl (14.0-18.0); Imm Gran Abs Auto 0.02 X10*3/uL (0.00-0.03); Imm Gran Pct Auto 0.4 % (0.0-0.4); Lymphocytes Absolute Auto 1.3 X10*3/uL (1.2-4.9); Mean Corpuscular HGB Conc 34.1 g/dl (31.0-36.0); Mean Corpuscular Hemoglobin 32.2 pg (27.0-33.0); Mean Corpuscular Volume 94.4 fL (80.0-98.0); NRBC Abs Auto 0.000 X10*3/uL (0.0-0.012); NRBC Pct Auto 0.0 /100WBC (0.0-0.2); Platelet Count 266 X10*3/uL (160-400); Red Blood Count 4.29 X10*6/uL (4.60-5.80); White Blood Count 5.6 X10*3/uL (4.8-10.8)
[2025-04-11 08:02] LABS: Appearance Urine Clear; Glucose Urine UA Negative (Negative); PH 5.0 (5.0-9.0); Specific Gravity - Urine 1.020 (1.005-1.025); UMIC TRIGGER UACC YES
[2025-04-11 08:17] LABS: Alanine Aminotransferase 25 U/L (0-40); Albumin Level 4.7 g/dL (3.5-5.0); Alkaline Phosphatase 49 U/L (39-117); Anion Gap 12 (12-20); Aspartate Amino Transferase 30 U/L (5-37); Blood Urea Nitrogen 15 mg/dL (9-16); Calcium 9.1 mg/dL (8.4-10.2); Carbon Dioxide 27 mmol/L (22-29); Chloride 106 mmol/L (96-108); Cholesterol 169 mg/dL (<200); Estimated Glomerular Filt Rate > 60; HDL Cholesterol 52 mg/dL (>40); Potassium 3.8 mmol/L (3.3-5.1); Sodium 141 mmol/L (135-145); Total Protein 7.2 g/dL (6.5-8.0); Triglycerides 89 mg/dL (<150)
== END 2025-04-11 06:00 | disposition home or self-care (01) ==
LOC: HO.LAB 05:59
PROVIDERS: PCP Nurse Practitioner Family; Visit Provider Nurse Practitioner Family
DX: Z00.00 Encounter for general adult medical examination without abnormal findings (principal); Z12.5 Encounter for screening for malignant neoplasm of prostate; I10 Essential (primary) hypertension
CPT/HCPCS: 36415; 80053; 80061; 81001; 81003; 84153; 84443; 85025

== ENCOUNTER 2025-04-13 15:12 | Outpatient (REF) | payer MEDICARE, MEDICAID, SELFPAY ==
--- NOTE | ~2025-04-13 | MR_ITS ---
CLINICAL HISTORY: S99.929A - Unspecified injury of unspecified foot, initial encounter --- Additional Notes or Special Instructions: Please evaluate for left 2nd Metatarsal-phalangeal joint plantar plate tear MR of the left forefootwithout gadolinium Comparison: MR - MR ANKLE LT WO CON - 11/18/24 07:33 EDT Findings: There is mild subchondral cyst formation within the 1st metatarsal head and adjacent portion of the medial 1st digit sesamoid. Marrow signal is otherwise normal. No fracture. Visualized flexor and extensor tendons are intact. There is tearing of the plantar plate of the 1st digit. IMPRESSION: 1. 1st digit plantar plate tear. 2. Dysfunctional medial sesamoid. This document has been electronically signed by: Emory Maria MD on 04/16/2025 13:47:44
--- OUTSIDE RECORDS SUMMARY | 2025-04-13 15:20 | XMS_ITS | Data Portability ---
Author Organization [place] - [facility], Allergy Address [address] [place] [address] Care Team Providers Care Negative Developer Name Role Phone BABS PIERCE Primary Care [...] but he is interested in contacting the [facility] to obtain another trial of [...] Details Recorded Time Obstructive sleep apnea syndrome 71026692 Active 2023 ARNALDO RIOS MD [address] [place], [address], [facility] - [facility] [place] 4 11:53:36 Body mass index 30+ - obesity 761271099 Active 2023 ARNALDO RIOS MD 100 [facility] 100, [facility] [place], [address], [facility] - [facility] [place] 4 11:54:13 Problem Notes None recorded. Procedures Surgical History Date Name Laterality Status Provider Name and Address Organization Details Recorded Time 02/17/2024 FOL_DP completed ARNALDO RIOS MD 100 [facility] 100, [place], [address], [facility] - [facility] 02/15/2024 14:04:03 Imaging Results None recorded. [...] Updated DateTime 02/17/2024 177.8 cm 36.7 kg/m2 481226.65 g Sarah Anthony [place] - [facility] 02/17/2024 11:37:37 Social History None recorded. Functional Status None recorded. Mental Status None recorded. Family History Nothing Reported. Medical History No medical history recorded. Past Encounters Encounter ID Performer Location Encounter Start Date Encounter Closed Date Diagnosis/Indication Diagnosis SNOMED-CT Code Diagnosis ICD10 Code Diagnosis IMO Codes Diagnosis Note [id number] ARNALDO RIOS MD [facility] [address] [address] 02/17/2024 11:22:24 02/17/2024 12:06:00 Obstructive sleep apnea syndrome 02316504 G47.33 Body mass index 30+ - obesity 908938898 Z68.36 Health Concerns Section Related Observation LastModified by Organization Detai ls LastModified Time None Recorded Concern Status LastModified by Organization Details LastModified Time None Recorded Advance Directives Directive None Recorded Payers Insurance Date Sequence Insurance Name Policy Number Policy Urias Covered Member ID Urias Member ID Guarantor Name 08/13/2024 2 [place] [id number] Zaki Ramirez [id number] Zaki Ramirez 08/13/2024 1 [place]ERNMENT [place] Zaki Ramirez [id number] Zaki Ramirez Notes Date Note Type [...] BMI 36 now ARNALDO RIOS MD 100 [facility] 100, [place], [address], [facility] - [facility] 02/17/2024 12:06:57
--- OUTSIDE RECORDS SUMMARY | 2025-04-13 15:20 | XMS_ITS | Clinical Summary ---
Author Organization [facility] it Address [address] [place] [address] Care Team Providers Care Bulk Station Operator Name Role Phone Milad Adame MD Primary Care Provider [phone] Medical History Medical History Date Comments Pneumonia DX:Pneumonia Chronic lung disease DX:Chronic lung disease Diabetes (CMS/HCC V24, CMS/HCC V28) DX:Diabetes ([facility]) High blood pressure DX:High bloo d pressure [...] age to complete this topic Care Teams Bulk Station Operator Relationship Specialty Start Date End Date Milad Adame MD [address] [place] [phone] PCP - General Internal Medicine 10/01/14
== END 2025-04-13 15:13 | disposition home or self-care (01) ==
LOC: HO.MRI 15:12
PROVIDERS: PCP Nurse Practitioner Family; Visit Provider Student in an Organized Health Care Education/Training Program
DX: S99.922D Unspecified injury of left foot, subsequent encounter (principal)
CPT/HCPCS: 73718

== ENCOUNTER → 2025-04-13 15:12 | Outpatient (BNV) | payer MEDICARE, MEDICAID, SELFPAY | PROVIDERS: PCP Nurse Practitioner Family; Visit Provider Radiology Diagnostic Radiology | DX: S93.522A Sprain of metatarsophalangeal joint of left great toe, initial encounter (principal); M25.872 Other specified joint disorders, left ankle and foot | CPT/HCPCS: 73718 ==

== ENCOUNTER 2025-04-18 14:05 | Outpatient (AMB) | payer MEDICARE, MEDICAID, SELFPAY ==
[2025-04-18 14:09] VITALS: BP 158/72; PULSE 60; O2SAT 95; BMI 36.6
--- NOTE | 2025-04-18 14:09 | MHC.OFFVIS ---
Vital Signs 04/18/25 14:09 Height 5 ft 10 in Weight 255 lb BMI 36.6 BP 158/72 H Blood Pressure Location Lt brachial Position Sitting Pulse 60 Pulse Source Pulse Oximeter Pulse Oximetry (%) 95 Oxygen Delivery Method Room Air Intake Visit Reasons: copd Allergies latex (LATEX) Allergy (Intermediate, Verified 04/18/25 14:14) RASH Bvqxvhp-MMZ-WxT Reductase Inhibitor Adverse Reaction (Intermediate, Verified 04/18/25 14:14) Muscle Pain spironolactone Adverse Reaction (Mild, Verified 04/18/25 14:14) Migraine lisinopril Adverse Reaction (Verified 04/18/25 14:14) Nausea and Vomiting HPI HPI copd: Details: 74-year-old gentleman, former 60+ pack-year smoker, quit 2011 followed for COPD and CVID. After the last office visit patient was started on IVIG and had 3 injections, after that he wanted to stop the injections secondary to development of lower extremity rash, however he had rash persist to wax and wane, even after he stopped his IVIG and at this time believed to have a different etiology. he was restarted on IVIG after the last visit. He was tried on theophylline with good response, but was unable to tolerate side effects. He denies acute exacerbations. [facility] Medical History Polyarthritis Kidney stones CAD (coronary artery disease) History of DVT (deep vein thrombosis) HTN (hypertension) Diabetes COPD (chronic obstructive pulmonary disease) JENNY (obstructive sleep apnea) Personal history of nicotine dependence Obesity HUNG positive BPH (benign prostatic hyperplasia) Neck pain Acute urinary retention Fatigue Chronic fatigue Minimal depression Osteoarthritis Surgical History Hx of colonoscopy S/P excision of lipoma History of resection of small bowel History of ventral hernia repair History of sleeve gastrectomy Hx of right knee surgery History of vasectomy History of tonsillectomy Family History Father CAD (coronary artery disease) Mother Mental health disorder Brother Accelerated hypertension Son No problems noted. Daughter No problems noted. Sister Leukemia Sister Cerebral palsy Sister No problems noted. Social History (Updated 04/04/25 @ 16:33 by Louise L Maheu, RN) Household Members: Family Both parents involved: No Caregiver staying overnight: No Housing: Condominium Are you a primary career services manager to a significant other at home: No Do you presently have visiting nurse or other home services: No Alcohol intake: current Alcohol intake frequency: holidays/special occasions only Patient Tobacco Use Status: Former Tobacco user Tobacco use type: Cigarette Years Smoked: 12 years ago , started at 15 years old, 2 PPD e-Cigarette/Vaping Use: Never Used Second Hand Smoke Exposure: No service: No Current occupational status: previously employed and retired 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, 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) Gender identity: Male Cognitive needs: No Hearing needs: No Vision needs: Yes Review of Systems Const Denies daytime sleepiness, Denies excessive sweating, Denies fatigue, Denies fever(s), Denies lethargy, Denies malaise, Denies night sweats, Denies snoring and Denies weight loss Eyes Denies blurry vision and Denies itchy eyes ENT Denies nasal congestion, Denies post nasal drip, Denies sinus pain, Denies sinus pressure and Denies other ( Thrush) Card Denies chest pain, Denies pedal edema, Denies dyspnea, Denies orthopnea and Denies paroxysmal nocturnal dyspnea Resp Denies cough, Denies hemoptysis, Denies excessive phlegm production, Denies dyspnea, Denies snoring and Denies wheezing GI Denies abdominal pain and Denies heartburn Musc Denies myalgias, Denies arthralgias and Denies joint swelling Skin/Breast Denies rash Neuro Denies memory loss and Denies seizure-like activity Psych Denies abnormal sleep pattern, Denies anxiety and Denies memory loss Endo Denies excessive sweating, Denies fatigue and Denies heat intolerance Ian/Lymph Denies easy bruising Aller/Immun Denies itchy eyes, Denies seasonal rhinorrhea and Denies wheezing Physical Exam Vital Signs: Last Vital Signs Pulse 60 04/18/25 14:09 BP 158/72 H 04/18/25 14:09 Pulse Ox 95 04/18/25 14:09 Oxygen Delivery Method Room Air 04/18/25 14:09 BMI result Body Mass Index 36.6 Const General: no acute distress and alert Nutritional Appearance: not obese Orientation/consciousness: Other orientation findings ( oriented) HEENT Head: Yes atraumatic Eyes General: appearance normal, both eyes and all related structures Sclerae: sclerae normal EOM: EOMs intact bilaterally Neck Neck: Yes supple Lymphatic: no lymphadenopathy noted Resp Effort & Inspection: normal respiratory effort and no use of accessory muscles Auscultation: clear to auscultation bilaterally Cardio Rate: regular rate Rhythm: regular rhythm Heart sounds: no gallops, no murmurs and no rubs Skin General skin exam: other ( warm) Extrem General: No clubbing, No cyanosis and No edema Assessment & Plan Assessment & Plan (1) COPD (chronic obstructive pulmonary disease): Code(s): J44.9 - Chronic obstructive pulmonary disease, unspecified Category: Medical Plan: Suboptimally controlled on Trelegy and albuterol MDI. Unable to tolerate theophylline secondary to side effects, though with good response. Will try on Ohtuvayre. (2) Personal history of nicotine dependence: Comment: (former smoker 30pyh, quit 12yr ago) Code(s): Z87.891 - Personal history of nicotine dependence Category: Medical Plan: Results of lung cancer screening CT chest from February of 2025 reviewed, no worrisome nodules. Continue with yearly screening. 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 Medications: New ensifentrine (Ohtuvayre) 3 mg (2.5 mL) inhalation BID 150 mL 6RF J44.9 - Chronic obstructive pulmonary disease, unspecified Discontinued theophylline ER Discontinued Reason: Doctor's Order 200 mg PO DAILY 30 caps 6RF Coding Level of Care Code Est Pt Level 4 (28015) Complex EM visit Add On G2211 Diagnoses COPD (chronic obstructive pulmonary disease) J44.9 Personal history of nicotine dependence Z87.891 IgG deficiency D80.3
--- OUTSIDE RECORDS SUMMARY | 2025-04-18 17:09 | XMS_ITS | Data Portability ---
Author Organization [place] - [facility], Allergy Address [address] [place] [address] Care Team Providers Care Emergency Vehicle Driver Name Role Phone BABS PIERCE Primary Care [...] but he is interested in contacting the [facility] to obtain another trial of [...] Details Recorded Time Obstructive sleep apnea syndrome 20807051 Active 2023 ARNALDO RIOS MD [address] [place], [address], [facility] - [facility] [place] 4 11:53:36 Body mass index 30+ - obesity 874371051 Active 2023 ARNALDO RIOS MD 100 [facility] 100, [place], [address], [facility] - [facility] [place] 4 11:54:13 Problem Notes None recorded. Procedures Surgical History Date Name Laterality Status Provider Name and Address Organization Details Recorded Time 02/17/2024 FOL_DP completed ARNALDO RIOS MD 100 [facility] 100, [place], [address], [facility] - [facility] 02/15/2024 14:04:03 Imaging Results None recorded. [...] Updated DateTime 02/17/2024 177.8 cm 36.7 kg/m2 349174.65 g Sarah Anthony [place] - [facility] 02/17/2024 11:37:37 Social History None recorded. Functional Status None recorded. Mental Status None recorded. Family History Nothing Reported. Medical History No medical history recorded. Past Encounters Encounter ID Performer Location Encounter Start Date Encounter Closed Date Diagnosis/Indication Diagnosis SNOMED-CT Code Diagnosis ICD10 Code Diagnosis IMO Codes Diagnosis Note [id number] ARNALDO RIOS MD [facility] [address] [address] 02/17/2024 11:22:24 02/17/2024 12:06:00 Obstructive sleep apnea syndrome 46358192 G47.33 Body mass index 30+ - obesity 417661228 Z68.36 Health Concerns Section Related Observation LastModified by Organization Detai ls LastModified Time None Recorded Concern Status LastModified by Organization Details LastModified Time None Recorded Advance Directives Directive None Recorded Payers Insurance Date Sequence Insurance Name Policy Number Policy Urias Covered Member ID Urias Member ID Guarantor Name 08/13/2024 2 [place] [id number] Zaki Ramirez [id number] Zaki Ramirez 08/13/2024 1 [place]MENT [place] Zaki Ramirez [id number] Zaki Ramirez Notes Date Note Type [...] BMI 36 now ARNALDO RIOS MD 100 [facility] 100, [place], [address], [facility] - [facility] 02/17/2024 12:06:57
--- OUTSIDE RECORDS SUMMARY | 2025-04-18 17:09 | XMS_ITS | Clinical Summary ---
Author Organization [facility] it Address [address] [place] [address] Care Team Providers Care Pool Installer Name Role Phone Milad Adame MD Primary Care Provider [phone] Medical History Medical History Date Comments Pneumonia DX:Pneumonia Chronic lung disease DX:Chronic lung disease Diabetes (CMS/HCC V24, CMS/HCC V28) DX:Diabetes ([facility]) High blood pressure DX:High bloo d pressure [...] age to complete this topic Care Teams Pool Installer Relationship Specialty Start Date End Date Milad Adame MD [address] [place] [phone] PCP - General Internal Medicine 10/01/14
== END 2025-04-18 14:32 | disposition home or self-care (01) ==
LOC: HO.HPS 14:06
PROVIDERS: PCP Nurse Practitioner Family; Visit Provider Internal Medicine Pulmonary Disease
DX: J44.9 Chronic obstructive pulmonary disease, unspecified (principal); Z87.891 Personal history of nicotine dependence; D80.3 Selective deficiency of immunoglobulin G [IgG] subclasses
CPT/HCPCS: 99214; G2211

== ENCOUNTER → 2025-04-18 14:05 | Outpatient (BNVA) | payer MEDICARE, MEDICAID, SELFPAY | PROVIDERS: PCP Nurse Practitioner Family; Visit Provider Internal Medicine Pulmonary Disease | DX: J44.9 Chronic obstructive pulmonary disease, unspecified (principal); G47.33 Obstructive sleep apnea (adult) (pediatric); D80.3 Selective deficiency of immunoglobulin G [IgG] subclasses; Z79.620 Long term (current) use of immunosuppressive biologic; Z87.891 Personal history of nicotine dependence | CPT/HCPCS: 99212 ==

== ENCOUNTER 2025-04-22 08:37 | Outpatient (AMB) | payer MEDICARE, MEDICAID, SELFPAY ==
--- NOTE | 2025-04-22 08:39 | MHC.OFFVIS ---
Vital Signs 04/22/25 08:40 Height 5 ft 10 in Weight 251 lb 12.286 oz BMI 36.1 BP 118/60 Blood Pressure Location Lt brachial Position Sitting Pulse 70 Pulse Source Pulse Oximeter Intake Visit Reasons: f/u echo per NS Allergies latex (LATEX) Allergy (Intermediate, Verified 04/22/25 08:42) RASH Unbeyfl-NWF-TeI Reductase Inhibitor Adverse Reaction (Intermediate, Verified 04/22/25 08:42) Muscle Pain spironolactone Adverse Reaction (Mild, Verified 04/22/25 08:42) Migraine lisinopril Adverse Reaction (Verified 04/22/25 08:42) Nausea and Vomiting Medication List - Last Reconciled 04/23/25 by LEWIS Gambino acetaminophen 1,000 mg PO QID PRN amlodipine 10 mg PO .Daily at 4pm ascorbic acid (vitamin C) 1,000 mg PO DAILY aspirin 81 mg PO DAILY blood-glucose meter (FreeStyle Lite Meter kit) As directed cholecalciferol (vitamin D3) 100 mcg PO DAILY cyanocobalamin (vitamin B-12) 1,000 mcg PO DAILY ensifentrine (Ohtuvayre) 3 mg (2.5 mL) inhalation BID ferrous sulfate 325 mg PO DAILY finasteride 5 mg PO DAILY ycczpwfjibx-pgdhwtucw-jujstpve 100-62.5-25 mcg (Trelegy Ellipta) 1 inh inhalation DAILY FreeStyle Lite Strips (blood sugar diagnostic) Test blood sugar once a day NS furosemide 40 mg PO DAILY gabapentin 900 mg (3 x 300 mg) PO BEDTIME glucosamine HCl 1,000 mg PO DAILY labetalol 200 mg (2 x 100 mg) PO BID 30 days lancets (FreeStyle Lancets) Test blood sugar once a day losartan 100 mg PO DAILY naproxen sodium (Flanax (naproxen)) 440 mg PO DAILY tamsulosin 0.4 mg PO DAILY tirzepatide 5 mg (0.5 mL) subcut QWEEK HPI HPI f/u echo per NS: Details: Zaki is a 74-year-old male with past medical history of hypertension, hyperlipidemia, diabetes, smoking, untreated obstructive sleep apnea, nonobstructive coronary artery disease, ascending aorta dilation who presents for follow-up after recent echocardiogram showing EF 40-45%. Today he reports increasing shortness of breath with exertion. He has no chest discomfort at rest or with activity. He does have generalized body and joint soreness from his rheumatoid arthritis. No heart palpitations, lightheadedness, presyncope, syncope. No PND, orthopnea or edema. He reports compliance with his medications. 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 [facility] Medical History Polyarthritis Kidney stones CAD (coronary artery disease) History of DVT (deep vein thrombosis) HTN (hypertension) Diabetes COPD (chronic obstructive pulmonary disease) JENNY (obstructive sleep apnea) Personal history of nicotine dependence Obesity HUNG positive BPH (benign prostatic hyperplasia) Neck pain Acute urinary retention Fatigue Chronic fatigue Minimal depression Osteoarthritis Surgical History Hx of colonoscopy S/P excision of lipoma History of resection of small bowel History of ventral hernia repair History of sleeve gastrectomy Hx of right knee surgery History of vasectomy History of tonsillectomy Family History Father CAD (coronary artery disease) Mother Mental health disorder Brother Accelerated hypertension Son No problems noted. Daughter No problems noted. Sister Leukemia Sister Cerebral palsy Sister No problems noted. Social History Household Members: Family Both parents involved: No Caregiver staying overnight: No Housing: Condominium Are you a primary health care / medical job titles to a significant other at home: No Do you presently have visiting nurse or other home services: No Alcohol intake: current Alcohol intake frequency: holidays/special occasions only Patient Tobacco Use Status: Former Tobacco user Tobacco use type: Cigarette Years Smoked: 12 years ago , started at 15 years old, 2 PPD e-Cigarette/Vaping Use: Never Used Second Hand Smoke Exposure: No service: No Current occupational status: previously employed and retired 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[employer], [employer] (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 [employer]) Gender identity: Male Cognitive needs: No Hearing needs: No Vision needs: Yes Review of Systems Const All systems reviewed & are unremarkable except as noted in HPI and below ENT Denies dizziness Card Denies chest pain, Denies chest pain at rest, Denies chest pain with activity, Denies rapid heart rate, Denies pedal edema, Denies edema, Denies leg edema, Denies lightheadedness, Denies palpitations, Denies dyspnea, Reports dyspnea on exertion and Denies orthopnea Resp Denies cough, Denies dyspnea and Reports dyspnea on exertion GI Denies hematochezia and Denies change in stool character Musc Denies abnormal gait, Denies limited range of motion, Denies muscle cramps, Denies muscle weakness, Denies numbness, Denies radiating pain into limb, Denies stiffness and Denies tingling Neuro Denies abnormal gait, Denies dizziness, Denies numbness and Denies tingling Endo Denies palpitations Physical Exam Vital Signs: Last Vital Signs Pulse 70 04/22/25 08:40 BP 118/60 04/22/25 08:40 BMI result Body Mass Index 36.1 Const General: cooperative, healthy appearing, comfortable and no acute distress Orientation/consciousness: patient oriented x3 Neck Neck: Yes normal visual inspection and Yes no JVD Resp Effort & Inspection: normal respiratory effort Auscultation: clear to auscultation bilaterally, no rales, no rhonchi and no wheezes Cardio Rate: regular rate Rhythm: regular rhythm Heart sounds: S1 normal heart sound present, S2 normal heart sound present, no gallops, no murmurs and no rubs Peripheral pulses: Peripheral pulses 2+ throughout Neuro General: patient oriented x3 Extrem General: Yes normal to inspection, No no pedal edema and No calf tenderness Psych Appearance: grossly normal Mental Status: mental status grossly normal Speech and movement: Normal speech and movement present Assessment & Plan Assessment & Plan (1) Cardiomyopathy: Code(s): I42.9 - Cardiomyopathy, unspecified Category: Medical Plan: Recent echocardiogram showing mildly reduced EF. Echo 04/08/2025 showed EF 40-45%, impaired relaxation, mildly dilated left atrium, normal valves. Echo from 03/08/2023 had shown EF 54%. He has a known history of nonobstructive coronary disease. He has untreated sleep apnea which can contribute to reduced EF. He is reporting increasing shortness of breath with exertion. He declines nuclear stress test but is agreeable to CTA. Will check a CTA of the coronary arteries to assess for obstructive disease. Continue losartan and labetalol to help with neurohormonal modulation. We discussed sleep apnea treatment but he states he is unable to wear a mask at night. Signs and symptoms of heart failure reviewed. Cardiology follow-up in 3 months, sooner if needed. (2) CAD (coronary artery disease): Comment: Lad minimal irregularities, left circumflex mild luminal irregularities, RCA 30% mid stenosis. 04/07/2021 Code(s): I25.10 - Atherosclerotic heart disease of kenaitze coronary artery without angina pectoris Category: Medical Plan: History of nonobstructive coronary disease on cardiac catheterization. Continue aspirin indefinitely. He reports intolerance to statins. (3) HTN (hypertension): Code(s): I10 - Essential (primary) hypertension Category: Medical Plan: Blood pressure goal less than 130/80. Well controlled at this time. Continue amlodipine, Lasix, labetalol and losartan. (4) Ascending aorta dilatation: Code(s): I77.810 - Thoracic aortic ectasia Category: Medical Plan: Echocardiogram 04/08/2025 shows ascending aorta 4.2 cm which is stable. Will continue to follow with periodic echoes (5) Sleep apnea: Code(s): G47.30 - Sleep apnea, unspecified Category: Medical Plan: He reports inability to tolerate CPAP mask. Follows with pulmonology. Plan We discussed the stability of the aortic aneurysm and the need for continued monitoring through regular imaging. The reduced ejection fraction was addressed, and a stress test was recommended to further evaluate cardiac function. A CAT scan of the heart arteries was agreed upon and ordered to assess for potential blockages. The patient was advised to maintain physical activity to manage seasonal affective disorder and continue current medications for rheumatoid arthritis. Orders: Orders Basic Metabolic Panel Today I25.10 - Atherosclerotic heart disease of kenaitze coronary artery without angina pectoris, I42.9 - Cardiomyopathy, unspecified CT Cardiac Coronary Angio Today I25.10 - Atherosclerotic heart disease of kenaitze coronary artery without angina pectoris, I42.9 - Cardiomyopathy, unspecified Patient Instructions: - Continue taking medications as prescribed. - Monitor for any new or worsening symptoms and report them immediately. - Engage in regular physical activity to help manage seasonal affective disorder. - Follow up with scheduled imaging and tests as advised. Patient was informed and verbally consented to the use of an ambient scribe for clinic note documentation during this visit. Visit time spent on chart review, interview, assessment, orders, documentation. Coding Level of Care Code Est Pt Level 4 (24291) Complex EM visit Add On G2211 Diagnoses Cardiomyopathy I42.9 CAD (coronary artery disease) I25.10 HTN (hypertension) I10 Ascending aorta dilatation I77.810 Sleep apnea G47.30 Time Spent (min) 32
[2025-04-22 08:40] VITALS: BP 118/60; PULSE 70; BMI 36.1
--- OUTSIDE RECORDS SUMMARY | 2025-04-22 09:03 | XMS_ITS | Data Portability ---
Author Organization [place] - [facility], Allergy Address [address] [place] [address] Care Team Providers Care Disability Benefits Specialist Name Role Phone BABS PIERCE Primary [...] but he is interested in contacting the [facility] to obtain another trial of [...] Details Recorded Time Obstructive sleep apnea syndrome 69171405 Active 2023 ARNALDO RIOS MD [address] [place], [address], [facility] - [facility] [place] 4 11:53:36 Body mass index 30+ - obesity 411090123 Active 2023 ARNALDO RIOS MD 100 [facility] 100, [facility] [place], [address], [facility] - [facility] [place] 4 11:54:13 Problem Notes None recorded. Procedures Surgical History Date Name Laterality Status Provider Name and Address Organization Details Recorded Time 02/17/2024 FOL_DP completed ARNALDO RIOS MD 100 [facility] 100, [place], [address], [facility] - [facility] 02/15/2024 14:04:03 Imaging Results None recorded. [...] Updated DateTime 02/17/2024 177.8 cm 36.7 kg/m2 220062.65 g Sarah Anthony [place] - [facility] 02/17/2024 11:37:37 Social History None recorded. Functional Status None recorded. Mental Status None recorded. Family History Nothing Reported. Medical History No medical history recorded. Past Encounters Encounter ID Performer Location Encounter Start Date Encounter Closed Date Diagnosis/Indication Diagnosis SNOMED-CT Code Diagnosis ICD10 Code Diagnosis IMO Codes Diagnosis Note [id number] ARNALDO RIOS MD [facility] [address] [address] 02/17/2024 11:22:24 02/17/2024 12:06:00 Obstructive sleep apnea syndrome 60515030 G47.33 Body mass index 30+ - obesity 395997725 Z68.36 Health Concerns Section Related Observation LastModified by Organization Detai ls LastModified Time None Recorded Concern Status LastModified by Organization Details LastModified Time None Recorded Advance Directives Directive None Recorded Payers Insurance Date Sequence Insurance Name Policy Number Policy Urias Covered Member ID Urias Member ID Guarantor Name 08/13/2024 2 [place] [id number] Zaki Ramirez [id number] Zaki Ramirez 08/13/2024 1 [place] Zaki Ramirez [id number] Zaki Ramirez Notes Date Note Type [...] BMI 36 now ARNALDO RIOS MD 100 [facility] 100, [place], [address], [facility] - [facility] 02/17/2024 12:06:57
--- OUTSIDE RECORDS SUMMARY | 2025-04-22 09:03 | XMS_ITS | Clinical Summary ---
Author Organization [facility] it Address [address] [place] [address] Care Team Providers Care Director Of Optimization Name Role Phone Milad Adame MD Primary Care Provider [phone] Medical History Medical History Date Comments Pneumonia DX:Pneumonia Chronic lung disease DX:Chronic lung disease Diabetes (CMS/HCC V24, CMS/HCC V28) DX:Diabetes ([facility]) High blood pressure DX:High bloo d [...] age to complete this topic Care Teams Director Of Optimization Relationship Specialty Start Date End Date Milad Adame MD [address] [place] [phone] PCP - General Internal Medicine 10/01/14
== END 2025-04-22 09:16 | disposition home or self-care (01) ==
PROVIDERS: PCP Nurse Practitioner Family; Visit Provider Nurse Practitioner Family
DX: I42.9 Cardiomyopathy, unspecified (principal); I25.10 Atherosclerotic heart disease of native coronary artery without angina pectoris; I10 Essential (primary) hypertension; I77.810 Thoracic aortic ectasia; G47.30 Sleep apnea, unspecified
CPT/HCPCS: 99214; G2211

== ENCOUNTER → 2025-04-22 08:37 | Outpatient (BNVA) | payer MEDICARE, MEDICAID, SELFPAY | PROVIDERS: PCP Nurse Practitioner Family; Visit Provider Nurse Practitioner Family | DX: I42.9 Cardiomyopathy, unspecified (principal); I25.10 Atherosclerotic heart disease of native coronary artery without angina pectoris; I10 Essential (primary) hypertension; I77.810 Thoracic aortic ectasia; G47.30 Sleep apnea, unspecified; Z87.891 Personal history of nicotine dependence; R06.02 Shortness of breath | CPT/HCPCS: 99212 ==

== ENCOUNTER 2025-04-25 13:46 | Outpatient (AMB) | payer MEDICARE, MEDICAID, SELFPAY ==
[2025-04-25 13:55] VITALS: BMI 35.6
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
--- OUTSIDE RECORDS SUMMARY | 2025-04-25 16:47 | XMS_ITS | Clinical Summary ---
Author Organization [facility] it Address [address] [place] [address] Care Team Providers Care Sanitation Supervisor Name Role Phone Milad Adame MD Primary Care Provider [phone] Medical History Medical History Date Comments Pneumonia DX:Pneumonia Chronic lung disease DX:Chronic lung disease Diabetes (CMS/HCC V24, CMS/HCC V28) DX:Diabetes ([facility]) High blood pressure DX:High bloo d pressure [...] age to complete this topic Care Teams Sanitation Supervisor Relationship Specialty Start Date End Date Milad Adame MD [address] [place] [phone] PCP - General Internal Medicine 10/01/14
--- OUTSIDE RECORDS SUMMARY | 2025-04-25 16:47 | XMS_ITS | Data Portability ---
Author Organization [place] - [facility], Allergy Address [address] [place] [phone] Care Team Providers Care Fuller Brush Man Name Role Phone BABS PIERCE Primary Care [...] but he is interested in contacting the [place] [facility] to obtain another trial of [...] Details Recorded Time Obstructive sleep apnea syndrome 05153139 Active 2023 ARNALDO RIOS MD [address] [place], [phone], [facility] - [facility] [place] 4 11:53:36 Body mass index 30+ - obesity 133101112 Active 2023 ARNALDO RIOS MD 100 [facility] 100, [place], [phone], [facility] - [facility] [place] 4 11:54:13 Problem Notes None recorded. Procedures Surgical History Date Name Laterality Status Provider Name and Address Organization Details Recorded Time 02/17/2024 FOL_DP completed ARNALDO RIOS MD 100 [facility] 100, [place], [address], [facility] - [facility] 02/15/2024 14:04:03 Imaging Results None recorded. [...] Updated DateTime 02/17/2024 177.8 cm 36.7 kg/m2 964908.65 g Sarah Anthony [place] - [facility] 02/17/2024 11:37:37 Social History None recorded. Functional Status None recorded. Mental Status None recorded. Family History Nothing Reported. Medical History No medical history recorded. Past Encounters Encounter ID Performer Location Encounter Start Date Encounter Closed Date Diagnosis/Indication Diagnosis SNOMED-CT Code Diagnosis ICD10 Code Diagnosis IMO Codes Diagnosis Note [id number] ARNALDO RIOS MD [facility] [address] [address] 02/17/2024 11:22:24 02/17/2024 12:06:00 Obstructive sleep apnea syndrome 01258925 G47.33 Body mass index 30+ - obesity 090744289 Z68.36 Health Concerns Section Related Observation LastModified by Organization Detai ls LastModified Time None Recorded Concern Status LastModified by Organization Details LastModified Time None Recorded Advance Directives Directive None Recorded Payers Insurance Date Sequence Insurance Name Policy Number Policy Urias Covered Member ID Urias Member ID Guarantor Name 08/13/2024 2 [place] [id number] Zaki Ramirez [id number] Zaki Ramirez 08/13/2024 1 [place] N[place] GOVERNMENT [place] Zaki Ramirez [id number] Zaki Ramirez Notes Date Note Type [...] BMI 36 now ARNALDO RIOS MD 100 [facility] 100, [place], [address], [facility] - [facility] 02/17/2024 12:06:57
== END 2025-04-25 14:17 | disposition home or self-care (01) ==
LOC: HO.HPODS 13:48
PROVIDERS: PCP Nurse Practitioner Family; Visit Provider Student in an Organized Health Care Education/Training Program
DX: S99.922D Unspecified injury of left foot, subsequent encounter (principal); M76.62 Achilles tendinitis, left leg; M20.42 Other hammer toe(s) (acquired), left foot
CPT/HCPCS: 99214

== ENCOUNTER → 2025-04-25 13:46 | Outpatient (BNVA) | payer MEDICARE, MEDICAID, SELFPAY | PROVIDERS: PCP Nurse Practitioner Family; Visit Provider Student in an Organized Health Care Education/Training Program | DX: S99.922D Unspecified injury of left foot, subsequent encounter (principal); M76.62 Achilles tendinitis, left leg; M20.42 Other hammer toe(s) (acquired), left foot; X58.XXXD Exposure to other specified factors, subsequent encounter | CPT/HCPCS: 99212 ==

== ENCOUNTER 2025-05-08 13:42 | Outpatient (AMB) | payer MEDICARE, SELFPAY ==
--- NOTE | 2025-05-08 14:35 | A.OFFPC_ITS ---
Vital Signs 05/08/25 14:37 Height 5 ft 10 in Weight 247 lb BMI 35.4 BP 150/64 H Blood Pressure Location Lt brachial Position Sitting Respiration 16 Pulse 62 Pulse Source Pulse Oximeter Pulse Oximetry (%) 100 Oxygen Delivery Method Room Air Intake Visit Reasons: 6 month followup Book Retailer Required: No Allergies latex (LATEX) Allergy (Intermediate, Verified 05/08/25 14:37) RASH Tzsivjd-YHU-ZaG Reductase Inhibitor Adverse Reaction (Intermediate, Verified 05/08/25 14:37) Muscle Pain spironolactone Adverse Reaction (Mild, Verified 05/08/25 14:37) Migraine lisinopril Adverse Reaction (Verified 05/08/25 14:37) Nausea and Vomiting Tobacco use date assessed: 05/08/25 Fall risk assessment: No Falls in past year Last assessed Fall Risk: 05/08/25 Dental Screening Dental Screen Date: 11/13/24 HPI 6 month followup HPI Details Chief Complaint The patient presents for follow-up regarding a fall, hypertension, and diabetes. History of Present Illness The patient is a 74-year-old male presenting for follow-up for a fall, hypertension, and diabetes. The patient has a history of type 2 diabetes mellitus, though he reports he does not consider himself diabetic following a previous gastric sleeve surgery. His recent hemoglobin A1c is 5.8, and he has previously taken a GLP-1 agonist. He is aware of the recommendation for annual eye exams. Regarding his hypertension, the patient reports his home blood pressure readings are stable and the best they have ever been. His blood pressure was elevated in the office today, but he had not yet taken his blood pressure medication. He sees a job developer on a regular basis. The patient denies any chest pain, increased shortness of breath, dizziness, or blurred vision. Social History - Weight Management: Patient is obese an d has a history of a prior gastric sleeve surgery. Health Maintenance - Diabetes screening: Hemoglobin A1c is 5.8. - Diabetic eye exam: Patient is aware of the recommendation to have an eye exam once a year. - Cardiovascular care: Patient sees a ca rdiologist on a regular basis. Review of Systems - Cardiovascular: Denies chest pain. - Respiratory: Denies increased shortnes s of breath. - Neurological: Denies dizziness. - Eyes: Denies blurred vision. Physical Exam General: Cooperative, healthy appearing, comfortable, no acute distress, well developed, and obese Orientation: Patient oriented x3 Limitations: No limitations Head: Normal to inspection Ears: Hearing grossly normal bilaterally Nose: Normal external nose present Face and sinus: Normal facial exam Eyes: Appearance normal, both eyes and all related structures. Patient knows to get eye exams once a year Neck: Normal visual inspection and Yes full ROM Respiratory: Normal respiratory effort and able to speak in complete sentences. Clear to auscultation bilaterally Cardiovascular: Regular rate and rhythm. Normal S1 and S2. Blood pressure is a little bit elevated today GI: Normal to inspection. Soft to palpation and nontender Skin: No rashes or lesions noted Neuro: Patient oriented x3. No neuropathy noted. Positive sensation with use of monofilament Extremities: Normal to inspection. Feet were intact bilaterally Results - Labs: Hemoglobin A1c is 5.8. Plan 1. Hypertension The patient's blood pressure was elevated in the office today; however, he reports that his home readings are stable and are the best they have ever been. He had not taken his blood pressure medication prior to the visit and will take it upon returning home. Will continue to follow up with cardiology. 2. Type 2 Diabetes Mellitus The patient has a history of type 2 diabetes mellitus, with a recent hemoglobin A1c of 5.8. He reports he is not diabetic following a gastric sleeve procedure. Continue to monitor A1c. The patient is aware of the need for annual eye exams. Discussion Notes I discussed the patient's elevated in-office blood pressure, noting his report of stable home readings and his missed medication dose today. He will take his medication when he gets home. I reviewed his recent hemoglobin A1c of 5.8 and confirmed he is aware of the recommendation for annual eye exams. I acknowledged his regular follow-up with a job developer, and we will continue to follow up on his conditions. Patient Instructions - Be sure to take your blood pressure me dication today as soon as you get home. - Continue to check your blood pressure at home. - Make sure you get an eye exam once a y ear. - Continue to see your heart doctor (car diologist) regularly. - Continue to follow up as planned. [facility] Medical History Polyarthritis Kidney stones CAD (coronary artery disease) History of DVT (deep vein thrombosis) HTN (hypertension) Diabetes COPD (chronic obstructive pulmonary disease) JENNY (obstructive sleep apnea) Personal history of nicotine dependence Obesity HUNG positive BPH (benign prostatic hyperplasia) Neck pain Acute urinary retention Fatigue Chronic fatigue Minimal depression Osteoarthritis Surgical History Hx of colonoscopy S/P excision of lipoma History of resection of small bowel History of ventral hernia repair History of sleeve gastrectomy Hx of right knee surgery History of vasectomy History of tonsillectomy Family History Father CAD (coronary artery disease) Mother Mental health disorder Brother Accelerated hypertension Son No problems noted. Daughter No problems noted. Sister Leukemia Sister Cerebral palsy Sister No problems noted. Social History Household Members: Family Both parents involved: No Caregiver staying overnight: No Housing: Condominium Are you a primary health care recruiter to a significant other at home: No Do you presently have visiting nurse or other home services: No Alcohol intake: current Alcohol intake frequency: holidays/special occasions only Patient Tobacco Use Status: Former Tobacco user Tobacco use type: Cigarette Years Smoked: 12 years ago , started at 15 years old, 2 PPD e-Cigarette/Vaping Use: Never Used Second Hand Smoke Exposure: No service: No Current occupational status: previously employed and retired 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[employer], 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[employer]) Gender identity: Male Cognitive needs: No Hearing needs: No Vision needs: Yes Questionnaire Thrive Questionnaire Date Thrive assessed: 11/10/24 I am a: Patient What is your living situation today?: I have a steady place to live Within the past 12 months, did the food you bought not last and you didn't have the money to get more?: Never true Within the past 12 months, did you worry whether your food would run out before you got money to buy more?: Never true Do you have trouble paying for medicines?: Yes Do you have trouble getting transportation to medical appointments?: No Do you have trouble paying your heating and electricity bill?: No Do you have trouble taking care of your child, family member or friend?: No Do you have trouble with day-to-day activities such as bathing, preparing meals, shopping, managing finances, etc.?: No Are you currently unemployed and looking for a job?: No Are you interested in more education?: No Currently or been in a relationship where the following occur: No concerns reported THRIVE Score: 0 ALYSIA-7 AMB Questionnaire ALYSIA-7 Date ALYSIA - 7 assessed: 05/09/24 Source: Developed by Drs. Alcides Matt, Dori Martinez, Mani Hunt and colleagues, with an educational rogelio from [employer]. Physical exam (Primary Care) Vital Signs: Last Vital Signs Pulse 62 05/08/25 14:37 BP 150/64 H 05/08/25 14:37 Pulse Ox 100 05/08/25 14:37 Oxygen Delivery Method Room Air 05/08/25 14:37 Tobacco/Smoking Status: Tobacco use Status Tobacco use date assessed 05/08/25 05/08/25 14:37 Patient Tobacco Use Status Former Tobacco user 05/08/25 14:37 Tobacco use type Cigarette 05/08/25 14:37 e-Cigarette/Vaping Use Never Used 05/08/25 14:37 Thrive Assessment: Date of Thrive Assessment Date Thrive assessed 11/10/24 05/08/25 14:37 Currently or been in a relationship where the following occur: No concerns reported Results AMB Hemoglobin A1c AMB Hemoglobin A1c 5.8 % Last Edit by Michelle Devine MA on 05/08/25 15:01 Coding Level of Care Code Est Pt Level 3 (60734) Diagnoses Diabetes E11.9 HTN (hypertension) I10 Assessment & Plan Assessment & Plan (1) Diabetes: Code(s): E11.9 - Type 2 diabetes mellitus without complications Category: Medical (2) HTN (hypertension): Code(s): I10 - Essential (primary) hypertension Category: Medical Plan . Orders: Orders Complete Blood Count Auto Diff Today E11.9 - Type 2 diabetes mellitus without complications TSH reflex Free T4 Today E11.9 - Type 2 diabetes mellitus without complications UA CC w/rflx Micro + Cult Today E11.9 - Type 2 diabetes mellitus without complications Lipid Panel Today E11.9 - Type 2 diabetes mellitus without complications Microalbumin, Random (w Creat) Today E11.9 - Type 2 diabetes mellitus without complications AMB Hemoglobin A1c Today Z13.9 - Encounter for screening, unspecified Comprehensive [place]. Panel Fast Today E11.9 - Type 2 diabetes mellitus without complications
[2025-05-08 14:37] VITALS: BP 150/64; PULSE 62; RESP 16; O2SAT 100; BMI 35.4
--- OUTSIDE RECORDS SUMMARY | 2025-05-09 01:49 | XMS_ITS | Data Portability ---
Author Organization [place] - [facility], Allergy Address [address] [place] [phone] Care Team Providers Care 3D Artist Name Role Phone BABS PIERCE Primary Care [...] but he is interested in contacting the [place] [facility] to obtain another trial of [...] Details Recorded Time Obstructive sleep apnea syndrome 99429465 Active 2023 ARNALDO RIOS MD [address] [place], [address], [facility] - [facility] [place] 4 11:53:36 Body mass index 30+ - obesity 662838564 Active 2023 ARNALDO RIOS MD 100 [facility] 100, [place], [address], [facility] - [facility] [place] 4 11:54:13 Problem Notes None recorded. Procedures Surgical History Date Name Laterality Status Provider Name and Address Organization Details Recorded Time 02/17/2024 FOL_DP completed ARNALDO RIOS MD 100 [facility] 100, [place], [address], [facility] - [facility] 02/15/2024 14:04:03 Imaging Results None recorded. [...] Updated DateTime 02/17/2024 177.8 cm 36.7 kg/m2 237162.65 g Sarah Anthony [place] - [facility] 02/17/2024 11:37:37 Social History None recorded. Functional Status None recorded. Mental Status None recorded. Family History Nothing Reported. Medical History No medical history recorded. Past Encounters Encounter ID Performer Location Encounter Start Date Encounter Closed Date Diagnosis/Indication Diagnosis SNOMED-CT Code Diagnosis ICD10 Code Diagnosis IMO Codes Diagnosis Note [id number] ARNALDO RIOS MD [facility] [address] [address] 02/17/2024 11:22:24 02/17/2024 12:06:00 Obstructive sleep apnea syndrome 91665958 G47.33 Body mass index 30+ - obesity 852258650 Z68.36 Health Concerns Section Related Observation LastModified by Organization Detai ls LastModified Time None Recorded Concern Status LastModified by Organization Details LastModified Time None Recorded Advance Directives Directive None Recorded Payers Insurance Date Sequence Insurance Name Policy Number Policy Urias Covered Member ID Urias Member ID Guarantor Name 08/13/2024 2 [place] [id number] Zaki Ramirez [id number] Zaki Ramirez 08/13/2024 1 [place]MENT [place] Zaki Ramirez [id number] Zaki Ramirez Notes Date Note Type [...] BMI 36 now ARNALDO RIOS MD 100 [facility] 100, [place], [address], [facility] - [facility] 02/17/2024 12:06:57
== END 2025-05-08 15:25 | disposition home or self-care (01) ==
LOC: HO.HMCC 13:43
PROVIDERS: Visit Provider Nurse Practitioner Family
DX: E11.9 Type 2 diabetes mellitus without complications (principal); I10 Essential (primary) hypertension; Z13.9 Encounter for screening, unspecified

== ENCOUNTER → 2025-05-08 13:42 | Outpatient (BNVA) | payer MEDICARE, SELFPAY | PROVIDERS: Visit Provider Nurse Practitioner Family | DX: E11.9 Type 2 diabetes mellitus without complications (principal); I10 Essential (primary) hypertension | CPT/HCPCS: 83036; 99212 ==

== ENCOUNTER 2025-05-17 06:22 | Outpatient (REF) | payer MEDICARE, OTHER, SELFPAY ==
--- OUTSIDE RECORDS SUMMARY | 2025-05-17 06:27 | XMS_ITS | Data Portability ---
Author Organization [place] - [facility], Allergy Address [address] [place] [phone] Care Team Providers Care Automotive Engineering Technician Name Role Phone BABS PIERCE Primary Care Provider [phone] Assessment Encounter Date Assessment Date Assessment LastModified [...] but he is interested in contacting the [place] [facility] to obtain another trial of [...] Details Recorded Time Obstructive sleep apnea syndrome 07090490 Active 2023 ARNALDO RIOS MD [address] [place], [address], [facility] - [facility] 4 11:53:36 Body mass index 30+ - obesity 957591614 Active 2023 ARNALDO RIOS MD 100 [facility] 100, [place], [address], [facility] - [facility] 4 11:54:13 Problem Notes None recorded. Procedures Surgical History Date Name Laterality Status Provider Name and Address Organization Details Recorded Time 02/17/2024 FOL_DP completed ARNALDO RIOS MD 100 [facility] 100, [place], [address], [facility] - [facility] 02/15/2024 14:04:03 Imaging Results None recorded. [...] Updated DateTime 02/17/2024 177.8 cm 36.7 kg/m2 640635.65 g Sarah Anthony [place] - [facility] 02/17/2024 11:37:37 Social History None recorded. Functional Status None recorded. Mental Status None recorded. Family History Nothing Reported. Medical History No medical history recorded. Past Encounters Encounter ID Performer Location Encounter Start Date Encounter Closed Date Diagnosis/Indication Diagnosis SNOMED-CT Code Diagnosis ICD10 Code Diagnosis IMO Codes Diagnosis Note [id number] ARNALDO RIOS MD [facility] [address] [address] 02/17/2024 11:22:24 02/17/2024 12:06:00 Obstructive sleep apnea syndrome 63874099 G47.33 Body mass index 30+ - obesity 582154041 Z68.36 Health Concerns Section Related Observation LastModified by Organization Detai ls LastModified Time None Recorded Concern Status LastModified by Organization Details LastModified Time None Recorded Advance Directives Directive None Recorded Payers Insurance Date Sequence Insurance Name Policy Number Policy Urias Covered Member ID Urias Member ID Guarantor Name 08/13/2024 2 [place] [id number] Zaki Ramirez [id number] Zaki Ramirez 08/13/2024 1 [place] Zaki Ramirez [id number] Zaki Ramirez Notes Date Note Type [...] BMI 36 now ARNALDO RIOS MD 100 [facility] 100, [place], [address], [facility] - [facility] 02/17/2024 12:06:57
--- OUTSIDE RECORDS SUMMARY | 2025-05-17 06:27 | XMS_ITS | Clinical Summary ---
Author Organization [facility] it Address [address] [place] [address] Care Team Providers Care Director Immunology Name Role Phone Milad Adame MD Primary Care Provider [phone] Medical History Medical History Date Comments Pneumonia DX:Pneumonia Chronic lung disease DX:Chronic lung disease Diabetes (CMS/HCC V24, CMS/HCC V28) DX:Diabetes ([facility]) High blood pressure DX:High bloo d [...] 2) 2002 Depression Screening 06/20/2024 COVID-19 Vaccine (1 - 2024-2 6 season) 2025 Influenza Vaccine (#1) 2025 RSV [...] to complete this topic Care Teams Director Immunology Relationship Specialty Start Date End Date Milad dAame MD [address] [place] [phone] PCP - General Internal Medicine 10/01/14
[2025-05-17 06:37] LABS: MANUAL DIFF FLAG NO
[2025-05-17 07:18] LABS: Hematocrit 39.4 % (42.0-52.0); Hemoglobin 13.6 g/dl (14.0-18.0); Imm Gran Abs Auto 0.02 X10*3/uL (0.00-0.03); Imm Gran Pct Auto 0.3 % (0.0-0.4); Lymphocytes Absolute Auto 1.0 X10*3/uL (1.2-4.9); Mean Corpuscular HGB Conc 34.5 g/dl (31.0-36.0); Mean Corpuscular Hemoglobin 32.2 pg (27.0-33.0); Mean Corpuscular Volume 93.4 fL (80.0-98.0); NRBC Abs Auto 0.000 X10*3/uL (0.0-0.012); NRBC Pct Auto 0.0 /100WBC (0.0-0.2); Platelet Count 257 X10*3/uL (160-400); Red Blood Count 4.22 X10*6/uL (4.60-5.80); White Blood Count 6.5 X10*3/uL (4.8-10.8)
[2025-05-17 07:33] LABS: Appearance Urine Clear; Glucose Urine UA Negative (Negative); PH 5.0 (5.0-9.0); Specific Gravity - Urine 1.020 (1.005-1.025); UMIC TRIGGER UACC YES
[2025-05-17 07:41] LABS: Alanine Aminotransferase 32 U/L (0-40); Albumin Level 4.7 g/dL (3.5-5.0); Alkaline Phosphatase 60 U/L (39-117); Anion Gap 14 (12-20); Aspartate Amino Transferase 34 U/L (5-37); Blood Urea Nitrogen 23 mg/dL (9-16); Calcium 9.1 mg/dL (8.4-10.2); Carbon Dioxide 25 mmol/L (22-29); Chloride 105 mmol/L (96-108); Cholesterol 143 mg/dL (<200); Estimated Glomerular Filt Rate > 60; HDL Cholesterol 46 mg/dL (>40); Potassium 4.1 mmol/L (3.3-5.1); Sodium 140 mmol/L (135-145); Total Protein 6.8 g/dL (6.5-8.0); Triglycerides 143 mg/dL (<150)
[2025-05-17 07:56] LABS: Microalbum/Creatinine Ratio Ur 8.3 ug/mg cr (<30)
== END 2025-05-17 06:23 | disposition home or self-care (01) ==
LOC: HO.LAB 06:22
PROVIDERS: PCP Nurse Practitioner Family; Visit Provider Nurse Practitioner Family
DX: E11.9 Type 2 diabetes mellitus without complications (principal)
CPT/HCPCS: 36415; 80053; 80061; 81001; 82043; 82570; 84443; 85025

== ENCOUNTER 2025-06-03 14:12 | Outpatient (AMB) | payer MEDICARE, OTHER, SELFPAY ==
--- OUTSIDE RECORDS SUMMARY | 2025-06-03 20:39 | XMS_ITS | Clinical Summary ---
Author Organization [facility] ity Address [address] [place] [address] Care Team Providers Care Data Control Assistant Name Role Phone Milad Adame MD Primary Care Provider [phone] Medical History Medical History Date Comments Pneumonia DX:Pneumonia Chronic lung disease DX:Chronic lung disease Diabetes (CMS/HCC V24, CMS/HCC V28) DX:Diabetes (HCC) High blood pressure DX:High bloo d pressure [...] on file Sexual Orientation Not on file Plan of Treatment Health Maintenance Due Date [...] age to complete this topic Care Teams Data Control Assistant Relationship Specialty Start Date End Date Milad Adame MD [address] [place] [phone] PCP - General Internal Medicine 10/01/14
--- OUTSIDE RECORDS SUMMARY | 2025-06-03 20:39 | XMS_ITS | Data Portability ---
Author Organization [place] - [facility], Allergy Address [address] [place] [phone] Care Team Providers Care Communications Manager Name Role Phone BABS PIERCE Primary Care [...] but he is interested in contacting the [facility] to obtain another trial of [...] Details Recorded Time Obstructive sleep apnea syndrome 89091439 Active 2023 ARNALDO RIOS MD [address] [place], [address], [facility] - [facility] [place] 4 11:53:36 Body mass index 30+ - obesity 427320968 Active 2023 ARNALDO RIOS MD 100 [facility] 100, [place], [address], [facility] - [facility] [place] 4 11:54:13 Problem Notes None recorded. Procedures Surgical History Date Name Laterality Status Provider Name and Address Organization Details Recorded Time 02/17/2024 FOL_DP completed ARNALDO RIOS MD 100 [facility] 100, [place], [address], [facility] - [facility] 02/15/2024 14:04:03 Imaging Results None recorded. [...] Updated DateTime 02/17/2024 177.8 cm 36.7 kg/m2 543224.65 g Sarah Anthony MA - [facility] 02/17/2024 11:37:37 Social History None recorded. Functional Status None recorded. Mental Status None recorded. Family History Nothing Reported. Medical History No medical history recorded. Past Encounters Encounter ID Performer Location Encounter Start Date Encounter Closed Date Diagnosis/Indication Diagnosis SNOMED-CT Code Diagnosis ICD10 Code Diagnosis IMO Codes Diagnosis Note [id number] ARNALDO RIOS MD [facility] [address] [address] 02/17/2024 11:22:24 02/17/2024 12:06:00 Obstructive sleep apnea syndrome 62690680 G47.33 Body mass index 30+ - obesity 414638495 Z68.36 Health Concerns Section Related Observation LastModified by Organization Detai ls LastModified Time None Recorded Concern Status LastModified by Organization Details LastModified Time None Recorded Advance Directives Directive None Recorded Payers Insurance Date Sequence Insurance Name Policy Number Policy Urias Covered Member ID Urias Member ID Guarantor Name 08/13/2024 2 [place] [id number] Zaki Ramirez [id number] Zaki Ramirez 08/13/2024 1 [place] Zaki Ramirez [id number] Zaki Ramirez Notes Date Note Type [...] BMI 36 now ARNALDO RIOS MD 100 [facility] 100, [place], [address], [facility] - [facility] 02/17/2024 12:06:57
--- NOTE | 2025-07-22 13:40 | A.OFFVIS_ITS ---
Intake Visit Reasons: Initial Diabetes Nutrition Assessment Allergies latex (LATEX) Allergy (Intermediate, Verified 07/12/25 13:45) RASH Mudnwzm-[id number] Reductase Inhibitor Adverse Reaction (Intermediate, Verified 07/12/25 13:45) Muscle Pain spironolactone Adverse Reaction (Mild, Verified 07/12/25 13:45) Migraine lisinopril Adverse Reaction (Verified 07/12/25 13:45) Nausea and Vomiting Nutrition Presentation Details: Met with patient in his home. Prefers meals, not really a snacker. Tries to eat low sodium. Does report a history of bulimia before Weight loss surgery which he states is in remission. Did not receive formal treatment. Has been getting dry mouth since starting the GLP-1 but not sure if it is related. Is planning to do a sensor trial to determine if hypoglycemia is present. Only sleeping 3-4 hours per month. Is willing to get a sleeping machine-RD will discuss with nurse navigator. Pt is also inquiring about a software design manager. Admits to eating quickly but does think he chews well. Takes roughly 5 MVI/vit mackey supplements and was interested in switching to a bariatric-specific version to reduce the number of pills and optimize the appropriate dosing for a post bariatric sx patient. has avoided calcium due to a history of kidney stones. Reason for consult: initial DM maintenance GI symptoms: reports dyspepsia (not at the moment.) and constipation (on GLP-1) Food allergies/aversions: No Smoking assessment: Reviewed Alcohol assessment: Reviewed Physical activity assessment: Reviewed Diet Assmnt Details: Gastric sleeve with Dr. Anne 7 years ago at [facility]. was 307#, got down to 240# in one year. Started Ozempic for 3-4 months over the summer and was 285# to start but is not on Mounjaro 5 mg and feels like his hunger comes back after 3 days. Is mamanging but hopes to increase the dose soon. Has lost 25# in the last 2 months. Dietary counseling: diabetic diet and Mediterranean Who buys your food: self Who prepares/cooks your food: self Lifestyle Family support: Yes Exercise: No BS Monitoring Most Recent Diabetes Results: Microalb/Creat Ratio, (<30) 8.3 ug/mg cr 05/17/25 Cholesterol, (<200) 143 mg/dL 05/17/25 HDL Cholesterol, (>40) 46 mg/dL 05/17/25 Triglycerides, (<150) 143 mg/dL 05/17/25 Creatinine, (0.5-1.4) 0.76 mg/dL 05/17/25 BUN, (9-16) 23 mg/dL H 05/17/25 Sodium, (135-145) 140 mmol/L 05/17/25 Potassium, (3.3-5.1) 4.1 mmol/L 05/17/25 Chloride, (96-108) 105 mmol/L 05/17/25 Carbon Dioxide, (22-29) 25 mmol/L 05/17/25 Calcium, (8.4-10.2) 9.1 mg/dL 05/17/25 AST, (5-37) 34 U/L 05/17/25 ALT, (0-40) 32 U/L 05/17/25 Total Protein, (6.5-8.0) 6.8 g/dL 05/17/25 Albumin, (3.5-5.0) 4.7 g/dL 05/17/25 Assessment Nutrition recommendation: provide multivitamin (Celebrate vitamin brand reviewed) and RD nutrition education Current Diet: small, frequent, high protein meals Diagnosis Nutrition problem #1: food nutri know defi (related to GLP-1 initiation) As related to (etiology) #1: lack of nutrit education, altered metabolism nutri, unsure how to apply info, diagnosis (DM, weight loss surgery history) and increased PRO needs As evidenced by (sign/symptom) #1: constipation and knowledge deficit of diet Monitoring/Goals Nutrition problem monitoring: total energy intake, HgbA1c, level of knowledge/skill, total PRO intake, glucose, fasting, total CHO intake and weight Nutrition goal/outcome: list 3 diab diet goals, HgbA1c <7% in 3 months, list 3 CHO foods and list 3 high fiber foods Outcome progress: progressing Learning/Education Readiness to learn: excellent Stages of change: action Educational materials provided: Yes (snack guide, planning meals) Date of nutrition screenin06/03/25 Date of nutritional follow-up: 07/15/25 Follow-up details: home visit Follow up Follow-up frequency: monthly Time Outcome assessment time: 60 minutes [facility] Medical History Polyarthritis Kidney stones CAD (coronary artery disease) History of DVT (deep vein thrombosis) HTN (hypertension) Diabetes COPD (chronic obstructive pulmonary disease) JENNY (obstructive sleep apnea) Personal history of nicotine dependence Obesity HUNG positive BPH (benign prostatic hyperplasia) Neck pain Acute urinary retention Fatigue Chronic fatigue Minimal depression Osteoarthritis Surgical History Hx of colonoscopy S/P excision of lipoma History of resection of small bowel History of ventral hernia repair History of sleeve gastrectomy Hx of right knee surgery History of vasectomy History of tonsillectomy Family History Father CAD (coronary artery disease) Mother Mental health disorder Brother Accelerated hypertension Son No problems noted. Daughter No problems noted. Sister Leukemia Sister Cerebral palsy Sister No problems noted. Social History Household Members: Family Both parents involved: No Caregiver staying overnight: No [facility] Are you a primary healthcare management to a significant other at home: No Do you presently have visiting nurse or other home services: No Alcohol intake: current Alcohol intake frequency: holidays/special occasions only Patient Tobacco Use Status: Former Tobacco user Tobacco use type: Cigarette Years Smoked: 12 years ago , started at 15 years old, 2 PPD e-Cigarette/Vaping Use: Never Used Second Hand Smoke Exposure: No service: No Current occupational status: previously employed and retired 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 small, frequent, high protein meals 2. increase water intake 3. start food log 4. Increase weight bearing exercise 5. start celebrate MVI Plan 1. small, frequent, high protein meals 2. increase water intake 3. start food log 4. Increase weight bearing exercise 5. start celebrate MVI Patient Instructions: 1. small, frequent, high protein meals 2. increase water intake 3. start food log 4. Increase weight bearing exercise 5. start celebrate MVI Coding Level of Care Code Nutr Indiv Intake (72538) Diagnoses Diabetes E11.9
== END 2025-06-03 16:00 | disposition home or self-care (01) ==
LOC: HO.HMCCN 14:12
PROVIDERS: PCP Nurse Practitioner Family; Visit Provider Dietitian, Registered
DX: E11.9 Type 2 diabetes mellitus without complications (principal)

== ENCOUNTER → 2025-06-03 14:12 | Outpatient (BNVA) | payer MEDICARE, OTHER, SELFPAY | PROVIDERS: PCP Nurse Practitioner Family; Visit Provider Dietitian, Registered | DX: E11.9 Type 2 diabetes mellitus without complications (principal); E66.9 Obesity, unspecified; R10.13 Epigastric pain; K59.00 Constipation, unspecified; Z71.3 Dietary counseling and surveillance | CPT/HCPCS: 97802 ==

== ENCOUNTER → 2025-06-17 14:53 | Outpatient (BNVA) | payer MEDICARE, OTHER, SELFPAY | PROVIDERS: PCP Nurse Practitioner Family | DX: Z01.30 Encounter for examination of blood pressure without abnormal findings (principal) | CPT/HCPCS: 99211 ==